=== PATIENT | male | born 1940 | race Caucasian/White ===

== ENCOUNTER 2022-10-27 07:46 | Outpatient (OUT) | payer MEDICARE, OTHER, SELFPAY ==
--- NOTE | 2022-10-27 07:52 | US_ITS ---
The [address] [address] Patient Name: JEFERSON BANGURA MRN: [id number] date: 1940 Sex: M Assigned Patient Location: US Current Patient Location: US Accession/Order Number: [id number] Exam Date: 10/27/2022 08:00 Report Date: 10/27/2022 08:33 At the request of: LISA NOVA Procedure: US renal BI EXAM: US renal BI HISTORY: Chronic Kidney Disease Stage 3 COMPARISON: None. TECHNIQUE: Real-time ultrasound imaging of the kidneys and bladder. Findings: Unremarkable bladder. Prevoid volume of 538 mL. The right and left kidneys measure 8.9 and 11.8 cm. The bilateral renal cortices are echogenic. Within the lower pole the right kidney there is a 0.5 x 0.3 x 0.5 cm nonobstructing stone. Nonobstructing 0.6 x 0.4 x 0.4 cm within the lower pole the left kidney. No renal collecting system dilatation bilaterally. Off the lower pole of the left kidney is a 1.6 x 1.4 x 1.4 cm anechoic lesion with posterior acoustic enhancement likely representing a cyst. No perinephric fluid collection. US/US renal BI IMPRESSION: 1. Echogenic bilateral renal cortices likely relating to chronic kidney disease. 2. Nonobstructing bilateral renal stones. 3. Left renal cyst. Electronically authenticated by: ALBERTO BERNABE Date: 10/27/2022 08:33
== END 2022-10-27 07:47 | disposition home or self-care (01) ==
LOC: US 07:46
PROVIDERS: PCP Family Medicine; Visit Provider Internal Medicine
DX: I12.9 Hypertensive chronic kidney disease with stage 1 through stage 4 chronic kidney disease, or unspecified chronic kidney disease (principal); N18.32 Chronic kidney disease, stage 3b; E11.22 Type 2 diabetes mellitus with diabetic chronic kidney disease; N25.81 Secondary hyperparathyroidism of renal origin; E78.5 Hyperlipidemia, unspecified; M10.9 Gout, unspecified
CPT/HCPCS: 76775

== ENCOUNTER 2022-12-08 10:54 | Outpatient (OUT) | payer MEDICARE, OTHER, SELFPAY ==
[2022-12-08 11:15] LABS: Hemoglobin 14.9 g/dL (14.0-18.0)
[2022-12-08 11:17] LABS: Bilirubin Urine NEGATIVE (NEGATIVE); Blood Urine NEGATIVE (NEGATIVE); Clarity Urine CLEAR (CLEAR); Color Urine LT. YELLOW (YELLOW); Glucose Urine UA NEGATIVE (NEGATIVE); Ketones Urine NEGATIVE (NEGATIVE); Leukocyte Esterase Urine NEGATIVE (NEGATIVE); Nitrite Urine NEGATIVE (NEGATIVE); Protein Urine NEGATIVE (NEG/TRACE); Specific Gravity Urine 1.025 (1.005-1.025); Urobilinogen Urine 0.2 EU/dL (0.2-1.0)
[2022-12-08 11:22] LABS: WBC Urine NONE SEEN #/HPF (NONE SEEN)
[2022-12-08 11:23] LABS: Bacteria Urine NONE SEEN #/HPF (NONE SEEN); Cast Seen? NONE SEEN #/LPF (NONE SEEN); Crystals Seen? None Seen #/HPF (None Seen); Mucus Urine NONE SEEN (NONE SEEN); RBC Urine NONE SEEN #/HPF (0-2); Squamous Epithelial Cell Urine RARE #/LPF (NONE/RARE)
[2022-12-08 12:07] LABS: Creatinine Urine Random 86.65 mg/dL (20.00-300.00); Protein Creatinine Ratio Urine 0.09; Total Protein Urine Random 7.4 mg/dL (<=11.9)
[2022-12-08 12:41] LABS: Albumin Level 3.7 g/dL (3.4-5.0); Anion Gap 10.4; BUN Creatinine Ratio 11.4; Calcium 10.1 mg/dL (8.5-10.1); Carbon Dioxide 29.3 mmol/L (21.0-32.0); Chloride 106 mmol/L (98-107); Estimated GFR (African America 55 (>=60); Estimated GFR (Non-African Ame 45 (>=60); Glucose 119 mg/dL (74-106); Magnesium 1.9 mg/dL (1.8-2.4); Phosphorus 2.7 mg/dL (2.6-4.7); Potassium 4.7 mmol/L (3.5-5.1); Sodium 141 mmol/L (136-145); Uric Acid 3.3 mg/dL (3.5-7.2)
[2023-01-15 12:56] LABS: PTH, Intact 57 pg/mL (15-65)
== END 2022-12-08 10:55 | disposition home or self-care (01) ==
LOC: LAB 10:54
PROVIDERS: PCP Family Medicine; Visit Provider Internal Medicine
DX: I12.9 Hypertensive chronic kidney disease with stage 1 through stage 4 chronic kidney disease, or unspecified chronic kidney disease (principal); N18.32 Chronic kidney disease, stage 3b; E11.22 Type 2 diabetes mellitus with diabetic chronic kidney disease; N25.81 Secondary hyperparathyroidism of renal origin; E78.5 Hyperlipidemia, unspecified
CPT/HCPCS: 36415; 80069; 81001; 82306; 82570; 83735; 83970; 84156; 84550; 85014; 85018

== ENCOUNTER 2023-03-12 07:48 | Outpatient (OUT) | payer OTHER, SELFPAY ==
--- NOTE | 2023-03-12 08:53 | CA_ITS ---
Patient Name: JEFERSON BANGURA MR#: [id number] : 1940 Exam Date: 03/12/2023 Ordering Doctor: CATHERINE SHEPARD ECHOCARDIOGRAM REPORT PROCEDURE: CA ECHO DOPPLER COMPLETE INDICATIONS: Heart failure with reduced ejection fraction, CABG, hypertension COMPARISON: None. DESCRIPTION: COMPLETE ECHOCARDIOGRAM Real-time transthoracic echocardiography with 2D, M-mode, spectral and color flow Doppler performed. QUALITY: Technical quality was good. 72 , 260#, BSA 2.38 m2 LEFT VENTRICLE: Normal chamber size. Normal left ventricular wall thickness. LV EF: Global left ventricular systolic function is difficult to assess but appears moderately reduced; visually estimated ejection fraction is 30-35%. The basal anterolateral, the inferolateral and basal inferior vick are akinetic. Abnormal septal motion; no apparent unusual finding in the post open palpation. DIASTOLIC: Grade II diastolic dysfunction. ATRIAL SEPTUM: Inadequately seen. LEFT ATRIUM: Moderate dilatation. RIGHT ATRIUM: Mild dilatation. RIGHT VENTRICLE:Normal chamber size. Decreased right ventricular systolic function. TRICUSPID VALVE:Normal mobility and thickness. No stenosis with trivial regurgitation. Doppler studies reveal mildly (35-45) elevated right sided pressures. RVSP 37 mmHg MITRAL VALVE: Normal mobility and thickness. No evidence of mitral valve stenosis. There is no mitral annular calcification. Mild mitral regurgitation. AORTIC VALVE: Normal trileaflet appearance. Moderately calcified aortic valve. Doppler velocity suggests moderate aortic valve stenosis. DVI 0.3, AVA1.5 cm2. Mild aortic regurgitation. AORTIC ROOT: Normal diameter and appearance. PULMONIC VALVE: Normal thickness and mobility. No stenosis. Trivial regurgitation. PERICARDIUM: No evidence of pericardial effusion. IVC: IVC is dilated (2.4 cm) and does not fully collapse. CONCLUSION: 1. Global left ventricular systolic function is difficult to assess but appears moderately reduced; estimated ejection fraction is 30 to 35% 2. Segmental wall motion abnormalities seen; consider contrast study for better delineation of endocardial borders 3. Normal right ventricular size with reduced systolic function 4. Biatrial enlargement 5. Grade 2 diastolic dysfunction 6. Mildly elevated right ventricular systolic pressure; RVSP 37 mmHg 7. Mild mitral regurgitation 8. Moderate aortic valve stenosis; mild aortic valve regurgitation Adult Echocardiography Procedure Report Left Ventricle LVEDD (3.7 - 5.6 cm): 5.53 cm LVESD (2.2 - 4.0 cm): 4.96 cm LVIVS thickness (0.6 - 1.2 cm): 0.95 cm LVPW thickness (0.5 - 1.0 cm): 0.93 cm e': 0.06 m/s E - e': 14.18 LVOT Max Gradient: 4.39 mm[Hg] LVOT Area (cm2): 1.05 m/s Peak Velocity (LVOT): 1.05 m/s Mean Velocity (LVOT): 0.67 m/s LVOT Diameter 2.25 cm Left Atrium LA Volume Index (2D A2C): 45.18 ml/m2 Left Atrium Systolic Dimension: 5.78 cm Mitral Valve MV E to A Ratio: 1.27 Mitral Valve A-Wave Peak Velocity: 0.69 m/s Mitral Valve E-Wave Peak Velocity: 0.87 m/s Right Ventricle Aorta AO Root Diam: 3.32 cm Ascending Ao Diam: 3.32 cm Aortic Valve AoV Area (Peak Ray): 1.35 cm2, 1.59 cm2 AoV Area (VTI): 1.52 cm2, 1.52 cm2 Peak Velocity(Antegrade Flow): 2.62 m/s, 3.04 m/s, 3.10 m/s Peak Gradient(Antegrade Flow): 27.48 mm[Hg], 37.02 mm[Hg], 38.43 mm[Hg] Mean Velocity(Antegrade Flow): 1.81 m/s, 2.27 m/s, 1.86 m/s Mean Gradient(Antegrade Flow): 15.04 mm[Hg], 23.97 mm[Hg], 17.24 mm[Hg] Velocity Time Integral: 63.48 cm, 58.65 cm, 61.75 cm Tricuspid Valve Peak Velocity (Regurgitant Flow): 2.36 m/s Pulmonic Valve Peak Gradient: 7.43 mm[Hg], 6.48 mm[Hg] Right Atrium Right Atrium Systolic Pressure: 43.27 ml, 43.27 ml Dictated by: Kelly Ann M.D. on 03/13/2023 at 10:31 Approved by: Kelly Ann M.D. on 03/13/2023 at 10:38
== END 2023-03-12 07:49 | disposition home or self-care (01) ==
LOC: CARD 07:48
PROVIDERS: PCP Family Medicine; Visit Provider Nurse Practitioner
DX: I50.22 Chronic systolic (congestive) heart failure (principal)
CPT/HCPCS: 93306

== ENCOUNTER 2023-09-14 06:52 | Outpatient (OUT) | payer OTHER, SELFPAY ==
--- OUTSIDE RECORDS SUMMARY | 2023-09-14 06:56 | XMS_ITS | CCD ---
Author Organization [facility] Care Team Providers Care Brood Hatchery Manager Name Role Phone Luci Farrell Unavailable Unavailab eloisa Farrell, Luci Peralta Unavailable Unavailab le Bud, Luci Fabian Unavailable Unavailab Marilou Bunch Unavailable Unavailable Bud, Luciarlen Peralta Unavailable Unavailab WING López Referring Unavailable UNKNOWN, PROVIDER Admitting Unavailable UNKNOWN, PROVIDER Attending Unavailable WING PEREZ Primary Care Unavailable WING PEREZ Primary Care Physician [phone] CHRIS, DR WING Dickinson Primary Care Unavailable CHRIS, DR WING Dickinson Admitting Unavailable CHRIS, DR WING Dickinson Attending Unavailable CHRIS, DR WING Dickinson Consulting Unavailable CHRIS, DR WING Dickinson Admitting Unavailable CHRIS, DR WING Dickinson Attending Unavailable CHRIS, DR WING Dickinson Consulting Unavailable CHRIS, DR WING Dickinson Primary Care Unavailable Pk Monge. Primary Care Physician Tita Keyes Unavailable JOSE ANGEL LONGORIA Attending Unavailable JOSE ANGEL LONGORIA Attending Unavailable TRENT FENRANDEZ Attending Unavailable ARPITA REGALADO Attending Unavailable Pk Monge Attending Unavailable Pk Monge Admitting Unavailable Danny BAEZ Attending Unavailable Pk Monge Referring Unavailable Blackman, Basem GAnnel Admitting Unavailable Blackman Basem GAnnel Attending Unavailable Pk Monge Attending Unavailable Pk Monge Attending Unavailable Pk Monge Attending Unavailable Pk Monge Attending Unavailable Pk Monge Attending Unavailable Pk Monge Attending Unavailable Pk Monge Attending Unavailable Pk Monge Attending Unavailable Pk Monge Admitting Unavailable Pk Monge Attending Unavailable Allergies Allergy Classification Reported Allergen(s) Allergy Type Date of Onset Reaction(s) Facility Acetaminophen / oxyCODONE (1 source) Acetaminophen / oxyCODONE Drug Allergy 4 [facility] Repository (7 sources) Acetaminophen / oxyCODONE; Translations: [acetaminophen-ox ycodone] Drug Allergy Mild (qualifier value) [facility] (1 source) Acetaminophen / oxyCODONE Drug Allergy 6 [facility] Repository (2 sources) gabapentin; Translations: [gabapentin] Drug Allergy 0 [facility] Repository (1 source) tamsulosin Drug Allergy 6 [facility] Repository (3 sources) gabapentin; Translations: [gabapentin] Drug Allergy Unknown (qualifier value) [facility] (1 source) Acetaminophen / oxyCODONE; Translations: [OXYCODONE-ACETAM INOPHEN] Drug Allergy 4 [facility] Repository Medications Current Medications Medication Drug Class(es) Dates Sig (Normalized) Sig (Original) allopurinol 300 mg oral tablet (3 sources) Xanthine Oxidase Inhibitor Start: 08-06-2022 take 1 tablet by mouth once daily allopurinol 300 mg Tab 300 mg, Oral, Daily, # 90 tab(s), Refills(s) 1, Pharmacy: [facility], 185, cm, 08/06/22 10:21:00 EDT, Height/Length Dosing, 119, kg, 08/06/22 10:21:00 EDT, Weight Dosing Start Date: 08/06/22 Status: Ordered Start: 08-29-2019 take 300 mg by mouth once helena y allopurinol 300 mg, Oral, Daily, Refills(s) 0 Start Date: 08/29/19 Status: Ordered ALPRAZolam 0.5 mg disintegrating oral tablet (3 sources) Benzodiazepine Start: 09-06-2021 take 1 tablet by mouth three times daily as needed for anxiety alprazolam 0.5 mg oral tablet, disintegrating 0.5 mg = 1 tab(s), Oral, TID, PRN for anxiety, Refills(s) 0 Start Date: 09/06/21 Status: Ordered take 1 tablet by garrett th once daily as needed ALPRAZolam 0.5 MG 1 tablet Orally ONCE A DAY PRN Active amitriptyline hydrochloride 10 mg oral tablet (3 sources) Tricyclic Antidepressant Start: 08-06-2022 take 1 tablet by mouth once daily at bedtime amitriptyline 10 mg Tab 10 mg, Oral, Once a day (at bedtime), Take 2 hours before bedtime, # 90 tab(s), Refills(s) 1, Pharmacy: [facility], 185, cm, 08/06/22 10:21:00 EDT, Height/Length Dosing, 119, kg, 08/06/22 10:21:00 EDT, Weight Dosing Start Date: 08/06/22 Status: Ordered Start: 08-29-2019 amitriptyline Oral, Once a day (at bedtime), Refills(s) 0 Start Date: 08/29/19 Status: Ordered Ascorbic Acid (3 sources) Vitamin C Start: 08-29-2019 Vitamin C Helena y, Refills(s) 0 Start Date: 08/29/19 Status: Ordered take 1 tablet by garrett th every twenty-four hours Vitamin C 500 MG 1 tablet Orally Once a day Active aspirin 81 mg oral tablet (5 sources) Platelet Aggregation Inhibitor, Nonsteroidal Anti-inflammatory Drug Start: 08-29-2019 take 81 mg by mouth once daily aspirin 81 mg, Oral, Daily, Refills(s) 0 Start Date: 08/29/19 Status: Ordered take 1 tablet by garrett th every twenty-four hours Aspirin 81 MG 1 tablet Orally Once a day Active atorvastatin 20 mg oral tablet (5 sources) HMG-CoA Reductase Inhibitor Start: 08-29-2019 End: 12-26-2023 take 1 tablet by mouth once daily atorvastatin 20 mg Tab 20 mg, Oral, Daily, X 90 day(s), # 90 tab(s), Refills(s) 3, [facility], 178, cm, 12/31/22 15:01:00 EDT, Height/Length Dosing, 120, kg, 12/31/22 15:01:00 EDT, Weight Dosing Start Date: 12/31/22 Stop Date: 12/26/23 Status: Ordered cholecalciferol 0.01 mg oral tablet (1 source) Vitamin D take 2 tablets by mouth once daily Vitamin D3 10 MCG (400 UNIT) 2 tablets Orally Once a day Active Chondroitin Sulfates / Glucosamine (4 sources) Start: 08-06-2022 take 1 tablet by mouth once daily Osteo Bi-Flex oral tablet 1 tablet, Daily, Refill(s) 0 Start Date: 08/06/22 Status: Ordered Osteo Bi-Flex On e Per Day - as directed Orally Active dapagliflozin 10 mg oral tablet (2 sources) Sodium-Glucose Cotransporter 2 Inhibitor Start: 09-01-2023 take 1 tablet by mouth once daily Farxiga 10 mg oral tablet 10 mg = 1 tab(s), Oral, Daily, Refills(s) 0 Start Date: 09/01/23 Status: Ordered docusate sodium 100 mg oral tablet (5 sources) Start: 08-29-2019 take 100 mg by mouth twice daily Colace 100 mg, Oral, BID, Refills(s) 0 Start Date: 08/29/19 Status: Ordered take 2 capsules by [facility] every twelve hours Colace 100 MG 2 capsule as needed Orally TWICE A DAY Active fenofibrate 200 mg oral capsule (3 sources) Peroxisome Proliferator Receptor alpha Agonist Start: 08-06-2022 take 1 capsule by mouth once daily fenofibrate 200 mg oral capsule 200 mg = 1 cap(s), Oral, Daily, # 90 cap(s), Refills(s) 1, Pharmacy: [facility], 185, cm, 08/06/22 10:21:00 EDT, Height/Length Dosing, 119, kg, 08/06/22 10:21:00 EDT, Weight Dosing Start Date: 08/06/22 Status: Ordered Start: 01-09-[address] [facility] once daily fenofibrate 200 mg oral capsule 200 mg = 1 cap(s), Oral, Daily, # 30 cap(s), Refills(s) 0 Start Date: 01/09/20 Status: Ordered finasteride 5 mg oral tablet (3 sources) 5-alpha Reductase Inhibitor Start: 09-08-2022 End: 09-03-2023 take 1 tablet by mouth once daily finasteride 5 mg Tab 5 mg = 1 tab(s), Oral, Daily, X 90 day(s), # 90 tab(s), Refills(s) 3, Pharmacy: [facility], 185, cm, 09/08/22 8:40:00 EDT, Height/Length Dosing, 116, kg, 09/08/22 8:40:00 EDT, Weight Dosing Start Date: 09/08/22 Stop Date: 09/03/23 Status: Ordered Start: 08-29-2019 take 5 mg by mouth once daily finasteride 5 mg, Oral, Daily, Refills(s) 0 Start Date: 08/29/19 Status: Ordered Fish Oils (5 sources) Start: 01-09-2020 Fish Oil Oral, Daily, Refill(s) 0 Start Date: 01/09/20 Status: Ordered take 1 capsule by mouth once verenice ly Fish Oil 1200 MG 1 capsule Orally Once a day Active furosemide 20 mg oral tablet (5 sources) Loop Diuretic Start: 12-31-2022 take 1 tablet by mouth once daily furosemide 20 mg Tab 20 mg = 1 tab(s), Oral, Daily, # 90 tab(s), Refills(s) 1, Pharmacy: [facility], 178, cm, 12/31/22 15:01:00 EDT, Height/Length Dosing, 120, kg, 12/31/22 15:01:00 EDT, Weight Dosing Start Date: 12/31/22 Status: Ordered Start: 08-29-2019 take 1 tablet by garrett th once daily furosemide 20 mg Tab 20 mg = 1 tab(s), Oral, Daily, # 90 tab(s), Refills(s) 1, Pharmacy: [facility], 185, cm, 08/06/22 10:21:00 EDT, Height/Length Dosing, 119, kg, 08/06/22 10:21:00 EDT, Weight Dosing Start Date: 08/06/22 Status: Ordered glipiZIDE 5 mg oral tablet (5 sources) Sulfonylurea Start: 03-02-2023 take 1 tablet by mouth once daily glipiZIDE 5 mg Tab 5 mg, Oral, Daily, # 90 tab(s), Refills(s) 1, Pharmacy: [facility], 178, cm, 03/02/23 10:10:00 EST, Height/Length Dosing, 118.1, kg, 03/02/23 10:10:00 EST, Weight Dosing Start Date: 03/02/23 Status: Ordered Start: 08-29-2019 take 1 tablet by garrett th once daily glipiZIDE 5 mg Tab 5 mg, Oral, Daily, # 90 tab(s), Refills(s) 1, Pharmacy: [facility], 185, cm, 08/06/22 10:21:00 EDT, Height/Length Dosing, 119, kg, 08/06/22 10:21:00 EDT, Weight Dosing Start Date: 08/06/22 Status: Ordered metFORMIN hydrochloride 500 mg oral tablet (3 sources) Biguanide Start: 03-02-2023 take 1 tablet by mouth twice daily metformin 500 mg ER Tab 500 mg = 1 tab(s), Oral, BID, # 180 tab(s), Refills(s) 0, Pharmacy: [facility], 178, cm, 03/02/23 10:10:00 EST, Height/Length Dosing, 118.1, kg, 03/02/23 10:10:00 EST, Weight Dosing Start Date: 03/02/23 Status: Ordered take 1 tablet by garrett th every twelve hours metFORMIN HCl ER 500 MG 1 TABLET Orally TWICE A DAY Active 24 hr metoprolol succinate 100 mg extended release oral tablet (5 sources) beta-Adrenergic Michael Start: 03-02-2023 take 1 tablet by mouth once daily metoprolol 100 mg ER Tab 100 mg = 1 tab(s), Oral, Daily, # 90 tab(s), Refills(s) 1, Pharmacy: [facility], 178, cm, 03/02/23 10:10:00 EST, Height/Length Dosing, 118.1, kg, 03/02/23 10:10:00 EST, Weight Dosing Start Date: 03/02/23 Status: Ordered Start: 01-09-2020 take 1 tablet by garrett th once daily metoprolol 100 mg ER Tab 100 mg = 1 tab(s), Oral, Daily, # 90 tab(s), Refills(s) 1, Pharmacy: [facility], 185, cm, 08/06/22 10:21:00 EDT, Height/Length Dosing, 119, kg, 08/06/22 10:21:00 EDT, Weight Dosing Start Date: 08/06/22 Status: Ordered 24 hr oxybutynin chloride 10 mg extended release oral tablet (5 sources) Cholinergic Muscarinic Antagonist Start: 01-01-2023 take 1 tablet by mouth twice daily oxybutynin 10 mg ER Tab 10 mg = 1 tab(s), Oral, BID, # 180 tab(s), Refills(s) 3, Pharmacy: [facility], 178, cm, 12/31/22 15:01:00 EDT, Height/Length Dosing, 120, kg, 12/31/22 15:01:00 EDT, Weight Dosing Start Date: 01/01/23 Status: Ordered Start: 09-08-2022 End: 09-03-2023 take 2 tablets by mouth once daily oxybutynin 10 mg ER Tab 20 mg = 2 tab(s), Oral, Daily, X 90 day(s), # 180 tab(s), Refills(s) 3, Pharmacy: [facility], 185, cm, 09/08/22 8:40:00 EDT, Height/Length Dosing, 116, kg, 09/08/22 8:40:00 EDT, Weight Dosing Start Date: 09/08/22 Stop Date: 09/03/23 Status: Ordered Start: 07-11-2021 take 2 tablets by [facility] once daily oxybutynin 10 mg ER Tab 20 mg = 2 tab(s), Oral, Daily, # 180 cap(s), Refills(s) 3, Pharmacy: [facility], 185, cm, 03/08/21 8:55:00 EST, Height/Length Dosing, 129, kg, 03/08/21 8:55:00 EST, Weight Dosing Start Date: 07/11/21 Status: [facility] oxyBUTYnin Chloride ER 10 MG 1 tablet Orally TWICE A DAY Active pantoprazole 40 mg delayed release oral tablet (5 sources) Proton Pump Inhibitor Start: 09-01-2023 take 1 tablet by mouth once daily Pantoprazole [address] Tab 40 mg = 1 tab(s), Oral, Daily, Refills(s) 0 Start Date: 09/01/23 Status: Ordered Start: 08-06-2022 End: 08-01-2023 take 1 tablet by mouth once daily Pantoprazole [address] Tab 40 mg, Oral, Daily, X 90 day(s), # 90 tab(s), Refills(s) 3, Pharmacy: [facility], 185, cm, 08/06/22 10:21:00 EDT, Height/Length Dosing, 119, kg, 08/06/22 10:21:00 EDT, Weight Dosing Start Date: 08/06/22 Stop Date: 08/01/23 Status: Ordered Start: 08-29-2019 take 40 mg by mouth once daily pantoprazole 40 mg, Oral, Daily, Refills(s) 0 Start Date: 08/29/19 Status: Ordered sacubitril 49 mg / valsartan 51 mg oral tablet (4 sources) Angiotensin 2 Receptor Michael Start: 07-14-2022 take 1 tablet by mouth twice daily Entresto 49 mg-51 mg oral tablet 1 tab(s), Oral, BID, Refill(s) 0 Start Date: 07/14/22 Status: Ordered spironolactone 25 mg oral tablet (2 sources) Aldosterone Antagonist Start: 09-01-2023 take 0.5 tablet by mouth once daily spironolactone 25 mg Tab See Instructions, Take 1/2 orally daily, Refills(s) 0 Start Date: 09/01/23 Status: Ordered tamsulosin hydrochloride 0.4 mg oral capsule (5 sources) alpha-Adrenergic Michael Start: 09-06-2021 End: 09-03-2023 take 1 capsule by mouth twice daily tamsulosin 0.4 mg Cap 0.4 mg = 1 cap(s), Oral, BID, X 90 day(s), # 180 cap(s), Refills(s) 3, Pharmacy: [facility], 185, cm, 09/08/22 8:40:00 EDT, Height/Length Dosing, 116, kg, 09/08/22 8:40:00 EDT, Weight Dosing Start Date: 09/08/22 Stop Date: 09/03/23 Status: Ordered traZODone hydrochloride 50 mg oral tablet (2 sources) Serotonin Reuptake Inhibitor Start: 07-21-2023 take 1 tablet by mouth once daily at bedtime traZODONE 50 mg Tab 50 mg = 1 tab(s), Oral, Once a day (at bedtime), # 90 tab(s), Refills(s) 3, Pharmacy: [facility], 178, cm, 07/21/23 14:10:00 EDT, Height/Length Dosing, 121, kg, 07/21/23 14:10:00 EDT, Weight Dosing Start Date: 07/21/23 Status: Ordered Vitamin D (4 sources) Start: 08-29-2019 Vitamin D 5000, Oral, Daily, Refills(s) 0 Start Date: 08/29/19 Status: Ordered Vitamin E (2 sources) Start: 08-29-2019 vitamin E Oral, Daily, Refills(s) 0 Start Date: 08/29/19 Status: Ordered Vitamin E 400 UNIT (1 source) take 1 capsule by mouth once daily Vitamin E 400 UNIT 1 capsule Orally Once a day Active Problems Active Problems Problem Classification Problem Date Documented Date Episodic/Chronic Anxiety disorders (3 sources) Anxiety 07-14-2022 Chronic Calculus of urinary tract (6 sources) Urinary bladder stone; Translations: [Kidney stone] 01-09-2020 Episodic Cardiac dysrhythmias (2 sources) Ventricular premature depolarization; Translations: [Ventricular premature depolarization] Onset: 4 Chronic Chronic kidney disease (6 sources) Chronic kidney disease stage 3; Translations: [Chronic kidney disease stage 3B ] Onset: 2 07-14-2022 Chronic Chronic kidney disease (3 sources) Chronic kidney disease; Translations: [Chronic kidney disease, stage 3a] Onset: 2 Congestive heart failure; nonhypertensive (2 sources) Chronic systolic (congestive) heart failure; Translations: [Chronic systolic (congestive) heart failure] Onset: 2 Chronic Coronary atherosclerosis and other heart disease (5 sources) Coronary artery stenosis; Translations: [Atherosclerotic heart disease of [place] coronary artery without angina pectoris] Onset: 4 07-14-2022 Chronic Coronary atherosclerosis and other heart disease (2 sources) Presence of aortocoronary bypass graft; Translations: [Presence of aortocoronary bypass graft] Onset: 4 Episodic Coronary atherosclerosis and other heart disease (1 source) Coronary atherosclerosis and other heart disease Onset: 7 Diabetes mellitus with complications (3 sources) Type 2 diabetes mellitus with unspecified complications; Translations: [Disorder of kidney due to diabetes mellitus] Onset: 2 Chronic Diabetes mellitus without complication (9 sources) Type 2 diabetes mellitus without complications; Translations: [Type 2 diabetes mellitus] Onset: 2 Chronic Comment on above: Linked per outpatien t CDI policy. Disorders of lipid metabolism (13 sources) Mixed hyperlipidemia; Translations: [Pure hypercholesterolemia, unspecified] Onset: 2 Chronic Esophageal disorders (1 source) Esophageal disorders Onset: 7 Essential hypertension (5 sources) Hypertensive disorder; Translations: [Benign hypertension] 07-14-2022 Chronic Comment on above: Linked per outpatien t CDI policy. Essential hypertension (1 source) Essential hypertension Onset: 7 Genitourinary symptoms and ill-defined conditions (8 sources) Urge incontinence; Translations: [Post-micturition incontinence ] Onset: 2 Chronic Genitourinary symptoms and ill-defined conditions (20 sources) Dysuria; Translations: [[place] hematuria] 02-13-2020 Episodic Gout and other crystal arthropathies (2 sources) Gout, unspecified; Translations: [Gout] Onset: 2 Chronic Heart valve disorders (2 sources) Nonrheumatic aortic (valve) stenosis; Translations: [Nonrheumatic aortic (valve) stenosis] Onset: 2 Chronic Hyperplasia of prostate (6 sources) Benign prostatic hypertrophy with outflow obstruction; Translations: [Benign prostatic hyperplasia with lower urinary tract symptoms] Onset: 2 Chronic Hypertension with complications and secondary hypertension (3 sources) 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; Translations: [Hypertensive chronic kidney disease with stage 5 chronic kidney disease or end stage renal disease] Chronic Inflammatory conditions of male genital organs (5 sources) Chronic prostatitis; Translations: [Chronic prostatitis] Onset: 2 Chronic Inflammatory conditions of male genital organs (2 sources) Prostatitis 01-09-2020 Episodic Nutritional deficiencies (1 source) Vitamin D deficiency, unspecified; Translations: [VITAMIN D DEFICIENCY UNSPECIFIED] Onset: 2 Chronic Other connective tissue disease (1 source) Polymyalgia rheumatica 07-14-2022 Chronic Other diseases of kidney and ureters (1 source) Secondary hyperparathyroidism; Translations: [Secondary hyperparathyroidism of renal origin] Chronic Other diseases of kidney and ureters (1 source) Secondary hyperparathyroidism of renal origin Chronic Other endocrine disorders (1 source) Hyperparathyroidism, unspecified; Translations: [HYPERPARATHYROIDISM UNSPECIFIED] Onset: 2 Chronic Other endocrine disorders (1 source) Hyperparathyroidism 07-14-2022 Chronic Other nutritional; endocrine; and metabolic disorders (3 sources) Body mass index 30+ - obesity 08-06-2022 Chronic Residual codes; unclassified (3 sources) Obstructive sleep apnea syndrome 07-14-2022 Chronic Residual codes; unclassified (2 sources) Insomnia 12-31-2022 Episodic Unclassified (1 source) Benign prostatic hyperplasia without lower urinry tract symp / N40.0(ICD-10) Onset: 7 Unclassified (1 source) Athscl heart disease of [place] coronary artery w/o ang pctrs / I25.10(ICD-10) Onset: 7 Unclassified (1 source) Hallucinations, unspecified / R44.3(ICD-10) Onset: 7 Unclassified (2 sources) Incisional hernia with obstruction, without gangrene / K43.0(ICD-10) Onset: 7 Unclassified (1 source) Anxiety disorder, unspecified / F41.9(ICD-10) Onset: 7 Unclassified (1 source) alf (current) use of aspirin / Z79.82(ICD-10) Onset: 7 Unclassified (1 source) Incisional hernia without obstruction or gangrene / K43.2(ICD-10) Onset: 7 Unclassified (1 source) Presence of aortocoronary bypass graft / Z95.1(ICD-10) Onset: 7 Unclassified (4 sources) Finding of sensation of bladder 08-29-2019 Viral infection (3 sources) Herpes zoster 07-14-2022 Episodic Past or Other Problems Problem Classification Problem Date Documented Da te Episodic/Chronic Abdominal hernia (1 source) Incisional hernia without obstruction or gangrene; Translations: [Incisional hernia without obstruction or gangrene] Onset: 10-14-2016 Episodic Unclassified (1 source) Incisional hernia with obstruction, without gangrene; Translations: [Incisional hernia with obstruction, without gangrene] Onset: 10-15-2016 Results Test Name Value Interpretation Reference Range Facil ity Insurance Correspondenceon 0 09-10-2023 Insurance Correspondence [id number]#[id number] Pina [facility] Coding Summary.on 09-08-2023 Coding Summary. VYWJNcwh49IAk0qQm+PG hlYW Q+WO3FKKYwS70qsNKptP4eZ7 NMTElOSywgQVBQTElOSyIgbm KiJX6noCXcQVIm IC8+KZ7nXNAxRykefEYhr1O4 wXV9K90ohd9oYOtkgPA7AMKh JjCwuytez0cceCe2UExwJyik OyBt CDMpvQ44TFK2rD41Fr32rYKf fUTrk2rskXj4BrRsIPVjUVA1 oGnbLNnqp9WzQZShI20paPHf c2U6 XBNfaLcyiTKjPpRajQB0bQ3w DXicotesy4qkrtyeZjy0rz43 nZWpr9S6gEZ3Y5LxrdR8BVKr bGQg ThpouAGGwL2ssjzyl6fqnpvy CkGiWMJaZLv6OWs0GVBskEom JvHrGH07DUI1VPHtfmMfO0Ya LWFs bZplIvY7r9T1Rv7YV7PBGajl W5CPKMTNFHpvuVU+YX16ro28 A2XmPtffXyy0FAMhIWS5qQX8 aD0n QTQkFYhny8X0kVP0K3WsezGx di0ss6xkZSNvYStbL58lhPIt j9E0MIWnsJC6VPEorPzqYwRl aG93 Oyc+QNZlaZhzz6GoKoccw5gm g5nawXb4TmahQLUrivYxlSbh NUP8m9BtLp7fEEGxfWL3eWY6 aD0i PbYrSpC2NNleV625PeKsrWYb VsitM50yK4HdvXB+PHRyPjx0 IGHxwSkyAG9rP8DjFGQlfhsg bGVm uIfiTM3wITGnncsiNVVfnZ0h GKMfD4r3MuOgUfZ1BAfsH1Zu ARGxcmwrJf18vT8qYhTuQjM8 MGlu R7LrnvU4VCPiyBHdYGciNHS5 Q41cz5Z5LMFfGOYhIFU2lYT9 xO2pvUmkxtgurPOkgDhsmnAs dGlj VXksZIzoG955GRQjxRmtVpHa ZGluZyBEYXRlOiAgMDYvMTgv MjAyNDwvdGQ+YEItDNX9uRax PSAn qOVwFZltNi7ggZsurErmYM1d LOMcjmlhFWOqmA4xDMGutTEa lEtiUJ2oCXNcyczwo440PkBr MHB0 LOBqdGSuQ4OzfU7qShSlXJZs BLOrP2TyqCUoXVyyH305XAoj MbH8SRLnpbQtV9OyBXRpjZfh OiB0 z0A9Wy1Lu8SajcpkJ8EogDCq UrUeLmkdKZj1A7BtVjnfaIZ+ GY72EIHgGL62PEx9TKB8rEcs PSdi HFJqI8DkfP2sObQbTMJcSQHc Oyc+PHRhYmxlIHdpZHRoPScx BGFsNrSyaNauNK8jYj8iPFSk LWNv mNfqrGLvDjCqb0vlSTVnKNil SY6dxWbvK6UcmGO9ZSJxw8m9 Pt80B90mY9UhwCO+PGNvbCB3 aWR0 gI9aHdCwJgU4KRkuD828OkPm oBXjBgxcd8qci2rtwVz2UyG5 DSYmsqHhmFwdGHG6z5PsSp56 Y29s IHdpZHRoPSIxNSUiIHZhbGln ga8ehZ9dDj6+HUProMQ3bUB8 iD4dGaNgTuH0XTknZ530OdOb cCIv Kmivo2kvj9wxuTc8OpTsPPNe ohXfuVdhOWH3o2KnLq68C5Ik sRczv5AbLta8qp33yYQeg4I5 bGU9 T7ItAJExdqgnlMUocLiaGR7z JCQyewvgLKJhsP5wJHSgC6g3 UoBkMkK7WZalK5WhakM3PBGh bGQg QZQabIFMoG8ylytgv7kwbtre JzEsCCUwDQl5HWu9VVVewKdf EwNwMOG0EwD9CJH2nKTbhS5l bGln atkvyB2xNpk+CIP3jXIgzFUQ GC9oDrtmrZS+CEKdKQB4jGbf CVneUWRbhK5iFOIyU0i3HsSc LjA1 KVztL9NhfzF8NTRubCOvGEYq oXBScE7cqtzcx0bwovtyEsPl MDIwVEw4IKe8HBTndJzfShLd ZWZ0 GiW7EQD8eLPyfD7boZgslrnk zL0jSal+MzzheTfpRFA2MFj0 N2TbSeh9TZJlfYxaGS9ulMXy ZGlu Zi0thDsobLucRJ0sHWVahspj k059NaMeo1twXMEulVEdCOen UNU1C58qa0V6CQJwLJKkUOA9 dGV4 lD3xqBlolldvmVCvhJumbyCy zXgmRSflHTlkY557USTviRsp PaHeXAu7O3WvVfj3OJTxzOan ZT0n qVRvZQqmCz1vqMbxeConAO0g HACcuzsnr606XsQca1jvMGVj fMMyDMrnTNT9Y54of0U4YAFk MDAw TZO3rEQ2uP3xhHslktarvUBh qKmorcMoeXlqPJxyZJroM261 APWfxRkkQhFoyAd6M9BvCzn5 ZCBz iIjlTD0ldAUxNOmgGj0jaUaf jHvzAF3wTDPdpzzkn282BcDu k7stXBUctWWtSYvhSQP3B92y b3I6 QNKgWRPkSLH8dMF6mH1cnSkh bjogbGVmdDsgdmVydGljYWwt DOvdU565NXKblHbbOgTnwBje bnQg ZMhkLLu0K4LmGfmpnIB+PC90 MLHfDT25lBOvaTKrj2zigVl3 OcYlTMTrWJJ6zPpwHCmjb4Sl ZXIt F89btPMyq7O2KJXnsXzcnAWo QiRfvHF3bT8nWUfnlufrl9pb zgpvSledo2gikz08kN16H59u IHdp IWSnNLVbJYNyKZUleZbixk2w dW4mNo8+BEDwyCR2rZY6wO4y RHSwVfR3NCrrY768UjOizPWf Pjxj o1mes9wciNc6KlW1OHKobqMm oEzeHLA3v6WdOa66V05eEIkl MZIjITDtGUDcQZUszEvmbi7u dG9w Ii8+AHYyzLS8vSC4mC9wNaHu YpN6MDkcB827KcZktLWkCcsq A57dB5XbnBU+FLZhQrk3VKXz dHls JR5zxIKeHXdaIl5qZNC1AdKz EeHaWXwiP7CtDPYuitbpyikz rVW4MHQcXLWwuJ70Hn6rcZdn MTBw yPVRbR0cbcsur8tgxwcjKbJv URJwIAo9CQz5VQMndJpfFeFr LWM5CxQ4RQV9sVHjbG8osXll bjog wQ5aT9JsDENqculmGi10vN8u BnAwImL9KCyaEqv+TUVZRVIs BQvWNg5NAJriJPjqzXP+PHRk IHN0 xJtdUUdcTEXkzC8aLJRgN8z2 JiIeRvB5IWvrN4FoQQJrnksa Uv56sF0wRySqUrZ6TBakY2Ix bnQ6 TJTtsUWmPLqxLZD9D87jf2M4 PGYzLFOzZXO4xSS9iX8epQyv bjogbGVmdDsgdmVydGljYWwt YWxp I619JEQreAcmGjLfEeAbYuY4 ZIH5P1IuEcc5IUNjzJdiTH8t bLEmSUejRt3yvMiboYjkRO1g NTBp hwmvVTGrwV3qWZDhlLRtlOtc HJ2rTYXkcvjks623FyNeJBN6 ZRQijFRdK1AqdH3mCdPhNQVm MDAw H9PwdRNaDGcfJ777UXlpZvY2 EKAtzjLrS2OwMNFmcJroTdC0 n1C7Sg61BMCBTAKbvtlleKC+ PHRk CDL8oYsmUUeaHBUkzV6sYAHy I8y9NdShNtS5RKdhX6ZqKSWo blrcVf25vB2pSpWfPuP0RWmr O2Zv hyH0PIJzqDEwUDvcRCX2G56d x2K8YGMdGCNtKHV2zUK9lV9u bGlnbjogbGVmdDsgdmVydGlj YWwt DDrcG254KWMlhZmhWy5yeMX2 G4IhAvh9TIOpgOqwII0swKNu NDarYe6fiSzfzMweMA4eECSz bjtw HJQmoQ3nXWEzdOXomJgjSC0z QJIecdnon847EyTtTAY1QBLy rCMnX9VwfV6zThKfXIXoCEBc O3Rl rDMtKAjyA529WUpgByK4FJLt ktXhX0VsQSFkrNzwYkA3s0H2 Xv4ONJGuPRFfgENcSlQ1O9Qi Pjwv dHI+TQ65DYOfQP45sWOrjYBl w1ldrXd6EoVwOMAvJAB6nOnu CLjag8EiNOLyT44kjYUnc7L1 IGNv oUpwlYBdZwHjcCH4cM8zBSyn wkynq7xpzcexHzboe5vnwn87 cJ07P97wHLjwYCYmCVGpOHSl IHZh eDwlhr7zdU8qNp9+PGNvbCB3 oBL0bH4tVfFsUoL0PMylF813 MnNjtSTnLsqcc7req1nfoUo3 IjIw YHGhqvRecHoaXMD7d8NiHj16 N12uNKpbNKPcQQTdEDPzXFKg cSmqxx3deK6zHo6+TT7wg1xv cm91 xU07xPI+AKWdUBK6vCovARkn QINczH5xNXivMrT4PHUmZeVd tT75hJYsTFnyMh7hvKpjxSfe MC4w FNOdalefm924NfVrs6nkYREe rYAmOMamKLB1J65sa4L1DGTa MNMkZDE6bPB3nS6cdWjntkyb bGVm oNispiGeiGilIDbeFHudK432 FKIecVnfIxDqyYOtU0ioqnFJ KW8eZgnhnDL+OYMsSSG8jCwb PSdw YTDjvK5lPQHiB1f6XrOoPiN7 BJejL9AfnxN4SWIlvIUoAHUo tTXHkM4dkbelc6mdofvcCjTh MDAw SCy1ZRf0OMIleJavJuTdTET7 WlN1RVF9tPCscF3tlArbhukq wF8qTxj+RklOOjwvdGQ+PHRk IHN0 fZnaNZutVZInpY5jZIApK3v2 EuFlXiX9BEixC0XqptG9OJXa aNWeLVWftZTMsJ4zbuqtg8zp cjog BgPoYBPoCOu6HRq0MXZqzOel FsOvABH4OyH7ERR4eKYatV9y vMtpxrbkfZ9hNiy+TVJOOjwv dGQ+ JBKjUQE8cFrvQUeiHTUmnS8x LVDsB1f8TbUnOlD2SBtnN2Kv miU7LDDpmTNxCDPciPGHxW5m cztj t3ivxdxvOgXhBLLdHIy7NOw0 WXUucWunKcCaMIJ6TqT1OLE0 hVPceZ1taTpviyqfmG0aUdw+ UGF5 RXC8QB88TH26I9SpLnujnMOb bGU+PHRhYmxlIHdpZHRoPScx TYRbKbVieMgnXZ7uZc0nNYKe LWNv bGxhcHNlOiBjb (more content not included)... [facility] Coding Summary. NUPKIijz76DOb2rTy+PG hlYW Q+DH2NFJKcQ28seWUndB7rU4 NMTElOSywgQVBQTElOSyIgbm CtWC9qeIEcDUVt IC8+XY0kZMJtXauimBOqf3V6 qPU9K17tlx8yBVoaaPR6HDVy YyUddvgyz2mhxMw2WPalApci OyBt SSGwuT45XVU5sJ91Ur11yDGa bCHhy7ygzOk7TeHtRYMqVTM3 gXfxDFiuc6DvUMZyN95tvLPr c2U6 YCAqbUojlZEuCaFvvSF1tP8c MCopsdpln0kjrkpnYnk1xt51 cFWdt6Y5zLI4Z2QjhbF8YQNp bGQg MhwzpGVBmF2rtbapb3eqengt DpDtJQTzKFw6RTa5XXNruInk WcQyVV71NBZ9ERZbaeEzB2Hl LWFs xMtlBaB9f4H4Eh6DR9PCPrva Z5XFCRNMNYsuvJU+LZ58ai27 Q5YaExjsYiq0IIXsCDX4lBW4 aD0n TFZdLAocm3V3lVK4E3XznhNl ic6ze9kiCQObHIlkE55jvCDt f4Y6VKGwmWO5ZJWleGvsJxBo aG93 Oyc+CNWtaRbyt5UyZwdjk6xe v2hrwBl0CrgsMCSghdLhmCou VPI3k2WpZi3yAISvlQK9qFU3 aD0i XeArKeK5STddG940NeMvfBYc NxqiI13kC8TurDF+PHRyPjx0 OKDopGhdYZ6hQ3NqJDIatgut bGVm rIsiYL0aYSIwaopsNWFwgN1c OQZkC9l9UiEnAfR4XZzeI4Jw INZcfhcbPr64fJ5nObBzHjX4 MGlu P6EaqhC9JLYncTFaWLgeOTM0 O94uz3W0JJJiQLTwJPG4cRE7 rB8ooVfhumcibWEznAidfgMn dGlj OQllTQbyP992ZCGxcMuaKcVp ZGluZyBEYXRlOiAgMDYvMTgv MjAyNDwvdGQ+GWWwQME1pJbb PSAn mFGmSCkbPs5puHkfrWezCW3a IZPbgeruNSIqgD8xETWnkDVd iNocJI7pWYRjpduyq708KpXx MHB0 REAqdQEfZ0VzhK7iCjYdGPKy GPBwK0KjoENoWWdfX986TGdz QeZ2HWIjmgJmV1RqQLUdrUmc OiB0 c1O2Zt3Kv9WubmolE3PrnDZj BdGkWltvCZi8R6ZqLpkftWL+ AV05HDLgSJ87VGw7MUS8zGxe PSdi FHHiT2ZbfO2jHqFwJXNiCNHw Oyc+PHRhYmxlIHdpZHRoPScx KKGxNuRwtNhlMO0zLw9mJVJv LWNv rSvkhJWjHkYja1nhCALeHYha MD0xuKnzV6MclLA4WHOzv5v8 Ds55W90oD7VhmEH+PGNvbCB3 aWR0 eK4fQbDcXnP3AIutB674AnFw fDRoQynah0vue4cbcTd2IrM2 QSTodgAflMmxKGU4s7FkQs60 Y29s IHdpZHRoPSIxNSUiIHZhbGln wg7dqB1aNa0+POFvcOR2fDF6 iF6rYdUaUbN7POgwD327ZgOd cCIv Nvubq9aiu2hvnHf8RtTcHLZv awJezLtwDSM1b6NtOt74V2Jn mMczb9SpNen1ft31eMZnp7S4 bGU9 U6IoYTChxmckyZWdaHwwZH2k JFTsesakVVWzuF3cWXCzF1t9 MxTaEjC7QTpzX0OmaqN0ZWIe bGQg XEMbiSYNnQ5efwybf3nbnles ZrKsZLDpRQw8RUa2YREumApv RbItGLH8PfB8GWE4pKPybB2x bGln pvmwyB8qAck+LCI9kJLaiNTD OZ4oSeelmSO+MINnPYT5yDsl GNfnQYPlbO1zWJHpL4n3LmDf LjA1 KEpwT7EkcuD7KYIgzMYiFAJu eVSGpU5vrsxsj4ptnxosJmQy MCXeJJb5NEr1MICxnAwjGwJi ZWZ0 VkA0VNF6vPZgeY3rxMyaeqml dE3nOnu+XsigdXhbCLS2MFc7 E2DwOir3UBAcpDfjQV0ciETh ZGlu Bu2xoTxuvEqnCX2cOBNhyqpu x115JeIyk1vsKZEqiWObAFmr KOY6R37hr5A5XDIvWWWaPPE4 dGV4 yL9iiZidquypqEGxvSsfxbAz sGxgJSrbTArfB449CTXaxHbb GwQzROg1V0QlDfr1WKBnsDpk ZT0n vCVuKAkuCm2ezMabkFesKK0t LVJjoalro686KhOcr5agYLQh xMRlZTdcXAL2P63dk0Y3KYYr MDAw LTC0zSZ4hF0fwQbweoozvOYj zCtcxvQogFsoOMzcPYcwC751 RDSmyLmeQkEqtFm8H9DgHhy1 ZCBz gQfsZE7ljFClHUyrVm6udHce nZiuXL6tOQFtmhmcz846IyMk s3uhGTGjwLBjLJdtBLG7Z61g b3I6 KBKrSOLqPJN2pAJ1xG6vrZgw bjogbGVmdDsgdmVydGljYWwt SQrtY583RYVoeOytVtFvfSbk bnQg GTnzZFf5O7YxFlxfxEP+PC90 UJOnXO78rCJprZRgn6kjpLh5 BkCaJWOjNWO8hVmgRMwzn6Kg ZXIt R15ggIKjz5H1DVVfmQbitJLh CnLmiTC3aR7rWCwsyknfc6ro pqzyWzqwv4rird46fW89Y18e IHdp APIxZQHpGHAzGJRlzJyhxm8i gB7uBi2+YGHciGV2tBR3lG4e QYEuXjB7HSrxA548IwKhcULh Pjxj c0qjh8cneKh8RiX7WQSmfeXn zPhnMOS3d0OfHu38J57cTEog RZUwYRUoFHQmCEBpcYoido3j dG9w Ii8+YXDngQV9sID6kE9wWsUy RyD7FTljF807OwUpfQHcLwvk I02sW4MowPV+OGDlMwf9QZYy dHls ZV4dcGRdZNsuVc3uTJO4IdBy QnJuYLbzS3NlKLNfhpaojaho pJE8XKVhPEEnuM83Un4gtVes MTBw jOASoZ2bjcvip4xeaoeiQjFs XBFkJYr4HPm0QDTkkRykMjOv VLM0SiG3HPZ0uTZgqT8ykGau bjog zB3aH9DtFYQwmaldXq00cE4n WrVbRoQ4ROuaVyp+TUVZRVIs WErOGs5GPKfaNUwgsMJ+PHRk IHN0 wKcpUZepZXJzoT0kHBPdG9l4 LxBfHbG1BYwlF2AxKGBcwvgf Xv52fW1gOvAkChF6AHxnI5Ou bnQ6 CYObtRYcHEesYNB8R55ew1E0 VWKgSGJgTIS0nUB4hJ2lxMqh bjogbGVmdDsgdmVydGljYWwt YWxp R761GWSwmWnwKqDgHhHhPeT3 IGU1G1ZtQno0NFXqeSucNT1a zOEwISeaQc5gqJoxrQxdOQ4l NTBp cyjgZJYggA2sXHNmoKDgxClb YT7eTVIgieozp033HbVmIVZ6 EDUlpTEmI4ZetT8rMqNtADVu MDAw K4VzgRNvXTiaJ171MKytVvV1 QNZvnqUmE4HqPHRygTwySaE2 m0U2Fp62QPSKKCEhlpcmuZU+ PHRk SYZ2qQovLHcoGYTfdH0rGXVo F8e5KqApGeR1YRrlD0NdZWLf cdklUv14zK9rWdAbKiY9AWfm O2Zv vdP1OXJanMAmNOpwBDW7I80r q2M2NTHuBLYwLFP9zDT5hO7w bGlnbjogbGVmdDsgdmVydGlj YWwt SAuzQ398KZYsvJpsKl2coIX9 A9RbVqg8XYXzyCbkXI4ohJSw YFqoCc3szVpkdQdtOT9sIZFu bjtw MJAkaQ0mVXBajPTkrFqtYK2r ZFSrlzkkr230YuDcCSX2QUWt xLEyY4VmeO7fUhDgLBKdIOOv O3Rl hDSnOMmkZ057OCwnLgC4UWOq xgYtF4PhXZBvhLfxEpX8y4S3 Th0KoZRbCQWpOZ61TI62MM25 L3Ry PjwvdGFibGU+PHRhYmxlIHdp SHKkIFidYHAvXmEfgBccKN4o Rc9uUCImTUTocXaxyBTxKlSh b2xs RWSrYXciKW2azJtgS1SweVY2 KFMxt3t8Gx87R85wE3OngPS+ YIEuzIZ1tZX9gF5lZlMuOeN5 YWxp Z931TgYzzWYfWpaqb9zgq7jr xHm6FoNcORXbziOtwEehXQM6 d2IlTs99E93oERsuKRSlMSUj MCUi ABIojWhujh8poJ0pTg3+PGNv bXF4iDT0jW7yRwHaBzS6RIew G326AgJrhBPyMlzsB37nB6Un dXA+ WUHxVio8DSGzfOiwDR9goRBi VWslZl5tZPS3VpVwEbGjNQqi Z9NiKCGlubufpyiygAK1DBBe MDUw cA40Km2tdLycQt3xDTOkLXT3 JHQefEVaK7WauA7dZeBpZNRt ASJtN8AvnHNiINlsL600DChh ZnQ7 FIQapiYwJ1ZnVDKmzFtlPlF8 j5C7Iz9JfKdqhRKwDP9tMlZc VYz5E7HrBhk1VXAvwDfbSU8l cGFk JRjzKe3iwEsfsHtyXB9pLKFg nzeuj679BrZgu8gsTBSnlUJk CYtfNVK7Q83ie8B0GDAsUEGl MDA7 yCO0mJ1qbAfcafmrqHZbkFli wsFrkSegKAyuMXwfA424UTIt mOzlHfBXAfe8T5MwSza9PHRt dHls LY0fhFMzVHyxMi7ybIwdhAqn OV7uVCRozuzfb728ItGux4dk ZJLovNTkKQcyAHI3U44hg0W3 ICMw EKZlMYP8bUQ2cY0cyAdhrdou bGVmdDsgdmVydGljYWwtYWxp P890BAMhiAilXx0PFic4C8Pj Pjx0 IXUpvIavIG1beLKoJGsxUw8a kBzyoDkxRH4xMQEryblnn872 RmSaq3ssOIJjcQKlYXuhEVY5 Y29s n0I0RLIqIUJnGBM4hXQ6vD7t bGlnbjogbGVmdDsgdmVydGlj HQelWFnxY607AZOsoUwiUgBb eWVy OjwvdGQ+AO55zy70M2PxCokn Jpr6JJCgVFP2rJA6iT2iZKGz UVyir4E8wJF5R0EmccXjrz7j b2xs YZIwCDzoF71cw (more content not included)... Normal [facility] Patient Eval Forms Officeon 09-02-2023 Patient Eval Forms Office [id number] IFF Normal [facility] BMPOrdered By: SYSTEM SYSTEM on 09-01-2023 Anion gap [Moles/Vol] 9 mmol/L Normal 6-16 [facility] Comment on above: Performed By: #### 2 [id number] #### [facility] [address] [place] [address] Calcium [Mass/Vol] 11.0 mg/dL Normal 8.9-11.1 Remiso l [facility] Comment on above: Performed By: #### 2 [id number] #### [facility] [address] [place] [address] Chloride [Moles/Vol] 104 mmol/L Normal 101-111 Alexis britney [facility] Comment on above: Performed By: #### 2 [id number] #### [facility] [address] [place] [address] CO2 [Moles/Vol] 28 mmol/L Normal 21-31 [facility] Comment on above: Performed By: #### 2 [id number] #### [facility] [address] [place] [address] Creatinine [Mass/Vol] 1.1 mg/dL Normal 0.5-1.3 [facility] Comment on above: Performed By: #### 2 [id number] #### [facility] [address] [place] [address] Glucose [Mass/Vol] 180 mg/dL Normal 55-199 Rem[facility] Comment on above: Performed By: #### 2 [id number] #### [facility] [address] [place] [address] Potassium [Moles/Vol] 3.9 mmol/L Normal 3.5-5.3 [facility] Comment on above: Performed By: #### 2 [id number] #### [facility] [address] [place] [address] Sodium [Moles/Vol] 137 mmol/L Normal 135-145 Remiso l Chem Comment on above: Performed By: #### 2 [id number] #### [facility] [address] [place] [address] Urea nitrogen [Mass/Vol] 16 mg/dL Normal 5-21 [facility] Comment on above: Performed By: #### 2 [id number] #### [facility] [address] [place] [address] BMPon 09-01-2023 Urea nitrogen/Creatinine [Mass ratio] 14 No Units Normal 10-20 [facility] Comment on above: Performed By: #### 2 [id number] #### [facility] [address] [place] [address] CHEMISTRYOrdered By: SYSTEM SYSTEM on 09-01-2023 Urea nitrogen/Creatinine [Mass ratio] 14 mg/mg Normal 10 - 20 [facility] Consenton 09-01-2023 Consent [id number]#[id number] F Normal [facility] Consent for Treatmenton 08-21 Consent for Treatment [id number] F Normal [facility] Medicine Office/Clini c Noteon 09-01-2023 Family Medicine Office/Clinic Note HPI Staff Luis Alfredo is an 82 year old male presenting for 6 month follow up DM, HTN Do you have any of the following symptoms? Foot Exam: sees foot Eye Exam: due Last A1C: Hgb A1C %: 6.2 % High (08/11/22 08:52:00) Hgb A1c POC: 5.6 % (03/02/23 11:04:00) Statin: atorvastatin 20mg Patient is here for follow up on hypertension. How often are you checking your blood pressure? Doesnt check BP at home What are your average readings? N/A, Not checking at home Yearly BMP: 08/11/22_ questions/concerns: dr Fernandez office was to fax us lab orders yesterday to draw today. I do not see the orders He has a sleep study tonight and echo on thursday History of Present Illness - See staff HPI - Called Cardio for lab orders. - No issues at this time. Review of Systems PHQ Score Initial Depression Screen Score: 0 SCORE Physical Exam Vitals & Measurements T: 36.5 ?C(Temporal Artery) HR: 64(Peripheral) RR: 16 BP: 120/68 SpO2: 97% HT: 70 in HT: 178 cm WT: 115.3 kg WT: 253.66 lb BMI: 36.39 General: alert, no acute distress ENMT: oral mucosa moist, Cardiovascular: regular rate and rhythm, normal peripheral perfusion Respiratory: Lungs CTA, respirations non labored Extremities: no deformity, no trauma Neurological: oriented x 4, LOC appropriate for age, CN II-XII intact, motor strength equal & normal bilaterally, speech normal Abdomen: Soft, Nontender, Non-distended, + BS Assessment/Plan 1. Hypertension (I10: Essential (primary) hypertension) - At goal. - Seeing Cardio. 2. 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 - Last time at goal. - No issues with meds 3. Type 2 diabetes mellitus with hypercholesterolemia (E11.69: Type 2 diabetes mellitus with other specified complication) - As above 4. BMI 36.0-36.9,adult (Z68.36: Body mass index [BMI] 36.0-36.9, adult) - BMI education given 5. Class 1 obesity due to excess calories in adult (E66.09: Other obesity due to excess calories) - Diet and exercise advised 6. Nonsmoker (Z78.9: Other specified health status) - Please continue to not smoke. Pure hypercholesterolemia, unspecified (E78.00: Pure hypercholesterolemia, unspecified) - Continue on meds as before. 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 Medications aspirin, 81 mg, Oral, Daily atorvastatin 20 mg Tab, 20 mg, Oral, Daily, 3 refills Colace, 100 mg, Oral, BID Entresto 49 mg-51 mg oral tablet, 1 tab(s), Oral, BID Farxiga 10 mg oral tablet, 10 mg= 1 tab(s), Oral, Daily Fish Oil, Oral, Daily furosemide 20 mg Tab, 20 mg= 1 tab(s), Oral, Daily, 1 refills glipiZIDE 5 mg Tab, 5 mg, Oral, Daily, 1 refills metformin 500 mg ER Tab, 500 mg= 1 tab(s), Oral, BID metoprolol 100 mg ER Tab, 100 mg= 1 tab(s), Oral, Daily, 1 refills Osteo Bi-Flex oral tablet, 1 tablet, Daily oxybutynin 10 mg ER Tab, 10 mg= 1 tab(s), Oral, BID, 3 refills Pantoprazole [address] Tab, 40 mg= 1 tab(s), Oral, Daily spironolactone 25 mg Tab, See Instructions tamsulosin 0.4 mg Cap, 0.4 mg= 1 cap(s), Oral, BID, 3 refills traZODONE 50 mg Tab, 50 mg= 1 tab(s), Oral, Once a day (at bedtime), 3 refills Vitamin D, 5000, Oral, Daily Allergies Percocet (Mild) gabapentin (Unknown) Social History Alcohol Wine, 1-2 times per year, Household alcohol concerns: No., 12/31/2022 Substance Abuse - Denies Substance Abuse, 01/09/2020 Household substance abuse concerns: No., 08/06/2022 Tobacco - Denies Tobacco Use, 01/09/2020 Never (less than 100 in lifetime) Tobacco Use:. Never Smokeless Tobacco Use:. Household tobacco concerns: No., 09/01/2023 Family History Hyperlipidemia: Mother. Hypertension: Father. Leukemia: Sister. Immunizations Vaccine Date Status Comments SARS-CoV-2 mRNA (tozinameran 5y-11y) vac 01/02/2023 Recorded comirnaty Pfizer zoster vaccine, inactivated 01/02/2023 Recorded influenza virus vaccine, inactivated 12/31/2022 Given SARS-CoV-2 (COVID-19) mRNAMUL.ORD![id number] 01/04/2022 Recorded (more content not included)... Normal [facility] Comment on above: Result Comment: Elec tronically Signed By: Saleem GUEVARA, Pk Cesar\.br\Date and Time Signed: 09/01/23 10:46 EDT [id number] By: Robert nguyen on 09-01-2023 HbA1c (Bld) [Mass fraction] 6.4 % High <=5.9 [facility] ChemAutoSS Comment on above: Performed By: #### 7 [id number] #### [facility] [address] [place] [address] Patient Educationon 09-01-19 Patient Education Nutrition BMI for Adults What is BMI? Body mass index (BMI) is a number that is calculated from a person's weight and height. BMI can help estimate how much of a person's weight is composed of fat. BMI does not measure body fat directly. Rather, it is an alternative to procedures that directly measure body fat, which can be difficult and expensive. BMI can help identify people who may be at higher risk for certain medical problems. What are BMI measurements used for? BMI is used as a screening tool to identify possible weight problems. It helps determine whether a person is obese, overweight, a healthy weight, or underweight. BMI is useful for: ? Identifying a weight problem that may be related to a medical condition or may increase the risk for medical problems. ? Promoting changes, such as changes in diet and exercise, to help reach a healthy weight. BMI screening can be repeated to see if these changes are working. How is BMI calculated? BMI involves measuring your weight in relation to your height. Both height and weight are measured, and the BMI is calculated from those numbers. This can be done either in [place] ([place] or metric measurements. Note that charts and online BMI calculators are available to help you find your BMI quickly and easily without having to do these calculations yourself. To calculate your BMI in [place] measurements: 1. Measure your weight in pounds (lb). 2. Multiply the number of pounds by 703. ? For example, for a person who weighs 180 lb, multiply that number by 703, which equals 126,540. 3. Measure your height in inches. Then multiply that number by itself to get a measurement called inches squared. ? For example, for a person who is 70 inches tall, the inches squared measurement is 70 inches x 70 inches, which equals 4,900 inches squared. 4. Divide the total from step 2 (number of lb x 703) by the total from step 3 (inches squared): 126,540 ? 4,900 = 25.8. This is your BMI. To calculate your BMI in metric measurements: 1. Measure your weight in kilograms (kg). 2. Measure your height in meters (m). Then multiply that number by itself to get a measurement called meters squared. ? For example, for a person who is 1.75 m tall, the meters squared measurement is 1.75 m x 1.75 m, which is equal to 3.1 meters squared. 3. Divide the number of kilograms (your weight) by the meters squared number. In this example: 70 ? 3.1 = 22.6. This is your BMI. What do the results mean? BMI charts are used to identify whether you are underweight, normal weight, overweight, or obese. The following guidelines will be used: ? Underweight: BMI less than 18.5. ? Normal weight: BMI between 18.5 and 24.9. ? Overweight: BMI between 25 and 29.9. ? Obese: BMI of 30 or above. Keep these notes in mind: ? Weight includes both fat and muscle, so someone with a muscular build, such as an athlete, may have a BMI that is higher than 24.9. In cases like these, BMI is not an accurate measure of body fat. ? To determine if excess body fat is the cause of a BMI of 25 or higher, further assessments may need to be done by a health care provider. ? BMI is usually interpreted in the same way for men and women. Where to find more information For more information about BMI, including tools to quickly calculate your BMI, go to these websites: ? Centers for Disease Control and Prevention: www.cdc.gov ? [place] [employer]: www.heart.org ? National Heart, Lung, and Blood [place]: www.nhlbi.nih.gov Summary ? Body mass index (BMI) is a number that is calculated from a person's weight and height. ? BMI may help estimate how much of a person's weight is composed of fat. BMI can help identify those who may be at higher risk for certain medical problems. ? BMI can be measured using Beninese measurements or metric measurements. ? BMI charts are used to identify whether you are underweight, normal weight, overweight, or obese. This information is not intended to replace advice given to you by your health care provider. Make sure you discuss any questions you have with your health care provider. Document Revised: 11/30/2019 Document Reviewed: 10/07/2019 [employer] Patient Education ? 2022 [employer]. [facility] Patient Eval Forms Officeon 09-01-2023 Patient Eval Forms Office [id number]#[id number] F [facility] eGFROrdered By: SYSTEM SYSTE M on 09-01-2023 eGFR 67 mL/min/1.73 m2 Normal >=59 [facility] Comment on above: Order Comment: Order added by Discern Expert. Performed By: #### 1 [id number] #### [facility] [address] [place] [address] Physician Orderon 08-20-2023 Physician Order [id number]#[id number] FF [facility] Insurance Correspondenceon 0 08-19-2023 Insurance Correspondence [id number]#[id number] FF [facility] Consultation Noteon 08-06-19 Consultation Note [id number]#[id number] F [facility] Office Visiton 07-29-2023 Follow-up visit [id number] Renate Almanza 1940 M Date Provider Department Center 07/29/2023 TRENT PATEL [facility] No family history on file Level of Service:76352 LA OFFICE/OUTPATIENT ESTABLISHED MOD MDM 30 MIN [facility] Ambulatory Visit Summaryon 0 07-21-2023 Ambulatory Visit Summary SVETA LUIS ALFREDO M :1940 Visit Date:07/21/2023 Ambulatory Visit Instructions Your Diagnosis Obstructive sleep apnea Type 2 diabetes mellitus with chronic kidney disease Polymyalgia rheumatica Hyperparathyroidism Chronic kidney disease (CKD), stage III (moderate) Your Care Team Attending Physician - Pk Monge MD Primary Care Physician - Pk Monge MD This Is Your Medications List aspirin atorvastatin (atorvastatin 20 mg Tab) chondroitin-glucosamine (Osteo Bi-Flex oral tablet) docusate (Colace) ergocalciferol (Vitamin D) finasteride (finasteride 5 mg Tab) furosemide (furosemide 20 mg Tab) glipiZIDE (glipiZIDE 5 mg Tab) metformin (metformin 500 mg ER Tab) metoprolol (metoprolol 100 mg ER Tab) omega-3 polyunsaturated fatty acids (Fish Oil) oxybutynin (oxybutynin 10 mg ER Tab) sacubitril-valsartan (Entresto 49 mg-51 mg oral tablet) tamsulosin (tamsulosin 0.4 mg Cap) trazodone (traZODONE 50 mg Tab) Procedures Performed Transurethral water vapor ablation of prostate (01/17/2020), Cystoscopy (10/27/2019), Cystoscope (09/06/2019), CABG x 4 - Coronary artery bypass grafts x 4, Cardiac catheter, History of hernia repair, Insertion of catheter into heart chamber, Trigger finger. Discharge Vitals Heart Rate (Peripheral) 52 Blood Pressure 138/66 Height 178.0 cm Height 70 in Weight 121.0 kg Weight 266.2 lb BMI 38.19 What to do next Scheduled Follow-Up Appointments Thursday 10:15 AM EDT With: Saleem GUEVARA, Pk Cesar Where: [facility] Invalid Interpretation Code [address] [place] [address] [place] [address]- \.br\ Thursday 2:00 PM EDT \.br\ With:\.br\ Where: [facility] Medicine Office/Clini c Noteon 07-21-2023 Family Medicine Office/Clinic Note Chief Complaint sleep study HPI Staff Luis Alfredo is an 82 year old male presenting for face to face for a sleep study Needs documentation for precert and the order History of Present Illness - Pt states since he has used his CPAP he has no day time sleepiness - Has good energy. - States he does not wake up in the middle of the night anymore. Review of Systems PHQ Score Initial Depression Screen Score: 0 SCORE Physical Exam Vitals & Measurements HR: 52(Peripheral) BP: 138/66 SpO2: 97% HT: 70 in HT: 178.0 cm WT: 121.0 kg WT: 266.2 lb BMI: 38.19 General: alert, no acute distress ENMT: oral mucosa moist, Cardiovascular: regular rate and rhythm, normal peripheral perfusion Respiratory: Lungs CTA, respirations non labored Extremities: no deformity, no trauma Neurological: oriented x 4, LOC appropriate for age, CN II-XII intact, motor strength equal & normal bilaterally, speech normal Abdomen: Soft, Nontender, Non-distended, + BS Assessment/Plan 1. Obstructive sleep apnea (G47.33: Obstructive sleep apnea (adult) (pediatric)) - Long hx of CAROLYN - Been using a CPAP for years - Needs a titration study. - Face to face complete today 2. 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 - Continue as before 3. Polymyalgia rheumatica (M35.3: Polymyalgia rheumatica) - Resolved 4. Hyperparathyroidism (E21.3: Hyperparathyroidism, unspecified) - Pt does not know anything about this and says she 5. Chronic kidney disease (CKD), stage III (moderate) (N18.30: Chronic kidney disease, stage 3 unspecified) - Will recheck at his next visit. - NO issues or changes. Orders: pantoprazole, 40 mg, Oral, Daily, X 90 day(s), # 90 tab(s), Refills(s) 3, Pharmacy: [facility], 178, cm, 12/31/22 15:01:00 EDT, Height/Length Dosing, 120, kg, 12/31/22 15:01:00 EDT, Weight Dosing Follow-up No qualifying data available Patient Education Chronic Kidney Disease, Adult Problem List/Past Medical History Ongoing Anxiety Benign hypertension with chronic kidney disease Bladder calculi BMI 34.0-34.9,adult BPH with urinary obstruction Chronic kidney disease (CKD), stage III (moderate) Chronic prostatitis Coronary artery stenosis Feeling of incomplete bladder emptying Herpes zoster Hypercholesterolemia Hypertension Insomnia Microhematuria Nocturia Obstructive sleep apnea Post-void dribbling 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 Medications aspirin, 81 mg, Oral, Daily atorvastatin 20 mg Tab, 20 mg, Oral, Daily, 3 refills Colace, 100 mg, Oral, BID Entresto 49 mg-51 mg oral tablet, 1 tab(s), Oral, BID finasteride 5 mg Tab, 5 mg= 1 tab(s), Oral, Daily, 3 refills Fish Oil, Oral, Daily furosemide 20 mg Tab, 20 mg= 1 tab(s), Oral, Daily, 1 refills glipiZIDE 5 mg Tab, 5 mg, Oral, Daily, 1 refills metformin 500 mg ER Tab, 500 mg= 1 tab(s), Oral, BID metoprolol 100 mg ER Tab, 100 mg= 1 tab(s), Oral, Daily, 1 refills Osteo Bi-Flex oral tablet, 1 tablet, Daily oxybutynin 10 mg ER Tab, 10 mg= 1 tab(s), Oral, BID, 3 refills tamsulosin 0.4 mg Cap, 0.4 mg= 1 cap(s), Oral, BID, 3 refills traZODONE 50 mg Tab, 50 mg= 1 tab(s), Oral, Once a day (at bedtime) Vitamin D, 5000, Oral, Daily Allergies Percocet (Mild) gabapentin (Unknown) Social History Alcohol Wine, 1-2 times per year, Household alcohol concerns: No., 12/31/2022 Substance Abuse - Denies Substance Abuse, 01/09/2020 Household substance abuse concerns: No., 08/06/2022 Tobacco - Denies Tobacco Use, 01/09/2020 Never (less than 100 in lifetime) Tobacco Use:. Never Smokeless Tobacco Use:. Household tobacco concerns: No., 07/21/2023 Family History Hyperlipidemia: Mother. Hypertension: Father. Leukemia: Sister. Immunizations Vaccine Date Status Comments SARS-CoV-2 mRNA (paige 5y-11y) vac 01/02/2023 Recorded comirnaty Pfizer zoster vaccine, inactivated 01/02/2023 Recorded influenza virus vaccine, inactivated 12/31/2022 Given SARS-CoV-2 (COVID-19) [id number] 01/04/2022 Recorded influenza virus vaccine, inactivated 12/23/2021 Recorded influenza virus vaccine, inactivated 01/05/2021 Recorded SARS-CoV-2 (COVID-19) mRNA BNT-162b2 vax 01/05/2021 Recorded influenza virus vaccine, inactivated 05/19/2020 Recorded SARS-CoV-2 (COVID-19) mRNA BNT-162b2 vax 05/19/2020 Recorded 2022-08-06: [id number] SARS-CoV-2 (COVID-19) mRNA-[id number] vaccine 04/28/2020 Recorded influenza virus vaccine, inactivated 12/2019 Recorded (more content not included)... Normal [facility] Comment on above: Result Comment: Elec troaliciaally Signed By: Saleem GUEVARA, Pk Whitley.samson\Date and Time Signed: 07/21/23 14:48 EDT Patient Educationon 07-21-19 Patient Education Nephrology Chronic Kidney Disease, Adult Chronic kidney disease (CKD) occurs when the kidneys are slowly and permanently damaged over a long period of time. The kidneys are a pair of organs that do many important jobs in the body, including: ? Removing waste and extra fluid from the blood to make urine. ? Making hormones that maintain the amount of fluid in tissues and blood vessels. ? Maintaining the right amount of fluids and chemicals in the body. A small amount of kidney damage may not cause problems, but a large amount of damage may make it hard or impossible for the kidneys to work right. Steps must be taken to slow kidney damage or to stop it from getting worse. If steps are not taken, the kidneys may stop working permanently (end-stage renal disease, or ESRD). Most of the time, CKD does not go away, but it can often be controlled. People who have CKD are usually able to live full lives. What are the causes? The most common causes of this condition are diabetes and high blood pressure (hypertension). Other causes include: ? Cardiovascular diseases. These affect the heart and blood vessels. ? Kidney diseases. These include: ? Glomerulonephritis, or inflammation of the tiny filters in the kidneys. ? Interstitial nephritis. This is swelling of the small tubes of the kidneys and of the surrounding structures. ? Polycystic kidney disease, in which clusters of fluid-filled sacs form within the kidneys. ? Renal vascular disease. This includes disorders that affect the arteries and veins of the kidneys. ? Diseases that affect the body's defense system (immune system). ? A problem with urine flow. This may be caused by: ? Kidney stones. ? Cancer. ? An enlarged prostate, in males. ? A kidney infection or urinary tract infection (UTI) that keeps coming back. ? Vasculitis. This is swelling or inflammation of the blood vessels. What increases the risk? Your chances of having kidney disease increase with age. The following factors may make you more likely to develop this condition: ? A family history of kidney disease or kidney failure. Kidney failure means the kidneys can no longer work right. ? Certain genetic diseases. ? Taking medicines often that are damaging to the kidneys. ? Being around or being in contact with toxic substances. ? Obesity. ? A history of tobacco use. What are the signs or symptoms? Symptoms of this condition include: ? Feeling very tired (lethargic) and having less energy. ? Swelling, or edema, of the face, legs, ankles, or feet. ? Nausea or vomiting, or loss of appetite. ? Confusion or trouble concentrating. ? Muscle twitches and cramps, especially in the legs. ? Dry, itchy skin. ? A metallic taste in the mouth. ? Producing less urine, or producing more urine (especially at night). ? Shortness of breath. ? Trouble sleeping. CKD may also result in not having enough red blood cells or hemoglobin in the blood (anemia) or having weak bones (bone disease). Symptoms develop slowly and may not be obvious until the kidney damage becomes severe. It is possible to have kidney disease for years without having symptoms. How is this diagnosed? This condition may be diagnosed based on: ? Blood tests. ? Urine tests. ? Imaging tests, such as an ultrasound or a CT scan. ? A kidney biopsy. This involves removing a sample of kidney tissue to be looked at under a microscope. Results from these tests will help to determine how serious the CKD is. How is this treated? There is no cure for most cases of this condition, but treatment usually relieves symptoms and prevents or slows the worsening of the disease. Treatment may include: ? Diet changes, which may require you to avoid alcohol and foods that are high in salt, potassium, phosphorous, and protein. ? Medicines. These may: ? Lower blood pressure. ? Control blood sugar (glucose). ? Relieve anemia. ? Relieve swelling. ? Protect your bones. ? Improve the balance of salts and minerals in your blood (electrolytes). ? Dialysis, which is a type of treatment that removes toxic waste from the body. It may be needed if you have kidney failure. ? Managing any other conditions that are causing your CKD or making it worse. Follow these instructions at home: Medicines ? Take amou-ota-tyafdfc and prescription medicines only as told by your health care provider. The amount of some medicines that you take may need to be changed. ? Do not take any new medicines unless approved by your health care provider. Many medicines can make kidney damage worse. ? Do not take any vitamin and mineral supplements unless approved by your health care provider. Many nutritional supplements can make kidney damage worse. Lifestyle ? Do not use any products that contain nicotine or tobacco, such as cigarettes, e-cigarettes, and chewing tobacco. If you need help quitting, ask your (more content not included)... [facility] Orders Onlyon 03-25-2023 Orders Only [id number] AlmanzaJonaschip Lyly 1940 [facility] Provider Department Center 03/25/2023 Litzy-MARY RUIZ [facility] No family history on file [facility] Documentationon 03-24-2023 Documentation [id number] AlmanzaJonaschip Lyly 1940 Date Provider Department Center 03/24/2023 Krissy-DEA SHEPARD [facility] 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 BMI 37.0-37.9, adult Class 1 obesity due to excess calories in adult Nonsmoker Obstructive sleep apnea Polymyalgia rheumatica Pure hypercholesterolemia, unspecified Your Care Team Attending Physician - Pk Monge MD Primary Care Physician - Pk Monge MD This Is Your Medications List glipiZIDE (glipiZIDE 5 mg Tab) metformin (metformin 500 mg ER Tab) metoprolol (metoprolol 100 mg ER Tab) trazodone (traZODONE 50 mg Tab) Contact prescribing physician if questions or concerns aspirin atorvastatin (atorvastatin 20 mg Tab) chondroitin-glucosamine (Osteo Bi-Flex oral tablet) docusate (Colace) ergocalciferol (Vitamin D) finasteride (finasteride 5 mg Tab) furosemide (furosemide 20 mg Tab) omega-3 polyunsaturated fatty acids (Fish Oil) oxybutynin (oxybutynin 10 mg ER Tab) oxybutynin (oxybutynin 10 mg ER Tab) pantoprazole (Pantoprazole [address] Tab) sacubitril-valsartan (Entresto 49 mg-51 mg oral tablet) tamsulosin (tamsulosin 0.4 mg Cap) Procedures Performed Transurethral water vapor ablation of prostate (01/17/2020), Cystoscopy (10/27/2019), Cystoscope (09/06/2019), CABG x 4 - Coronary artery bypass grafts x 4, Cardiac catheter, History of hernia repair, Insertion of catheter into heart chamber, Trigger finger. Discharge Vitals Temperature (Oral) 36.6 ?C Heart Rate (Peripheral) 66 Respiratory Rate 16 Blood Pressure 116/64 Height 178 cm Height 70 in Weight 118.1 kg Weight 259.82 lb BMI 37.27 What to do next Scheduled Follow-Up Appointments Thursday 10:15 AM EDT With: Saleem GUEVARA, Pk Cesar Where: [facility] Invalid Interpretation Code [address] [place] [address] [place] [address]- \.br\ Thursday 2:00 PM EDT \.br\ With:\.br\ Where: [facility] Medicine Office/Clini c Noteon 03-02-2023 Family Medicine Office/Clinic Note HPI Staff Luis Alfredo is an 82 year old male presenting for 2 month follow up Do you have any of the following symptoms? Foot Exam: none sees foot dr today Eye Exam: UTD Last A1C: Hgb A1C %: 6.2 % High (08/11/22 08:52:00) Statin: atorvastatin 20mg qd Patient is here for follow up on hypertension. How often are you checking your blood pressure? Doesnt check BP at home What are your average readings? N/A, Not checking at home Yearly BMP: 08/11/22 flu: UTD questions/concerns: his cpap told him he needs serviced. [employer] was his supply co and he cancelled them as it was through [employer]. He needs supplies but not getting any calls History of Present Illness Luis Alfredo Almnaza is an 82-year-old male who presents today for a follow-up evaluation of diabetes. The patient reports a positive state of health. He denies the need for medication refills. He mentions a change in companies and a recommendation to have his CPAP machine inspected. He has been using his CPAP machine for 15 to 20 years and feels great. He is very active, walks frequently, and had a fall at the pool due to slipping on the steps. He has since ceased using the pool, but his continues to do so, which he is content with. The patient clarifies that he did not request naproxen. He was advised to use something for his aches and pains. He also mentions having a history of polymyalgia rheumatica. Review of Systems PHQ Score Initial Depression Screen Score: 0 SCORE Physical Exam Vitals & Measurements T: 36.6 ?C(Oral) HR: 66(Peripheral) RR: 16 BP: 116/64 SpO2: 96% HT: 70 in HT: 178 cm WT: 118.1 kg WT: 259.82 lb BMI: 37.27 General: alert, no acute distress Cardiovascular: regular rate and rhythm, normal peripheral perfusion Respiratory: Lungs CTA, respirations non labored Extremities: no deformity, no trauma Neurological: oriented x 4, LOC appropriate for age, CN II-XII intact, motor strength equal & normal bilaterally, speech normal Assessment/Plan 1. Chronic kidney disease (CKD), stage III (moderate) (N18.30: Chronic kidney disease, stage 3 unspecified) We will continue to monitor this. We will do full blood work in 07/2023 at his 1-year check on his laboratory tests. 2. Hypertension (I10: Essential (primary) hypertension) The patient's blood pressure is at goal today. No concerns. 3. 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 We will check a point of care A1c today to make sure he is controlled. If that is the case, we will see him back in 6 months. 4. Type 2 diabetes mellitus with hypercholesterolemia (E11.69: Type 2 diabetes mellitus with other specified complication) Continue on a statin as before. Reviewed cholesterol from 07/2022. The patient's cholesterol was really good. 5. BMI 37.0-37.9, adult (Z68.37: Body mass index [BMI] 37.0-37.9, adult) BMI education uploaded to the portal. 6. Class 1 obesity due to excess calories in adult (E66.09: Other obesity due to excess calories) Discussed diet and exercise with the patient in detail. Patient has lost 5 pounds since 12/2022. 7. Nonsmoker (Z78.9: Other specified health status) Encouraged the patient to continue not to smoke. 8. Obstructive sleep apnea (G47.33: Obstructive sleep apnea (adult) (pediatric)) We will refer back to sleep as the patient may need a sleep study since this has been possibly over 10 years since he has had a sleep study. 9. Polymyalgia rheumatica (M35.3: Polymyalgia rheumatica) This is resolved. Pure hypercholesterolemia, unspecified (E78.00: Pure hypercholesterolemia, unspecified) ATTESTATION: Portions of this record may have been created with voice recognition artificial intelligence software, specifically [employer] and or [employer]. Substitutions may have occurred due to the inherent limitations of voice recognition and artificial intelligence software. Documentation services were performed after patient or guardian consented to allow [employer] to record this visit. ROSIBEL medicaid specialist and provider reviewed before signing. ROSIBEL: Constanza Hi. 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 Normal [facility] Comment on above: Result Comment: Elec tronically Signed By: Pk Monge MD\.br\Date and Time Signed: 03/02/23 14:54 EST\.br\Electronically Co-Signed By: Constanza Hi\.br\Date and Time Co-Signed: 03/02/23 13:16 EST Family Medicine Office/Clini c Noteon 01-06-2023 Family Medicine Office/Clinic Note HPI Staff Luis Alfredo is an 81 year old male presenting to discuss a lot of medical issues and medication review Saw Uriah for medicare wellness and he is due for urine microalbumin and diabetic foot exam. labs are up to date done at [facility] about 6 weeks ago ( we do not have to have results) Sees Heart dr and urologist and they fill those meds Needs all his medications refilled to [facility] and they are all updated in his chart per Uriah flu: given today per Uriah History of Present Illness Luis Alfredo Almanza is an 82-year-old male who presents today for a follow-up evaluation of chronic medical conditions. The patient would like to discontinue all of his medications. He denies a history of gout. He has a history of kidney stones. He has one in each kidney currently. He was unaware that he had kidney stones until he had an ultrasound of his kidneys. He is currently taking Xanax as needed for sleep. He is also taking amitriptyline for sleep, but he does not believe it is working. He is currently taking glucosamine, aspirin, statin, glucosamine, Osteo Bi-Flex, Colace 2 tablets every morning and every night, Metamucil, vitamin D 2 tablets daily, fenofibrate, furosemide, glipizide, metformin, metoprolol, naproxen 2 times a month, fish oil 1 tablet daily, oxybutynin 10 mg, pantoprazole for acid reflux, valsartan, Entresto, tamsulosin, and vitamin E. He has a history of heart attacks. He has a history of heart surgery. 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 Miguelangel Rosado. The patient's last blood sugar this morning was 127 mg/dL. The patient is going to [place] next week. Review of Systems PHQ Score Initial Depression Screen Score: 0 Physical Exam Vitals & Measurements T: 36.7 ?C(Oral) HR: 57(Peripheral) BP: 110/64 SpO2: 97% HT: 70 in HT: 178 cm WT: 120 kg WT: 264 lb BMI: 37.87 General: alert, no acute distress ENMT: oral mucosa moist, no pharyngeal erythema or exudate Cardiovascular: regular rate and rhythm, normal peripheral perfusion Respiratory: Lungs CTA, respirations non labored Extremities: no deformity, no trauma Neurological: oriented x 4, LOC appropriate for age, CN II-XII intact, motor strength equal & normal bilaterally, speech normal Assessment/Plan 1. Chronic kidney disease (CKD), stage III (moderate) (N18.30: Chronic kidney disease, stage 3 unspecified) We are waiting on labs from the [facility]. Labs as of 08/12/2023 showed a creatinine of 1.7 and EGFR of 40. We will continue to monitor. 2. Type 2 diabetes mellitus with chronic kidney disease (E11.22: Type 2 diabetes mellitus with diabetic chronic kidney disease) Last A1c that we have on record was 6.2. We do need to monitor his renal function with the metformin. 3. Obstructive sleep apnea (G47.33: Obstructive sleep apnea (adult) (pediatric)) Continue using CPAP. 4. Hypercholesterolemia (E78.00: Pure hypercholesterolemia, unspecified) His cholesterol was very low at 118. We will stop the fenofibrate at this time. 5. Type 2 diabetes mellitus with hypercholesterolemia (E11.69: Type 2 diabetes mellitus with other specified complication) Well controlled. No concerns at this time. 6. Benign hypertension with chronic kidney disease (I12.9: Hypertensive chronic kidney disease with stage 1 through stage 4 chronic kidney disease, or unspecified chronic kidney disease) Blood pressure is at goal. We will continue to monitor. 7. BMI 37.0-37.9, adult (Z68.37: Body mass index [BMI] 37.0-37.9, adult) BMI education given. 8. Class 1 obesity due to excess calories in adult (E66.09: Other obesity due to excess calories) Diet and exercise advised. 9. Insomnia (G47.00: Insomnia, unspecified) We will do trazodone and see the patient back in 2 months. ATTESTATION: Portions of this record may have been created with voice recognition artificial intelligence software, specifically [employer], [employer] and or [employer]. Substitutions may have occurred due to the inherent limitations of voice recognition and artificial intelligence software. Documentation services were performed after patient or guardian consented to allow [employer] to record this visit. ROSIBEL medicaid specialist and provider reviewed before signing. ROSIBEL: Constanza Hi. 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 Normal [facility] Comment on above: Result Comment: Elec tronically Signed By: Pk Monge MD\.br\Date and Time Signed: 01/06/23 11:10 EDT\.br\Electronically Co-Signed By: Constanza Hi\.br\Date and Time Co-Signed: 12/31/22 16:41 EDT Family Medicine Office/Clinic Note Chief Complaint Subsequent Medicare Wellness Visit History of Present Illness I was in the office and available for consultation and to provide direct supervision at the time of this visit. I have provided supervision of the care team and have reviewed this chart and office note and agree with the plan of care. Covid-19, MERS, Ebola Screen *Contact With Person With Highly Contagious Disease Like Ebola/MERS/COVID-19 AND Have One or More of the Symptoms Below : No *Travel to a Country With Wide-Spread Ebola/MERS/COVID-19 in the Past 21 Days AND Have One or More of the Symptoms Below : No COVID-19 Vaccine : Yes Covid-19 External Testing : No *Verify Airborne, Droplet Precautions for MERS/COVID-19 : N/A *Verify Droplet, Contact Precautions for Ebola (Reference for CDC) : N/A Roopa Abebe LPN - 12/31/2022 14:51 EDT Summary Temperature Oral : 36.7 DegC(Converted to: 98.1 DegF) Roopa Abebe LPN - 12/31/2022 15:00 EDT Preferred Lab : [facility] Preferred Rad : [facility] Patient Counseled : Nutrition, Physical activity Height in Inches : 70 in Height/Length Measured : 178 cm(Converted to: 5 ft 10 in, 70.08 in) Weight Measured : 120 kg(Converted to: 264 lb 9 Ounces, 264.555 lb) Body Mass Index Measured : 37.87 kg/m2 Weight in Pounds : 264 lb Systolic Blood Pressure : 110 mmHg Diastolic Blood Pressure : 64 mmHg Blood Pressure Location : Left arm Blood Pressure Position : Sitting O2 Sat Resting/Exertion Alpha : Resting Peripheral Pulse Rate : 57 bpm (LOW) SpO2 : 97 % Pain Present : No actual or suspected pain Andrae DATA ABSTRACTORRoopa Castellano Jamil - 12/31/2022 14:51 EDT Depression Screening Little Interest, Pleasure in Activities (ref) : Not at all Feeling Down, Depressed, Hopeless : Not at all Initial Depression Screening Score : 0 Depression Screening Result : Negative Andrae LPNDeniceRoopa L - 12/31/2022 14:51 EDT Procedures / Surgeries - Procedure History (As Of: 12/31/2022 14:52:55 EDT) Anesthesia Minutes: 0 ; Procedure Name: History of hernia repair ; Procedure Minutes: 0 ; Last Reviewed Dt/Tm: 12/31/2022 14:52:28 EDT Procedure Dt/Tm: 09/06/2019 ; Anesthesia Minutes: 0 ; Procedure Name: Cystoscope ; Procedure Minutes: 0 ; Last Reviewed Dt/Tm: 12/31/2022 14:52:28 EDT Procedure Dt/Tm: 10/27/2019 ; Anesthesia Minutes: 0 ; Procedure Name: Cystoscopy Stone Removal ; Procedure Minutes: 0 ; Comments: 01/09/2020 11:33 EDT - Akila Vergara cysto, shock lithopaxy of bladder stone ; Last Reviewed Dt/Tm: 12/31/2022 14:52:28 EDT Procedure Dt/Tm: 01/17/2020 ; Anesthesia Minutes: 0 ; Procedure Name: Transurethral water vapor ablation of prostate ; Procedure Minutes: 0 ; Last Reviewed Dt/Tm: 12/31/2022 14:52:28 EDT Anesthesia Minutes: 0 ; Procedure Name: Insertion of catheter into heart chamber ; Procedure Minutes: 0 ; Last Reviewed Dt/Tm: 12/31/2022 14:52:28 EDT Anesthesia Minutes: 0 ; Procedure Name: Trigger finger ; Procedure Minutes: 0 ; Last Reviewed Dt/Tm: 12/31/2022 14:52:28 EDT Anesthesia Minutes: 0 ; Procedure Name: CABG x 4 - Coronary artery bypass grafts x 4 ; Procedure Minutes: 0 ; Comments: 07/14/2022 17:36 EDT - Roopa Abebe LPN w/ GRACIELA ; Last Reviewed Dt/Tm: 12/31/2022 14:52:28 EDT Anesthesia Minutes: 0 ; Procedure Name: Cardiac catheter ; Procedure Minutes: 0 ; Comments: 07/14/2022 17:37 EDT - Roopa Abebe LPN stent 11/01/04 ; Last Reviewed Dt/Tm: 12/31/2022 14:52:28 EDT Social History FT Social History (As Of: 12/31/2022 14:52:55 EDT) Alcohol: Wine, 1-2 times per year, Household alcohol concerns: No. (Last Updated: 12/31/2022 14:15:00 EDT by Uriah Golden) Tobacco: Denies Tobacco Use Never (less than 100 in lifetime) Tobacco Use:. Never Smokeless Tobacco Use:. Household tobacco concerns: No. Comments: 12/31/2022 14:15 - Uriah Golden: denies (Last Updated: 12/31/2022 14:52:36 EDT by Roopa Abebe LPN) Substance Abuse: Denies Substance Abuse Household substance abuse concerns: No. (Last Updated: 08/06/2022 10:17:32 EDT by Dara Vallecillo) Family History Family History (As Of: 12/31/2022 14:52:55 EDT) Father: Relation: Father ; Gender: Male ; Nomenclature: Hypertension ; Value: Positive Mother: Relation: Mother ; Gender: Female ; Nomenclature: Hyperlipidemia ; Value: Positive Sister: Relation: Sister ; Gender: Female ; Nomenclature: Leukemia ; Value: Positive Roque Fall Risk History of Fall in Last 3 Months Roque : No Presence of Secondary Diagnosis Roque : No Use of Ambulatory Aid Roque : None, bedrest, wheelchair, nurse IV/Heparin Lock Fall Risk Roque : No Gait Weak or Impaired Fall Risk Roque : Normal, bedrest, immobile Mental Status Fall Risk Roque : Oriented to own ability Roque Fall Risk Score : 0 Roopa Abebe LPN - 12/31/2022 14:51 EDT Social Determinants (PRAPARE) What is your housing situation today? : I have housing Y (more content not included)... Normal [facility] Comment on above: Result Comment: Elec tronically Signed By: Pk Monge MD\.br\Date and Time Signed: 01/06/23 11:10 EDT\.br\Electronically Co-Signed By: Uriah Golden\.br\Date and Time Co-Signed: 12/31/22 15:24 EDT Immunization Recordson 01-06 Immunization Records [id number] F [facility] Lab Reportson 01-06-2023 Lab Reports [id number] F [facility] Consent for Flu Vaccineon Consent for Flu Vaccine [id number] IFF [facility] Screenson 01-01-2023 Screens [id number] F [facility] Ambulatory Visit Summaryon 1 Ambulatory Visit Summary LUIS ALFREDO ALMANZA :1940 Visit Date:12/31/2022 Ambulatory Visit Instructions Your Diagnosis Chronic kidney disease (CKD), stage III (moderate) Type 2 diabetes mellitus with chronic kidney disease Obstructive sleep apnea Hypercholesterolemia Type 2 diabetes mellitus with hypercholesterolemia Benign hypertension with chronic kidney disease BMI 37.0-37.9, adult Class 1 obesity due to excess calories in adult Your Care Team Attending Physician - Pk Monge MD Primary Care Physician - Pk Monge MD This Is Your Medications List atorvastatin (atorvastatin 20 mg Tab) furosemide (furosemide 20 mg Tab) glipiZIDE (glipiZIDE 5 mg Tab) metformin (metformin 500 mg ER Tab) metoprolol (metoprolol 100 mg ER Tab) pantoprazole (Pantoprazole [address] Tab) trazodone (traZODONE 50 mg Tab) Contact prescribing physician if questions or concerns aspirin chondroitin-glucosamine (Osteo Bi-Flex oral tablet) docusate (Colace) ergocalciferol (Vitamin D) finasteride (finasteride 5 mg Tab) omega-3 polyunsaturated fatty acids (Fish Oil) oxybutynin (oxybutynin 10 mg ER Tab) sacubitril-valsartan (Entresto 49 mg-51 mg oral tablet) tamsulosin (tamsulosin 0.4 mg Cap) [Image Removed: STOP]Stop taking these medications Misc Prescription (TRUE METRIX GLUCOSE TEST STRIP) allopurinol (allopurinol 300 mg Tab) alprazolam (alprazolam 0.5 mg oral tablet, disintegrating) amitriptyline (amitriptyline 10 mg Tab) ascorbic acid (Vitamin C) fenofibrate (fenofibrate 200 mg oral capsule) naproxen vitamin E Procedures Performed Transurethral water vapor ablation of prostate (01/17/2020), Cystoscopy (10/27/2019), Cystoscope (09/06/2019), CABG x 4 - Coronary artery bypass grafts x 4, Cardiac catheter, History of hernia repair, Insertion of catheter into heart chamber, Trigger finger. Discharge Vitals Temperature (Oral) 36.7 ?C Heart Rate (Peripheral) 57 Blood Pressure 110/64 Height 178 cm Height 70 in Weight 120 kg Weight 264 lb BMI 37.87 What to do next Scheduled Follow-Up Appointments Thursday 10:00 AM EST With: Pk Monge MD Where: [facility] Invalid Interpretation Code [address] [place] [address]- \.br\ Thursday 2:00 PM EDT \.br\ With:\.br\ Where: [facility] Ambulatory Visit Summary LUIS ALFREDO ALMANZA Lyly :1940 Visit Date:12/31/2022 Ambulatory Visit Instructions Your Diagnosis Annual visit for general adult medical examination without abnormal findings Need for influenza vaccination Anxiety 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 Morbid obesity due to excess calories Adult BMI 37.0-37.9 kg/sq m Your Care Team Attending Physician - Pk Monge MD Primary Care Physician - Pk Monge MD This Is Your Medications List Misc Prescription (TRUE METRIX GLUCOSE TEST STRIP) allopurinol (allopurinol 300 mg Tab) alprazolam (alprazolam 0.5 mg oral tablet, disintegrating) amitriptyline (amitriptyline 10 mg Tab) ascorbic acid (Vitamin C) aspirin atorvastatin (atorvastatin 20 mg Tab) chondroitin-glucosamine (Osteo Bi-Flex oral tablet) docusate (Colace) ergocalciferol (Vitamin D) fenofibrate (fenofibrate 200 mg oral capsule) finasteride (finasteride 5 mg Tab) furosemide (furosemide 20 mg Tab) glipiZIDE (glipiZIDE 5 mg Tab) metformin (metformin 500 mg ER Tab) metoprolol (metoprolol 100 mg ER Tab) naproxen omega-3 polyunsaturated fatty acids (Fish Oil) oxybutynin (oxybutynin 10 mg ER Tab) pantoprazole (Pantoprazole [address] Tab) sacubitril-valsartan (Entresto 49 mg-51 mg oral tablet) tamsulosin (tamsulosin 0.4 mg Cap) vitamin E Procedures Performed Transurethral water vapor ablation of prostate (01/17/2020), Cystoscopy (10/27/2019), Cystoscope (09/06/2019), CABG x 4 - Coronary artery bypass grafts x 4, Cardiac catheter, History of hernia repair, Insertion of catheter into heart chamber, Trigger finger. Discharge Vitals Heart Rate (Peripheral) 57 Blood Pressure 110/64 Height 178 cm Height 70 in Weight 120 kg Weight 264 lb BMI 37.87 What to do next Scheduled Follow-Up Appointments Thursday 8:45 AM EDT With: MILDRED GUEVARA, Danny Keen Where: [facility] [address] [address]- \.br\ Medications\.br \ What How Much When Instructions\.b r\ Unchanged allopurinol (allopurinol 300 mg Tab) 300 Milligram By Mouth Every day\.br\ Unchanged alprazolam (alprazolam 0.5 mg oral tablet, disintegrating) 1 Tablets By Mouth 3 times a day as needed for for anxiety\.br\ Unchanged amitriptyline (amitriptyline 10 mg Tab) 10 Milligram By Mouth Once a day (at bedtime) Take 2 hours before bedtime \.br\ Unchanged ascorbic acid (Vitamin C) Every day\.br\ Unchanged aspirin 81 Milligram By Mouth Every day\.br\ Unchanged atorvastatin (atorvastatin 20 mg Tab) 20 Milligram By Mouth Every day Duration: 90 Days\.br\ Unchanged chondroitin-glu cosamine (Osteo Bi-Flex oral tablet) 1 tablet Every day\.br\ Unchanged docusate (Colace) 100 Milligram By Mouth 2 times a day\.br\ Unchanged ergocalciferol (Vitamin D) 5000 By Mouth Every day\.br\ Unchanged fenofibrate (fenofibrate 200 mg oral capsule) 1 Capsules By Mouth Every day\.br\ Unchanged finasteride (finasteride 5 mg Tab) 1 Tablets By Mouth Every day Duration: 90 Days\.br\ Unchanged furosemide (furosemide 20 mg Tab) 1 Tablets By Mouth Every day\.br\ Unchanged glipiZIDE (glipiZIDE 5 mg Tab) 5 Milligram By Mouth Every day\.br\ Unchanged metformin (metformin 500 mg ER Tab) 1 Tablets By Mouth 2 times a day\.br\ Unchanged metoprolol (metoprolol 100 mg ER Tab) 1 Tablets By Mouth Every day\.br\ Unchanged Misc Prescription (TRUE METRIX GLUCOSE TEST STRIP) TEST BLOOD SUGAR ONCE DAILY \.br\ Unchanged naproxen 500 Milligram By Mouth As needed for as needed for pain\.br\ Unchanged omega-3 polyunsaturated fatty acids (Fish Oil) By Mouth Every day\.br\ Unchanged oxybutynin (oxybutynin 10 mg ER Tab) 2 Tablets By Mouth Every day Duration: 90 Days\.br\ Unchanged pantoprazole (Pantoprazole [address] Tab) 40 Milligram By Mouth Every day Duration: 90 Days\.br\ Unchanged sacubitril-vals geraldine (Entresto 49 mg-51 mg oral tablet) 1 Tablets By Mouth 2 times a day\.br\ Unchanged tamsulosin (tamsulosin 0.4 mg Cap) 1 Capsules By Mouth 2 times a day Duration: 90 Days\.br\ Unchanged vitamin E By Mouth Every day\.br\ Medications and Immunizations Administered\.b r\ Given\.br\ influenza virus vaccine, inactivated HIGH DOSE preservative-fr ee quadrivalent intramuscular susp, 0.7 mL, IntraMuscular. For: Annual visit for general adult medical examination without abnormal findings\.br\ influenza virus vaccine, inactivated, IntraMuscular\. br\ Allergies\.br\ Percocet (Mild)\.br\ gabapentin (Unknown)\.br\ Problems\.br\ Ongoing - Any problem that you are currently receiving treatment for.\.br\ Anxiety\.br\ Benign hypertension with chronic kidney disease\.br\ Bladder calculi\.br\ BMI 34.0-34.9,adult \.br\ BPH with urinary obstruction\.br \ Chronic kidney disease (CKD), stage III (moderate)\.br\ Chronic prostatitis\.br \ Coronary artery stenosis\.br\ Feeling of incomplete bladder emptying\.br\ Gross hematuria\.br\ Herpes zoster\.br\ Hypercholestero lemia\.br\ Hyperparathyroi dism\.br\ Hypertension\.b r\ Microhematuria\ .br\ Nocturia\.br\ Obstructive sleep apnea\.br\ Polymyalgia rheumatica\.br\ Post-void dribbling\.br\ Type 2 diabetes mellitus with chronic kidney disease\.br\ Type 2 diabetes mellitus with hypercholestero lemia\.br\ Education Materials\.br\ Fall Prevention in the Home, Adult\.br\ Falls can cause injuries and affect people of all ages. There are many simple things that you can do to make your home safe and to help prevent falls. Ask for help when making these changes, if needed.\.br\ What actions can I take to prevent falls?\.br\ General instructions\.b r\ ? \.br\ Use good lighting in all rooms. Replace any light bulbs that burn out, turn on lights if it is dark, and use night-lights.\. br\ ? \.br\ Place frequently used items in dwce-od-eacvs places. Lower the shelves around your home if necessary.\.br\ ? \.br\ Set up furniture so that there are clear paths around it. Avoid moving your furniture around.\.br\ ? \.br\ Remove throw rugs and other tripping hazards from the floor.\.br\ ? \.br\ Avoid walking on wet floors.\.br\ ? \.br\ Fix any uneven floor surfaces.\.br\ ? \.br\ Add color or contrast paint or tape to grab bars and handrails in your home. Place contrasting color strips on the first and last steps of staircases.\.br \ ? \.br\ When you use a stepladder, make sure that it is completely opened and that the sides and supports are firmly locked. Have someone hold the ladder while you are using it. Do not climb a closed stepladder.\.br \ ? \.br\ Know where your pets are when moving through your home.\.br\ What can I do in the bathroom?\.br\ \.br\ \.br\ ? \.br\ Keep the floor dry. Immediately clean up any water that is on the floor.\.br\ ? \.br\ Remove soap buildup in the tub or shower regularly.\.br\ ? \.br\ Use nonskid mats or decals on the floor of the tub or shower.\.br\ ? \.br\ Attach bath mats securely with double-sided, nonslip rug tape.\.br\ ? \.br\ If you need to sit down while you are in the shower, use a plastic, nonslip stool.\.br\ ? \.br\ Install grab bars by the toilet and in the tub and shower. Do not use towel bars as grab bars.\.br\ What can I do in the bedroom?\.br\ ? \.br\ Make sure that a bedside light is easy to reach.\.br\ ? \.br\ Do not use oversized bedding that reaches the floor.\.br\ ? \.br\ Have a firm chair that has side arms to use for getting dressed.\.br\ What can I do in the kitchen?\.br\ ? \.br\ Clean up any spills right away.\.br\ ? \.br\ If you need to reach for something above you, use a sturdy step stool that has a grab bar.\.br\ ? \.br\ Keep electrical cables out of the way.\.br\ ? \.br\ Do not use floor jordanian or wax that makes floors slippery. If you must use wax, make sure that it is non-skid floor wax.\.br\ What can I do with my stairs?\.br\ ? \.br\ Do not leave any items on the stairs.\.br\ ? \.br\ Make sure that you have a light switch at the top and the bottom of the stairs. Have them installed if you do not have them.\.br\ ? \.br\ Make sure that there are handrails on both sides of the stairs. Fix handrails that are broken or loose. Make sure that handrails are as long as the staircases.\.br \ ? \.br\ Install non-slip stair treads on all stairs in your home.\.br\ ? \.br\ Avoid having throw rugs at the top or bottom of stairs, or secure the rugs with carpet tape to prevent them from moving.\.br\ ? \.br\ Choose a carpet design that does not hide the edge of steps on the stairs.\.br\ ? \.br\ Check any carpeting to make sure that it is firmly attached to the stairs. Fix any carpet that is loose or worn.\.br\ What can I do on the outside of my home?\.br\ ? \.br\ Use bright outdoor lighting.\.br\ ? \.br\ Regularly repair the edges of walkways and driveways and fix any cracks.\.br\ ? \.br\ Remove high doorway thresholds.\.br \ ? \.br\ Trim any shrubbery on the main path into your home.\.br\ ? \.br\ Regularly check that handrails are securely fastened and in good repair. Both sides of all steps should have handrails.\.br\ ? \.br\ Install guardrails along the edges of any raised decks or porches.\.br\ ? \.br\ Clear walkways of debris and clutter, including tools and rocks.\.br\ ? \.br\ Have leaves, snow, and ice cleared regularly.\.br\ ? \.br\ Use sand or salt on walkways during winter months.\.br\ [facility] Patient Educationon 01-01-20 23 Patient Education Caregiving Fall Prevention in the Home, Adult Falls can cause injuries and affect people of all ages. There are many simple things that you can do to make your home safe and to help prevent falls. Ask for help when making these changes, if needed. What actions can I take to prevent falls? General instructions ? Use good lighting in all rooms. Replace any light bulbs that burn out, turn on lights if it is dark, and use night-lights. ? Place frequently used items in coev-aq-dwhiy places. Lower the shelves around your home if necessary. ? Set up furniture so that there are clear paths around it. Avoid moving your furniture around. ? Remove throw rugs and other tripping hazards from the floor. ? Avoid walking on wet floors. ? Fix any uneven floor surfaces. ? Add color or contrast paint or tape to grab bars and handrails in your home. Place contrasting color strips on the first and last steps of staircases. ? When you use a stepladder, make sure that it is completely opened and that the sides and supports are firmly locked. Have someone hold the ladder while you are using it. Do not climb a closed stepladder. ? Know where your pets are when moving through your home. What can I do in the bathroom? ? Keep the floor dry. Immediately clean up any water that is on the floor. ? Remove soap buildup in the tub or shower regularly. ? Use nonskid mats or decals on the floor of the tub or shower. ? Attach bath mats securely with double-sided, nonslip rug tape. ? If you need to sit down while you are in the shower, use a plastic, nonslip stool. ? Install grab bars by the toilet and in the tub and shower. Do not use towel bars as grab bars. What can I do in the bedroom? ? Make sure that a bedside light is easy to reach. ? Do not use oversized bedding that reaches the floor. ? Have a firm chair that has side arms to use for getting dressed. What can I do in the kitchen? ? Clean up any spills right away. ? If you need to reach for something above you, use a sturdy step stool that has a grab bar. ? Keep electrical cables out of the way. ? Do not use floor jordanian or wax that makes floors slippery. If you must use wax, make sure that it is non-skid floor wax. What can I do with my stairs? ? Do not leave any items on the stairs. ? Make sure that you have a light switch at the top and the bottom of the stairs. Have them installed if you do not have them. ? Make sure that there are handrails on both sides of the stairs. Fix handrails that are broken or loose. Make sure that handrails are as long as the staircases. ? Install non-slip stair treads on all stairs in your home. ? Avoid having throw rugs at the top or bottom of stairs, or secure the rugs with carpet tape to prevent them from moving. ? Choose a carpet design that does not hide the edge of steps on the stairs. ? Check any carpeting to make sure that it is firmly attached to the stairs. Fix any carpet that is loose or worn. What can I do on the outside of my home? ? Use bright outdoor lighting. ? Regularly repair the edges of walkways and driveways and fix any cracks. ? Remove high doorway thresholds. ? Trim any shrubbery on the main path into your home. ? Regularly check that handrails are securely fastened and in good repair. Both sides of all steps should have handrails. ? Install guardrails along the edges of any raised decks or porches. ? Clear walkways of debris and clutter, including tools and rocks. ? Have leaves, snow, and ice cleared regularly. ? Use sand or salt on walkways during winter months. ? In the garage, clean up any spills right away, including grease or oil spills. What other actions can I take? ? Wear closed-toe shoes that fit well and support your feet. Wear shoes that have rubber soles or low heels. ? Use mobility aids as needed, such as canes, walkers, scooters, and crutches. ? Review your medicines with your health care provider. Some medicines can cause dizziness or changes in blood pressure, which increase your risk of falling. Talk with your health care provider about other ways that you can decrease your risk of falls. This may include working with a physical therapist or principal trainer to improve your strength, balance, and endurance. Where to find more information ? Centers for Disease Control and Prevention, STEAD[place]: www.cdc.gov ? National [place] [employer]: www.giovanni.nih.gov Contact a health care provider if: ? You are afraid of falling at home. ? You feel weak, drowsy, or dizzy at home. ? You fall at home. Summary ? There are many simple things that you can do to make your home safe and to help prevent falls. ? Ways to make your home safe include removing tripping hazards and installing grab bars in the bathroom. ? Ask for help when making these changes in your home. This information is not intended to replace advice given to you by your health ca (more content not included)... 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 - NO issues today - Feels good - Needs labs for his Renal Doc - Referred to Nephrology 2/2 Cardiology concern Review of Systems PHQ Score Initial Depression Screen Score: 0 Physical Exam Vitals & Measurements T: 36.5 ?C(Oral) HR: 66(Peripheral) RR: 14 BP: 124/80 SpO2: 98% HT: 73 in HT: 185 cm WT: 118.8 kg WT: 261.36 lb BMI: 34.71 General: alert, no acute distress ENMT: oral mucosa moist, Cardiovascular: Irregularly Irregular, normal peripheral perfusion Respiratory: Lungs CTA, respirations non labored Extremities: no deformity, no trauma Neurological: oriented x 4, LOC appropriate for age, CN II-XII intact, motor strength equal & normal bilaterally, speech normal Abdomen: Soft, Nontender, Non-distended, + BS Assessment/Plan 1. Diabetes mellitus type II, controlled (E11.9: Type 2 diabetes mellitus without complications) - Well controlled. - NO issues with meds - Continue as before 2. Hyperparathyroidism (E21.3: Hyperparathyroidism, unspecified) - Will have the Home Supervisor address 3. Hypertension (I10: Essential (primary) hypertension) - At goal 4. Polymyalgia rheumatica (M35.3: Polymyalgia rheumatica) - NO issues today 5. BMI 34.0-34.9,adult (Z68.34: Body mass index [BMI] 34.0-34.9, adult) - BMI education given Ordered: Body Mass Index (BMI) documented 3008F Current tobacco non-user 1036F Depression Screening Negative 3352F Influenza immunization administered or previously received 4274F Most recent diastolic blood pressure 80-89 mm Hg 3079F Patient screen for fall risk: no falls in last year or 1 fall with no injury in last year 1101F Systolic BP <130 mm Hg (Most Recent) 3074F 6. Chronic kidney disease (CKD), stage III (moderate) (N18.30: Chronic kidney disease, stage 3 unspecified) - Stable - Follows with nephrology 7. Class 1 obesity due to excess calories in adult (E66.09: Other obesity due to excess calories) - As above. Ordered: Body Mass Index (BMI) documented 3008F Current tobacco non-user 1036F Depression Screening Negative 3352F Influenza immunization administered or previously received 4274F Most recent diastolic blood pressure 80-89 mm Hg 3079F Patient screen for fall risk: no falls in last year or 1 fall with no injury in last year 1101F Systolic BP <130 mm Hg (Most Recent) 3074F Follow-up No qualifying data available Problem List/Past Medical History Ongoing Anxiety Bladder calculi BMI 34.0-34.9,adult BPH with urinary obstruction Chronic kidney disease (CKD), stage III (moderate) Chronic prostatitis Coronary artery stenosis Diabetes mellitus type II, controlled Feeling of incomplete bladder emptying Gross hematuria Herpes zoster Hypercholesterolemia Hyperparathyroidism Hypertension Microhematuria Nocturia Obstructive sleep apnea Polymyalgia rheumatica Post-void dribbling Prostatitis Historical No qualifying data Procedure/Surgical History Transurethral water vapor ablation of prostate (01/17/2020), Cystoscopy (10/27/2019), Cystoscope (09/06/2019), CABG x 4 - Coronary artery bypass grafts x 4, Cardiac catheter, History of hernia repair, Insertion of catheter into heart chamber, Trigger finger. Medications allopurinol 300 mg Tab, 300 mg, Oral, Daily, 1 refills alprazolam 0.5 mg oral tablet, disintegrating, 0.5 mg= 1 tab(s), Oral, TID, PRN amitriptyline 10 mg Tab, 10 mg, Oral, Once a day (at bedtime), 1 refills aspirin, 81 mg, Oral, Daily atorvastatin 20 mg Tab, 20 mg, Oral, Daily, 3 refills Colace, 100 mg, Oral, BID Entresto 49 mg-51 mg oral tablet, 1 tab(s), Oral, BID fenofibrate 200 mg oral capsule, 200 mg= 1 cap(s), Oral, Daily, 1 refills finasteride 5 mg Tab, 5 mg= 1 tab(s), Oral, Daily, 3 refills Fish Oil, Oral, Daily furosemide 20 mg Tab, 20 mg= 1 tab(s), Oral, Daily, 1 refills glipiZIDE 5 mg Tab, 5 mg, Oral, Daily, 1 refills metformin 500 mg ER Tab, 500 mg= 1 tab(s), Oral, BID metoprolol 100 mg ER Tab, 100 mg= 1 tab(s), Oral, Daily, 1 refills Osteo Bi-Flex oral tablet, 1 tablet, Daily oxybutynin 10 mg ER Tab, 20 mg= 2 tab(s), Oral, Daily, 3 refills Pantoprazole [address] Tab, 40 mg, Oral, Daily, 3 refills tamsulosin 0.4 mg Cap, 0.4 mg= 1 cap(s), Oral, BID, 3 refills TRUE METRIX GLUCOSE TEST STRIP Vitamin C, Daily Vitamin D, 5000, Oral, Daily vitamin E, Oral, Daily Allergies Percocet (Mild) gabapentin (Unknown) Social History Alcohol - Enoch (more content not included)... Normal [facility] Comment on above: Result Comment: Elec tronically Signed By: Saleem GUEVARA, Pk Whitley.samson\Date and Time Signed: 11/04/22 17:27 EDT RAD - Ultrasound Reporton RAD - Ultrasound Report [id number]: 127 Normal [facility] Office Visiton 08-29-2022 Follow-up visit [id number] Renate Amlanza [facility] 1940 M Date Provider Department Center 08/29/2022 [id number] JUNIOR [facility] No family history on file Level of Service:71242 LA OFFICE/OUTPATIENT ESTABLISHED MOD MDM 30-39 MIN Normal [facility] CBC AUTO DIFFon 12-24-2021 BASO # 0.1 103/ul Normal 0.0-0.1 [facility] Comment on above: Performed By: #### C BC #### [facility] [address] [address] [address] Penny Allen Basophils/100 WBC (Bld) 1.1 % Normal 0.2-2.0 [facility] Comment on above: Performed By: #### C BC #### [facility] [address] [place] [address] Dr. Penny Allen EO # 0.1 103/ul Normal 0.0-0.7 [facility] Comment on above: Performed By: #### C BC #### [facility] [address] [place] [address] Dr. Penny Allen Eosinophils/100 WBC (Bld) 2.1 % Normal 0.9-7.0 [facility] Comment on above: Performed By: #### C BC #### [facility] [address] [place] [address] Dr. Penny Allen Erythrocyte distribution width (RBC) [Ratio] 13.9 % Normal 11.0-15.0 [facility] Comment on above: Performed By: #### C BC #### [facility] [address] [place] [address] Dr. Penny Allen Hematocrit (Bld) [Volume fraction] 44.5 % Normal 42.0-54.0 [facility] Comment on above: Performed By: #### C BC #### [facility] [address] [place] [address] Dr. Penny Allen Hemoglobin (Bld) [Mass/Vol] 14.2 g/dL Normal 14.0-18.0 [facility] Comment on above: Performed By: #### C BC #### [facility] [address] [place] [address] Dr. Penny Allen IG # 0.04 10e3/ul Critically high 0.00-0.03 [facility] Comment on above: Performed By: #### C BC #### [facility] [address] [place] [address] Dr. Penny Allen IG % 0.6 % Critically high 0.0-0.5 [facility] Comment on above: Performed By: #### C BC #### [facility] [address] [place] [address] Dr. Penny Allen LYMPH # 1.4 103/ul Normal 1.2-3.8 [facility] Comment on above: Performed By: #### C BC #### [facility] [address] [place] [address] Dr. Penny Allen Lymphocytes/100 WBC (Bld) 20.8 % Normal 20.5-60.0 [facility] Comment on above: Performed By: #### C BC #### [facility] [address] [place] [address] Dr. Penny Allen MANUAL DIFF REQ NO Normal [facility] Comment on above: Performed By: #### C BC #### [facility] [address] [place] [address] Dr. Penny Allen MCH (RBC) [Entitic mass] 28.4 pg Normal 25.9-34.0 [facility] Comment on above: Performed By: #### C BC #### [facility] [address] [place] [address] Dr. Penny Allen MCHC (RBC) [Mass/Vol] 31.9 g/dL Normal 29.9-35.2 [facility] Comment on above: Performed By: #### C BC #### [facility] [address] [place] [address] Dr. Penny Allen MCV (RBC) [Entitic vol] 89.0 fL Normal 80.0-94.0 [facility] Comment on above: Performed By: #### C BC #### [facility] [address] [place] [address] Dr. Penny Allen MONO # 0.8 103/ul Normal 0.3-0.8 [facility] Comment on above: Performed By: #### C BC #### [facility] [address] [address] [address] Penny Allen Monocytes/100 WBC (Bld) 12.2 % Critically high 1.7-12.0 [facility] Comment on above: Performed By: #### C BC #### [facility] [address] [place] [address] Dr. Penny Allen NEUT # 4.1 103/ul Normal 1.4-6.5 [facility] Comment on above: Performed By: #### C BC #### [facility] [address] [place] [address] Dr. Penny Aleln Neutrophils/100 WBC (Bld) 63.2 % Normal 43.0-75.0 [facility] Comment on above: Performed By: #### C BC #### [facility] [address] [place] [address] Dr. Penny Allen Platelet mean volume (Bld) [Entitic vol] 11.4 fL Normal 9.5-13.5 [facility] Comment on above: Performed By: #### C BC #### [facility] [address] [place] [address] Dr. Penny Allen PLT 193 103/ul Normal 150-450 [facility] Comment on above: Performed By: #### C BC #### [facility] [address] [place] [address] Dr. Penny Allen RBC 5.00 106/ul Normal 4.70-6.10 [facility] Comment on above: Performed By: #### C BC #### [facility] [address] [place] [address] Dr. Penny Allen WBC 6.6 103/ul Normal 4.0-11.0 [facility] Comment on above: Performed By: #### C BC #### [facility] [address] [place] [address] Dr. Penny Allen GLYCOHEMOGLOBIN A1Con 2021 ADA RECOMMENDATION SEE BELOW Normal [facility] Comment on above: Result Comment: ADA RECOMMENDED LIMIT 4.0 - 6.0 ADA THERAPEUTIC TARGET < 7.0 ACTION SUGGESTED > 7.0 Performed By: #### A 1C #### [facility] [address] [address] [address] Penny Allen HbA1c (Bld) [Mass fraction] 6.1 % Normal 4.5-6.2 [facility] Comment on above: Performed By: #### A 1C #### [facility] [address] [address] [address] Penny Allen LIPID PROFILEon 12-24-2021 CHOL-HDL RATIO NORM SEE BELOW Normal [facility] Comment on above: Result Comment: 3.3 - 4.4 LOW RISK 4.4 - 7.1 AVERAGE RISK 7.1 - 11.0 MODERATE RISK >11.0 HIGH RISK Performed By: #### C MP, URIC, LIPID #### [facility] [address] [address] [address] Penny Allen Cholesterol [Mass/Vol] 104 mg/dL Normal <=200 [facility] Comment on above: Performed By: #### C MP, URIC, LIPID #### [facility] [address] [address] [address] Penny Allen Cholesterol in HDL [Mass/Vol] 38 mg/dL Critically low 40-60 [facility] Comment on above: Performed By: #### C MP, URIC, LIPID #### [facility] [address] [address] [address] Penny Allen Cholesterol in LDL [Mass/Vol] 34.8 mg/dL Normal [facility] Comment on above: Performed By: #### C MP, URIC, LIPID #### [facility] [address] [address] [address] Penny Allen Cholesterol.total/Ch olesterol in HDL [Mass ratio] 2.7 {ratio} Normal [facility] Comment on above: Performed By: #### C MP, URIC, LIPID #### [facility] [address] [address] [address] Penny Allen HDL NORMAL > or = 60 mg/dl - LO W CARDIOVASCULAR RISK <40 mg/dl - HIGH CARDIOVASCULAR RISK Normal [facility] Comment on above: Performed By: #### C MP, URIC, LIPID #### [facility] [address] [address] [address] Penny Allen LDL CALC NORMAL SEE BELOW Normal [facility] Comment on above: Result Comment: <100 mg/dl OPTIMAL 100 - 129 mg/dl NEAR OR ABOVE OPTIMAL 130 - 159 mg/dl BORDERLINE HIGH 160 - 189 mg/dl HIGH >190 mg/dl VERY HIGH Performed By: #### C MP, URIC, LIPID #### [facility] [address] [address] [address] Penny Allen Triglyceride [Mass/Vol] 156 mg/dL Critically high <=150 [facility] Comment on above: Performed By: #### C MP, URIC, LIPID #### [facility] [address] [place] [address] Dr. Penny Allen VLDL CALC 31.2 mg/dL Normal [facility] Comment on above: Performed By: #### C MP, URIC, LIPID #### [facility] [address] [place] [address] Dr. Penny Allen PROF 14(COMP METB)on 022 Albumin [Mass/Vol] 3.6 g/dL Normal 3.4-5.0 [facility] Comment on above: Performed By: #### C MP, URIC, LIPID #### [facility] [address] [address] [address] Penny Allen Albumin/Globulin [Mass ratio] 1.0 {ratio} Normal [facility] Comment on above: Performed By: #### C MP, URIC, LIPID #### [facility] [address] [address] [address] Penny Allen ALP [Catalytic activity/Vol] 43 U/L Critically low 46-116 [facility] Comment on above: Performed By: #### C MP, URIC, LIPID #### [facility] [address] [address] [address] Penny Allen ALT [Catalytic activity/Vol] 18 U/L Normal 16-63 [facility] Comment on above: Performed By: #### C MP, URIC, LIPID #### [facility] [address] [address] [address] Penny Allen Anion gap [Moles/Vol] 10.0 mmol/L Normal [facility] Comment on above: Performed By: #### C MP, URIC, LIPID #### [facility] [address] [place] [address] Dr. Penny Allen AST [Catalytic activity/Vol] 16 U/L Normal 15-37 [facility] Comment on above: Performed By: #### C MP, URIC, LIPID #### [facility] [address] [place] [address] Dr. Penny Allen Bilirubin [Mass/Vol] 0.5 mg/dL Normal 0.2-1.0 [facility] Comment on above: Performed By: #### C MP, URIC, LIPID #### [facility] [address] [place] [address] Dr. Penny Allen Calcium [Mass/Vol] 9.9 mg/dL Normal 8.5-10.1 [facility] Comment on above: Performed By: #### C MP, URIC, LIPID #### [facility] [address] [place] [address] Dr. Penny Allen Chloride [Moles/Vol] 104 mmol/L Normal 98-107 [facility] Comment on above: Performed By: #### C MP, URIC, LIPID #### [facility] [address] [place] [address] Dr. Penny Allen CO2 [Moles/Vol] 30.7 mmol/L Normal 21.0-32.0 [facility] Comment on above: Performed By: #### C MP, URIC, LIPID #### [facility] [address] [place] [address] Dr. Penny Allen Creatinine [Mass/Vol] 1.66 mg/dL Critically high 0.70-1.30 [facility] Comment on above: Performed By: #### C MP, URIC, LIPID #### [facility] [address] [place] [address] Dr. Penny Allen EGFR-AF [place] 49 mL/min/1.73m2 Critically low >=60 [facility] Comment on above: Performed By: #### C MP, URIC, LIPID #### [facility] [address] [address] [address] Penny Allen EGFR-NON AF [place] 40 mL/min/1.73m2 Critically low >=60 [facility] Comment on above: Performed By: #### C MP, URIC, LIPID #### [facility] [address] [address] [address] Penny Allen Globulin (S) [Mass/Vol] 3.5 g/dL Normal [facility] Comment on above: Performed By: #### C MP, URIC, LIPID #### [facility] [address] [address] [address] Penny Allen Glucose [Mass/Vol] 128 mg/dL Normal [facility] Comment on above: Performed By: #### C MP, URIC, LIPID #### [facility] [address] [address] [address] Penny Allen Performed By: #### A 1C #### [facility] [address] [address] [address] Penny Allen Potassium [Moles/Vol] 4.7 mmol/L Normal 3.5-5.1 [facility] Comment on above: Performed By: #### C MP, URIC, LIPID #### [facility] [address] [address] [address] Penny Allen Protein [Mass/Vol] 7.1 g/dL Normal 6.4-8.2 [facility] Comment on above: Performed By: #### C MP, URIC, LIPID #### [facility] [address] [address] [address] Penny Allen Sodium [Moles/Vol] 140 mmol/L Normal 136-145 [facility] Comment on above: Performed By: #### C MP, URIC, LIPID #### [facility] [address] [address] [address] Penny Allen Urea nitrogen [Mass/Vol] 22.0 mg/dL Critically high 7.0-18.0 [facility] Comment on above: Performed By: #### C MP, URIC, LIPID #### [facility] [address] [place] [address] Dr. Penny Allen Urea nitrogen/Creatinine [Mass ratio] 13.3 mg/mg Normal [facility] Comment on above: Performed By: #### C MP, URIC, LIPID #### [facility] [address] [place] [address] Dr. Penny Allen URIC ACID SERUMon 12-24-2021 Urate [Mass/Vol] 3.8 mg/dL Normal 3.5-7.2 [facility] Comment on above: Performed By: #### C MP, URIC, LIPID #### [facility] [address] [place] [address] Dr. Penny Allen VITAMIN D 25 OHon 12-24-2021 VIT D 25-OH 46.8 ng/mL Normal [facility] Comment on above: Performed By: #### V ITAD #### [facility] [address] [place] [address] Dr. Penny Allen VIT D RANGES SEE BELOW Normal [facility] Comment on above: Result Comment: <20 ng/mL Vit D deficient 20 - <30 ng/mL Vit D insufficient 30 - 100 ng/mL Vit D sufficient >100 ng/mL Potential Toxicity Performed By: #### V ITAD #### [facility] [address] [place] [address] Dr. Penny Allen CBC AUTO DIFFon 08-02-2021 BASO # 0.1 103/ul Normal 0.0-0.1 [facility] Comment on above: Performed By: #### C BC #### [facility] [address] [place] [address] Dr. Penny Allen Basophils/100 WBC (Bld) 1.3 % Normal 0.2-2.0 [facility] Comment on above: Performed By: #### C BC #### [facility] [address] [place] [address] Dr. Penny Allen EO # 0.2 103/ul Normal 0.0-0.7 [facility] Comment on above: Performed By: #### C BC #### [facility] [address] [address] [address] Penny Allen Eosinophils/100 WBC (Bld) 2.4 % Normal 0.9-7.0 [facility] Comment on above: Performed By: #### C BC #### [facility] [address] [place] [address] Dr. Penny Allen Erythrocyte distribution width (RBC) [Ratio] 14.0 % Normal 11.0-15.0 [facility] Comment on above: Performed By: #### C BC #### [facility] [address] [place] [address] Dr. Penny Allen Hematocrit (Bld) [Volume fraction] 45.2 % Normal 42.0-54.0 [facility] Comment on above: Performed By: #### C BC #### [facility] [address] [place] [address] Dr. Penny Allen Hemoglobin (Bld) [Mass/Vol] 14.7 g/dL Normal 14.0-18.0 [facility] Comment on above: Performed By: #### C BC #### [facility] [address] [place] [address] Dr. Penny Allen IG # 0.08 10e3/ul Critically high 0.00-0.03 [facility] Comment on above: Performed By: #### C BC #### [facility] [address] [place] [address] Dr. Penny Allen IG % 1.1 % Critically high 0.0-0.5 [facility] Comment on above: Performed By: #### C BC #### [facility] [address] [place] [address] Dr. Penny Allen LYMPH # 2.0 103/ul Normal 1.2-3.8 [facility] Comment on above: Performed By: #### C BC #### [facility] [address] [place] [address] Dr. Penny Allen Lymphocytes/100 WBC (Bld) 28.7 % Normal 20.5-60.0 [facility] Comment on above: Performed By: #### C BC #### [facility] [address] [place] [address] Dr. Penny Allen MANUAL DIFF REQ NO Normal [facility] Comment on above: Performed By: #### C BC #### [facility] [address] [place] [address] Dr. Penny Allen MCH (RBC) [Entitic mass] 28.9 pg Normal 25.9-34.0 [facility] Comment on above: Performed By: #### C BC #### [facility] [address] [place] [address] Dr. Penny Allen MCHC (RBC) [Mass/Vol] 32.5 g/dL Normal 29.9-35.2 [facility] Comment on above: Performed By: #### C BC #### [facility] [address] [place] [address] Dr. Penny Allen MCV (RBC) [Entitic vol] 88.8 fL Normal 80.0-94.0 [facility] Comment on above: Performed By: #### C BC #### [facility] [address] [place] [address] Dr. Penny Allen MONO # 0.7 103/ul Normal 0.3-0.8 [facility] Comment on above: Performed By: #### C BC #### [facility] [address] [place] [address] Dr. Penny Allen Monocytes/100 WBC (Bld) 10.0 % Normal 1.7-12.0 [facility] Comment on above: Performed By: #### C BC #### [facility] [address] [place] [address] Dr. Penny Allen NEUT # 4.0 103/ul Normal 1.4-6.5 [facility] Comment on above: Performed By: #### C BC #### [facility] [address] [place] [address] Dr. Penny Allen Neutrophils/100 WBC (Bld) 56.5 % Normal 43.0-75.0 [facility] Comment on above: Performed By: #### C BC #### [facility] [address] [address] [address] Penny Allen Platelet mean volume (Bld) [Entitic vol] 10.9 fL Normal 9.5-13.5 [facility] Comment on above: Performed By: #### C BC #### [facility] [address] [address] [address] Penny Allen PLT 204 103/ul Normal 150-450 [facility] Comment on above: Performed By: #### C BC #### [facility] [address] [address] [address] Penny Allen RBC 5.09 106/ul Normal 4.70-6.10 [facility] Comment on above: Performed By: #### C BC #### [facility] [address] [place] [address] Dr. Penny Allen WBC 7.1 103/ul Normal 4.0-11.0 [facility] Comment on above: Performed By: #### C BC #### [facility] [address] [place] [address] Dr. Penny Allen GLYCOHEMOGLOBIN A1Con 2021 ADA RECOMMENDATION SEE BELOW Normal [facility] Comment on above: Result Comment: ADA RECOMMENDED LIMIT 4.0 - 6.0 ADA THERAPEUTIC TARGET < 7.0 ACTION SUGGESTED > 7.0 Performed By: #### A 1C #### [facility] [address] [place] [address] Dr. Penny Allen Glucose [Mass/Vol] 143 mg/dL Normal [facility] Comment on above: Performed By: #### A 1C #### [facility] [address] [place] [address] Dr. Penny Allen HbA1c (Bld) [Mass fraction] 6.6 % Critically high 4.5-6.2 [facility] Comment on above: Performed By: #### A 1C #### [facility] [address] [place] [address] Dr. Penny Allen LIPID PROFILEon 08-02-2021 CHOL-HDL RATIO NORM SEE BELOW Normal [facility] Comment on above: Result Comment: 3.3 - 4.4 LOW RISK 4.4 - 7.1 AVERAGE RISK 7.1 - 11.0 MODERATE RISK >11.0 HIGH RISK Performed By: #### C MP, LIPID #### [facility] [address] [place] [address] Dr. Penny Allen Cholesterol [Mass/Vol] 115 mg/dL Normal <=200 [facility] Comment on above: Performed By: #### C MP, LIPID #### [facility] [address] [place] [address] Dr. Penny Allen Cholesterol in HDL [Mass/Vol] 34 mg/dL Critically low 40-60 [facility] Comment on above: Performed By: #### C MP, LIPID #### [facility] [address] [place] [address] Dr. Penny Allen Cholesterol in LDL [Mass/Vol] 36.0 mg/dL Normal [facility] Comment on above: Performed By: #### C MP, LIPID #### [facility] [address] [place] [address] Dr. Penny Allen Cholesterol.total/Ch olesterol in HDL [Mass ratio] 3.4 {ratio} Normal [facility] Comment on above: Performed By: #### C MP, LIPID #### [facility] [address] [place] [address] Dr. Penny Allen HDL NORMAL > or = 60 mg/dl - LO W CARDIOVASCULAR RISK <40 mg/dl - HIGH CARDIOVASCULAR RISK Normal [facility] Comment on above: Performed By: #### C MP, LIPID #### [facility] [address] [place] [address] Dr. Penny Allen LDL CALC NORMAL SEE BELOW Normal [facility] Comment on above: Result Comment: <100 mg/dl OPTIMAL 100 - 129 mg/dl NEAR OR ABOVE OPTIMAL 130 - 159 mg/dl BORDERLINE HIGH 160 - 189 mg/dl HIGH >190 mg/dl VERY HIGH Performed By: #### C MP, LIPID #### [facility] [address] [place] [address] Dr. Penny Allen Triglyceride [Mass/Vol] 225 mg/dL Critically high <=150 [facility] Comment on above: Performed By: #### C MP, LIPID #### [facility] [address] [place] [address] Dr. Penny Allen VLDL CALC 45.0 mg/dL Normal [facility] Comment on above: Performed By: #### C MP, LIPID #### [facility] [address] [place] [address] Dr. Penny Allen PROF 14(COMP METB)on 022 Albumin [Mass/Vol] 3.4 g/dL Normal 3.4-5.0 [facility] Comment on above: Performed By: #### C MP, LIPID #### [facility] [address] [place] [address] Dr. Penny Allen Albumin/Globulin [Mass ratio] 1.0 {ratio} Normal [facility] Comment on above: Performed By: #### C MP, LIPID #### [facility] [address] [place] [address] Dr. Penny Allen ALP [Catalytic activity/Vol] 45 U/L Critically low 46-116 [facility] Comment on above: Performed By: #### C MP, LIPID #### [facility] [address] [place] [address] Dr. Penny Allen ALT [Catalytic activity/Vol] 27 U/L Normal 16-63 [facility] Comment on above: Performed By: #### C MP, LIPID #### [facility] [address] [place] [address] Dr. Penny Allen Anion gap [Moles/Vol] 10.2 mmol/L Normal [facility] Comment on above: Performed By: #### C MP, LIPID #### [facility] [address] [place] [address] Dr. Penny Allen AST [Catalytic activity/Vol] 17 U/L Normal 15-37 [facility] Comment on above: Performed By: #### C MP, LIPID #### [facility] [address] [place] [address] Dr. Penny Allen Bilirubin [Mass/Vol] 0.3 mg/dL Normal 0.2-1.0 [facility] Comment on above: Performed By: #### C MP, LIPID #### [facility] [address] [address] [address] Penny Allen Calcium [Mass/Vol] 9.8 mg/dL Normal 8.5-10.1 [facility] Comment on above: Performed By: #### C MP, LIPID #### [facility] [address] [address] [address] Penny Allen Chloride [Moles/Vol] 104 mmol/L Normal 98-107 [facility] Comment on above: Performed By: #### C MP, LIPID #### [facility] [address] [address] [address] Penny Allen CO2 [Moles/Vol] 28.2 mmol/L Normal 21.0-32.0 [facility] Comment on above: Performed By: #### C MP, LIPID #### [facility] [address] [place] [address] Dr. Penny Allen Creatinine [Mass/Vol] 1.51 mg/dL Critically high 0.70-1.30 [facility] Comment on above: Performed By: #### C MP, LIPID #### [facility] [address] [place] [address] Dr. Penny Allen EGFR-AF [place] 54 mL/min/1.73m2 Critically low >=60 [facility] Comment on above: Performed By: #### C MP, LIPID #### [facility] [address] [place] [address] Dr. Penny Allen EGFR-NON AF [place] 45 mL/min/1.73m2 Critically low >=60 [facility] Comment on above: Performed By: #### C MP, LIPID #### [facility] [address] [place] [address] Dr. Penny Allen Globulin (S) [Mass/Vol] 3.5 g/dL Normal [facility] Comment on above: Performed By: #### C MP, LIPID #### [facility] [address] [address] [address] Penny Allen Glucose [Mass/Vol] 132 mg/dL Critically high 74-106 [facility] Comment on above: Performed By: #### C MP, LIPID #### [facility] [address] [address] [address] Penny Allen Potassium [Moles/Vol] 4.4 mmol/L Normal 3.5-5.1 [facility] Comment on above: Performed By: #### C MP, LIPID #### [facility] [address] [address] [address] Penny Allen Protein [Mass/Vol] 6.9 g/dL Normal 6.4-8.2 [facility] Comment on above: Performed By: #### C MP, LIPID #### [facility] [address], [place] [address] Dr. Penny Allen Sodium [Moles/Vol] 138 mmol/L Normal 136-145 [facility] Comment on above: Performed By: #### C MP, LIPID #### [facility] [address] [place] [address] [address] Penny Allen Urea nitrogen [Mass/Vol] 24.0 mg/dL Critically high 7.0-18.0 [facility] Comment on above: Performed By: #### C MP, LIPID #### [facility] [address] [address] [address] Penny Allen Urea nitrogen/Creatinine [Mass ratio] 15.9 mg/mg Normal [facility] Comment on above: Performed By: #### C MP, LIPID #### [facility] [address] [address] [address] Penny Allen Cardiovascular Lab Reporton 03-30-2020 Cardiovascular Lab Report [facility] Patient Name: Luis Alfredo Almanza [facility] MR #: [id number] Physician: Trent Lakhani M.D. Medicine Service Date: 03/30/2020 Division of Birthdate: 1940 Cardiology Room #: Adult Cardiovascular Services [place] [address] Cardiovascular Laboratory Report INDICATION: The patient is a 79-year-old man with a prior history of coronary artery disease status post bypass surgery in the past, chronic left ventricular systolic dysfunction. He was evaluated recently in Cardiology Clinic because of worsening class 3 heart failure symptoms. In addition, his echocardiogram showed a new reduction in left ventricular systolic function with an ejection fraction of 30% to 35%. Because of that he was referred for cardiac catheterization. PROCEDURE: 1. Right heart catheterization. 2. Bilateral selective coronary angiography. 3. Graft angiography. 4. Limited right common femoral angiography. 5. Access into the right common femoral artery and vein under ultrasound guidance. METHODS: Procedure was explained to the patient with risks and benefits. He was signed informed consent. He was brought to label operator in a fasting state. The right groin area was prepped and draped in usual fashion. Using micropuncture technique and ultrasound guidance, the right common femoral artery was accessed. The inner cannula was advanced. Limited right common femoral angiography was performed followed by upsizing to a 6-Qatari x 11 cm sheath. Access was obtained using same technique in the right common femoral vein and a 6-Qatari x 11 cm sheath was placed. A 6-Qatari Angulo catheter was used for right heart catheterization with measurement of pressures and calculation of cardiac output using the estimated Ronen method. Angulo catheter was removed. Bilateral selective coronary angiography was then performed using 6-Qatari JL4 and JR4 diagnostic catheters. The 6-Qatari JR4 diagnostic catheter was used to selectively engage the radial graft to the OM. Angiography was performed. Catheters were removed. A 6-Qatari CHANDAN catheter was used to selectively engage the left subclavian artery and then selectively engage the left internal mammary artery. Angiography was performed. Catheter was removed. Procedure was concluded. The patient tolerated the procedure well. He was transferred to the cardiovascular recovery area. The access sheath were removed and manual compression applied for hemostasis. He will be observed for 6 hours and then discharged to home. TOTAL FLUORO TIME: 8.31 minutes. TOTAL AIR KERMA: 674 mGy. TOTAL CONTRAST VOLUME: 25 mL. HEMODYNAMICS: RA 11, RV 43/6, 16 PA 47/16, mean 29. Pulmonary capillary wedge pressure 21, AO 139/62, mean 87. Cardiac output 6.51. Cardiac index 2.64. PA sat 67%, AO sat 92%. CORONARY ANGIOGRAPHY: This is a right dominant circulation. 1. Left main: This arises from left coronary cusp. It bifurcates into left anterior descending and circumflex vessels. Left main is free of disease. 2. Left anterior descending: This has a 90% stenosis at the takeoff of large septal branch. The LAD distally is seen filling via a patent OWENS graft as well as antegrade through injections of the left main. The diagonal branch is large and is free of disease. 3. Circumflex vessel: This is nondominant. It gives rise to a large first obtuse marginal branch, which is completely occluded in its proximal segment. The distal obtuse marginal branch is seen filling via a patent radial graft. 4. Right coronary artery: This is a large vessel. It arises from the right coronary cusp. It has a 40% proximal stenosis and mild disease elsewhere. 5. Graft angiography. 6. OWENS to LAD: This graft is widely patent. 7. Radial graft to the OM: This graft is widely patent. 8. Limited right common femoral angiography: This showed access to be in the right common femoral artery with no obstructive lesions noted in the femoral artery or its proximal branches. SUMMARY OF THE FINDINGS: 1. Severe 2-vessel coronary artery disease. 2. Patent OWENS to LAD and patent radial graft to OM. 3. A 40% stenosis in the proximal RCA. 4. Qwtz-cm-gladorzg elevation of filling pressures. 5. Govl-oi-cpxloqpw pulmonary hypertension. 6. Preserved cardiac output and cardiac index. 7. Note that the patient was having a lot of premature ventricular contractions during the procedure. RECOMMENDATIONS: 1. Medical therapy for coronary artery disease. 2. Medical therapy for systolic heart failure. 3. The patient will be given a 48-hour Holter monitor to quantify his PVC burden as it could be contributing to his left ventricular systolic dysfunction. 4. Follow up in Cardiology Clinic. Electronically Signed by: Trent Fernandez M.D. 04/01/2020 09:44 A (more content not included)... Normal [facility] BASIC METABOLIC PANELon 07-3 Anion gap 12 mmol/L Normal 10 - 20 [facility] Comment on above: Performed By: #### A MY ####[facility], [place] [phone] Bicarbonate (HCO3) 27 mmol/L Normal 21 - 32 [facility] Comment on above: Performed By: #### A MY ####[facility], [place] [phone] Calcium 9.9 mg/dL Normal 8.6 - 10.6 [facility] Comment on above: Performed By: #### A MY ####[facility], [place] [phone] Chloride 104 mmol/L Normal 98 - 107 [facility] Comment on above: Performed By: #### A MY ####[facility], [place] [phone] Creatinine 1.21 mg/dL Normal 0.50 - 1.30 [facility] Comment on above: Performed By: #### A MY ####[facility], [place] [phone] eGFR (non-black) 70 mL/min/{1.73_m2} Normal >60 [facility] Comment on above: Result Comment: CALC ULATIONS OF ESTIMATED GFR ARE PERFORMED USING THE MDRD STUDY EQUATION FOR THE IDMS-TRACEABLE CREATININE METHODS. CLIN CHEM 2007;53:766-72 Performed By: #### A MY ####[facility], [place] [phone] eGFR (non-black) 58 mL/min/{1.73_m2} Abnormal >60 [facility] Comment on above: Performed By: #### A MY ####[facility], [place] [phone] Glucose mass conc 133 mg/dL High 74 - 99 [facility] Comment on above: Performed By: #### A MY ####[facility], [place] [phone] Potassium molar conc 3.8 mmol/L Normal 3.5 - 5.3 [facility] Comment on above: Performed By: #### A MY ####[facility], [place] [phone] Sodium 139 mmol/L Normal 136 - 145 [facility] Comment on above: Performed By: #### A MY ####[facility], [place] [phone] Urea nitrogen 18 mg/dL Normal 6 - 23 [facility] Comment on above: Performed By: #### A MY ####[facility], [place] [phone] CBCon 10-20-2016 Erythrocyte distribution width Auto Ratio (RBC) 15.9 % High 11.5 - 14.5 [facility] Comment on above: Performed By: #### A MY ####[facility], [place] [phone] Erythrocytes (RBC) 4.08 x10E12/L Low 4.50 - 5.90 [facility] Comment on above: Performed By: #### A MY ####[facility], [place] [phone] Hematocrit (HCT) 35.4 % Low 41.0 - 52.0 [facility] Comment on above: Performed By: #### A MY ####[facility], [place] [phone] Hemoglobin mass conc (Bld) 11.1 g/dL Low 13.5 - 17.5 [facility] Comment on above: Performed By: #### A MY ####[facility], [place] [phone] MCHC mass conc (RBC) 31.4 g/dL Low 32.0 - 36.0 [facility] Comment on above: Performed By: #### A MY ####[facility], [place] [phone] MCV 87 fL Normal 80 - 100 [facility] Comment on above: Performed By: #### A MY ####[facility], [place] [phone] Nucleated erythrocytes 0.0 /100 WBC Normal 0.0-0.0 [facility] Comment on above: Performed By: #### A MY ####[facility], [place] [phone] Platelets 184 10*3/uL Normal 150 - 450 [facility] Comment on above: Performed By: #### A MY ####[facility], [place] [phone] WBC (Leukocytes) 8.7 10*3/uL Normal 4.4 - 11.3 [facility] Comment on above: Performed By: #### A MY ####[facility], [place] [phone] Discharge Summaryon 10-21-19 17 Discharge Summary Send Summary:Dischar ge Summary Providers:Provider Role Provider Name? Referring Marilou Bautista? Referring Luci Farrell? Primary Marilou Bautista? Primary Wing Perez ENpily Recipients: Marilou Bautista CNP (CERTIFIED) - [phone] [] Wing Perez MD - [id number] []Luci Farrell MD - [id number] [Preferred]Discharge:Vincent hines:Admission Date: .15-Oct-2016 05:50:00Discharge Date: [id number] Physician at Discharge: Luci FarrellAdmission Reason: Ventral hernia repairFinal Discharge Diagnoses: Ventral hernia repairProcedures: Date: 15-Oct-2016 16:19:00Procedure Name: Abdominal wall reconstruction with bilateral rectus sheath andtransversus abdominis release, VHRCondition at Discharge: SatisfactoryDisposition at Discharge: Home Health Care - NewVital Signs: T P R BP [id number] 36.8 78 18 145/80 94%Date/Time 10/20 8:02 10/20 8:02 10/20 8:02 10/20 8:02 10/20 8:02Range (35.6C - 36.8C ) (65 - 80 ) (18 - 20 ) (133 - 163 )/(72 - 94 ) (94%- 100% ) As of 20-Oct-2016 03:46:00, patient is on 2 L/min of oxygen via room air.Hospital Course:75 yo male with multiple medical co-morbidities admitted for VHR 5 days ago.He had return of bowel function over the weekend, and is having BM's, and istolerating regular diet. Pain has been well controlled since surgery. PT hasrecommended home going PT for ongoing reconditioning. All KWASI's were pulledprior to discharge. He will F/U in [address] Farrell for wound check.Discharge Information:and Continuing Care:Discharge Instructions:Activity: activity as tolerated. May shower.. May not return to school/work. May not drive until follow-up visit. No pushing, pulling, or lifting objects greater than 10 pounds. Weight-bearing Instructions: weight-bearing as tolerated.Nutrition/Diet : regularWound Care: Wound Site: Abdomen Wound Type: surgical incision Instructions: no lotions, creams, or tub soaksHome Care Certification: Home Care Agency: Other (with phone number) Skilled Disciplines [facility] Skilled Service: Rehab (PT/OT/SP eval and treat)Discharge Medications: Home Medication losartan 100 mg oral tablet - 1 tab(s) orally once a day pantoprazole 40 mg oral delayed release tablet - 1 tab(s) orally once a day Metoprolol Tartrate 50 mg oral tablet - 1 tab(s) orally 2 times a day atorvastatin 20 mg oral tablet - 1 tab(s) orally once a day aspirin 81 mg oral tablet - 1 tab(s) orally once a day allopurinol 300 mg oral tablet - 1 tab(s) orally once a day (at bedtime) vitamin E 400 intl units oral capsule - 1 cap(s) orally once a day Vitamin C 1000 mg oral tablet - 1 tab(s) orally once a day Colace 100 mg oral capsule - 1 cap(s) orally 2 times a day Fish Oil 1000 mg oral capsule - 1 cap(s) orally once a day predniSONE 10 mg oral tablet - 1 tab(s) orally once a day finasteride - 0.5 mg oral once a day 0.5 milligram(s) orally once a day PRN Medication HYDROmorphone 2 mg oral tablet - 1 tab(s) orally every 4 hours, As needed,Pain - Mod (4-6) Metamucil - null sertraline 25 mg oral tablet - 1 tab(s) orally once a day, As Needed ALPRAZolam 0.5 mg oral tablet - 1 tab(s) orally , As Neededamitriptyline 10 mg oral tablet - 1 tab(s) orally once a day (at bedtime), AsNeededLab Results - Pending: Surgical Pathology Drawn at 15-Oct-2016 00:00:00Radiology Results - Pending: NoneAttestation:Provider / Team Contact Info:Provider/Team Contact Info-Pager Number: [place]/[phone]/Chris tation:.: .: Electronic Signatures:Tisha Vega (TALENT SOURCING SPECIALIST (CERTIFIED)) (Signed 20-Oct-2016 11:14) Authored: Send Summary, Summary Content, Ongoing Care, AttestationLast Updated: 20-Oct-2016 11:14 by Tisha Vega (TALENT SOURCING SPECIALIST (CERTIFIED)) Normal [facility] GLUCOSE-POCTon 10-20-2016 Glucose mass conc 147 mg/dL High 74 - 99 [facility] Comment on above: Performed By: #### L IPAS ####[facility], [place] [phone] MAGNESIUMon 10-20-2016 Magnesium 1.76 mg/dL Normal 1.60 - 2.40 [facility] Comment on above: Performed By: #### A MY ####[facility], [place] [phone] BASIC METABOLIC PANELon 09-22 Anion gap 11 mmol/L Normal 10 - 20 [facility] Comment on above: Performed By: #### A MY ####[facility], [place] [phone] Bicarbonate (HCO3) 29 mmol/L Normal 21 - 32 [facility] Comment on above: Performed By: #### A MY ####[facility], [place] [phone] Calcium 10.4 mg/dL Normal 8.6 - 10.6 [facility] Comment on above: Performed By: #### A MY ####[facility], [place] [phone] Chloride 101 mmol/L Normal 98 - 107 [facility] Comment on above: Performed By: #### A MY ####[facility], [place] [phone] Creatinine 1.25 mg/dL Normal 0.50 - 1.30 [facility] Comment on above: Performed By: #### A MY ####[facility], [place] [phone] eGFR (non-black) 68 mL/min/{1.73_m2} Normal >60 [facility] Comment on above: Result Comment: CALC ULATIONS OF ESTIMATED GFR ARE PERFORMED USING THE MDRD STUDY EQUATION FOR THE IDMS-TRACEABLE CREATININE METHODS. CLIN CHEM 2007;53:766-72 Performed By: #### A MY ####[facility], [place] [phone] eGFR (non-black) 56 mL/min/{1.73_m2} Abnormal >60 [facility] Comment on above: Performed By: #### A MY ####[facility], [place] [phone] Glucose mass conc 142 mg/dL High 74 - 99 [facility] Comment on above: Performed By: #### A MY ####[facility], [place] [phone] Potassium molar conc 4.2 mmol/L Normal 3.5 - 5.3 [facility] Comment on above: Performed By: #### A MY ####[facility], [place] [phone] Sodium 137 mmol/L Normal 136 - 145 [facility] Comment on above: Performed By: #### A MY ####[facility], [place] [phone] Urea nitrogen 21 mg/dL Normal 6 - 23 [facility] Comment on above: Performed By: #### A MY ####[facility], [place] [phone] CBCon 10-19-2016 Erythrocyte distribution width Auto Ratio (RBC) 15.9 % High 11.5 - 14.5 [facility] Comment on above: Performed By: #### A MY ####[facility], [place] [phone] Erythrocytes (RBC) 4.34 x10E12/L Low 4.50 - 5.90 [facility] Comment on above: Performed By: #### A MY ####[facility], [place] [phone] Hematocrit (HCT) 37.8 % Low 41.0 - 52.0 [facility] Comment on above: Performed By: #### A MY ####[facility], [place] [phone] Hemoglobin mass conc (Bld) 12.0 g/dL Low 13.5 - 17.5 [facility] Comment on above: Performed By: #### A MY ####[facility], [place] [phone] MCHC mass conc (RBC) 31.7 g/dL Low 32.0 - 36.0 [facility] Comment on above: Performed By: #### A MY ####[facility], [place] [phone] MCV 87 fL Normal 80 - 100 [facility] Comment on above: Performed By: #### A MY ####[facility], [place] [phone] Nucleated erythrocytes 0.0 /100 WBC Normal 0.0-0.0 [facility] Comment on above: Performed By: #### A MY ####[facility], [place] [phone] Platelets 181 10*3/uL Normal 150 - 450 [facility] Comment on above: Performed By: #### A MY ####[facility], [place] [phone] WBC (Leukocytes) 11.6 10*3/uL High 4.4 - 11.3 [facility] Comment on above: Performed By: #### A MY ####[facility], [place] [phone] GLUCOSE-POCTon 10-19-2016 Glucose mass conc 121 mg/dL High 74 - 99 [facility] Comment on above: Performed By: #### A MY ####[facility], [place] [phone] Glucose mass conc 151 mg/dL High 74 - 99 [facility] Comment on above: Performed By: #### A MY ####[facility], [place] [phone] Glucose mass conc 159 mg/dL High 74 - 99 [facility] Comment on above: Performed By: #### A MY ####[facility], [place] [phone] Glucose mass conc 160 mg/dL High 74 - 99 [facility] Comment on above: Performed By: #### U AMIC ####[facility], [place] [phone] Glucose mass conc 138 mg/dL High 74 - 99 [facility] Comment on above: Performed By: #### U AMIC ####[facility], [place] [phone] HEMOGLOBIN A1Con 10-19-2016 Glucose mass conc 148 mg/dL Normal [facility] Comment on above: Performed By: #### A MY ####[facility], [place] [phone] Hemoglobin A1c/Hemoglobin.total mass fraction (Bld) 6.8 % Normal [facility] Comment on above: Result Comment: Diag nosis of Diabetes-Adults Non-Diabetic: < or = 5.6% Increased risk for developing diabetes: 5.7-6.4% Diagnostic of diabetes: > or = 6.5%. Monitoring of Diabetes Age (y) Therapeutic Goal (%) Adults: >18 <7.0 Pediatrics: 13-18 <7.5 7-12 <8.0 0- 6 7.5-8.5 [employer]. Diabetes Care 33(S1), Mar 2009. Performed By: #### A MY ####[facility], [place] [phone] MAGNESIUMon 10-19-2016 Magnesium 1.85 mg/dL Normal 1.60 - 2.40 [facility] Comment on above: Performed By: #### A MY ####[facility], [place] [phone] BASIC METABOLIC PANELon 07- Anion gap 13 mmol/L Normal 10 - 20 [facility] Comment on above: Performed By: #### U AMIC ####[facility], [place] [phone] Bicarbonate (HCO3) 30 mmol/L Normal 21 - 32 [facility] Comment on above: Performed By: #### U AMIC ####[facility], [place] [phone] Calcium 10.8 mg/dL High 8.6 - 10.6 [facility] Comment on above: Performed By: #### U AMIC ####[facility], [place] [phone] Chloride 99 mmol/L Normal 98 - 107 [facility] Comment on above: Performed By: #### U AMIC ####[facility], [place] [phone] Creatinine 1.38 mg/dL High 0.50 - 1.30 [facility] Comment on above: Performed By: #### U AMIC ####[facility], [place] [phone] eGFR (non-black) 61 mL/min/{1.73_m2} Normal >60 [facility] Comment on above: Result Comment: CALC ULATIONS OF ESTIMATED GFR ARE PERFORMED USING THE MDRD STUDY EQUATION FOR THE IDMS-TRACEABLE CREATININE METHODS. CLIN CHEM 2007;53:766-72 Performed By: #### U AMIC ####[facility], [place] [phone] eGFR (non-black) 50 mL/min/{1.73_m2} Abnormal >60 [facility] Comment on above: Performed By: #### U AMIC ####[facility], [place] [phone] Glucose mass conc 144 mg/dL High 74 - 99 [facility] Comment on above: Performed By: #### U AMIC ####[facility], [place] [phone] Potassium molar conc 4.8 mmol/L Normal 3.5 - 5.3 [facility] Comment on above: Performed By: #### U AMIC ####[facility], [place] [phone] Sodium 137 mmol/L Normal 136 - 145 [facility] Comment on above: Performed By: #### U AMIC ####[facility], [place] [phone] Urea nitrogen 26 mg/dL High 6 - 23 [facility] Comment on above: Performed By: #### U AMIC ####[facility], [place] [phone] CBC AND DIFFERENTIALon 10-18 % AUTOMATED IMMATURE GRAN 1.1 % High 0.0 - 0.9 [facility] Comment on above: Result Comment: Perc ent differential counts (%) should be interpreted in the context of the absolute cell counts (cells/L). Performed By: #### U AMIC ####[facility], [place] [phone] % NEUTROPHIL 72.2 % Normal 40.0 - 80.0 [facility] Comment on above: Performed By: #### U AMIC ####[facility], [place] [phone] Basophils/100 WBC Auto (Bld) 0.08 x10E9/L Normal 0.00 - 0.10 [facility] Comment on above: Performed By: #### U AMIC ####[facility], [place] [phone] Basophils/100 WBC Auto (Bld) 0.4 % Normal 0.0 - 2.0 [facility] Comment on above: Performed By: #### U AMIC ####[facility], [place] [phone] Eosinophils 0.11 10*3/uL Normal 0.00 - 0.40 [facility] Comment on above: Performed By: #### U AMIC ####[facility], [place] [phone] Eosinophils/100 leukocytes 0.6 % Normal 0.0 - 6.0 [facility] Comment on above: Performed By: #### U AMIC ####[facility], [place] [phone] Erythrocyte distribution width Auto Ratio (RBC) 15.7 % High 11.5 - 14.5 [facility] Comment on above: Performed By: #### U AMIC ####[facility], [place] [phone] Erythrocytes (RBC) 4.83 x10E12/L Normal 4.50 - 5.90 [facility] Comment on above: Performed By: #### U AMIC ####[facility], [place] [phone] Hematocrit (HCT) 43.2 % Normal 41.0 - 52.0 [facility] Comment on above: Performed By: #### U AMIC ####[facility], [place] [phone] Hemoglobin mass conc (Bld) 12.9 g/dL Low 13.5 - 17.5 [facility] Comment on above: Performed By: #### U AMIC ####[facility], [place] [phone] Lymphocytes 2.36 10*3/uL Normal 0.80 - 3.00 [facility] Comment on above: Performed By: #### U AMIC ####[facility], [place] [phone] Lymphocytes/100 leukocytes 13.3 % Normal 13.0 - 44.0 [facility] Comment on above: Performed By: #### U AMIC ####[facility], [place] [phone] MCHC mass conc (RBC) 29.9 g/dL Low 32.0 - 36.0 [facility] Comment on above: Performed By: #### U AMIC ####[facility], [place] [phone] MCV 89 fL Normal 80 - 100 [facility] Comment on above: Performed By: #### U AMIC ####[facility], [place] [phone] Monocytes 2.21 10*3/uL High 0.05 - 0.80 [facility] Comment on above: Performed By: #### U AMIC ####[facility], [place] [phone] Monocytes/100 leukocytes 12.4 % High 2.0 - 10.0 [facility] Comment on above: Performed By: #### U AMIC ####[facility], [place] [phone] Neutrophils 12.85 10*3/uL High 1.60 - 5.50 [facility] Comment on above: Performed By: #### U AMIC ####[facility], [place] [phone] Nucleated erythrocytes 0.0 /100 WBC Normal 0.0-0.0 [facility] Comment on above: Performed By: #### U AMIC ####[facility], [place] [phone] Platelets 192 10*3/uL Normal 150 - 450 [facility] Comment on above: Performed By: #### U AMIC ####[facility], [place] [phone] WBC (Leukocytes) 17.8 10*3/uL High 4.4 - 11.3 [facility] Comment on above: Performed By: #### U AMIC ####[facility], [place] [phone] GLUCOSE-POCTon 10-18-2016 Glucose mass conc 131 mg/dL High 74 - 99 [facility] Comment on above: Performed By: #### U AMIC ####[facility], [place] [phone] Glucose mass conc 184 mg/dL High 74 - 99 [facility] Comment on above: Performed By: #### U AMIC ####[facility], [place] [phone] Glucose mass conc 144 mg/dL High 74 - 99 [facility] Comment on above: Performed By: #### U AMIC ####[facility], [place] [phone] MAGNESIUMon 10-18-2016 Magnesium 2.02 mg/dL Normal 1.60 - 2.40 [facility] Comment on above: Performed By: #### U AMIC ####[facility], [place] [phone] BASIC METABOLIC PANELon 09-21 Anion gap 13 mmol/L Normal 10 - 20 [facility] Comment on above: Performed By: #### U A ####[facility], [place] [phone] Bicarbonate (HCO3) 30 mmol/L Normal 21 - 32 [facility] Comment on above: Performed By: #### U A ####[facility], [place] [phone] Calcium 10.8 mg/dL High 8.6 - 10.6 [facility] Comment on above: Performed By: #### U A ####[facility], [place] [phone] Chloride 99 mmol/L Normal 98 - 107 [facility] Comment on above: Performed By: #### U A ####[facility], [place] [phone] Creatinine 1.54 mg/dL High 0.50 - 1.30 [facility] Comment on above: Performed By: #### U A ####[facility], [place] [phone] eGFR (non-black) 53 mL/min/{1.73_m2} Abnormal >60 [facility] Comment on above: Result Comment: CALC ULATIONS OF ESTIMATED GFR ARE PERFORMED USING THE MDRD STUDY EQUATION FOR THE IDMS-TRACEABLE CREATININE METHODS. CLIN CHEM 2007;53:766-72 Performed By: #### U A ####[facility], [place] [phone] eGFR (non-black) 44 mL/min/{1.73_m2} Abnormal >60 [facility] Comment on above: Performed By: #### U A ####[facility], [place] [phone] Glucose mass conc 154 mg/dL High 74 - 99 [facility] Comment on above: Performed By: #### U A ####[facility], [place] [phone] Potassium molar conc 5.4 mmol/L High 3.5 - 5.3 [facility] Comment on above: Performed By: #### U A ####[facility], [place] [phone] Sodium 137 mmol/L Normal 136 - 145 [facility] Comment on above: Performed By: #### U A ####[facility], [place] [phone] Urea nitrogen 28 mg/dL High 6 - 23 [facility] Comment on above: Performed By: #### U A ####[facility], [place] [phone] CBCon 10-17-2016 Erythrocyte distribution width Auto Ratio (RBC) 15.9 % High 11.5 - 14.5 [facility] Comment on above: Performed By: #### U A ####[facility], [place] [phone] Erythrocytes (RBC) 5.10 x10E12/L Normal 4.50 - 5.90 [facility] Comment on above: Performed By: #### U A ####[facility], [place] [phone] Hematocrit (HCT) 45.0 % Normal 41.0 - 52.0 [facility] Comment on above: Performed By: #### U A ####[facility], [place] [phone] Hemoglobin mass conc (Bld) 14.3 g/dL Normal 13.5 - 17.5 [facility] Comment on above: Performed By: #### U A ####[facility], [place] [phone] MCHC mass conc (RBC) 31.8 g/dL Low 32.0 - 36.0 [facility] Comment on above: Performed By: #### U A ####[facility], [place] [phone] MCV 88 fL Normal 80 - 100 [facility] Comment on above: Performed By: #### U A ####[facility], [place] [phone] Nucleated erythrocytes 0.0 /100 WBC Normal 0.0-0.0 [facility] Comment on above: Performed By: #### U A ####[facility], [place] [phone] Platelets 189 10*3/uL Normal 150 - 450 [facility] Comment on above: Performed By: #### U A ####[facility], [place] [phone] WBC (Leukocytes) 18.4 10*3/uL High 4.4 - 11.3 [facility] Comment on above: Performed By: #### U A ####[facility], [place] [phone] GLUCOSE-POCTon 10-17-2016 Glucose mass conc 137 mg/dL High 74 - 99 [facility] Comment on above: Performed By: #### U AMIC ####[facility], [place] [phone] Glucose mass conc 201 mg/dL High 74 - 99 [facility] Comment on above: Performed By: #### U A ####[facility], [place] [phone] Glucose mass conc 142 mg/dL High 74 - 99 [facility] Comment on above: Performed By: #### U A ####[facility], [place] [phone] Glucose mass conc 151 mg/dL High 74 - 99 [facility] Comment on above: Performed By: #### U A ####[facility], [place] [phone] Glucose mass conc 155 mg/dL High 74 - 99 [facility] Comment on above: Performed By: #### U A ####[facility], [place] [phone] MAGNESIUMon 10-17-2016 Magnesium 2.17 mg/dL Normal 1.60 - 2.40 [facility] Comment on above: Performed By: #### U A ####[facility], [place] [phone] POTASSIUMon 10-17-2016 Potassium molar conc 5.3 mmol/L Normal 3.5 - 5.3 [facility] Comment on above: Performed By: #### U AMIC ####[facility], [place] [phone] BASIC METABOLIC PANELon 07- Anion gap 15 mmol/L Normal 10 - 20 [facility] Comment on above: Performed By: #### C BC ####[facility], [place] [phone] Bicarbonate (HCO3) 27 mmol/L Normal 21 - 32 [facility] Comment on above: Performed By: #### C BC ####[facility], [place] [phone] Calcium 10.6 mg/dL Normal 8.6 - 10.6 [facility] Comment on above: Performed By: #### C BC ####[facility], [place] [phone] Chloride 102 mmol/L Normal 98 - 107 [facility] Comment on above: Performed By: #### C BC ####[facility], [place] [phone] Creatinine 1.46 mg/dL High 0.50 - 1.30 [facility] Comment on above: Performed By: #### C BC ####[facility], [place] [phone] eGFR (non-black) 57 mL/min/{1.73_m2} Abnormal >60 [facility] Comment on above: Result Comment: CALC ULATIONS OF ESTIMATED GFR ARE PERFORMED USING THE MDRD STUDY EQUATION FOR THE IDMS-TRACEABLE CREATININE METHODS. CLIN CHEM 2007;53:766-72 Performed By: #### C BC ####[facility], [place] [phone] eGFR (non-black) 47 mL/min/{1.73_m2} Abnormal >60 [facility] Comment on above: Performed By: #### C BC ####[facility], [place] [phone] Glucose mass conc 130 mg/dL High 74 - 99 [facility] Comment on above: Performed By: #### C BC ####[facility], [place] [phone] Potassium molar conc 4.8 mmol/L Normal 3.5 - 5.3 [facility] Comment on above: Performed By: #### C BC ####[facility], [place] [phone] Sodium 139 mmol/L Normal 136 - 145 [facility] Comment on above: Performed By: #### C BC ####[facility], [place] [phone] Urea nitrogen 28 mg/dL High 6 - 23 [facility] Comment on above: Performed By: #### C BC ####[facility], [place] [phone] CBCon 10-16-2016 Erythrocyte distribution width Auto Ratio (RBC) 15.9 % High 11.5 - 14.5 [facility] Comment on above: Performed By: #### C BC ####[facility], [place] [phone] Erythrocytes (RBC) 5.21 x10E12/L Normal 4.50 - 5.90 [facility] Comment on above: Performed By: #### C BC ####[facility], [place] [phone] Hematocrit (HCT) 45.3 % Normal 41.0 - 52.0 [facility] Comment on above: Performed By: #### C BC ####[facility], [place] [phone] Hemoglobin mass conc (Bld) 14.6 g/dL Normal 13.5 - 17.5 [facility] Comment on above: Performed By: #### C BC ####[facility], [place] [phone] MCHC mass conc (RBC) 32.2 g/dL Normal 32.0 - 36.0 [facility] Comment on above: Performed By: #### C BC ####[facility], [place] [phone] MCV 87 fL Normal 80 - 100 [facility] Comment on above: Performed By: #### C BC ####[facility], [place] [phone] Nucleated erythrocytes 0.0 /100 WBC Normal 0.0-0.0 [facility] Comment on above: Performed By: #### C BC ####[facility], [place] [phone] Platelets 175 10*3/uL Normal 150 - 450 [facility] Comment on above: Performed By: #### C BC ####[facility], [place] [phone] WBC (Leukocytes) 15.2 10*3/uL High 4.4 - 11.3 [facility] Comment on above: Performed By: #### C BC ####[facility], [place] [phone] GLUCOSE-POCTon 10-16-2016 Glucose mass conc 166 mg/dL High 74 - 99 [facility] Comment on above: Performed By: #### U A ####[facility], [place] [phone] Glucose mass conc 135 mg/dL High 74 - 99 [facility] Comment on above: Performed By: #### U A ####[facility], [place] [phone] Glucose mass conc 131 mg/dL High 74 - 99 [facility] Comment on above: Performed By: #### C BC ####[facility], [place] [phone] Glucose mass conc 171 mg/dL High 74 - 99 [facility] Comment on above: Performed By: #### C BC ####[facility], [place] [phone] MAGNESIUMon 10-16-2016 Magnesium 1.92 mg/dL Normal 1.60 - 2.40 [facility] Comment on above: Performed By: #### C BC ####[facility], [place] [phone] ABO/RH GROUP TESTon 10-16-19 17 ABO TYPE O Normal [facility] Comment on above: Performed By: #### C BC ####[facility], [place] [phone] RH TYPE Positive Normal [facility] Comment on above: Performed By: #### C BC ####[facility], [place] [phone] GLUCOSE-POCTon 10-15-2016 Glucose mass conc 170 mg/dL High 74 - 99 [facility] Comment on above: Performed By: #### C BC ####[facility], [place] [phone] [facility] Surgical Pathology Depar tmenton 10-15-2016 [facility] Surgical Pathology Department Name LUIS ALFRDEO ALMANZA Pathologist: URIAH WHITE, MDDate of Procedure: 10/15/2016Date Received: 10/15/2016Date Reported 10/20/2016Submitting Physician: LUCI FARRELL MDLocation: TOWER [phone] Other External # FINAL DIAGNOSISSKIN, SOFT TISSUE, AND MESH, EXCISION: --SKIN AND SUBCUTIS WITH ATTACHED SYNTHETIC MESHThe gross and/or microscopic findings were reviewed in conjunction withpathology resident, Zena Paez M.D. Electronically Signed Out By URIAH WHITE MD/Velma the signature on this report, the individual or group listed as making theFinal Interpretation/Diagnosis certifies that they have reviewed this case. Clinical History:Ventral herniaSpecimens Submitted As:A: SKIN, SOFT TISSUE, AND MESH Gross Description:A. Received in formalin, labeled with the patient's name and hospital numberand A. skin soft tissue and mesh , are two segments of skin with underlyingfibroadipose soft tissue aggregating to 22 x 16 x 4.5 cm. The specimen [id number] grams. Serial cross sections reveal a homogeneous fibrofatty cut surfacewith mesh, suture material, and possible purulent debris. Representativesections are submitted in one cassette.HNG/AKNakn/10/16 Normal [facility] Comment on above: Performed By: #### L IPAS ####[facility], [place] [phone] AMYLASEon 10-14-2016 Amylase 26 U/L Low 29 - 103 [facility] Comment on above: Performed By: #### A MY ####[facility], [place] [phone] CBCon 10-14-2016 Erythrocyte distribution width Auto Ratio (RBC) 15.8 % High 11.5 - 14.5 [facility] Comment on above: Performed By: #### C BC ####[facility], [place] [phone] Erythrocytes (RBC) 5.88 x10E12/L Normal 4.50 - 5.90 [facility] Comment on above: Performed By: #### C BC ####[facility], [place] [phone] Hematocrit (HCT) 51.1 % Normal 41.0 - 52.0 [facility] Comment on above: Performed By: #### C BC ####[facility], [place] [phone] Hemoglobin mass conc (Bld) 15.8 g/dL Normal 13.5 - 17.5 [facility] Comment on above: Performed By: #### C BC ####[facility], [place] [phone] MCHC mass conc (RBC) 30.9 g/dL Low 32.0 - 36.0 [facility] Comment on above: Performed By: #### C BC ####[facility], [place] [phone] MCV 87 fL Normal 80 - 100 [facility] Comment on above: Performed By: #### C BC ####[facility], [place] [phone] Nucleated erythrocytes 0.0 /100 WBC Normal 0.0-0.0 [facility] Comment on above: Performed By: #### C BC ####[facility], [place] [phone] Platelets 176 10*3/uL Normal 150 - 450 [facility] Comment on above: Performed By: #### C BC ####[facility], [place] [phone] WBC (Leukocytes) 9.2 10*3/uL Normal 4.4 - 11.3 [facility] Comment on above: Performed By: #### C BC ####[facility], [place] [phone] CHEST; 2 VIEW APon 7 CHEST; 2 VIEW AP Name: LUIS ALFREDO ALMANZA STUDY:CHEST; 2 VIEW AP; 10/14/2016 8:40 am INDICATION:Signs/Symptom s: K43.2. COMPARISON:Outside CT scan abdomen and pelvis from 06/25/2016 ORDERING CLINICIAN:LUCI FARRELL FINDINGS:Median sternotomy wires are noted. The cardiomediastinal silhouette is mildly enlarged. There is minimal left basilar atelectasis. Otherwise, no definitefocal consolidation, pleural effusion or pneumothorax. No acute osseous abnormality. IMPRESSION:1. Mild enlargement of cardiomediastinal silhouette.2. No definite focal consolidation, pleural effusion or pneumothorax. Electronically signed by: LISANDRO ROLON MD Normal [facility] COAGULATION SCREENon 017 aPTT 24 s Low 25 - 36 [facility] Comment on above: Result Comment: NOTE NEW REFERENCE RANGE. THE APTT IS NO LONGER USED FOR MONITORING UNFRACTIONATED HEPARIN THERAPY. FOR MONITORING HEPARIN THERAPY, USE THE HEPARIN ASSAY. Performed By: #### C OAGS ####[facility], [place] [phone] INR Coag RelTime (PPP) 1.1 {INR} Normal 0.9 - 1.1 [facility] Comment on above: Performed By: #### C OAGS ####[facility], [place] [phone] Prothrombin time (PT) Coag time (PPP) 12.1 s Normal 9.8 - 12.7 [facility] Comment on above: Result Comment: NOTE NEW REFERENCE RANGE. Performed By: #### C OAGS ####[facility], [place] [phone] COMPREHENSIVE PANELon 2016 Alanine aminotransferase (ALT) 22 U/L Normal 10 - 52 [facility] Comment on above: Result Comment: Daniela ents treated with Sulfasalazine may generate falsely decreased results for ALT. Performed By: #### C MP ####[facility], [place] [phone] Albumin 4.3 g/dL Normal 3.4 - 5.0 [facility] Comment on above: Performed By: #### C MP ####[facility], [place] [phone] Alkaline phosphatase (ALP) 50 U/L Normal 33 - 136 [facility] Comment on above: Performed By: #### C MP ####[facility], [place] [phone] Anion gap 12 mmol/L Normal 10 - 20 [facility] Comment on above: Performed By: #### C MP ####[facility], [place] [phone] Aspartate aminotransferase (AST) 22 U/L Normal 9 - 39 [facility] Comment on above: Performed By: #### C MP ####[facility], [place] [phone] Bicarbonate (HCO3) 29 mmol/L Normal 21 - 32 [facility] [facility] Comment on above: Performed By: #### C MP ####[facility], [place] [phone] Bilirubin (total) 0.6 mg/dL Normal 0.0 - 1.2 [facility] Comment on above: Performed By: #### C MP ####[facility], [place] [phone] Calcium 11.0 mg/dL High 8.6 - 10.6 [facility] Comment on above: Performed By: #### C MP ####[facility], [place] [phone] Chloride 101 mmol/L Normal 98 - 107 [facility] Comment on above: Performed By: #### C MP ####[facility], [place] [phone] Creatinine 1.46 mg/dL High 0.50 - 1.30 [facility] Comment on above: Performed By: #### C MP ####[facility], [place] [phone] eGFR (non-black) 47 mL/min/{1.73_m2} Abnormal >60 [facility] Comment on above: Performed By: #### C MP ####[facility], [place] [phone] eGFR (non-black) 57 mL/min/{1.73_m2} Abnormal >60 [facility] Comment on above: Result Comment: CALC ULATIONS OF ESTIMATED GFR ARE PERFORMED USING THE MDRD STUDY EQUATION FOR THE IDMS-TRACEABLE CREATININE METHODS. CLIN CHEM 2007;53:766-72 Performed By: #### C MP ####[facility], [place] [phone] Glucose mass conc 146 mg/dL High 74 - 99 [facility] Comment on above: Performed By: #### C MP ####[facility], [place] [phone] Potassium molar conc 4.7 mmol/L Normal 3.5 - 5.3 [facility] Comment on above: Performed By: #### C MP ####[facility], [place] [phone] Protein 7.2 g/dL Normal 6.4 - 8.2 [facility] Comment on above: Performed By: #### C MP ####[facility], [place] [phone] Sodium 137 mmol/L Normal 136 - 145 [facility] Comment on above: Performed By: #### C MP ####[facility], [place] [phone] Urea nitrogen 23 mg/dL Normal 6 - 23 [facility] Comment on above: Performed By: #### C MP ####[facility], [place] [phone] HEMOGLOBIN A1Con 10-14-2016 Glucose mass conc 148 mg/dL Normal [facility] Comment on above: Performed By: #### C BC ####[facility], [place] [phone] Hemoglobin A1c/Hemoglobin.total mass fraction (Bld) 6.8 % Normal [facility] Comment on above: Result Comment: Diag nosis of Diabetes-Adults Non-Diabetic: < or = 5.6% Increased risk for developing diabetes: 5.7-6.4% Diagnostic of diabetes: > or = 6.5%. Monitoring of Diabetes Age (y) Therapeutic Goal (%) Adults: >18 <7.0 Pediatrics: 13-18 <7.5 7-12 <8.0 0- 6 7.5-8.5 [employer]. Diabetes Care 33(S1), Mar 2009. Performed By: #### C BC ####[facility], [place] [phone] LIPASEon 10-14-2016 Lipase 36 U/L Normal 9 - 82 [facility] Comment on above: Result Comment: Danuta puncture immediately after or during the administration of Metamizole may lead to falsely low results. Testing should be performed immediately prior to Metamizole dosing. Performed By: #### L IPAS ####[facility], [place] [phone] PREALBUMINon 10-14-2016 Prealbumin 29.2 mg/dL Normal 18.0 - 40.0 [facility] Comment on above: Performed By: #### P REAL ####[facility], [place] [phone] STAPH/MRSA SCREENon 10-15-19 STAPH/MRSA SCREEN PATIENT: EULALIA ALMANZA LOCATION: [facility]#: [id number] : 42 AGE: SEX: M ORDERED BY: SHELBY FARRELL: ANTERIOR NARES COLLECTED: 10/14/16 08:08ANTIBIOTICS AT FILIPPO.: RECEIVED : 10/14/16 09:37SITE: Nasal R E S U L T S STAPH/MRSA SCREEN FINAL 10/16/16 08:36 NO Staphylococcus aureus ISOLATED. Normal [facility] TYPE + SCREENon 10-14-2016 ABO TYPE O Normal [facility] Comment on above: Performed By: #### C BC ####[facility], [place] [phone] RH TYPE Positive Normal [facility] Comment on above: Performed By: #### C BC ####[facility], [place] [phone] ANTIBODY SCREEN Negative Normal [facility] Comment on above: Performed By: #### C BC ####[facility], [place] [phone] UA MICROSCOPICon 10-14-2016 Erythrocytes (RBC) 5 /HPF Normal 0-5 [facility] Comment on above: Performed By: #### U AMIC ####[facility], [place] [phone] SQUAMOUS EPITH. CELLS 1 /HPF Normal [facility] Comment on above: Performed By: #### U AMIC ####[facility], [place] [phone] Urine, mucus presence in sediment 1+ /LPF Normal [facility] Comment on above: Performed By: #### U AMIC ####[facility], [place] [phone] WBC (Leukocytes) 2 /HPF Normal 0-5 [facility] Comment on above: Performed By: #### U AMIC ####[facility], [place] [phone] URINALYSISon 10-14-2016 Bilirubin (total) Negative Normal NEGATIVE [facility] Comment on above: Performed By: #### U A ####[facility], [place] [phone] BLOOD Negative Normal NEGATIVE [facility] Comment on above: Performed By: #### U A ####[facility], [place] [phone] Glucose mass conc Negative Normal NEGATIVE [facility] Comment on above: Performed By: #### U A ####[facility], [place] [phone] pH of blood 6.0 [pH] Normal 5.0 - 8.0 [facility] Comment on above: Performed By: #### U A ####[facility], [place] [phone] Protein 30 (1+) Abnormal NEGATIVE [facility] Comment on above: Performed By: #### U A ####[facility], [place] [phone] Urine, appearance CLEAR Normal CLEAR [facility] Comment on above: Performed By: #### U A ####[facility], [place] [phone] Urine, color YELLOW Normal STRAW,YELLOW [facility] Comment on above: Performed By: #### U A ####[facility], [place] [phone] Urine, ketones presence Negative Normal NEGATIVE [facility] Comment on above: Performed By: #### U A ####[facility], [place] [phone] Urine, leukocyte esterase presence Negative Normal NEGATIVE [facility] Comment on above: Performed By: #### U A ####[facility], [place] [phone] Urine, nitrite presence Negative Normal NEGATIVE [facility] Comment on above: Performed By: #### U A ####[facility], [place] [phone] Urine, specific gravity 1.014 Normal 1.005 - 1.035 [facility] Comment on above: Performed By: #### U A ####[facility], [place] [phone] Urine, urobilinogen <2.0 Normal 0.0 - 1.9 [facility] Comment on above: Performed By: #### U A ####[facility], [place] [phone] ASCORBIC ACID Canceled Normal [facility] Comment on above: Order Comment: TEST URINALYSIS WAS CANCELLED, 10/14/2016 09:03 NO SPECIMEN RECEIVED IN LAB. Result Comment: Conc entrations > = 20 mg/dL of ascorbic acid can be expected to cause stronginterference in the reactions testing for glucose, nitrite and blood. It isrecommended to discontinue Vitamin C administration and retest in 10 hours. Performed By: #### U A ####[facility], [place] [phone] Bilirubin (total) Canceled Normal [facility] Comment on above: Order Comment: TEST URINALYSIS WAS CANCELLED, 10/14/2016 09:03 NO SPECIMEN RECEIVED IN LAB. Performed By: #### U A ####[facility], [place] [phone] BLOOD Canceled Normal [facility] Comment on above: Order Comment: TEST URINALYSIS WAS CANCELLED, 10/14/2016 09:03 NO SPECIMEN RECEIVED IN LAB. Performed By: #### U A ####[facility], [place] [phone] Glucose mass conc Canceled Normal [facility] Comment on above: Order Comment: TEST URINALYSIS WAS CANCELLED, 10/14/2016 09:03 NO SPECIMEN RECEIVED IN LAB. Performed By: #### U A ####[facility], [place] [phone] pH of blood Canceled Normal [facility] Comment on above: Order Comment: TEST URINALYSIS WAS CANCELLED, 10/14/2016 09:03 NO SPECIMEN RECEIVED IN LAB. Performed By: #### U A ####[facility], [place] [phone] Protein Canceled Normal [facility] Comment on above: Order Comment: TEST URINALYSIS WAS CANCELLED, 10/14/2016 09:03 NO SPECIMEN RECEIVED IN LAB. Performed By: #### U A ####[facility], [place] [phone] Urine, appearance Canceled Normal [facility] Comment on above: Order Comment: TEST URINALYSIS WAS CANCELLED, 10/14/2016 09:03 NO SPECIMEN RECEIVED IN LAB. Performed By: #### U A ####[facility], [place] [phone] Urine, color Canceled Normal [facility] Comment on above: Order Comment: TEST URINALYSIS WAS CANCELLED, 10/14/2016 09:03 NO SPECIMEN RECEIVED IN LAB. Performed By: #### U A ####[facility], [place] [phone] Urine, ketones presence Canceled Normal [facility] Comment on above: Order Comment: TEST URINALYSIS WAS CANCELLED, 10/14/2016 09:03 NO SPECIMEN RECEIVED IN LAB. Performed By: #### U A ####[facility], [place] [phone] Urine, leukocyte esterase presence Canceled Normal [facility] Comment on above: Order Comment: TEST URINALYSIS WAS CANCELLED, 10/14/2016 09:03 NO SPECIMEN RECEIVED IN LAB. Performed By: #### U A ####[facility], [place] [phone] Urine, nitrite presence Canceled Normal [facility] Comment on above: Order Comment: TEST URINALYSIS WAS CANCELLED, 10/14/2016 09:03 NO SPECIMEN RECEIVED IN LAB. Performed By: #### U A ####[facility], [place] [phone] Urine, specific gravity Canceled Normal [facility] Comment on above: Order Comment: TEST URINALYSIS WAS CANCELLED, 10/14/2016 09:03 NO SPECIMEN RECEIVED IN LAB. Performed By: #### U A ####[facility], [place] [phone] Urine, urobilinogen Canceled Normal [facility] Comment on above: Order Comment: TEST URINALYSIS WAS CANCELLED, 10/14/2016 09:03 NO SPECIMEN RECEIVED IN LAB. Performed By: #### U A ####[facility], [place] [phone] URINE CULTURE,BACTERIALon URINE CULTURE,BACTERIAL PATIENT: LUIS ALFREDO ALMANZA LOCATION: [facility]#: [id number] : 42 AGE: SEX: M ORDERED BY: SHELBY FARRELL: URINE COLLECTED: 10/14/16 08:08ANTIBIOTICS AT FILIPPO.: RECEIVED : 10/14/16 10:23SITE: Clean Catch/Voided R E S U L T S URINE CULTURE,BACTERIAL FINAL 10/15/16 07:30 NO SIGNIFICANT GROWTH. Normal [facility] Vital Signs Date Time Vital Sign Value Performing Clinician Facility 12-16-2022 11:00-0400 Body height 182.88 cm Tita Wali Other [facility] Other 12-16-2022 11:00-0400 Body mass index (BMI) [Ratio] 34.85 kg/m2 Tita Wali Other [facility] Other 12-16-2022 11:00-0400 Body temperature 96.6 [degF] Tita Wali Other [facility] Other 12-16-2022 11:00-0400 Body weight 116.58 kg Tita Wali Other [facility] Other 12-16-2022 11:00-0400 Diastolic blood pressure 64 mm[Hg] Tita Wali Other [facility] Other 12-16-2022 11:00-0400 Respiratory rate 18 /min Tita Wali Other [facility] Other 12-16-2022 11:00-0400 SaO2% (BldA) [Mass fraction] 97 % Tita Wali Other [facility] Other 12-16-2022 11:00-0400 Systolic blood pressure 135 mm[Hg] Tita Wail Other [facility] Other 09-08-2022 08:38-0400 Blood Pressure Location Danny BAEZ [facility] 09-08-2022 08:38-0400 Diastolic blood pressure 74 mm[Hg] Danny BAEZ [facility] 09-08-2022 08:38-0400 Heart rate 68 /min Danny BAEZ [facility] 09-08-2022 08:38-0400 Systolic blood pressure 129 mm[Hg] Danny BAEZ [facility] 09-06-2021 09:34-0400 Blood Pressure Location Danny BAEZ [facility] 09-06-2021 09:34-0400 Diastolic blood pressure 87 mm[Hg] Danny BAEZ [facility] 09-06-2021 09:34-0400 Heart rate 78 /min [facility] 09-06-2021 09:34-0400 Respiratory rate 16 /min Danny MILDRED [facility] 09-06-2021 09:34-0400 Systolic blood pressure 131 mm[Hg] Danny MILDRED [facility] Encounters Encounter Date Encounter Type Care Provider Facility Start: 03-01-2024 ambulatory Pk Monge Facility :[facility] Start: 01-07-2024 ambulatory Pk Monge Facility :[facility] Start: 09-14-2023 ambulatory Danny Briceñoi ty:[facility] Start: 09-01-2023 End: 09-01-2023 ambulatory Pk Monge Facility:[facility] Start: 09-01-2023 End: 09-01-2023 Patient encounter procedure [facility] Start: 09-01-2023 End: 09-01-2023 Lab Drop off Pk Monge [facility] Start: 09-01-2023 End: 09-01-2023 ambulatory Pk Monge Facility:[facility] Start: 07-29-2023 ambulatory [facility] Start: 07-21-2023 End: 07-21-2023 ambulatory Pk Monge Facility:[facility] Crystal nguyen Start: 07-21-2023 End: 07-21-2023 ambulatory JOSE ANGEL LONGORIA Not Available Start: 03-03-2023 End: 03-03-2023 ambulatory JOSE ANGEL LONGORIA Not Available Start: 03-02-2023 End: 03-02-2023 ambulatory Pk Monge Facility:[facility] Start: 12-31-2022 End: 12-31-2022 ambulatory Pk Monge Facility:[facility] Start: 12-31-2022 End: 12-31-2022 ambulatory Pk Monge Facility:[facility] Start: 12-16-2022 End: 12-16-2022 ambulatory Tita Wali Other [facility] Other Start: 12-16-2022 Office outpatient visit 25 minutes Tita Wali [facility] Start: 11-04-2022 End: 11-04-2022 ambulatory Pk Monge Facility: [facility] Start: 09-08-2022 End: 09-08-2022 Patient encounter procedure Danny BAEZ [facility] Start: 08-29-2022 End: 08-29-2022 ambulatory [facility] Start: 12-24-2021 End: 12-25-[address] WING PEREZ Facility:[facility] Start: 09-06-2021 End: 09-06-2021 Patient encounter procedure Danny BAEZ [facility] Start: 08-02-2021 End: 08-03-[address] WING PEREZ Facility:[facility] Start: 03-30-2020 End: 03-31-2020 ambulatory WING PEREZ Facility:[facility] Start: 10-15-2016 End: 10-20-2016 Evaluation and management of inpatient Luci Farrell Facility:[facility] Start: 10-14-2016 Ambulatory Luci Heller acility:[facility] Start: 10-14-2016 Ambulatory Luci Heller acility:[facility] Procedures Date Procedure Procedure Detail Performing Clinician Start: 01-17-2020 Transurethral water vapor ablation of prostate Danny BAEZ Start: 10-27-2019 Cystoscopy Danny Levine Comment on above: cysto, shock lithopa xy of bladder stone Start: 09-06-2019 Cystoscope, device ( physical object) Danny BAEZ Start: 10-15-2016 Supplement Abdominal Wall with Synthetic Substitute, Open Approach Luci Farrell Start: 10-15-2016 Transfer Left Abdome n Muscle, Transverse Rectus Abdominis Myocutaneous Flap, Open Approach Luci Farrell Acquired trigger fin ranjith (disorder) Danny BAEZ Cardiac catheter (ph ysical object) Danny BAEZ Comment on above: stent 11/01/04 Cardiac catheterization Patr rowdy BAEZ Coronary artery bypa ss grafts x 4 Danny BAEZ Comment on above: w/ OWENS History of hernia repair Cherry BAEZ Immunizations Immunization Date Immunization Notes Care Provider [facility] 01-02-2023 SARS-CoV-2 mRNA (tozinameran 5y-11y) vaccine [facility] Comment on above: Result Comment: comi rnaty Pfizer 01-02-2023 zoster vaccine recombinant [facility] 12-31-2022 influenza, high dose seasonal, preservative-free [facility] 01-04-2022 SARS-CoV-2 (COVID-19 ) mRNAMUL.[id number] Danny BAEZ [facility] 12-23-2021 influenza virus vaccine, unspecified formulation Dannylinda BAEZ [facility] 01-05-2021 influenza virus vaccine, unspecified formulation Danny BAEZ [facility] 01-05-2021 SARS-CoV-2 (COVID-19 ) mRNA BNT-162b2 vax Danny BAEZ [facility] 05-19-2020 influenza virus vaccine, unspecified formulation Danny BAEZ [facility] 05-19-2020 SARS-CoV-2 (COVID-19 ) mRNA BNT-162b2 vax Danny BAEZ [facility] Comment on above: Result Comment: 2022: [id number] 04-28-2020 SARS-CoV-2 (COVID-19 ) mRNA-1273 vaccine Danny BAEZ [facility] 12-22-2019 influenza virus vaccine, unspecified formulation [employer] [facility] 11-29-2019 influenza virus vaccine, unspecified formulation Danny BAEZ [facility] 01-06-2019 influenza virus vaccine, unspecified formulation Danny BAEZ [facility] 01-06-2019 pneumococcal conjuga te vaccine, 13 valent Danny BAEZ [facility] 01-14-2017 influenza virus vaccine, unspecified formulation [employer] [facility] 01-01-2017 influenza virus vaccine, unspecified formulation [employer] [facility] Payers Date Payer Category Payer Medicare dgyg 2022 Unknown [facility] 1959 Medicare [id number] 1959 Unknown [id number] 1941 Unknown [id number] 2.16.8 40.1.936585.3.579.2.647 1941 Unknown [id number] 2.16.84 0.1.456572.3.579.2.593 1941 Unknown [id number] 2.16.84 0.1.957757.3.579.2.593 1941 Unknown [id number] 2.16.84 0.1.281271.3.579.2.1259 1941 Unknown [id number] 2.16.840 .1.983702.3.579.2.1259 1941 Unknown [id number] 2.16.8 40.1.081160.3.579.2.727 1941 Unknown [id number] 2.16.8 40.1.019641.3.579.2.727 1941 Unknown [id number] 2.16.8 40.1.640357.3.579.2.727 1941 Unknown [id number] 2.16.8 40.1.216555.3.579.2.727 1941 Unknown [id number] 2.16.8 40.1.199219.3.579.2.727 1941 Unknown [id number] 2.16.8 40.1.414553.3.579.2.727 1941 Unknown [id number] 2.16.8 40.1.097990.3.579.2.727 1941 Unknown [id number] 2.16.8 40.1.908245.3.579.2.727 1941 Unknown [id number] 2.16.8 40.1.126969.3.579.2.727 1941 Unknown [id number] 2.16.8 40.1.615053.3.579.2.727 1941 Unknown [id number] 2.16.8 40.1.679652.3.579.2.727 Medicare [id number] Social History Date Type Detail Facility Start: 03-08-2021 End: 09-01-2023 Tobacco smoking status Never smoked tobacco (finding) [facility] Comment on above: denies Sex Assigned At Male [facility] Tobacco smoking status Never [facility] Comment on above: denies Medical Equipment Procedure Code Equipment Code Equipment Origin al Text Equipment Identifier Dates TEST BLOOD SUGAR ONCE DAILY Start: 08-06-2022 Functional Status Date Assessment Result Facility 09-08-2022 Functional Status N/A [facility] 09-06-2021 Functional Status N/A [facility] Clinical Notes 09-06-2021 to 07-29-2023 Note Date & Type Note Facility 07-29-2023 Note [facility] Subjective Luis Alfredo Almanza is a 82 y.o. year old male patient being seen for 1 year follow up CAD, chronic systolic heart failure, and aortic valve stenosis. Had echo in Feb 2023. He has an upcoming cpap titration study. Denies chest pain, SOB, palpitations, and lightheadedness/syncope. Patient Active Problem List Diagnosis Abnormal results of cardiovascular function studies Benign hypertensive cardiomyopathy with heart failure (CMS/HCC) Chest pain Chronic kidney disease Chronic systolic heart failure (CMS/HCC) Coronary arteriosclerosis Diabetes mellitus (CMS/HCC) Disorder of lipid metabolism Dyspnea Hypertensive disorder Sleep apnea Other abnormal findings on microbiological examination of urine Nonrheumatic aortic valve stenosis Anxiety Bladder calculi BMI 34.0-34.9,adult BPH with urinary obstruction Feeling of incomplete bladder emptying Herpes zoster Hypercholesterolemia Insomnia Microhematuria Nocturia Post-void dribbling No family history on file. Social History Tobacco Use Smoking status: Never Smokeless tobacco: Never Substance Use Topics Alcohol use: Yes Comment: occasional HPI Luis Alfredo Almanza is seen in follow up on CAD s/p bypass surgery, chronic systolic heart failure, and hypertension. Prior history: 1. CAD s/p prior stenting of the OM branch in the past, with cath 10/26/2013 showing high grade LAD stenosis and [employer] of the OM branch. He underwent CABG 11/10/2013, with OWENS to LAD and left radial artery to the OM. 2. Ischemic cardiomyopathy with mildly to moderately reduced left ventricular systolic (EF 41%) by echo 02/2014. 3. Mild mitral and moderate tricuspid regurgitation by echo 02/2014. 4. Hypertension. 5. Dyslipidemia. 6. CKD cr ~ 1.4 for several years He was evaluated in clinic on 02/28/2020 because of worsening shortness of breath. He underwent a echocardiogram that showed new reduction in left ventricular systolic function with an ejection fraction of 30-35%. I proceeded with cardiac catheterization on 03/30/2020 and this showed mild to moderate elevation of filling pressures, patent bypasses to the LAD and OM and moderate stenosis in the RCA. Due to frequent PVCs during the cardiac catheterization procedure I checked a Holter monitor and this showed a PVC burden of 6.72%. Today he is seen in follow-up. He reports that he has been doing relatively well. He is not very physically active. He has some lower extremity edema. No shortness of breath to his current level of activity. No chest pain. No palpitations. No dizziness or lightheadedness. Review of Systems HENT: Positive for hearing loss. Cardiovascular: Positive for leg swelling. Musculoskeletal: Positive for arthritis, back pain and joint pain. All other systems reviewed and are negative. Objective Visit Vitals BP 122/80 (BP Location: Left arm, Patient Position: Sitting) Pulse 62 Ht 1.829 m (6') Wt 118 kg (261 lb) SpO2 95% BMI 35.40 kg/m??? Smoking Status Never BSA 2.45 m??? Physical Exam Constitutional: Appearance: He is well-developed. He is not ill-appearing. HENT: Head: Normocephalic and atraumatic. Nose: Nose normal. Eyes: General: No scleral icterus. Pupils: Pupils are equal, round, and reactive to light. Neck: Thyroid: No thyromegaly. Vascular: No JVD. Cardiovascular: Rate and Rhythm: Normal rate and regular rhythm. Pulses: Radial pulses are 2+ on the right side and 2+ on the left side. Heart sounds: Murmur heard. Systolic (RUSB) murmur is present with a grade of 3/6. No friction rub. No gallop. Pulmonary: Effort: Pulmonary effort is normal. No respiratory distress. Breath sounds: Normal breath sounds. No wheezing or rales. Chest: Chest wall: No tenderness. Abdominal: General: Bowel sounds are normal. There is no distension. Palpations: Abdomen is soft. Tenderness: There is no abdominal tenderness. Musculoskeletal: General: No swelling. Cervical back: Neck supple. Right lower le+ Pitting Edema present. Left lower le+ Pitting Edema present. Skin: General: Skin is warm and dry. Neurological: General: No focal deficit present. Mental Status: He is alert and oriented to person, place, and time. Psychiatric: Mood and Affect: Mood normal. Behavior: Behavior is cooperative. Judgment: Judgment normal. Allergies Allergies Allergen Reactions Oxycodone-Acetaminophen Other Hallucinations Medications Current Outpatient Medications: allopurinol (Zyloprim) 300 mg tablet, Take 300 mg by mouth in the morning., Disp: , Rfl: aspirin 81 mg chewable tablet, in the morning., Disp: , Rfl: atorvastatin (Lipitor) 20 mg tablet, Take 20 mg by mouth at bedtime., Disp: , Rfl: cholecalciferol (Vitamin D-3) 25 MCG (1000 UT) capsule, Take 1,000 Units by mouth in the morning., Disp: , Rfl: glipiZIDE (Glucotrol) 5 mg tablet, Take 5 mg by mouth in the m (more content not included)... [facility] 03-24-2023 Note Provider called pt t o review recent echocardiogram with noted LSVF reduced 30-35% from 40-45% with Gr 2 DD and moderate AO stenosis- but noted images were difficult to assess EF and recommended next echo with contrast. Pt states that he feels well, and denied chest pain, SOB, Orthopnea, leg swelling, palpitations, syncope. D/W pt that red flag symptoms of CHF and AO stenosis- and to call office or be evaluated are chest pain, SOB, Orthopnea, leg swelling, palpitations, syncope- and he voiced understanding. Will repeat echo with contrast in 6 months and pt to F/U with Dr Fernandez to evaluate AO stenosis with reduced EF. Dea Shepard DIE CLE[employer]ER Division of Cardiology, [facility]- [phone] Pager- [phone] Email- [email or web address] 03-17-2023 Note This report has been cancelled. [facility] 03-17-2023 Note This report has been cancelled. [facility] 03-17-2023 Note This report has been cancelled. [facility] 03-17-2023 Note This report has been cancelled. [facility] 12-16-2022 Evaluation note Encounter Date Diagnosis Assessment Notes Nov, Chronic kidney disease, stage 3b (ICD-10 - N18.32) He has a longstanding CKD likely due to DM and HTN with baseline serum creatinine around 1.5 to 1.7 mg/dL. His renal ultrasound showed finding consistent with medical renal disease, bilateral nephrolithiasi s and left renal cyst. He has no evidence of hematuria and proteinuria. I discussed with the importance of good DM HTN control to slow down the progression of CKD. 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 He appears to be euvolemic. Continue current medications including Entresto. 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 I would recommend to stop the metformin if EGFR drops below 30 mm/min. Continue Entresto for renal protection. I discussed with him the options of SGLT2 inhibitors including Jardiance, Farxiga and Invokana to slow down the progression of CKD. I advised him to discuss with PCP about it. Nov, Secondary hyperparathyroidism (ICD-10 - N25.81) Calcium, phosphorus and vitamin D are within normal limit. Continue oral vitamin D. Nov, Dyslipidemia (ICD-10 - E78.5) Continue atorvastatin for dyslipidemia. Monitor LFTs and lipid profile periodically. Nov, Nephrolithiasis (ICD-10 - N20.0) He denies any recent passage of kidney stones. Continue follow-up with the urology. [facility] Other 06-19-2023 Hospital Discharge instructions Patient Education 09/08/2022 08:02:40 Benign Prostatic Hyperplasia Benign Prostatic Hyperplasia Benign prostatic hyperplasia (BPH) is an enlarged prostate gland that is caused by the normal agingprocess. The prostate may get bigger as a man gets older. The condition is not caused by cancer. The prostate is a walnut-sized gland that is involved in the production of semen. It is located in front of the rectum and below the bladder. The bladder stores urine. The urethra carries stored urine ou t of the body. An enlarged prostate can press on the urethra. This can make it harder to pass urine. The buildup of urine in the bladder can cause infection. Back pressure and infection may progress to bladder damage and kidney (renal) failure. What are the causes? This condition is part of the normal aging process. However, not all men develop problems from thiscondition. If the prostate enlarges away from the urethra, urine flow will not be blocked. If it enlarges toward the urethra and compresses it, there will be problems passing urine. What increases the risk? This condition is more likely to develop in men older than 50 years. What are the signs or symptoms? Symptoms of this condition include: Getting up often during the night to urinate. Needing to urinate frequently during the day. Difficulty starting urine flow. Decrease in size and strength of your urine stream. Leaking (dribbling) after urinating. Inability to pass urine. This needs immediate treatment. Inability to completely empty your bladder. Pain when you pass urine. This is more common if there is also an infection. Urinary tract infection (UTI). How is this diagnosed? This condition is diagnosed based on your medical history, a physical exam, and your symptoms. Tests will also be done, such as: A post-void bladder scan. This measures any amount of urine that may remain in your bladder after you finish urinating. A digital rectal exam. In a rectal exam, your health care provider checks your prostate by putting a lubricated, gloved finger into your rectum to feel the back of your prostate gland. This exam detects the size of your gland and any abnormal lumps or growths. An exam of your urine (urinalysis). A prostate specific antigen (PSA) screening. This is a blood test used to screen for prostate cancer. An ultrasound. This test uses sound waves to electronically produce a picture of your prostate gland. Your health care provider may refer you to a specialist in kidney and prostate diseases (urologist). How is this treated? Once symptoms begin, your health care provider will monitor your condition (active surveillance or watchful waiting). Treatment for this condition will depend on the severity of your condition. Treatment may include: Observation and yearly exams. This may be the only treatment needed if your condition and symptoms are mild. Medicines to relieve your symptoms, including: ?Medicines to shrink the prostate. ?Medicines to relax the muscle of the prostate. Surgery in severe cases. Surgery may include: ?Prostatectomy. In this procedure, the prostate tissue is removed completely through an open incision or with a laparoscope or robotics. ?Transurethral resection of the prostate (TURP). In this procedure, a tool is inserted through the opening at the tip of the penis (urethra). It is used to cut away tissue of the inner core of the prostate. The pieces are removed through the same opening of the penis. This removes the blockage. ?Transurethral incision (TUIP). In this procedure, small cuts are made in the prostate. This lessens the prostate's pressure on the urethra. ?Transurethral microwave thermotherapy (TUMT). This procedure uses microwaves to create heat. The heat destroys and removes a small amount of prostate tissue. ?Transurethral needle ablation (TUNA). This procedure uses radio frequencies to destroy and remove a small amount of prostate tissue. ?Interstitial laser coagulation (ILC). This procedure uses a laser to destroy and remove a small amount of prostate tissue. ?Transurethral electrovaporization (TUVP). This procedure uses electrodes to destroy and remove a small amount of prostate tissue. ?Prostatic urethral lift. This procedure inserts an implant to push the lobes of the prostate away from the urethra. Follow these instructions at home: Take lhph-ydw-tdjkwlz and prescription medicines only as told by your health care provider. Monitor your symptoms for any changes. Contact your health care provider with any changes. Avoid drinking large amounts of liquid before going to bed or out in public. Avoid or reduce how much caffeine or alcohol you drink. Give yourself time when you urinate. Keep all follow-up visits. This is important. Contact a health care provider if: You have unexplained back pain. Your symptoms do not get better with treatment. You develop side effects from the medicine you are taking. Your urine becomes very dark or has a bad smell. Your lower abdomen becomes distended and you have trouble passing urine. Get help right away if: You have a fever or chills. You suddenly cannot urinate. You feel light-headed or very dizzy, or you faint. There are large amounts of blood or clots in your urine. Your urinary problems become hard to manage. You develop moderate to severe low back or flank pain. The flank is the side of your body between the ribs and the hip. These symptoms may be an emergency. Get help right away. Call 911. Do not wait to see if the symptoms will go away. Do not drive yourself to the hospital. Summary Benign prostatic hyperplasia (BPH) is an enlarged prostate that is caused by the normal aging process. It is not caused by cancer. An enlarged prostate can press on the urethra. This can make it hard to pass urine. This condition is more likely to develop in men older than 50 years. Get help right away if you suddenly cannot urinate. This information is not intended to replace advice given to you by your health care provider. Make sure you discuss any questions you have with your health care provider. Document Revised: 09/25/2021 Document Reviewed: 09/25/2021 [employer] Patient Education 2022 [employer]. Follow Up Care 09/06/2021 10:14:50 With:MILDRED GUEVARA, Danny Keen, URL Address: [facility] [address] [place] [address]- When: Unknown [facility] 06-09-2023 NoteCardiology Clinic Note Subjective Luis Alfredo Almanza is a 81 y.o. year old male patient with history of coronary artery disease status post CABG in 2014, hypertension, type 2 diabetes mellitus, and chronic kidney disease seen in follow-up. Patient Active Problem List Diagnosis Abnormal results of cardiovascular function studies Benign essential hypertension Chest pain Chronic kidney disease Chronic systolic heart failure (CMS/HCC) Coronary arteriosclerosis Diabetes mellitus (CMS/HCC) Disorder of lipid metabolism Dyspnea Hypertensive disorder Sleep apnea Other abnormal findings on microbiological examination of urine Nonrheumatic aortic valve stenosis No family history on file. Social History Tobacco Use Smoking status: Never Smokeless tobacco: Never Substance Use Topics Alcohol use: Yes Comment: occasional HPI 81-year-old male with HFrEF, chronic systolic heart failure, CAD status post CABG 11/10/2013 [place] to LAD and left radial artery to OM, hypertension, hyperlipidemia, ventricular premature beats, chronic kidney disease stage III. At visit of 04/16/2020 I stopped losartan and started him on Entresto. He has felt much better with that. Today he reports that he continues to do well. No chest pain. His shortness of breath continues to improve. NYHA class I. No significant lower extremity edema. No palpitations. Blood testing 08/02/2021: Hemoglobin 14.7, platelets 204, potassium 4.4, BUN 24, creatinine 1.51, cholesterol 115, HDL 34, triglycerides 225, LDL 36, hemoglobin A1c 6.6. Update: 03/07/2022 Today patient says he continues to feel well. He can walk 1/4 mile with what he considers stable exertional dyspnea no chest discomfort. He is not following blood pressures at home, and weighs occasionally, noticing 13 pound weight drop over the past 6 months with intentional reduction in carbohydrates and portions. He follows reduced sodium diet and is compliant with his medication, although admits to missing about 1 morning's dose per week. At the beginning of March he will travel to his winter home in [place], and stay until June. 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 Update: 08/29/2022 Has been doing well since last OV No chest pain, dyspnea, palpitations No lower extremity low ROS Objective Visit Vitals BP 130/82 (BP Location: Left arm, Patient Position: Sitting) Pulse (!) 49 Ht 1.829 m (6') Wt 117 kg (257 lb) SpO2 98% BMI 34.86 kg/m??? Smoking Status Never BSA 2.44 m??? Physical Exam General: Awake, alert, good spirits. NAD Pulm: Breath sounds clear to ascultation bilaterally with no wheeze, crackles or rhonchi Cards: Regular rate and rhythm, S1, S2. No S3 or S4 gallop. Murmur: none Abd: Soft, Nontender, physiologic bowel sounds are present Extr: Lower extremity edema: None. DP pulses:2+ Skin: warm, dry, well perfused Neuro: A&Ox3, No gross deficits Allergies Allergies Allergen Reactions Oxycodone-Acetaminophen Other Hallucinations Medications Current Outpatient Medications: allopurinol (Zyloprim) 300 mg tablet, Take 300 mg by mouth in the morning., Disp: , Rfl: ALPRAZolam (Xanax) 0.5 mg tablet, take 1 tablet by mouth once daily if needed, Disp: , Rfl: amitriptyline (Elavil) 10 mg tablet, , Disp: , Rfl: aspirin 81 mg chewable tablet, in the morning., Disp: , Rfl: atorvastatin (Lipitor) 20 mg tablet, Take 20 mg by mouth at bedtime., Disp: , Rfl: fenofibrate micronized (Lofibra) 200 mg capsule, Take 200 mg by mouth with breakfast., Disp: , Rfl: finasteride (Proscar) 5 mg tablet, Take 5 mg by mouth in the morning., Disp: , Rfl: furosemide (Lasix) 20 mg tablet, Take 20 mg by mouth in the morning., Disp: , Rfl: glipiZIDE (Glucotrol) 5 mg tablet, Take 5 mg by mouth in the morning., Disp: , Rfl: metFORMIN XR (Glucophage-XR) 500 mg 24 hr tablet, Take 500 mg by mouth in the morning and at bedtime., Disp: , Rfl: metoprolol succinate XL (Toprol-XL) 100 mg 24 hr tablet, Take 100 mg by mouth in the morning., Disp: , Rfl: oxybutynin XL (Ditropan-XL) 10 mg 24 hr tablet, Take 10 mg by mouth in the morning., Disp: , Rfl: pantoprazole (ProtoNix) 40 mg EC tablet, Take 40 mg by mouth before breakfast., Disp: , Rfl: sacubitriL-valsartan (Entresto) 49-51 mg tablet, Take 1 tablet by mouth in the morning and at bedtime., Disp: , Rfl: tamsulosin (Flomax) 0.4 mg 24 hr capsule, Take 0.4 mg by mouth in the morning and at bedtime., Disp: , Rfl: Recent Labs 12/24/2021 CBC: WBC 6.6, hemoglobin 14.2, hematocrit 44.5, platelets 193 CMP: Sodium 140, potassium 4.7, CO2 30.7, BUN 22, creatinine 1.66, GFR 40% Lipid profile: Cholesterol 104, HDL 38, triglycerides 156, LDL 34.8 Imaging and other tests Echocardiogram 08/27/20: ([facility]) Global LVSF mildly reduced; EF 40-45%, segmental wall motion abnormalities seen. Grade 2 moderate diastolic dysfunction. Biatrial enlargeme (more content not included)...[facility]06-09-[facility]23 NotePatient here for 6 mo follow up chronic systolic heart failure, CAD, and aortic valve stenosis. Denies chest pain, SOB, and LE edema. Had labs a few weeks ago at PCP's office. Review of Systems HENT: Positive for hearing loss. Musculoskeletal: Positive for arthritis, back pain and joint pain. All other systems reviewed and are negative.[facility] 09-06-2021 Hospital Discharge instructions Patient Education 09/06/2021 10:12:42 Prostatitis Prostatitis Prostatitis is swelling or inflammation of the prostate gland. The prostate is a walnut-sized glandthat is involved in the production of semen. It is located below a man's bladder, in front of the rectum. There are four types of prostatitis: Chronic nonbacterial prostatitis. This is the most common type of prostatitis. It may be associatedwith a viral infection or autoimmune disorder. Acute bacterial prostatitis. This is the least common type of prostatitis. It starts quickly and isusually associated with a bladder infection, high fever, and shaking chills. It can occur at any age. Chronic bacterial prostatitis. This type usually results from acute bacterial prostatitis that happens repeatedly (is recurrent) or has not been treated properly. It can occur in men of any age but is most common among middle-aged men whose prostate has begun to get larger. The symptoms are not as severe as symptoms caused by acute bacterial prostatitis. Prostatodynia or chronic pelvic pain syndrome (CPPS). This type is also called pelvic floor disorder. It is associated with increased muscular tone in the pelvis surrounding the prostate. What are the causes? Bacterial prostatitis is caused by infection from bacteria. Chronic nonbacterial prostatitis may becaused by: Urinary tract infections (UTIs). Nerve damage. A response by the body s disease-fighting system (autoimmune response). Chemicals in the urine. The causes of the other types of prostatitis are usually not known. What are the signs or symptoms? Symptoms of this condition vary depending upon the type of prostatitis. If you have acute bacterialprostatitis, you may experience: Urinary symptoms, such as: ?Painful urination. ?Burning during urination. ?Frequent and sudden urges to urinate. ?Inability to start urinating. ?A weak or interrupted stream of urine. Vomiting. Nausea. Fever. Chills. Inability to empty the bladder completely. Pain in the: ?Muscles or joints. ?Lower back. ?Lower abdomen. If you have any of the other types of prostatitis, you may experience: Urinary symptoms, such as: ?Sudden urges to urinate. ?Frequent urination. ?Difficulty starting urination. ?Weak urine stream. ?Dribbling after urination. Discharge from the urethra. The urethra is a tube that opens at the end of the penis. Pain in the: ?Testicles. ?Penis or tip of the penis. ?Rectum. ?Area in front of the rectum and below the scrotum (perineum). Problems with sexual function. Painful ejaculation. Bloody semen. How is this diagnosed? This condition may be diagnosed based on: A physical and medical exam. Your symptoms. A urine test to check for bacteria. An exam in which a health care provider uses a finger to feel the prostate (digital rectal exam). A test of a sample of semen. Blood tests. Ultrasound. Removal of prostate tissue to be examined under a microscope (biopsy). Tests to check how your body handles urine (urodynamic tests). A test to look inside your bladder or urethra (cystoscopy). How is this treated? Treatment for this condition depends on the type of prostatitis. Treatment may involve: Medicines to relieve pain or inflammation. Medicines to help relax your muscles. Physical therapy. Heat therapy. Techniques to help you control certain body functions (biofeedback). Relaxation exercises. Antibiotic medicine, if your condition is caused by bacteria. Warm water baths (sitz baths). Sitz baths help with relaxing your pelvic floor muscles, which helpsto relieve pressure on the prostate. Follow these instructions at home: Take hkcd-uyn-hchyvao and prescription medicines only as told by your health care provider. If you were prescribed an antibiotic, take it as told by your health care provider. Do not stop taking the antibiotic even if you start to feel better. If physical therapy, biofeedback, or relaxation exercises were prescribed, do exercises as instructed. Take sitz baths as directed by your health care provider. For a sitz bath, sit in warm water that is deep enough to cover your hips and buttocks. Keep all follow-up visits as told by your health care provider. This is important. Contact a health care provider if: Your symptoms get worse. You have a fever. Get help right away if: You have chills. You feel nauseous. You vomit. You feel light-headed or feel like you are going to faint. You are unable to urinate. You have blood or blood clots in your urine. This information is not intended to replace advice given to you by your health care provider. Make sure you discuss any questions you have with your health care provider. Document Released: 03/06/2001 Document Revised: 05/22/2018 Document Reviewed: 11/27/2016 [employer] Patient Education [employer]. Follow Up Care 03/08/2021 09:46:57 With:MILDRED GUEVARA, Danny Keen, URL Address: [facility] [address], [place] [address]- [phone] When:09/06/2022 [facility] evaluation + Plan note Future Appointments Appointment Date:09/08/2022 08:45:00 AM Scheduled Provider:Danny BAEZ MD Location:[facility] Appointment Type:URO Office Visit [facility] evaluation + Plan note Future Appointments Appointment Date:2022 09:30:00 AM Scheduled Provider: Location:[facility] Appointment Type:FM Medicare Wellness Subsequent Appointment Date:09/14/2023 08:45:00 AM Scheduled Provider:Danny BAEZ MD Location:[facility] Appointment Type:URO Office Visit [facility] evaluation + Plan note Future Appointments Appointment Date:09/14/2023 08:45:00 AM Scheduled Provider:Danny BAEZ MD Location:[facility] [place] Appointment Type:URO Office Visit Appointment Date:01/07/2024 11:00:00 AM Scheduled Provider: Location:[facility] Appointment Type: Medicare Wellness Subsequent Appointment Date:03/01/2024 10:15:00 AM Scheduled Provider:Pk Monge MD [facility] - [facility] Type Description Date Medical History CORONARY ARTERY DISEASE Medical History HEART FAILURE REDUCED EJECTION F RACTION Medical History AORTIC VALVE STENOSIS Medical History CHRONIC KIDNEY DISEASE STAGE V Medical History HYPERTENSION Medical History SLEEP APNEA Medical History DIABETES MELLITUS Medical History CHEST PAIN Medical History DYSPNEA Medical History NONRHEUMATIC AORTIC VALVE STENOS IS Surgical History HX OF CABG Surgical History HERNIA REPAIR X 13 Surgical History RIGHT LEG FRACTURE Hospitalization History SEE ABOVE [facility] Other Hospital course Narrative No data available for this section [facility] Hospital Discharge instructions No data available for this section [facility] No data available for this section [facility] Summary Purpose Family History No Family History Records FoundNo Family History Records FoundNo Family History Records FoundNo Family History Records FoundNo Family History Records Found No data available for this section No data available for this section No Family History Records FoundNo Family History Records FoundNo Family History Records FoundNo Family History Records Found Advance Directives No Advanced Directives Records FoundNo Advanced Directives Records FoundNo Advanced Directives Records FoundNo Advanced Directives Records FoundNo Advanced Directives Records FoundNo Advanced Directives Records FoundNo Advanced Directives Records FoundNo Advanced Directives Records FoundNo Advanced Directives Records Found Additional Source Comments (unrecognized sect ion and content) No Status Records FoundNo Status Records FoundNo Status Records FoundNo Status Records FoundNo Status Records FoundNo Status Records FoundNo Status Records FoundNo Status Records FoundNo Status Records Found INFORMATION SOURCE (unrecogn ized section and content) DATE CREATED AUTHOR 09/16/2017 [facility] DATE CREATED AUTHOR AUTHOR'S ORGANIZ ATION 08/30/2020 [facility] DATE CREATED AUTHOR AUTHOR'S ORGANIZ ATION 12/27/2021 [facility] DATE CREATED AUTHOR AUTHOR'S ORGANIZ ATION 07/22/2023 [facility] EPIC DATE CREATED AUTHOR AUTHOR'S ORGANIZ ATION 08/03/2023 [facility] DATE CREATED AUTHOR AUTHOR'S ORGANIZ ATION 09/02/2023 [facility] DATE CREATED AUTHOR AUTHOR'S ORGANIZ ATION 09/10/2023 [facility] DATE CREATED AUTHOR AUTHOR'S ORGANIZ ATION 09/12/2023 [facility] Care Team (unrecognized sect ion and content) Personnel Name: WING PEREZ MD Address: [address] [place] [address] Personnel Name: Pk Monge MD Address: Address: [address] [place] [address] Personnel Name: Pk Monge MD Address: Address: [address] [place] [address] Personnel Name: Pk Monge MD Address: Address: [address] [place] [address] REASON FOR VISIT (unrecogniz ed section and content) CKD FOR RECORDS PERTAINING TO PATIENTS WHO ARE OR HAVE BEEN ENROLLED IN A CHEMICAL DEPENDENCY/SUBSTANCEABUSE PROGRAM, SOME INFORMATION MAY BE OMITTED. This clinical summary was aggregated from multiple sources. Caution should be exercised in using it in the provision of clinical care. This summary normalizes information from multiple sources, and as a consequence, information in this document may materially change the coding, format and clinical context of patient data. In addition, data may be omitted in some cases. CLINICAL DECISIONS SHOULD BE BASED ON THE PRIMARY CLINICAL RECORDS. [facility]. provides no warranty or guarantee of the accuracy or completeness of information in this document.
--- NOTE | 2023-09-14 07:00 | CA_ITS ---
Patient Name: JEFERSON BANGURA MR#: [id number] : 1940 Exam Date: 09/14/2023 Ordering Doctor: CATHERINE SHEPARD ECHOCARDIOGRAM REPORT PROCEDURE: CA ECHO W/ CON INDICATIONS: Heart failure with reduced EF COMPARISON: None. DESCRIPTION: COMPLETE ECHOCARDIOGRAM Real-time transthoracic echocardiography with 2D, M-mode, spectral and color flow Doppler performed. QUALITY: Lumason contrast was administered due to suboptimal imaging for left ventricular opacification to improve delineation of endocardial boarders. LEFT VENTRICLE: Normal chamber size. Normal left ventricular wall thickness. There is akinesis of the inferior and inferolateral segments. Global systolic function is moderately to severely reduced. No evidence of intracavitary thrombus. LV EF: Visual estimation of left ventricular ejection fraction is moderate to severely decreased at 30-35%. DIASTOLIC: ATRIAL SEPTUM: LEFT ATRIUM: Severe dilatation. RIGHT ATRIUM: Moderate dilatation. RIGHT VENTRICLE: Mild dilatation. Normal right ventricular systolic function. TRICUSPID VALVE: Normal mobility and thickness. No stenosis with trivial regurgitation. Unable to assess right-sided pressures due to lack of measurable tricuspid regurgitation. MITRAL VALVE: Normal mobility and thickness. No evidence of mitral valve stenosis. There is no mitral annular calcification. Mild mitral regurgitation. AORTIC VALVE: Normal trileaflet appearance. Moderately calcified aortic valve. Moderately diminished mobility. Doppler velocity suggest moderate aortic valve stenosis. DVI 0.36, KENJI 1.3 cm2, Vmax 3.1 m/s, Mean gradient 21 mmHg. Mild aortic regurgitation. AORTIC ROOT: Normal diameter and appearance. PULMONIC VALVE: Normal thickness and mobility. No stenosis. Trivial regurgitation. PERICARDIUM: No evidence of pericardial effusion. IVC: Collapses with inspirations. Normal size. PLEURA: CONCLUSION: 1. Left ventricular systolic function is moderately to severely reduced with segmental wall motion abnormalities. LVEF is 30 to 35%. 2. The right ventricle is mildly dilated and exhibits normal systolic function. 3. Moderate aortic valve stenosis. 4. Moderate to severe biatrial dilatation. 5. Unable to assess right-sided pressures due to lack of measurable tricuspid regurgitation. Adult Echocardiography Procedure Report Left Ventricle LVEDD (3.7 - 5.6 cm): 5.55 cm LVESD (2.2 - 4.0 cm): 4.60 cm LVIVS thickness (0.6 - 1.2 cm): 0.90 cm LVPW thickness (0.5 - 1.0 cm): 0.60 cm e': 0.06 m/s E - e': 11.60 LVOT Max Gradient: 5.14 mm[Hg] LVOT Area (cm2): 1.13 m/s Peak Velocity (LVOT): 1.13 m/s Mean Velocity (LVOT): 0.80 m/s LVOT Diameter 2.18 cm Left Ventricular Ejection Fraction: 30-35 % Left Atrium LA Volume Index (2D A2C): 54.44 ml/m2 Left Atrium Systolic Dimension: 6.26 cm Mitral Valve MV E to A Ratio: 0.94 Mitral Valve A-Wave Peak Velocity: 0.80 m/s Mitral Valve E-Wave Peak Velocity: 0.75 m/s Right Ventricle RV Internal Diastolic Dimension: 3.96 cm Aorta AO Root Diam: 3.45 cm Ascending Ao Diam: 3.04 cm Aortic Valve AoV Area (Peak Ray): 1.37 cm2, 1.35 cm2 AoV Area (VTI): 1.23 cm2, 1.26 cm2 Peak Velocity(Antegrade Flow): 3.13 m/s, 3.04 m/s Peak Gradient(Antegrade Flow): 39.19 mm[Hg], 36.85 mm[Hg] Mean Velocity(Antegrade Flow): 2.13 m/s, 2.14 m/s Mean Gradient(Antegrade Flow): 21.23 mm[Hg], 20.50 mm[Hg] Velocity Time Integral: 69.60 cm, 72.69 cm Tricuspid Valve Peak Velocity (Regurgitant Flow): 1.58 m/s, 1.62 m/s, 1.76 m/s Pulmonic Valve Mean Gradient: 3.66 mm[Hg] Mean Velocity: 0.92 m/s Peak Velocity: 1.25 m/s, 1.30 m/s Peak Gradient: 6.74 mm[Hg], 6.23 mm[Hg] Right Atrium Right Atrium Systolic Pressure: 45.96 ml, 45.96 ml Dictated by: Joesph Singh M.D. on 09/14/2023 at 18:57 Approved by: Joesph Singh M.D. on 09/14/2023 at 19:03
[2023-09-14] MEDS: SULFUR HEXAFLUORIDE MICROSPHR 25 MG (5ML VIAL) IV (10:58)
== END 2023-09-14 06:53 | disposition home or self-care (01) ==
LOC: CARD 06:53
PROVIDERS: PCP Family Medicine; Visit Provider Nurse Practitioner
DX: I50.22 Chronic systolic (congestive) heart failure (principal)
CPT/HCPCS: C8929; Q9950

== ENCOUNTER 2023-11-06 09:07 | Outpatient (OUT) | payer OTHER, SELFPAY ==
--- OUTSIDE RECORDS SUMMARY | 2023-11-06 09:16 | XMS_ITS | CCD ---
Author Organization [facility] Care Team Providers Care Book Solicitor Name Role Phone Luci Farrell Unavailable Unavailab eloisa Farrell, Luci Peralta Unavailable Unavailab eloisa Farrell, Luci Fabian Unavailable Unavailab Marilou Bunch Unavailable Unavailable Bud, Luci Peralta Unavailable Unavailab WING López Referring Unavailable UNKNOWN, PROVIDER Admitting Unavailable UNKNOWN, PROVIDER Attending Unavailable WING PEREZ Primary Care Unavailable WING PEREZ Primary Care Physician CHRIS, DR WING Dickinson Primary Care Unavailable [...] Attending Unavailable JOSE ANGEL LONGORIA Attending Unavailable Danny BAEZ Attending Unavailable MD Pk Monge. Attending Unavailable MD Pk Monge. Admitting Unavailable Christiano Blackman Attending Unavailable MD Pk Monge Referring Unavailable Pk Monge Referring Unavailable Christiano Blackman Attending Unavailable Christiano Blackman Admitting Unavailable Pk Monge Attending Unavailable Pk Monge Attending Unavailable Pk Monge Attending Unavailable Pk Monge Attending Unavailable Pk Monge Attending Unavailable Pk Monge Attending Unavailable Pk Monge Attending Unavailable Pk Monge Attending Unavailable Danny BAEZ Attending Unavailable Pk Monge Attending Unavailable Pk Monge Admitting Unavailable JOVANY GALEAS Attending Unavailable TRENT FERNANDEZ Attending Unavailable TRENT FERNANDEZ Attending Unavailable Allergies Allergy Classification Reported Allergen(s) Allergy Type Date of Onset Reaction(s) Facility Acetaminophen / oxyCODONE (2 sources) Acetaminophen / oxyCODONE; Translations: [Acetaminophen / Oxycodone] Drug Allergy 4 Mild (qualifier value) [facility] Repository Anti-Epileptic Agents (1 source) gabapentin; Translations: [gabapentin] Drug Allergy Unknown (qualifier value) [facility] (9 sources) Acetaminophen / oxyCODONE; Translations: [acetaminophen-ox ycodone] Drug Allergy Mild (qualifier value) [facility] (1 source) Acetaminophen / oxyCODONE Drug Allergy 6 [facility] Repository (3 sources) gabapentin; Translations: [gabapentin] Drug Allergy 0 [facility] (1 source) tamsulosin Drug Allergy 6 [facility] (4 sources) gabapentin; Translations: [gabapentin] Drug Allergy Unknown (qualifier value) [facility] (1 source) Acetaminophen / oxyCODONE; Translations: [OXYCODONE-ACETAM INOPHEN] Drug Allergy 4 [facility] Repository Medications Current Medications Medication Drug Class(es) Dates Sig (Normalized) Sig (Original) allopurinol 300 mg oral tablet (3 sources) Xanthine Oxidase Inhibitor Start: 08-06-2022 take 1 tablet by mouth once daily allopurinol 300 mg Tab 300 mg, Oral, Daily, # 90 tab(s), Refills(s) 1, Pharmacy: [facility], 185, cm, 08/06/22 10:21:00 [...] bedtime, # 90 tab(s), Refills(s) 1, Pharmacy: [facility], 185, cm, 08/06/22 10:21:00 [...] day Active aspirin 81 mg oral tablet (7 sources) Platelet Aggregation Inhibitor, Nonsteroidal Anti-inflammatory Drug Start: 08-29-2019 take 81 mg by mouth once daily aspirin 81 mg, Oral, Daily, Refills(s) 0 Start Date: 08/29/19 Status: Ordered take 1 tablet by garrett th every twenty-four hours Aspirin 81 MG 1 tablet Orally Once a day Active atorvastatin 20 mg oral tablet (7 sources) HMG-CoA Reductase Inhibitor Start: 08-29-2019 End: 12-26-2023 take 1 tablet by mouth once daily atorvastatin 20 mg Tab 20 mg, Oral, Daily, X 90 day(s), # 90 tab(s), Refills(s) 3, Pharmacy: [facility], 178, cm, 12/31/22 15:01:00 EDT, Height/Length Dosing, 120, kg, 12/31/22 15:01:00 EDT, Weight Dosing Start Date: 12/31/22 Stop Date: 12/26/23 Status: Ordered cholecalciferol 0.01 mg oral tablet (1 source) Vitamin D take 2 tablets by mouth once daily Vitamin D3 10 MCG (400 UNIT) 2 tablets Orally Once a day Active Chondroitin Sulfates / Glucosamine (6 sources) Start: 08-06-2022 take 1 tablet by mouth once daily Osteo Bi-Flex oral tablet 1 tablet, Daily, Refill(s) 0 Start Date: 08/06/22 Status: Ordered Osteo Bi-Flex On e Per Day - as directed Orally Active dapagliflozin 10 mg oral tablet (4 sources) Sodium-Glucose Cotransporter 2 Inhibitor Start: 09-01-2023 take 1 tablet by mouth once daily Farxiga 10 mg oral tablet 10 mg = 1 tab(s), Oral, Daily, Refills(s) 0 Start Date: 09/01/23 Status: Ordered docusate sodium 100 mg oral tablet (7 sources) Start: 08-29-2019 take 100 mg by mouth twice daily Colace 100 mg, Oral, BID, Refills(s) 0 Start Date: 08/29/19 Status: Ordered take 2 capsules by m outh every twelve hours Colace 100 MG 2 capsule as needed Orally TWICE A DAY Active fenofibrate 200 mg oral capsule (3 sources) Peroxisome Proliferator Receptor alpha Agonist Start: 08-06-2022 take 1 capsule by mouth once daily fenofibrate 200 mg oral capsule 200 mg = 1 cap(s), Oral, Daily, # 90 cap(s), Refills(s) 1, Pharmacy: [facility], 185, cm, 08/06/22 10:21:00 EDT, Height/Length Dosing, 119, kg, 08/06/22 10:21:00 EDT, Weight Dosing Start Date: 08/06/22 Status: Ordered Start: 01-09-2020 take 1 capsule by mo uth once daily fenofibrate 200 mg oral capsule 200 mg = 1 cap(s), Oral, Daily, # 30 cap(s), Refills(s) 0 Start Date: 01/09/20 Status: Ordered finasteride 5 mg oral tablet (5 sources) 5-alpha Reductase Inhibitor Start: 09-14-2023 take 1 tablet by mouth once daily finasteride 5 mg Tab 5 mg = 1 tab(s), Oral, Daily, Refills(s) 0 Start Date: 09/14/23 Status: Ordered Start: 08-29-2019 End: 09-03-2023 take 1 tablet by mouth once daily finasteride 5 mg Tab 5 mg = 1 tab(s), Oral, Daily, X 90 day(s), # 90 tab(s), Refills(s) 3, Pharmacy: [facility], 185, cm, 09/08/22 8:40:00 EDT, Height/Length Dosing, 116, kg, 09/08/22 8:40:00 EDT, Weight Dosing Start Date: 09/08/22 Stop Date: 09/03/23 Status: Ordered Fish Oils (7 sources) Start: 01-09-2020 Fish Oil Oral, Daily, Refill(s) 0 Start Date: 01/09/20 Status: Ordered take 1 capsule by mouth once verenice ly Fish Oil 1200 MG 1 capsule Orally Once a day Active furosemide 20 mg oral tablet (7 sources) Loop Diuretic Start: 12-31-2022 take 1 tablet by mouth once daily furosemide 20 mg Tab 20 mg = 1 tab(s), Oral, Daily, # 90 tab(s), Refills(s) 1, Pharmacy: [facility], 178, cm, 12/31/22 15:01:00 EDT, Height/Length Dosing, 120, kg, 12/31/22 15:01:00 EDT, Weight Dosing Start Date: 12/31/22 Status: Ordered Start: 08-29-2019 take 1 tablet by garrett once daily furosemide 20 mg Tab 20 mg = 1 tab(s), Oral, Daily, # 90 tab(s), Refills(s) 1, Pharmacy: [facility], 185, cm, 08/06/22 10:21:00 EDT, Height/Length Dosing, 119, kg, 08/06/22 10:21:00 EDT, Weight Dosing Start Date: 08/06/22 Status: Ordered glipiZIDE 5 mg oral tablet (7 sources) Sulfonylurea Start: 03-02-2023 take 1 tablet by mouth once daily glipiZIDE 5 mg Tab 5 mg, Oral, Daily, # 90 tab(s), Refills(s) 1, Pharmacy: [facility], 178, cm, 03/02/23 10:10:00 EST, Height/Length Dosing, 118.1, kg, 03/02/23 10:10:00 EST, Weight Dosing Start Date: 03/02/23 Status: Ordered Start: 08-29-2019 take 1 tablet by garrett th once daily glipiZIDE 5 mg Tab 5 mg, Oral, Daily, # 90 tab(s), Refills(s) 1, Pharmacy: [facility], 185, cm, 08/06/22 10:21:00 EDT, Height/Length Dosing, 119, kg, 08/06/22 10:21:00 EDT, Weight Dosing Start Date: 08/06/22 Status: Ordered metFORMIN hydrochloride 500 mg oral tablet (5 sources) Biguanide Start: 03-02-2023 take 1 tablet by mouth twice daily metformin 500 mg ER Tab 500 mg = 1 tab(s), Oral, BID, # 180 tab(s), Refills(s) 0, Pharmacy: [facility], 178, cm, 03/02/23 10:10:00 EST, Height/Length Dosing, 118.1, kg, 03/02/23 10:10:00 EST, Weight Dosing Start Date: 03/02/23 Status: Ordered take 1 tablet by garrett th every twelve hours metFORMIN HCl ER 500 MG 1 TABLET Orally TWICE A DAY Active 24 hr metoprolol succinate 100 mg extended release oral tablet (7 sources) beta-Adrenergic Michael Start: 03-02-2023 take 1 tablet by mouth once daily metoprolol 100 mg ER Tab 100 mg = 1 tab(s), Oral, Daily, # 90 tab(s), Refills(s) 1, Pharmacy: [facility], 178, cm, 03/02/23 10:10:00 EST, Height/Length Dosing, 118.1, kg, 03/02/23 10:10:00 EST, Weight Dosing Start Date: 03/02/23 Status: Ordered Start: 01-09-2020 take 1 tablet by garrett th once daily metoprolol 100 mg ER Tab 100 mg = 1 tab(s), Oral, Daily, # 90 tab(s), Refills(s) 1, Pharmacy: [facility], 185, cm, 08/06/22 10:21:00 EDT, Height/Length Dosing, 119, kg, 08/06/22 10:21:00 EDT, Weight Dosing Start Date: 08/06/22 Status: Ordered 24 hr oxybutynin chloride 10 mg extended release oral tablet (7 sources) Cholinergic Muscarinic Antagonist Start: 01-01-2023 take 1 tablet by mouth twice daily oxybutynin 10 mg ER Tab 10 mg = 1 tab(s), Oral, BID, # 180 tab(s), Refills(s) 3, Pharmacy: [facility], 178, cm, 12/31/22 15:01:00 EDT, Height/Length Dosing, 120, kg, 12/31/22 15:01:00 EDT, Weight Dosing Start Date: 01/01/23 Status: Ordered Start: 09-08-2022 End: 09-03-2023 take 2 tablets by mouth once daily oxybutynin 10 mg ER Tab 20 mg = 2 tab(s), Oral, Daily, X 90 day(s), # 180 tab(s), Refills(s) 3, Pharmacy: [facility], 185, cm, 09/08/22 8:40:00 EDT, Height/Length Dosing, 116, kg, 09/08/22 8:40:00 EDT, Weight Dosing Start Date: 09/08/22 Stop Date: 09/03/23 Status: Ordered Start: 07-11-2021 take 2 tablets by mo [facility] once daily oxybutynin 10 mg ER Tab 20 mg = 2 tab(s), Oral, Daily, # 180 cap(s), Refills(s) 3, Pharmacy: [facility], 185, cm, 03/08/21 8:55:00 EST, Height/Length Dosing, 129, kg, 03/08/21 8:55:00 EST, Weight Dosing Start Date: 07/11/21 Status: Ordered take 1 tablet by [facility] every twelve hours oxyBUTYnin Chloride ER 10 MG 1 tablet Orally TWICE A DAY Active pantoprazole 40 mg delayed release oral tablet (7 sources) Proton Pump Inhibitor Start: 09-01-2023 take 1 tablet by mouth once daily Pantoprazole [address] Tab 40 mg = 1 tab(s), Oral, Daily, Refills(s) 0 Start Date: 09/01/23 Status: Ordered Start: 08-06-2022 End: 08-01-2023 take 1 tablet by mouth once daily Pantoprazole [address] Tab 40 mg, Oral, Daily, X 90 day(s), # 90 tab(s), Refills(s) 3, Pharmacy: [facility], 185, cm, 08/06/22 10:21:00 EDT, Height/Length Dosing, 119, kg, 08/06/22 10:21:00 EDT, Weight Dosing Start Date: 08/06/22 Stop Date: 08/01/23 Status: Ordered Start: 08-29-2019 take 40 mg by mouth once daily pantoprazole 40 mg, Oral, Daily, Refills(s) 0 Start Date: 08/29/19 Status: Ordered sacubitril 49 mg / valsartan 51 mg oral tablet (6 sources) Angiotensin 2 Receptor Michael Start: 07-14-2022 take 1 tablet by mouth twice daily Entresto 49 mg-51 mg oral tablet 1 tab(s), Oral, BID, Refill(s) 0 Start Date: 07/14/22 Status: Ordered spironolactone 25 mg oral tablet (4 sources) Aldosterone Antagonist Start: 09-01-2023 take 0.5 tablet by mouth once daily spironolactone 25 mg Tab See Instructions, Take 1/2 orally daily, Refills(s) 0 Start Date: 09/01/23 Status: Ordered tamsulosin hydrochloride 0.4 mg oral capsule (7 sources) alpha-Adrenergic Michael Start: 09-14-2023 take 1 capsule by mouth twice daily tamsulosin 0.4 mg Cap 0.4 mg = 1 cap(s), Oral, BID, # 180 cap(s), Refills(s) 3, [facility], 185, cm, 09/14/23 8:52:00 EDT, Height/Length Dosing, 117.2, kg, 09/14/23 8:52:00 EDT, Weight Dosing Start Date: 09/14/23 Status: Ordered Start: 09-06-2021 End: 09-03-2023 take 1 capsule by mouth twice daily tamsulosin 0.4 mg Cap 0.4 mg = 1 cap(s), Oral, BID, X 90 day(s), # 180 cap(s), Refills(s) 3, Pharmacy: [facility], 185, cm, 09/08/22 8:40:00 EDT, Height/Length Dosing, 116, kg, 09/08/22 8:40:00 EDT, Weight Dosing Start Date: 09/08/22 Stop Date: 09/03/23 Status: Ordered traZODone hydrochloride 50 mg oral tablet (4 sources) Serotonin Reuptake Inhibitor Start: 07-21-2023 take 1 tablet by mouth once daily at bedtime traZODONE 50 mg Tab 50 mg = 1 tab(s), Oral, Once a day (at bedtime), # 90 tab(s), Refills(s) 3, [facility], [facility], cm, 07/21/23 14:10:00 EDT, Height/Length Dosing, 121, kg, 07/21/23 14:10:00 EDT, Weight Dosing Start Date: 07/21/23 Status: Ordered Vitamin D (6 sources) Start: 08-29-2019 Vitamin D 5000 , Oral, Daily, Refills(s) 0 Start Date: 08/29/19 Status: Ordered Vitamin E (2 sources) Start: 08-29-2019 vitamin E Oral , Daily, Refills(s) 0 Start Date: 08/29/19 Status: Ordered Vitamin E 400 UNIT (1 source) take 1 capsule by mouth once daily Vitamin E 400 UNIT 1 capsule Orally Once a day Active Problems Active Problems Problem Classification Problem Date Documented Date Episodic/Chronic Anxiety disorders (5 sources) Anxiety 07-14-2022 Chronic Calculus of urinary tract (11 sources) Urinary bladder stone; Translations: [Kidney stone] Onset: 4 01-09-2020 Episodic Cardiac dysrhythmias (2 sources) Ventricular premature depolarization; Translations: [Ventricular premature depolarization] Onset: 4 Chronic Chronic kidney disease (6 sources) Chronic kidney disease stage 3; Translations: [Chronic kidney disease stage 3B ] 07-14-2022 Chronic Chronic kidney disease (3 sources) Chronic kidney disease; Translations: [Chronic kidney disease, stage 3a] Onset: 2 Congestive heart failure; nonhypertensive (2 sources) Chronic systolic (congestive) heart failure; Translations: [Chronic systolic (congestive) heart failure] Onset: 2 Chronic Coronary atherosclerosis and other heart disease (7 sources) Coronary artery stenosis; Translations: [Atherosclerotic heart disease of [place] coronary artery without angina pectoris] Onset: 4 [...] Onset: 2 Chronic Diabetes mellitus without complication (13 sources) Type 2 diabetes mellitus without complications; Translations: [Type 2 diabetes mellitus] Onset: 2 Chronic Comment on above: Linked per outpatien t CDI policy. Disorders of lipid metabolism (15 sources) Mixed hyperlipidemia; Translations: [Pure hypercholesterolemia, unspecified] Onset: 2 Chronic Esophageal disorders (1 source) Esophageal disorders Onset: 7 Essential hypertension (9 sources) Hypertensive disorder; Translations: [Benign hypertension] 07-14-2022 Chronic Comment on above: Linked per outpatien t CDI policy. Essential hypertension (1 source) Essential hypertension Onset: 7 Genitourinary symptoms and ill-defined conditions (13 sources) Urge incontinence; Translations: [Post-micturition incontinence ] Onset: 2 Chronic Genitourinary symptoms and ill-defined conditions (20 sources) Dysuria; Translations: [Joshua hematuria] 02-13-2020 Episodic Gout and other crystal arthropathies (2 sources) Gout, unspecified; Translations: [Gout] Onset: 2 Chronic Heart valve disorders (2 sources) Nonrheumatic aortic (valve) stenosis; Translations: [Nonrheumatic aortic (valve) stenosis] Onset: 2 Chronic Hyperplasia of prostate (9 sources) Benign prostatic hypertrophy with outflow obstruction; Translations: [Benign prostatic hyperplasia with lower urinary tract symptoms] Onset: 2 Chronic Hypertension with complications and secondary hypertension (3 sources) 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; Translations: [Hypertensive chronic kidney disease with stage 5 chronic kidney disease or end stage renal disease] Chronic Inflammatory conditions of male genital organs (7 sources) Chronic prostatitis; Translations: [Chronic prostatitis] Onset: [...] Secondary hyperparathyroidism of renal origin Chronic Other diseases of kidney and ureters (1 source) Acquired renal cyst without neoplastic change; Translations: [Cyst of kidney, acquired] Onset: 4 Episodic Other diseases of kidney and ureters (2 sources) Cyst of kidney 09-14-2023 Episodic Other endocrine disorders (1 source) Hyperparathyroidism, unspecified; Translations: [HYPERPARATHYROIDISM UNSPECIFIED] Onset: 2 Chronic Other endocrine disorders (1 source) Hyperparathyroidism 07-14-2022 Chronic Other nutritional; endocrine; and metabolic disorders (5 sources) Body mass index 30+ - obesity 08-06-2022 Chronic Residual codes; unclassified (5 sources) Obstructive sleep apnea syndrome 07-14-2022 Chronic Residual codes; unclassified (4 sources) Insomnia 12-31-2022 Episodic Unclassified (1 source) Benign prostatic hyperplasia without lower urinry tract symp / N40.0(ICD-10) Onset: 7 Unclassified (1 source) Athscl heart disease of [place] coronary artery w/o ang pctrs / I25.10(ICD-10) Onset: 7 Unclassified (1 source) Hallucinations, unspecified / R44.3(ICD-10) Onset: 7 Unclassified (2 sources) Incisional hernia with obstruction, without gangrene / K43.0(ICD-10) Onset: 7 Unclassified (1 source) Anxiety disorder, unspecified / F41.9(ICD-10) Onset: 7 Unclassified (1 source) 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 exterminator (current) use of aspirin / Z79.82(ICD-10) Onset: 7 Unclassified (1 source) Incisional hernia without obstruction or gangrene / K43.2(ICD-10) Onset: 7 Unclassified (1 source) Presence of aortocoronary bypass graft / Z95.1(ICD-10) Onset: 7 Unclassified (6 sources) Finding of sensation of bladder 08-29-2019 Viral infection (5 sources) Herpes zoster 07-14-2022 Episodic Past or [...] Name Value Interpretation Reference Range Facil ity Office Visiton 10-28-2023 Follow-up visit [id number] Renate Almanza 1940 M Date Provider Department Center 10/28/2023 Karly-TRENT FERNANDEZ [facility] Raghu Hos No family history on file Level of Service:56666 OK OFFICE/OUTPATIENT ESTABLISHED MOD MDM 30 MIN Normal [facility] Ambulatory Visit Summaryon 0 09-14-2023 Ambulatory Visit Summary LUIS ALFREDO ALMANZA :1940 Visit Date:09/14/2023 Ambulatory Visit Instructions Your Diagnosis BPH with urinary obstruction Urge incontinence Kidney stones Renal cyst Your Care Team Attending Physician - MILDRED GUEVARA, Danny Keen Primary Care Physician - Saleem GUEVARA, Pk Cesar This Is Your Medications List finasteride (finasteride 5 mg Tab) oxybutynin (oxybutynin 10 mg ER Tab) tamsulosin (tamsulosin 0.4 mg Cap) Contact prescribing physician if questions or concerns aspirin atorvastatin (atorvastatin 20 mg Tab) chondroitin-glucosamine (Osteo Bi-Flex oral tablet) dapagliflozin (Farxiga 10 mg oral tablet) docusate (Colace) ergocalciferol (Vitamin D) furosemide (furosemide 20 mg Tab) glipiZIDE (glipiZIDE 5 mg Tab) metformin (metformin 500 mg ER Tab) metoprolol (metoprolol 100 mg ER Tab) omega-3 polyunsaturated fatty acids (Fish Oil) pantoprazole (Pantoprazole [address] Tab) sacubitril-valsartan (Entresto 49 mg-51 mg oral tablet) spironolactone (spironolactone 25 mg Tab) trazodone (traZODONE 50 mg Tab) Procedures Performed Transurethral water vapor ablation of prostate (01/17/2020), Cystoscopy (10/27/2019), Cystoscope (09/06/2019), CABG x 4 - Coronary artery bypass grafts x 4, Cardiac catheter, History of hernia repair, Insertion of catheter into heart chamber, Trigger finger. Discharge Vitals Temperature (Temporal Artery) 37 ?C Heart Rate (Peripheral) 51 Respiratory Rate 16 Blood Pressure 102/69 Height 185 cm Height 73 in Weight 117.2 kg Weight 257.84 lb BMI 34.24 What to do next Scheduled Follow-Up Appointments 2023 11:00 AM EDT With: Where: [facility] [place] Invalid Interpretation Code [address] [place] [id number]- \.br\ Thursday 8:15 AM EDT \.br\ With: MILDRED GUEVARA, Danny Keen\.br\ Where: [facility] Patient Educationon 09-14-19 Patient Education Urology Benign Prostatic Hyperplasia Benign prostatic hyperplasia (BPH) is an enlarged prostate gland that is caused by the normal aging process. The prostate may get bigger as a man gets older. The condition is not caused by cancer. The prostate is a walnut-sized gland that is involved in the production of semen. It is located in front of the rectum and below the bladder. The bladder stores urine. The urethra carries stored urine out of the body. An enlarged prostate can press on the urethra. This can make it harder to pass urine. The buildup of urine in the bladder can cause infection. Back pressure and infection may progress to bladder damage and kidney (renal) failure. What are the causes? This condition is part of the normal aging process. However, not all men develop problems from this condition. If the prostate enlarges away from the urethra, urine flow will not be blocked. If it enlarges toward the urethra and compresses it, there will be problems passing urine. What increases the risk? This condition is more likely to develop in men older than 50 years. What are the signs or symptoms? Symptoms of this condition include: ? Getting up often during the night to urinate. ? Needing to urinate frequently during the day. ? Difficulty starting urine flow. ? Decrease in size and strength of your urine stream. ? Leaking (dribbling) after urinating. ? Inability to pass urine. This needs immediate treatment. ? Inability to completely empty your bladder. ? Pain when you pass urine. This is more common if there is also an infection. ? Urinary tract infection (UTI). How is this diagnosed? This condition is diagnosed based on your medical history, a physical exam, and your symptoms. Tests will also be done, such as: ? A post-void bladder scan. This measures any amount of urine that may remain in your bladder after you finish urinating. ? A digital rectal exam. In a rectal exam, your health care provider checks your prostate by putting a lubricated, gloved finger into your rectum to feel the back of your prostate gland. This exam detects the size of your gland and any abnormal lumps or growths. ? An exam of your urine (urinalysis). ? A prostate specific antigen (PSA) screening. This is a blood test used to screen for prostate cancer. ? An ultrasound. This test uses sound waves [...] severity of your condition. Treatment may include: ? Observation and yearly exams. This may be the only treatment needed if your condition and symptoms are mild. ? Medicines to relieve your symptoms, including: ? Medicines to shrink the prostate. ? Medicines to relax the muscle of the prostate. ? Surgery in severe cases. Surgery may include: ? Prostatectomy. In this procedure, the prostate tissue is removed completely through an open incision or with a laparoscope or robotics. ? Transurethral resection of the prostate (TURP). In this procedure, a tool is inserted through the opening at the tip of the penis (urethra). It is used to cut away tissue of the inner core of the prostate. The pieces are removed through the same opening of the penis. This removes the blockage. ? Transurethral incision (TUIP). In this procedure, small cuts are made in the prostate. This lessens the prostate's pressure on the urethra. ? Transurethral microwave thermotherapy (TUMT). This procedure uses microwaves to create heat. The heat destroys and removes a small amount of prostate tissue. ? Transurethral needle ablation (TUNA). This procedure uses radio frequencies to destroy and remove a small amount of prostate tissue. ? Interstitial laser coagulation (ILC). This procedure uses a laser to destroy and remove a small amount of prostate tissue. ? Transurethral electrovaporization (TUVP). This procedure uses electrodes to destroy and remove a small amount of prostate tissue. ? Prostatic urethral lift. This procedure inserts an implant to push the lobes of the prostate away from the urethra. Follow these instructions at home: ? Take [id number] and prescription medicines only as told by your health care provider. ? Monitor your symptoms for any changes. Contact your health care provider with any changes. ? Avoid drinking large amounts of liquid before going to bed or out in public. ? Avoid or reduce how much caffeine or alcohol you drink. ? Give yourself time when you urinate. ? Keep all follow-up visits. This is important. Contact a health care provider if: ? You have unexplained back pain. ? Your symptoms do not get better with treatment. ? You develop side effects from the medicine (more content not included)... Normal [facility] Urology Office/Clinic Noteon 09-14-2023 Urology Office/Clinic Note Chief Complaint BPH and urge incontinence HPI Staff 1yr f/u to BPH & Urge Incontinence. *Finasteride 5mg, Flomax 0.4mg bid & Oxybutynin 20mg QD therapy Dysuria: no Incomplete bladder emptying: no Hematuria: no Frequency: no Urgency: no Nocturia: 1-2x Stream: no straining or intermittency Leaking: if he waits too long Post void dripping: no Wearing pads/ Depends: wears pads Urge incontinence: no Stress incontinence: no Incontinence without Sensory Awareness: no Abdominal pain: no Flank pain: no Sexual complaints: no History of Present Illness Tests reviewed: reviewed UA, GATITO I have reviewed the previous health record information and history for this patient from Dr. Baez. I have reviewed and verified the staff HPI to be accurate for this encounter. Review of Systems PHQ Score Initial Depression Screen Score: 0 SCORE ROS - Provider Constitutional: denies weight loss, denies hot flashes. Eyes: denies eye problems. Gastrointestinal: denies nausea, denies vomiting. Cardiovascular: denies chest pain or angina. Integumentary: no dryness Musculoskeletal: denies musculoskeletal symptoms. ENMT: denies otolaryngeal symptoms. Respiratory: no shortness of breath. Heme/Lymph: denies easy bleeding tendency, denies easy bruising tendency. Psychiatric: no confusion, no anxiety. Genitourinary: See HPI. Physical Exam Vitals & Measurements T: 37 ?C(Temporal Artery) HR: 51(Peripheral) RR: 16 BP: 102/69 HT: 73 in HT: 185 cm WT: 117.2 kg WT: 257.84 lb BMI: 34.24 General Appearance: alert, no distress, well nourished, well developed male. Assessment/Plan 1. BPH with urinary obstruction (N40.1: Benign prostatic hyperplasia with lower urinary tract symptoms) S/p Rezum 01/17/20. UA today negative for blood and infection. Denies any infections in the past year. Taking Finasteride 5 mg qd and Flomax 0.4 mg bid. Good stream. Feels he empties. -Cont Finasteride and Flomax wo changes. States PCP refills Finasteride. Refills for Flomax sent to [facility] today. 2. Urge incontinence (N39.41: Urge incontinence) Taking Oxybutynin 20 mg ER qd (one 10 mg ER tab in the morning and another in the evening). Only leaking if he waits too long. No accidents. Wears a pad for protection. Unsure how often he voids. Gets up 1x/night to void, pt feels this is bothersome. Recommended pt to try taking both tabs of Oxybutynin in the evening. -Cont Oxybutynin 20 mg ER qd (two 10mg ER tabs in the evening). Pt to call for refills. 3. Kidney stones (N20.0: Calculus of kidney) GATITO 10/27/22 [facility] - 0.5 x 0.3 x 0.5 cm nonobstructing R renal stone. 0.6 x 0.4 x 0.4 cm nonobstructing L renal stone in lower pole. Reviewed imaging results. Ultrasounds tend to overestimate size of stones. No indication for intervention at this time. -Cont sx monitoring 4. Renal cyst (N28.1: Cyst of kidney, acquired) GATITO 10/27/22 [facility] - 1.6 x 1.4 x 1.4 cm anechoic lesion with posterior acoustic enhancement of L kidney, likely a cyst. No perinephric fluid collection. -Simple cysts do not require monitoring Follow-up With When Contact Information MILDRED GUEVARA, Danny Keen, [facility] [address], [place] [id number] [id number] Additional Instructions: 1 year (no labs) Patient Education Benign Prostatic Hyperplasia I, Eugenia Mcneill, personally scribed for Dr. Baez on 09/14/2023 09:40:42. . Documentation recorded by the scribe, Eugenia Mcneill, accurately reflects the services(s) I performed and decisions made by me. Authenticated by Dr. Baez on 09/14/2023 09:44:47. Problem List/Past Medical History Ongoing Anxiety Benign hypertension with chronic kidney disease Bladder calculi BMI 34.0-34.9,adult BPH with urinary obstruction Chronic kidney disease (CKD), stage III (moderate) Chronic prostatitis Coronary artery stenosis Feeling of incomplete bladder emptying Herpes zoster Hypercholesterolemia Hypertension Insomnia Kidney stones Microhematuria Nocturia Obstructive sleep apnea Post-void dribbling Renal cyst Type 2 diabetes mellitus with chronic kidney disease Type 2 diabetes mellitus with hypercholesterolemia Urge incontinence Historical No qualifying data Procedure/Surgical History Transurethral [...] tablet, 10 mg= 1 tab(s), Oral, Daily finasteride 5 mg Tab, 5 mg= 1 tab(s), Oral, Daily Fish Oil, Oral, Daily furosemide 20 mg Tab, 20 mg= 1 tab(s), Oral, Daily, 1 refills glipiZIDE 5 mg Tab, 5 (more content not included)... [facility] Comment on above: Result Comment: Elec tronically Signed By: Danny BAEZ MD\.br\Date and Time Signed: 09/14/23 09:44 EDT\.br\Electronically Co-Signed By: Eugenia Mcneill\.br\Date and Time Co-Signed: 09/14/23 09:41 EDT Insurance Correspondenceon 0 09-10-2023 Insurance Correspondence [id number] F [facility] Coding Summary.on 09-08-2023 Coding Summary. CCJEDuvu22XAf0hCi+PG hlYW Q+GF1CNCDvQ69rvWBmrL7fE6 NMTElOSywgQVBQTElOSyIgbm YhQW3epHFsCHWz IC8+BG0sFMFcUxxnfKXsv6D4 pZS4P19igl9yMOykaAD8LCFf LnUmkukir0nkkNz9KMscImqk OyBt SVZaiE04SFL0nK19Xf31gKOd uTGje2mlfXy6GfYiKLInFMS0 yYymUQybg0PrRWPeK13dgJGh c2U6 SLCyhDhusMArGvCesAI4kO5t OOavvcsnf1pkacybGpj0wq57 cRAxz7Z6nCY7S4NxlnL8RFYe bGQg DqfmmXDAqL4kzrfuf4ocmutt OwDpAFWkXIl0WBy7YDXnvCfc HgWmQU02HCV9DCGlpjViH4Ap LWFs vWiiWzR3s4G0Kl2WZ1PZYlaq U6OESPFRCIqsdOM+YD10xy53 G6TbGindBnp7NHPvYUC4qVC7 aD0n DLWuLWyeq2Z8qCJ9I8HvtoRw ny5rw3xtREWqWDghJ55ntEJn e4Q0GEMsrEK7PLVlpEspTbQd aG93 Oyc+CKOdrJilk7SfOkvqi3yj v9tfcGj5YizbPQKpxzChkDij SDH8c4QxYm4uDPRavZP8cRD5 aD0i FlFlKjK8MSbrP490AvEpzZUp NpdlW24vA4LqaMU+PHRyPjx0 HQEzeKmyNK7gT4EgODUcyupa bGVm vPucPF8bHWGkvxtvEVKoeH0s SCHtR5s3JuNxStX9ZTszL1Jl SIZjmynuAe45gY9vJiTaEqZ7 MGlu V0BccbU7MTNusXFlGJteZEM4 T62hk7P9QZMsXMGvXXP5dCM8 vX4xyAourfdmtGYbsFgsrsIc dGlj UHomUIomJ368XXLpwGziOyXz ZGluZyBEYXRlOiAgMDYvMTgv MjAyNDwvdGQ+NQFeLQI1jXqm PSAn wOOkBRlbMh0gyJmbzNivUG4x CRCtqvywMTAmeU8kSOKapSFj gUarLW5tROUbejmhf512MuQd MHB0 YRHlaCXzY5RhsY5sFmIvQUBo KIMpU4AirYNpLVttP289KTqj VzA6EULrbkAhI4WvDWBivYsy OiB0 f7H7Jb5Ff0ObyfmpN9TgvOQe RoUfQplhASy5C4QaDviwfVF+ EJ49CWOhNP14UDj1OSG1jUrh PSdi XRHfN8GjiP6nCsDaAXJePJJk Oyc+PHRhYmxlIHdpZHRoPScx PABcLqMilFhkKK6tQj3qDHFc LWNv rNbjgLEbLaRcg2gvGVQcXLze JF5gjMaiF0ZxbOT7MVDeh9y9 So30G56aW1AkrJM+PGNvbCB3 aWR0 cV7oItIzAmB0RHkhQ160NdGi mSKpQyijt1vta4oobYq1YnN2 UUErkxQkiAjnIBF7z0GqEm49 Y29s IHdpZHRoPSIxNSUiIHZhbGln wq4kqE4cRc7+XPTjyJV9yVK8 gM1aJmRrEmO6WPygK488ZlIe cCIv Zfsre7mkd9axePd8BgAfTZBo prVbhRqsCMQ0p0NjDo71T9Gd eAjjz7PsIuu6ep40aXWfy8N3 bGU9 J0AtGFNfardqkAKyiGhzDD5y TIHdbrvsJREunW5sDYEbY8r3 IlYcIkR6VZmfX5HkwzJ2EJYo bGQg ARCvrXNWeX6lrxagn9tlgrlo BrKgKRVqQHh8DOw0FAZxlLzn PoBjWUO4SwE1WOV8hVGshC2c bGln txebrF1nAuf+BGP5dMLmiVSW AF2dKzzqpOE+DHEtZVE8bAvb MErsJVJwhZ6kUPNiO1q6CvZk LjA1 UGroY6SrtiI3NUCgwCPxGOQw vYRNiG6zydcst4hjxieoMdJn UKIwOZj2FVh8VREriIgfCtSl ZWZ0 ReN7RCJ2xYHtnF4wyDcwedip mR1hDwp+KstqhGrlYGR8LQe0 D9MjJfo0KPTkvErzPP8znXLl ZGlu Bc2hdOginEnkOA3kGHJbzusc w279VyGer8igLLNsiLQeKMbb GAR8Z65rd2U0BZNtZNZuJSG9 dGV4 tR5xjOywxvaoqKDmqMpzibQb xGtlNXztMMrzY214IDLxjLms PuBzUBi1U6NrNbz4RDMqzFbr ZT0n oYErTQfiEz9jwKmeqNebVN9o RNAasqfua551OqPmg8tyTVMy aQNkJXdwXKP5X58qm5N5TGSj MDAw GNG8uOD4sM0hjYtjkophbEIl aPxctvHypMdjNMwkZDdjW828 HJShwXbkXpGnaVj3K0BiHjz4 ZCBz uXsjHC7peAYiAVirQj6txXii jQrzJO6xNALswxubk375NuCg v3ldZQDdsSOsQSexWSU2P84w b3I6 OYOlVRYeUCM9dHF0mW9qaPio bjogbGVmdDsgdmVydGljYWwt RTqsG795WGGnpZisAuUonIlt bnQg CLqbEEf4V0FaAcjrlGJ+PC90 EAHqUR66zQYfxANqf7yltIv6 NgWdSLZpMFR0cAzzCMnfj4Jl ZXIt M19stDKnm8F0QKRfaKqxvZTj UsDysFV9dR0lQAukvhmex5bl bajwFqxxb6fypn12aU22R44t IHdp DXBqPSQwIZJqAUKdpEhsdd4o aJ7tZp1+JUTcqCU0tMR3qP4u NZCgYfY1LRsrO435ZsVeeZJz Pjxj n3zjd2xoaFh7ImN7NOKveoMp mOteAPA3p2WbCq21H09kKFxd WGIiTBUtOQKnGMFaqStsud1t dG9w Ii8+UKYazWY6oVF0hQ1qUqZh MoZ9PLihC344DzWzmDWyOkec F60yW2UlpUV+LDLbGlv9AFFt dHls KK9mkBQjWSyhQj3gEVZ4GpEa VzUwCFjqH8KuVPOjsznzzqrz fHC5KNDsDIVhmQ40Dt5fxIun MTBw pYGPgH9ktdmie1jsodtnWeKs UEHnYAg8NFc3EGKcrGqbYvJl ARZ0UbS8IYF5hMNyhA1tiGhx bjog sE3kV4NyOSDwrqvqAw77hE4e VxNmRdQ6DRwuWdu+TUVZRVIs FBsOXt5KZImfXStxjDO+PHRk IHN0 qPyiIAaoZUHatA7fFURgW8r2 QmAxKpS4YCygW5XuFAVoifyu Gg33zA7uErJpDlY2LDvgZ5Ur bnQ6 SXAteLBkTPrlZTS4G97wr8Y7 OEZcZVBoUTL1iAX5oW2yfCim bjogbGVmdDsgdmVydGljYWwt YWxp Y360WPIrmBulTfPaKjVtObC5 GOA9N2SoXwr8INAtbSezEQ9u oDAfBHwrXe7ccGgdtOniAS6s NTBp daxzHQDewB6aRQYxhAYfiCfo BI1xHBWukneky694CbDkMNF4 HGLxxPAeM8KiyS3dQgNbYJNz MDAw E2DnzUEqYAzkJ845DYssKzL6 GLJpxtErM9FtRMLenZcqQbH2 k7J6Qm66TLEDEZFhgqhblNH+ PHRk QOA6fNacDNnnUDCovC5fMQWq T9c5QyUbIbQ3GHuiZ0OnSCWa nxlcWm24gE7mEcQzTmU7NShp O2Zv enY1FCPiySCoQGnjIIO5T27s u7I3FOWjRXYmMCY7eGN1jZ3a bGlnbjogbGVmdDsgdmVydGlj YWwt JTrfJ579QNDwhIfhZk4yrLM6 R6KmFje9YTCahNncCS9kmFFp AKwyIj8moWvvvDajIM0mDMNm bjtw OAQffE6pHWTqvBZajAiwTD8h SQMagdibj033CpNdOXL0XMGj oOEwG0QykU7hJtUyDPAqTDPi O3Rl jJBjBJryE038MSisRrY3JKWm dzPkD4RtAWTfyZetTqW7q9T0 Xy7PKZCxETKseQEpWwO5R8Js Pjwv dHI+SW63KBRrTB94hGWmtJFx q4sezNu4ToYfYEMbLEV8pRwu TRybh8HtDIPgB73zxTMft2F7 IGNv aJirnWHsCsCssSK1tD2bKXdg uauqw2ntwmuaKbkrz4hkko50 aM09X31lCVhhJZRjIIZcPVQf IHZh xRsoqh6rkP2nJq4+PGNvbCB3 jQW1zC7zAqVfQpA8BJrlG747 FkItbNBzKhxhs5tuc7xayQo0 IjIw VRTgwkTsjYnmTLL3l9PeJb92 B63uYVygAWLwZNGjKHJmFYXe kPaheb7fxR5mDt2+NQ7jl1gj cm91 fQ53pPO+VHRhGKV9mIgjTApr IGPqoC8wUMhwZiL2LVWrVcUj jP77jFQxTRztRk1thIetuRzf MC4w XTDezlbbf761PhZsq5xaWIJp fIPaSTbxKMR7T16ti4A9ALMo FVEtEPZ4fLH7sN7cyXeagogi bGVm lUzathYxhAoxSEzzBYvlR051 OOWeaYecGgIijCBeM6gaobED OE9sAtwqwSR+IBYgYXJ2oDkk PSdw ZMGddK5cSSLrU7c4TwZkFhY9 WRwnA1GhxlS9GUUeuMXbYNOs pQKIkK4dtmqvu8nzoyhaWyPg MDAw UEb9FGd2OWFukCnrQqUkSWP4 UmS1FCJ7oMUdlS8dpGpvbgub tS6zBod+RklOOjwvdGQ+PHRk IHN0 xPmdYLeuJLDscZ4wPWTjD5q4 BkFqZyD6QWgqE2JxndU1ONWn xYSrOJKzqTYYrG0oftdhj3it cjog VpFhFBOgNAb5ISj8QSNtnMmv HvHnZXY6QkY5QCY1vTPbzC6z jQqjworczX0yIyp+TVJOOjwv dGQ+ AWWzLUD0mSfxXIbkVSGzjJ4z KGBlP5y7GdCgVwK8JZdkF6Xw vpB7MXMckNXxTGAdxQSUkN4c cztj c4guvdztYjHuVJQsAIp1XBc0 WFMjzOiuUfJlIZS8SuQ1DFH9 bJGnsY3whPbcdpkywE4dZuk+ UGF5 HJD9XX83AU25B1UaCtvfbBLn bGU+PHRhYmxlIHdpZHRoPScx URBcFsHvmOauPR8yYl4hTLEo LWNv bGxhcHNlOiBjb (more content not included)... Normal [facility] Coding Summary. BDZXCmur94EQu6wAk+PG hlYW Q+ZT2WXYRlU50gpJDrsC2bP1 NMTElOSywgQVBQTElOSyIgbm DkBY5kcHHfIUAi IC8+ME3bZNUsXpbyhLPzg7N7 aOT3T20hpd6dACymnEA0MWYd AjMyrukrr6wnoKp9ISsqQckn OyBt WPFqzX82PEU5jT61Jz48uGDw uPZfr9cfqSs0FhGgUCIdEXX9 jEkaRHthz4WxVJWwY77onYQs c2U6 BEAwvFtqjKQzXtBphCU4aE9x BCoiylmsj9gpykrjBav1hg49 vPMum7J6wDM7B2LruzD2UCMs bGQg FkymnRGTmW6ftgfrm2qvkshe LmUxOOXzHGo9SRm8AVMyqLoj DfRxJJ07XTN0MSGsddYaN1Qf LWFs iDlvHpK7w3B9Bf9ZR1MFIfkk J5WDLTEIXDgfsTA+TR50aw85 H8UfSgfjIpe1LMTiCCH7wSM1 aD0n XISaFGrjh4V3eLV6C5SelgUr zl6yl6emVIKbUPkhB43ltBEk t2D7TXLufAC5BICvbJseDvGz aG93 Oyc+KRXorOyau8IvQqqki2tz y9ctcLz2LrfkLZTdyvYcyUrv TZN3w2SvUa1bEPFxmMO0zFS9 aD0i MpIfNnP9FPyoZ677GrUxaWOl NlojS85rS6JxrDB+PHRyPjx0 KNHivZeuIX9tN3GwDDFcfvus bGVm xRfuVC0nXGSfxxkcDQDooC1n JULhU1b4KmIsPuJ7HIakA7Jg LSVnwzduSi48nC6yCdGtRfB8 MGlu H8IlgvC0QYUafBGhZQdxKOB5 V28zc6C1DYPtKDKkOJJ5eFP5 fZ6vrOavhbdybDKgfQgjvlFc dGlj XRmfUMwkY641PQIajOxrAyKh ZGluZyBEYXRlOiAgMDYvMTgv MjAyNDwvdGQ+HEOcHLW3pHus PSAn dGDiVFdnPc3nnXmteBytNZ0x MELxhbdnZKLrwV9tALSifIQx aCgsTA6wHDStyimwb022FpOj MHB0 OVQmnKUmH9GsaW7kXiCxQAOm KUSvX6MecLBmLBybU552BDed JeS0YNWzzcRqR4EyDVRkiSnu OiB0 p8I2Tr5Ei6VccrxbK1TxpNAy ReCuFrtwGSq7R7NbJkqshSE+ PU77QQIiHB36XZw9NDK0xRxh PSdi IQBpX7HaaK6bQhHzDSXxFPGb Oyc+PHRhYmxlIHdpZHRoPScx FNAeBnSzfTxjUG0nOf9wRJPq LWNv uOkkyUZbUvPac6ubCNTzSUnn UL4kaAygP7GfbNE5HRVqe6h4 Xi42Y84iX0HaaBW+PGNvbCB3 aWR0 qS1oOeJjBwA0NLasO957RrXr mLBiHwiwx2zkc5xpwYm4QsF6 RPLuxlZwrOosGMM4n1WcCs52 Y29s IHdpZHRoPSIxNSUiIHZhbGln ws9bgM3hBl8+PSCavTO1iCG2 pX2dRbWcBcB8THkhT283EdSd cCIv Gcopr7dks6xykTy8JiFcQNKb qyDrwWgdIRB3w5LvZb76Z4Fv aHzlp1VfHzk8cx40vVJam8B3 bGU9 W5AzNDVkffgzgAAxiSurAT0x TMMwlabyPIWqqE0tZIRqV4e4 MpBoNgR4FHjlB6ZopcR6SKKo bGQg MLPhcHDUiT2ibstpk7glphfu WqSiHTTdGCf7PId1CPXrdMjt WnEeAAA2QwI9IXV0eNFrwJ3t bGln qdwvvG4kYth+HDJ0sKXfxAAD ET1gKcprzZE+CHNeNFH1wSfi BMyeOIJqtT2vRYYsH6h1SvBo LjA1 FGxzI0NrsbZ5TLYdbYWnMDDz mZGNcD6eqdpgu8vywdfuPlCd NMCtDOe4WAc3OYCkcCnmUxFo ZWZ0 OdL4GIS5aXLvhF5tmOslqbsh vD5tDtd+FajneFvnVUD9CYo9 I8QcIyj2JUNvbSikGD5voOHg ZGlu Dv5vjGitrCzaQB8uLDJlxein s959GwKst3ooUBEnaOJiJYrj UFE1C73xx0Y5AWDnZIMoPQL3 dGV4 cB1utEpgubkjeZHtlHpgfoOg sHjkRNkbVNpsY688WLFamEfj BdGyBWy2Y5MdByu9MYZkrBoi ZT0n dSNtKVtcXn7nrYqeyFdvHJ0v OBLevrtdr005HiHyz2zeOJSd cXYhHQyqNRC3K97cq7U7NUCv MDAw VAN8eKI2jH7akZankscziOIl nGhzbbWgzGapUMhhRZyrR678 RHHezMdbQiPpzDg0J3ChPnk5 ZCBz aTtsMH6ubEYrYIqiUt2fcUuy jZzaUE5sVKAttcrzy954BcLh s5hkNGBmuJPvUVhvXAM5W45o b3I6 WPLyICChDFU7yYI0oG8ifZwh bjogbGVmdDsgdmVydGljYWwt COhyQ922YBWnfCgbJnFldPzj bnQg PXuhNUb6I4WtBsiduOY+PC90 GXMwKH34wWYksCDbm0lygMl8 QxOiEPKtEMQ6qFmbQRsjr1Kn ZXIt C91qiIGho7S6NYBumXstrUQp QnGopGV7mM4cTXyukbhfe4xe iruvOoomb0bitz67oB17D71j IHdp TWPwMEWoLJUyVZAvrOaysf8m cN9bDw9+YFJwhAX4mID4vB4q XREsJuI5VPwtW791FkIzmPBg Pjxj g4fhw8hpqVc3YbE2UUJtapRb zZwtOCF7z9QrGn80S92rEOdn GPHzEVUnAERoTOIoaBxcvh3k dG9w Ii8+VWYcgZT0uGA5vV0wIzWx ZsI2ABeiB404RdOabTCqRfoq I56hC1UjkFV+MYNaBly0YYCa dHls RG9pjFEyTJomNe9mRSI7EmBd PkBtIZdkP5XrAVIrwgvxnwqe xSK4SIIdYRBtcJ85Go2yuEuu MTBw oELRbZ3auilvl7emgytwGfNp ODSnWNb8FOc0ZSIrzCogOaQk YPY2ChF5TDF0oKBvyQ1quDue bjog hB6lV4UgNLIrftymOc31fA0u SfWhStB5JIpsWnz+TUVZRVIs IIzLIt9ICFwgOBdahVR+PHRk IHN0 hQzgZUrvPSQjnU7dVOJtP3g5 UgKxFrH6WMoqP3QuDSGffiqc Le11hZ9uIeVuUeI4VJvaD2Vx bnQ6 DDLjjKVoTKiqKAU8T33vn1K0 ICCtWBFmWOF5tRP4wG1dqIwg bjogbGVmdDsgdmVydGljYWwt YWxp N032EYDwdOpyFhSmErYwAmY4 PZW1X3WeVdu9PTTuzIkpFR1l hOTtTPxrKm3waHooyVcxMN5v NTBp bkyuLYJudI6aTPSovORhhQzo GG3pYWWusgrhs467NlRkYKZ9 WREmgYEcE4LekB1dFkSaGSOj MDAw R3DrqFQdCWihA294OYnbIjK3 QKRcoaEfO7MjYTEjcGyxZnS2 q4I0Kq26YOWQNWBtoynbeHO+ PHRk EQN0jAbfUTtxWUJqsF8hOQTf L6g0PlNoDgS5LCapN0DkQNZh ittoAi76rN4nPqZtXcG7HNdh O2Zv lrT6XJSccWFrYTrjBCG7E26p l0Q5RPIaYTWvDDQ4aZS0vU3k bGlnbjogbGVmdDsgdmVydGlj YWwt IDmvZ799LIHxwIphLc9bwUQ3 W0TxHvo1RCWxwJwuJB0ibYPy CZiyTx0tiSupjKljZF5qNJDy bjtw XNUrmR8zBQBngKJeyCoqMH5t LBPxbodhz719DtTzYKC5JULh jVHiO3XcsK3pHtLhRPFlLGWq O3Rl lAHpSOdgU966PSelJnN6HSSw zoYxF3MbHRAcsMtlGpO5d5W0 Oy4MoMHzIIFkUE75EQ68MO17 L3Ry PjwvdGFibGU+PHRhYmxlIHdp LVKaXJnpKQGiAhQtuWkxFI4w Bs9xNBVsZGDjtNvorAPlSiUo b2xs PCGlKYltCV7czUmoK1PlsHP4 FLAwx3h7Oq21M56gR4PbqPN+ OIIojHJ7aRK0sV5mJqMnLcJ7 YWxp T888OnNqaAApXlhdv6pmx4gp jQh7GaZxJOArzjRbyKnyALC2 y5DxQi21X23mWTghGTMhNPSu MCUi UGFmoYlcej9mfQ7eDt4+PGNv uMO6lBU5tF7hBmWpJwF5WXre G066NgLfxBXmQjwyW62vS5Pu dXA+ MOUoOvo6BNJcpSgwDD9nyNJi NTxcCd0jINV4KfPcZgAzCOdi G1JhPCRpucfxypncdKT8TVKd MDUw rA11An0xeFvdDz1qRWEwPDB2 LATekBTqH6NjxK3vYpKxTZGs JUIoO4CmcQIhPHanC136OObc ZnQ7 MYIqysGkV3BdLFJhlDxiNcA7 j7E3Xy9SzLvawCEeBX0qQcIq KCh0N7IhYpf8NYMiaPoqLH3c cGFk IArjQs0otRbsbOwgYN5rNPEb lmell248PsFmd8jgPDLyuXLj NGumJFU8W05eb6V8EPPuZPXi MDA7 cSV8gV8jsNiihvubrBBmrKsf zlVqvXjbRSwqCMhwA838DUEz nAsuZqTTXiq3Y5GiYqt6HKDu dHls IB9lkPXdKCgnSc2huJbgoDjc NM5rMQKqsnzhz312SaPen3vl BZOxqKHzSBwjVOX7G12ne1V1 ICMw YIBwIAT5fMQ9cJ0vzOysonni bGVmdDsgdmVydGljYWwtYWxp E543NQUkaUbwRa1SUfg0C6Lo Pjx0 QCOveSyeQL2mpFYbHTdjTj0d qYoamFmaOY7tXJGhrhnuv244 PdNjn3mgVHGiySVaDDduFMK1 Y29s q0J1ISYjORGbMSO7zFR2jL1s bGlnbjogbGVmdDsgdmVydGlj AJphHEhuG086XLHqkSozDfXl eWVy OjwvdGQ+JD00fp16Z3XmCpju Jfj7GJIhWFX8dPO5xI1qTRHs SIxyb4T8rXI1Q9LoxpQcom7w b2xs YIWiQQkcU11xc (more content not included)... Normal [facility] Patient Eval Forms Officeon 09-02-2023 Patient Eval Forms Office [id number]#1.00T IFF Normal [facility] BMPOrdered By: SYSTEM SYSTEM on 09-01-2023 Anion gap [Moles/Vol] 9 mmol/L Normal 6-16 [facility] Comment on above: Performed By: #### 2 [id number] #### [facility] [address] [place] [address] Calcium [Mass/Vol] 11.0 mg/dL Normal 8.9-11.1 Remiso l Chem Comment on above: Performed By: #### 2 [id number] #### [facility] [address] [place] [address] Chloride [Moles/Vol] 104 mmol/L Normal 101-111 Alexis britney Chem Comment on above: Performed By: #### 2 [id number] #### [facility] [address] [place] [address] CO2 [Moles/Vol] 28 mmol/L Normal 21-31 [facility] Comment on above: Performed By: #### 2 [id number] #### [facility] [address] [place] [address] Creatinine [Mass/Vol] 1.1 mg/dL Normal 0.5-1.3 [facility] Comment on above: Performed By: #### 2 [id number] #### [facility] [address] [place] [address] Glucose [Mass/Vol] 180 mg/dL Normal 55-199 Remiso l Chem Comment on above: Performed By: #### 2 [id number] #### [facility] [address] [place] [address] Potassium [Moles/Vol] 3.9 mmol/L Normal 3.5-5.3 [facility] Comment on above: Performed By: #### 2 [id number] #### [facility] [address] [place] [address] Sodium [Moles/Vol] 137 mmol/L Normal 135-145 Remiso l Chem Comment on above: Performed By: #### 2 [id number] #### [facility] [address] [place] [address] Urea nitrogen [Mass/Vol] 16 mg/dL Normal 5- [facility] Comment on above: Performed By: #### 2 [id number] #### [facility] [address] [place] [address] BMPon 09-01-2023 Urea nitrogen/Creatinine [Mass ratio] 14 No Units Normal 10- [facility] Comment on above: Performed By: #### 2 [id number] #### [facility] [address] [place] [address] CHEMISTRYOrdered By: SYSTEM SYSTEM on 09-01-2023 Urea nitrogen/Creatinine [Mass ratio] 14 mg/mg Normal 10 - [facility]isol Chem Consenton 09-01-2023 Consent [id number]#1.00TIF F Normal [facility] Consent for Treatmenton 08-21 Consent for Treatment [id number]#1.00TIF F Normal [facility] Family Medicine Office/Clini c Noteon 09-01-2023 Family Medicine Office/Clinic Note HPI Staff Luis Alfredo is an 82 year old male presenting for 6 month follow up DM, HTN Do you have any of the following symptoms? Foot Exam: sees foot dr Eye Exam: due Last A1C: Hgb A1C [...] Immunizations Vaccine Date Status Comments SARS-CoV-2 mRNA (toaaronnameran 5y-11y) vac 01/02/2023 Recorded comirnaty Pfizer zoster vaccine, inactivated 01/02/2023 Recorded influenza virus vaccine, inactivated 12/31/2022 Given SARS-CoV-2 (COVID-19) mRNAMUL.ORD![id number] 01/04/2022 Recorded (more content not included)... Normal [facility] Comment on above: Result Comment: Elec tronically Signed By: Saleem GUEVARA, Pk Whitley.br\Date and Time Signed: 09/01/23 10:46 EDT CpyX3gUalmdhw By: Robert nguyen on 09-01-2023 HbA1c (Bld) [Mass fraction] 6.4 % High <=5.9 [facility] [place] [facility] Comment on above: Performed By: #### 7 [id number] #### [facility] [address] [place] [address] Patient Educationon 09-01-19 Patient Education Nutrition BMI [...] numbers. This can be done either in Vietnamese ([place] or metric measurements. Note that charts and online BMI calculators are available to help you find your BMI quickly and easily without having to do these calculations yourself. To calculate your BMI in Vietnamese ([place] measurements: 1. Measure your weight in [...] for Disease Control and Prevention: www.cdc.gov ? [place] [employer]: www.heart.org ? National Heart, Lung, and Blood [place]: www.nhlbi.nih.gov Summary ? Body mass index (BMI) is a number that is calculated from a person's weight and height. ? BMI may help estimate how much of a person's weight is composed of fat. BMI can help identify those who may be at higher risk for certain medical problems. ? BMI can be measured using Vietnamese measurements or metric measurements. ? BMI charts are used to identify whether you are underweight, normal weight, overweight, or obese. This information is not intended to replace advice given to you by your health care provider. Make sure you discuss any questions you have with your health care provider. Document Revised: 11/30/2019 Document Reviewed: 10/07/2019 [employer] Patient Education ? 2022 [employer]. [facility] Patient Eval Forms Officeon 09-01-2023 Patient Eval Forms Office [id number]#1.00TIF F [facility] eGFROrdered By: ROBIN Desouza on 09-01-2023 eGFR 67 mL/min/1.73 m2 Normal >=59 [facility] Comment on above: Order Comment: Order added by Discern Expert. Performed By: #### 1 [id number] #### [facility] [address] [place] [address] Physician Orderon 08-20-2023 Physician Order [id number]#1.00TI FF [facility] Insurance Correspondenceon 0 08-19-2023 Insurance Correspondence [id number]#1.00TI FF [facility] Consultation Noteon 08-06-19 24 Consultation Note [id number]#1.00TIF F [facility] Office Visiton 07-29-2023 Follow-up visit [id number] Renate Almanza 1940 M Date Provider Department Center 07/29/2023 TRENT PATEL KAREN [facility] No family history on file Level of Service:19031 [place] OFFICE/OUTPATIENT ESTABLISHED MOD MDM 30 MIN Normal [facility] Ambulatory Visit Summaryon 0 07-21-2023 Ambulatory Visit Summary LUIS ALFREDO ALMANZA :1940 Visit Date:07/21/2023 Ambulatory Visit Instructions Your [...] Follow-Up Appointments Thursday 10:15 AM EDT With: Pk Monge MD Where: [facility] Invalid Interpretation Code [address] [place] [address]- \.br\ Thursday 2:00 PM EDT \.br\ With:\.br\ Where: [facility] Medicine Office/Clini c Noteon 07-21-2023 Family Medicine [...] day(s), # 90 tab(s), Refills(s) 3, Pharmacy: [facility], [facility], cm, 12/31/22 15:01:00 EDT, Height/Length [...] virus vaccine, inactivated 12/31/2022 Given SARS-CoV-2 (COVID-19) mRNAMUL.ORD![id number] 01/04/2022 Recorded influenza virus vaccine, inactivated 12/23/2021 Recorded influenza virus vaccine, inactivated 01/05/2021 Recorded SARS-CoV-2 (COVID-19) mRNA BNT-162b2 vax 01/05/2021 Recorded influenza virus vaccine, inactivated 05/19/2020 Recorded SARS-CoV-2 (COVID-19) mRNA BNT-162b2 vax 05/19/2020 Recorded 2022-08-06: [id number] SARS-CoV-2 (COVID-19) mRNA-1273 vaccine 04/28/2020 Recorded influenza virus vaccine, inactivated 12/2019 Recorded (more content not included)... Normal [facility] Comment on above: Result Comment: Elec tronically Signed By: Saleem GUEVARA, Pk Cesar\.br\Date and Time Signed: 07/21/23 14:48 EDT Patient [...] these instructions at home: Medicines ? Take bnrl-vlg-snjohsk and prescription medicines only as told by [...] quitting, ask your (more content not included)... Normal [facility] Orders Onlyon 03-25-2023 Orders Only [id number] Jonas Almanzachip Desouza 1940 [facility] Provider Department Center 03/25/2023 MARY NORTON KAREN [facility] No family history on file [facility] Documentationon 03-24-2023 Documentation [id number] Jonas Almanzachip Lyly 1940 Date Provider Department Center 03/24/[address] No family history on file [facility] Echocardiographyon Echocardiography [id number]#1.00TIF F Normal [facility] Ambulatory Visit Summaryon 05-03-2022 Ambulatory Visit Summary LUIS ALFREDO ALMANZA :1940 Visit Date:03/02/2023 Ambulatory Visit Instructions Your [...] Follow-Up Appointments Thursday 10:15 AM EDT With: Pk Monge MD Where: [facility] Invalid Interpretation Code [address] [place] [address]- \.br\ Thursday 2:00 PM EDT \.br\ With:\.br\ Where: [facility] Medicine [place] [facility] Family Medicine Office/Clini c Noteon 03-02-2023 Family Medicine [...] he cancelled them as it was through [email or web address]. He needs supplies but not getting any calls History of Present Illness Luis Alferdo Almanza is an 82-year-old male who presents [...] with voice recognition artificial intelligence software, specifically [employer], [employer] and or Att[employer]. Substitutions may have occurred due to the inherent limitations of voice recognition and artificial intelligence software. Documentation services were performed after patient or guardian consented to allow [employer] to record this visit. ROSIBEL hedis specialist and provider reviewed before signing. ROSIBEL: [...] prostate (01/16 (more content not included)... Normal [facility] Comment on above: Result Comment: Elec tronically Signed By: Pk Monge MD\.br\Date and Time Signed: 03/02/23 14:54 EST\.br\Electronically Co-Signed By: Constanza Hi\.br\Date and Time Co-Signed: 03/02/23 13:16 EST Family Medicine Office/Clini c Noteon 01-06-2023 Family Medicine Office/Clinic Note HPI Staff Luis Alfredo is an 81 year old male presenting to discuss a lot of medical issues and medication review Saw rUiah for medicare wellness and he is due for urine microalbumin and diabetic foot exam. labs are up to date done at [facility] about 6 weeks ago ( we do not have to have results) Sees Heart dr and urologist and they fill those meds Needs all his medications refilled to new pharmacy [facility] and they are all updated in his [...] has a history of heart surgery. His package liner is Dr. Miguelangel Rosado. The patient's last blood sugar this morning was 127 mg/dL. The patient is going to [place] next week. Review of Systems PHQ Score [...] We are waiting on labs from [facility]. Labs as of 08/12/2023 showed a creatinine [...] with voice recognition artificial intelligence software, specifically [employer], [employer] and or Attune. Substitutions may have occurred due to the inherent limitations of voice recognition and artificial intelligence software. Documentation services were performed after patient or guardian consented to allow naaya to record this visit. ROSIBEL hedis specialist and provider reviewed before signing. ROSIBEL: [...] No qualifying (more content not included)... Normal [facility] Comment on above: Result Comment: Elec tronically Signed By: Pk Monge MD\.br\Date and Time Signed: 01/06/23 11:10 EDT\.br\Electronically Co-Signed By: Constanza Hi.br\Date and Time Co-Signed: 12/31/22 16:41 EDT Family [...] for CDC) : N/A Roopa Abebe LPN Jamil - 12/31/2022 14:51 EDT Summary Temperature Oral : 36.7 DegC(Converted to: 98.1 DegF) Roopa Abebe LPN Jamil 12/31/2022 15:00 EDT Preferred Lab : [facility] Preferred Rad : [facility] Patient Counseled : Nutrition, Physical activity Height [...] Present : No actual or suspected pain Roopa Abebe LPN 12/31/2022 14:51 EDT Depression Screening Little Interest, Pleasure in Activities (ref) : Not at all Feeling Down, Depressed, Hopeless : Not at all Initial Depression Screening Score : 0 Depression Screening Result : Negative Roopa Abebe LPN - 12/31/2022 14:51 EDT Procedures / Surgeries [...] 17:36 EDT - Roopa Abebe LPN w/ [facility] ; Last Reviewed Dt/Tm: 12/31/2022 14:52:28 EDT [...] have housing Y (more content not included)... [facility] Comment on above: Result Comment: Elec tronically Signed By: Pk Monge MD\.br\Date and Time Signed: 01/06/23 11:10 EDT\.br\Electronically Co-Signed By: Uriah Golden\.br\Date and Time Co-Signed: 12/31/22 15:24 EDT Immunization Recordson 01-06 Immunization Records [id number] F [facility] Lab Reportson 01-06-2023 Lab Reports [id number]#[id number] F [facility] Consent for Flu Vaccineon Consent for Flu Vaccine [id number]#1.00T IFF [facility] Screenson 01-01-2023 Screens [id number]#[id number] F [facility] Ambulatory Visit Summaryon 1 Ambulatory Visit Summary LUIS ALFREDO ALMANZA DOB:1940 Visit Date:12/31/2022 Ambulatory Visit Instructions Your Diagnosis [...] Follow-Up Appointments Thursday 10:00 AM EST With: kP Monge MD Where: [facility] Invalid Interpretation Code [address] [place] [address]- \.br\ Thursday 2:00 PM EDT \.br\ With:\.br\ Where: [facility] Ambulatory Visit Summary LUIS ALFREDO ALMANZA :1940 [...] Monge MD [facility] (TRUE METRIX GLUCOSE TEST STRIP) allopurinol [...] GUEVARA, Danny Keen Where: [facility] [id number] \.br\ Medications\.br \ What How Much When [...] ? \.br\ Place frequently used items in qgvj-qn-krpze places. Lower the shelves around your home [...] way.\.br\ ? \.br\ Do not use floor danish or wax that makes floors slippery. If [...] or salt on walkways during winter months.\.br\ [facility] Patient Educationon 01-01-20 Patient Education Caregiving Fall Prevention in the [...] night-lights. ? Place frequently used items in pkfr-na-whwqn places. Lower the shelves around your home [...] the way. ? Do not use floor danish or wax that makes floors slippery. If [...] include working with a physical therapist or management trainer to improve your strength, balance, and endurance. Where to find more information ? Centers for Disease Control and Prevention, [place]: www.cdc.gov ? National [place] on Aging: www.giovanni.nih.gov Contact a health care [...] health ca (more content not included)... Normal [facility] Family Medicine Office/Clini c Noteon 11-04-2022 Family [...] Current issues/complaints: none, needs lab work for review consultant week of dec 08 would like it [...] (E21.3: Hyperparathyroidism, unspecified) - Will have the [employer] address 3. Hypertension (I10: Essential (primary) hypertension) [...] - Enoch (more content not included)... Normal [facility] Comment on above: Result Comment: Elec tronically Signed By: Saleem GUEVARA, Pk Whitley.br\Date and Time Signed: 11/04/22 17:27 EDT RAD - Ultrasound Reporton RAD - Ultrasound Report [id number]: 127 Normal [facility] CBC AUTO DIFFon 12-24-2021 BASO # 0.1 103/ul Normal 0.0-0.1 [facility] Comment on above: Performed By: #### C BC #### [facility] [address] [address] [address] Penny Allen Basophils/100 WBC (Bld) 1.1 % Normal 0.2-2.0 [facility] Comment on above: Performed By: #### C BC #### [facility] [address] [address] [address] Penny Allen EO # 0.1 103/ul Normal 0.0-0.7 [facility] Comment on above: Performed By: #### C BC #### [facility] [address] [address] [address] Penny Allen Eosinophils/100 WBC (Bld) 2.1 % Normal 0.9-7.0 [facility] Comment on above: Performed By: #### C BC #### [facility] [address] [address] [address] Penny Allen Erythrocyte distribution width (RBC) [Ratio] 13.9 % Normal 11.0-15.0 [facility] Comment on above: Performed By: #### C BC #### [facility] [address] [place] [address] Dr. Penny Allen Hematocrit (Bld) [Volume fraction] 44.5 % Normal 42.0-54.0 [facility] Comment on above: Performed By: #### C BC #### [facility] [address] [place] [address] Dr. Penny Allen Hemoglobin (Bld) [Mass/Vol] 14.2 g/dL Normal 14.0-18.0 [facility] Comment on above: Performed By: #### C BC #### [facility] [address] [place] [address] Dr. Penny lAlen IG # 0.04 10e3/ul Critically high 0.00-0.03 [facility] Comment on above: Performed By: #### C BC #### [facility] [address] [place] [address] Dr. Penny Allen IG % 0.6 % Critically high 0.0-0.5 [facility] Comment on above: Performed By: #### C BC #### [facility] [address] [place] [address] Dr. Penny Allen LYMPH # 1.4 103/ul Normal 1.2-3.8 [facility] Comment on above: Performed By: #### C BC #### [facility] [address] [place] [address] Dr. Penny Allen Lymphocytes/100 WBC (Bld) 20.8 % Normal 20.5-60.0 [facility] Comment on above: Performed By: #### C BC #### [facility] [address] [place] [address] Dr. Penny Allen MANUAL DIFF REQ NO Normal [facility] Comment on above: Performed By: #### C BC #### [facility] [address] [place] [address] Dr. Penny Allen MCH (RBC) [Entitic mass] 28.4 pg Normal 25.9-34.0 [facility] Comment on above: Performed By: #### C BC #### [facility] [address] [place] [address] Dr. Penny Allen MCHC (RBC) [Mass/Vol] 31.9 g/dL Normal 29.9-35.2 [facility] Comment on above: Performed By: #### C BC #### [facility] [address] [place] [address] Dr. Penny Allen MCV (RBC) [Entitic vol] 89.0 fL Normal 80.0-94.0 [facility] Comment on above: Performed By: #### C BC #### [facility] [address] [place] [address] Dr. Penny Allen MONO # 0.8 103/ul Normal 0.3-0.8 [facility] Comment on above: Performed By: #### C BC #### [facility] [address] [place] [address] Dr. Penny Allen Monocytes/100 WBC (Bld) 12.2 % Critically high 1.7-12.0 [facility] Comment on above: Performed By: #### C BC #### [facility] [address] [place] [address] Dr. Penny Allen NEUT # 4.1 103/ul Normal 1.4-6.5 [facility] Comment on above: Performed By: #### C BC #### [facility] [address] [place] [address] Dr. Penny Allen Neutrophils/100 WBC (Bld) 63.2 % Normal 43.0-75.0 [facility] Comment on above: Performed By: #### C BC #### [facility] [address] [place] [address] Dr. Penny Allen Platelet mean volume (Bld) [Entitic vol] 11.4 fL Normal 9.5-13.5 [facility] Comment on above: Performed By: #### C BC #### [facility] [address] [place] [address] Dr. Penny Allen PLT 193 103/ul Normal 150-450 [facility] Comment on above: Performed By: #### C BC #### [facility] [address] [place] [address] Dr. Penny Allen RBC 5.00 106/ul Normal 4.70-6.10 [facility] Comment on above: Performed By: #### C BC #### [facility] [address] [place] [address] Dr. Penny Allen WBC 6.6 103/ul Normal 4.0-11.0 [facility] Comment on above: Performed By: #### C BC #### [facility] [address] [place] [address] Dr. Penny Allen GLYCOHEMOGLOBIN A1Con 2021 ADA RECOMMENDATION SEE BELOW Normal [facility] Comment on above: Result Comment: ADA RECOMMENDED LIMIT 4.0 - 6.0 ADA THERAPEUTIC TARGET < 7.0 ACTION SUGGESTED > 7.0 Performed By: #### A 1C #### [facility] [address] [place] [address] Dr. Penny Allen HbA1c (Bld) [Mass fraction] 6.1 % Normal 4.5-6.2 [facility] Comment on above: Performed By: #### A 1C #### [facility] [address] [place] [address] Dr. Penny Allen LIPID PROFILEon 12-24-2021 CHOL-HDL RATIO NORM SEE BELOW Normal [facility] Comment on above: Result Comment: 3.3 - 4.4 LOW RISK 4.4 - 7.1 AVERAGE RISK 7.1 - 11.0 MODERATE RISK >11.0 HIGH RISK Performed By: #### C MP, URIC, LIPID #### [facility] [address] [place] [address] Dr. Penny Allen Cholesterol [Mass/Vol] 104 mg/dL Normal <=200 [facility] Comment on above: Performed By: #### C MP, URIC, LIPID #### [facility] [address] [place] [address] Dr. Penny Allen Cholesterol in HDL [Mass/Vol] 38 mg/dL Critically low 40-60 [facility] Comment on above: Performed By: #### C MP, URIC, LIPID #### [facility] [address] [place] [address] Dr. Penny Allen Cholesterol in LDL [Mass/Vol] 34.8 mg/dL Normal [facility] Comment on above: Performed By: #### C MP, URIC, LIPID #### [facility] [address] [address] [address] Penny Allen Cholesterol.total/Ch olesterol in HDL [Mass ratio] 2.7 {ratio} Normal [facility] Comment on above: Performed By: #### C MP, URIC, LIPID #### [facility] [address] [address] [address] Penny Allen HDL NORMAL > or = 60 mg/dl - LO W CARDIOVASCULAR RISK <40 mg/dl - HIGH CARDIOVASCULAR RISK Normal [facility] Comment on above: Performed By: #### C MP, URIC, LIPID #### [facility] [address] [address] [address] Penny Allen LDL CALC NORMAL SEE BELOW Normal [facility] Comment on above: Result Comment: <100 mg/dl OPTIMAL 100 - 129 mg/dl NEAR OR ABOVE OPTIMAL 130 - 159 mg/dl BORDERLINE HIGH 160 - 189 mg/dl HIGH >190 mg/dl VERY HIGH Performed By: #### C MP, URIC, LIPID #### [facility] [address] [address] [address] Penny Allen Triglyceride [Mass/Vol] 156 mg/dL Critically high <=150 [facility] Comment on above: Performed By: #### C MP, URIC, LIPID #### [facility] [address] [address] [address] Penny Allen VLDL CALC 31.2 mg/dL Normal [facility] Comment on above: Performed By: #### C MP, URIC, LIPID #### [facility] [address] [address] [address] Penny Allen PROF 14(COMP METB)on 022 Albumin [Mass/Vol] 3.6 g/dL Normal 3.4-5.0 [facility] Comment on above: Performed By: #### C MP, URIC, LIPID #### [facility] [address] [address] [address] Penny Allen Albumin/Globulin [Mass ratio] 1.0 {ratio} Normal [facility] Comment on above: Performed By: #### C MP, URIC, LIPID #### [facility] [address] [address] [address] Penny Allen ALP [Catalytic activity/Vol] 43 U/L Critically low 46-116 [facility] Comment on above: Performed By: #### C MP, URIC, LIPID #### [facility] [address] [address] [address] Penny Allen ALT [Catalytic activity/Vol] 18 U/L Normal 16-63 [facility] Comment on above: Performed By: #### C MP, URIC, LIPID #### [facility] [address] [place] [address] Dr. Penny Allen Anion gap [Moles/Vol] 10.0 mmol/L Normal [facility] Comment on above: Performed By: #### C MP, URIC, LIPID #### [facility] [address] [place] [address] Dr. Penny Allen AST [Catalytic activity/Vol] 16 U/L Normal 15-37 [facility] Comment on above: Performed By: #### C MP, URIC, LIPID #### [facility] [address] [place] [address] Dr. Penny Allen Bilirubin [Mass/Vol] 0.5 mg/dL Normal 0.2-1.0 [facility] Comment on above: Performed By: #### C MP, URIC, LIPID #### [facility] [address] [place] [address] Dr. Penny Allen Calcium [Mass/Vol] 9.9 mg/dL Normal 8.5-10.1 [facility] Comment on above: Performed By: #### C MP, URIC, LIPID #### [facility] [address] [place] [address] Dr. Penny Allen Chloride [Moles/Vol] 104 mmol/L Normal 98-107 [facility] Comment on above: Performed By: #### C MP, URIC, LIPID #### [facility] [address] [place], [place] [id number] Dr. Penny Allen CO2 [Moles/Vol] 30.7 mmol/L Normal 21.0-32.0 [facility] Comment on above: Performed By: #### C MP, URIC, LIPID #### [facility] [address] [place] [address] Dr. Penny Allen Creatinine [Mass/Vol] 1.66 mg/dL Critically high 0.70-1.30 [facility] Comment on above: Performed By: #### C MP, URIC, LIPID #### [facility] [address] [place] [address] Dr. Penny Allen EGFR-AF SAUDI ARABIAN 49 mL/min/1.73m2 Critically low >=60 [facility] Comment on above: Performed By: #### C MP, URIC, LIPID #### [facility] [address] [place] [address] Dr. Penny Allen EGFR-NON AF SAUDI ARABIAN 40 mL/min/1.73m2 Critically low >=60 [facility] Comment on above: Performed By: #### C MP, URIC, LIPID #### [facility] [address] [place] [address] Dr. Penny Allen Globulin (S) [Mass/Vol] 3.5 g/dL Normal [facility] Comment on above: Performed By: #### C MP, URIC, LIPID #### [facility] [address] [place] [address] Dr. Penny Allen Glucose [Mass/Vol] 128 mg/dL Normal [facility] Comment on above: Performed By: #### C MP, URIC, LIPID #### [facility] [address] [place] [address] Dr. Penny Allen Performed By: #### A 1C #### [facility] [address] [place] [address] Dr. Penny Allen Potassium [Moles/Vol] 4.7 mmol/L Normal 3.5-5.1 [facility] Comment on above: Performed By: #### C MP, URIC, LIPID #### [facility] [address] [place] [address] Dr. Penny Allen Protein [Mass/Vol] 7.1 g/dL Normal 6.4-8.2 [facility] Comment on above: Performed By: #### C MP, URIC, LIPID #### [facility] [address] [place] [address] Dr. Penny Allen Sodium [Moles/Vol] 140 mmol/L Normal 136-145 [facility] Comment on above: Performed By: #### C MP, URIC, LIPID #### [facility] [address] [place] [address] Dr. Penny Allen Urea nitrogen [Mass/Vol] 22.0 mg/dL Critically high 7.0-18.0 [facility] Comment on above: Performed By: #### C MP, URIC, LIPID #### [facility] [address] [place] [address] Dr. Penny Allen Urea nitrogen/Creatinine [Mass ratio] 13.3 mg/mg Normal [facility] Comment on above: Performed By: #### C MP, URIC, LIPID #### [facility] [address] [place] [address] Dr. Penny Allen URIC ACID SERUMon 12-24-2021 Urate [Mass/Vol] 3.8 mg/dL Normal 3.5-7.2 [facility] Comment on above: Performed By: #### C MP, URIC, LIPID #### [facility] [address] [place] [address] Dr. Penny Allen VITAMIN D 25 OHon 12-24-2021 VIT D 25-OH 46.8 ng/mL Normal [facility] Comment on above: Performed By: #### V ITAD #### [facility] [address] [place] [address] Dr. Penny Allen VIT D RANGES SEE BELOW Normal [facility] Comment on above: Result Comment: <20 ng/mL Vit D deficient 20 - <30 ng/mL Vit D insufficient 30 - 100 ng/mL Vit D sufficient >100 ng/mL Potential Toxicity Performed By: #### V ITAD #### [facility] [address] [place] [address] Dr. Penny Allen CBC AUTO DIFFon 08-02-2021 BASO # 0.1 103/ul Normal 0.0-0.1 [facility] Comment on above: Performed By: #### C BC #### [facility] [address] [place] [address] Dr. Penny Allen Basophils/100 WBC (Bld) 1.3 % Normal 0.2-2.0 [facility] Comment on above: Performed By: #### C BC #### [facility] [address] [place] [address] Dr. Penny Allen EO # 0.2 103/ul Normal 0.0-0.7 [facility] Comment on above: Performed By: #### C BC #### [facility] [address] [place] [address] Dr. Penny Allen Eosinophils/100 WBC (Bld) 2.4 % Normal 0.9-7.0 [facility] Comment on above: Performed By: #### C BC #### [facility] [address] [place] [address] Dr. Penny Allen Erythrocyte distribution width (RBC) [Ratio] 14.0 % Normal 11.0-15.0 [facility] Comment on above: Performed By: #### C BC #### [facility] [address] [place] [address] Dr. Penny Allen Hematocrit (Bld) [Volume fraction] 45.2 % Normal 42.0-54.0 [facility] Comment on above: Performed By: #### C BC #### [facility] [address] [place] [address] Dr. Penny Allen Hemoglobin (Bld) [Mass/Vol] 14.7 g/dL Normal 14.0-18.0 [facility] Comment on above: Performed By: #### C BC #### [facility] [address] [place] [address] Dr. Penny Allen IG # 0.08 10e3/ul Critically high 0.00-0.03 [facility] Comment on above: Performed By: #### C BC #### [facility] [address] [place] [address] Dr. Penny Allen IG % 1.1 % Critically high 0.0-0.5 [facility] Comment on above: Performed By: #### C BC #### [facility] [address] [place] [address] Dr. Penny Allen LYMPH # 2.0 103/ul Normal 1.2-3.8 [facility] Comment on above: Performed By: #### C BC #### [facility] [address] [place] [address] Dr. Penny Allen Lymphocytes/100 WBC (Bld) 28.7 % Normal 20.5-60.0 [facility] Comment on above: Performed By: #### C BC #### [facility] [address] [place] [address] Dr. Penny Allen MANUAL DIFF REQ NO Normal [facility] Comment on above: Performed By: #### C BC #### [facility] [address] [place] [address] Dr. Penny Allen MCH (RBC) [Entitic mass] 28.9 pg Normal 25.9-34.0 [facility] Comment on above: Performed By: #### C BC #### [facility] [address] [place] [address] Dr. Penny Allen MCHC (RBC) [Mass/Vol] 32.5 g/dL Normal 29.9-35.2 [facility] Comment on above: Performed By: #### C BC #### [facility] [address] [place] [address] Dr. Penny Allen MCV (RBC) [Entitic vol] 88.8 fL Normal 80.0-94.0 [facility] Comment on above: Performed By: #### C BC #### [facility] [address] [place] [address] Dr. Penny Allen MONO # 0.7 103/ul Normal 0.3-0.8 [facility] Comment on above: Performed By: #### C BC #### [facility] [address] [place] [address] Dr. Penny Allen Monocytes/100 WBC (Bld) 10.0 % Normal 1.7-12.0 [facility] Comment on above: Performed By: #### C BC #### [facility] [address] [place] [address] Dr. Penny Allen NEUT # 4.0 103/ul Normal 1.4-6.5 [facility] Comment on above: Performed By: #### C BC #### [facility] [address] [place] [address] Dr. Penny Allen Neutrophils/100 WBC (Bld) 56.5 % Normal 43.0-75.0 [facility] Comment on above: Performed By: #### C BC #### [facility] [address] [place] [address] Dr. Penny Allen Platelet mean volume (Bld) [Entitic vol] 10.9 fL Normal 9.5-13.5 [facility] Comment on above: Performed By: #### C BC #### [facility] [address] [place] [address] Dr. Penny Allen PLT 204 103/ul Normal 150-450 [facility] Comment on above: Performed By: #### C BC #### [facility] [address] [place] [address] Dr. Penny Allen RBC 5.09 106/ul Normal 4.70-6.10 [facility] Comment on above: Performed By: #### C BC #### [facility] [address] [place] [address] Dr. Penny Allen WBC 7.1 103/ul Normal 4.0-11.0 [facility] Comment on above: Performed By: #### C BC #### [facility] [address] [place] [address] Dr. Penny Allen GLYCOHEMOGLOBIN A1Con 2021 ADA RECOMMENDATION SEE BELOW Normal [facility] Comment on above: Result Comment: ADA RECOMMENDED LIMIT 4.0 - 6.0 ADA THERAPEUTIC TARGET < 7.0 ACTION SUGGESTED > 7.0 Performed By: #### A 1C #### [facility] [address] [place] [address] Dr. Penny Allen Glucose [Mass/Vol] 143 mg/dL Normal [facility] Comment on above: Performed By: #### A 1C #### [facility] [address] [address] [address] Penny Allen HbA1c (Bld) [Mass fraction] 6.6 % Critically high 4.5-6.2 [facility] Comment on above: Performed By: #### A 1C #### [facility] [address] [place] [address] Dr. Penny Allen LIPID PROFILEon 08-02-2021 CHOL-HDL RATIO NORM SEE BELOW Normal [facility] Comment on above: Result Comment: 3.3 - 4.4 LOW RISK 4.4 - 7.1 AVERAGE RISK 7.1 - 11.0 MODERATE RISK >11.0 HIGH RISK Performed By: #### C MP, LIPID #### [facility] [address] [place] [address] Dr. Penny Allen Cholesterol [Mass/Vol] 115 mg/dL Normal <=200 [facility] Comment on above: Performed By: #### C MP, LIPID #### [facility] [address] [place] [address] Dr. Penny Allen Cholesterol in HDL [Mass/Vol] 34 mg/dL Critically low 40-60 [facility] Comment on above: Performed By: #### C MP, LIPID #### [facility] [address] [place] [address] Dr. Penny Allen Cholesterol in LDL [Mass/Vol] 36.0 mg/dL Normal [facility] Comment on above: Performed By: #### C MP, LIPID #### [facility] [address] [place] [address] Dr. Penny Allen Cholesterol.total/Ch olesterol in HDL [Mass ratio] 3.4 {ratio} Normal [facility] Comment on above: Performed By: #### C MP, LIPID #### [facility] [address] [place] [address] Dr. Penny Allen HDL NORMAL > or = 60 mg/dl - LO W CARDIOVASCULAR RISK <40 mg/dl - HIGH CARDIOVASCULAR RISK Normal [facility] Comment on above: Performed By: #### C MP, LIPID #### [facility] [address] [place] [address] Dr. Penny Allen LDL CALC NORMAL SEE BELOW Normal [facility] Comment on above: Result Comment: <100 mg/dl OPTIMAL 100 - 129 mg/dl NEAR OR ABOVE OPTIMAL 130 - 159 mg/dl BORDERLINE HIGH 160 - 189 mg/dl HIGH >190 mg/dl VERY HIGH Performed By: #### C MP, LIPID #### [facility] [address] [place] [address] Dr. Penny Allen Triglyceride [Mass/Vol] 225 mg/dL Critically high <=150 [facility] Comment on above: Performed By: #### C MP, LIPID #### [facility] [address] [place] [address] Dr. Penny Allen VLDL CALC 45.0 mg/dL Normal [facility] Comment on above: Performed By: #### C MP, LIPID #### [facility] [address] [place] [address] Dr. Penny Allen PROF 14(COMP METB)on 022 Albumin [Mass/Vol] 3.4 g/dL Normal 3.4-5.0 [facility] Comment on above: Performed By: #### C MP, LIPID #### [facility] [address] [place] [address] Dr. Penny Allen Albumin/Globulin [Mass ratio] 1.0 {ratio} Normal [facility] Comment on above: Performed By: #### C MP, LIPID #### [facility] [address] [place] [address] Dr. Penny Allen ALP [Catalytic activity/Vol] 45 U/L Critically low 46-116 [facility] Comment on above: Performed By: #### C MP, LIPID #### [facility] [address] [place] [address] Dr. Penny Allen ALT [Catalytic activity/Vol] 27 U/L Normal 16-63 [facility] Comment on above: Performed By: #### C MP, LIPID #### [facility] [address] [place] [address] Dr. Penny Allen Anion gap [Moles/Vol] 10.2 mmol/L Normal [facility] Comment on above: Performed By: #### C MP, LIPID #### [facility] [address] [place] [address] Dr. Penny Allen AST [Catalytic activity/Vol] 17 U/L Normal 15-37 [facility] Comment on above: Performed By: #### C MP, LIPID #### [facility] [address] [place] [address] Dr. Penny Allen Bilirubin [Mass/Vol] 0.3 mg/dL Normal 0.2-1.0 [facility] Comment on above: Performed By: #### C MP, LIPID #### [facility] [address] [place] [address] Dr. Penny Allen Calcium [Mass/Vol] 9.8 mg/dL Normal 8.5-10.1 [facility] Comment on above: Performed By: #### C MP, LIPID #### [facility] [address] [place] [address] Dr. Penny Allen Chloride [Moles/Vol] 104 mmol/L Normal 98-107 [facility] Comment on above: Performed By: #### C MP, LIPID #### [facility] [address] [place] [address] Dr. Penny Allen CO2 [Moles/Vol] 28.2 mmol/L Normal 21.0-32.0 [facility] Comment on above: Performed By: #### C MP, LIPID #### [facility] [address] [place] [address] Dr. Penny Allen Creatinine [Mass/Vol] 1.51 mg/dL Critically high 0.70-1.30 [facility] Comment on above: Performed By: #### C MP, LIPID #### [facility] [address] [place] [address] Dr. Penny Allen EGFR-AF SAUDI ARABIAN 54 mL/min/1.73m2 Critically low >=60 [facility] Comment on above: Performed By: #### C MP, LIPID #### [facility] [address] [place] [address] Dr. Penny Allen EGFR-NON AF SAUDI ARABIAN 45 mL/min/1.73m2 Critically low >=60 [facility] Comment on above: Performed By: #### C MP, LIPID #### [facility] [address] [place] [address] Dr. Penny Allen Globulin (S) [Mass/Vol] 3.5 g/dL Normal [facility] Comment on above: Performed By: #### C MP, LIPID #### [facility] [address] [place] [address] Dr. Penny Allen Glucose [Mass/Vol] 132 mg/dL Critically high 74-106 [facility] Comment on above: Performed By: #### C MP, LIPID #### [facility] [address] [place] [address] Dr. Penny Allen Potassium [Moles/Vol] 4.4 mmol/L Normal 3.5-5.1 [facility] Comment on above: Performed By: #### C MP, LIPID #### [facility] [address] [place] [address] Dr. Penny Allen Protein [Mass/Vol] 6.9 g/dL Normal 6.4-8.2 [facility] Comment on above: Performed By: #### C MP, LIPID #### [facility] [address] [place] [address] Dr. Penny Allen Sodium [Moles/Vol] 138 mmol/L Normal 136-145 [facility] Comment on above: Performed By: #### C MP, LIPID #### [facility] [address] [place] [address] Dr. Penny Allen Urea nitrogen [Mass/Vol] 24.0 mg/dL Critically high 7.0-18.0 [facility] Comment on above: Performed By: #### C MP, LIPID #### [facility] [address] [place] [address] Dr. Penny Allen Urea nitrogen/Creatinine [Mass ratio] 15.9 mg/mg Normal [facility] Comment on above: Performed By: #### C MP, LIPID #### [facility] [address] [place] [address] Dr. Penny Allen Cardiovascular Lab Reporton 03-30-2020 Cardiovascular Lab Report [facility] Patient Name: Luis Alfredo Almanza [facility] MR #: [id number] Physician: Trent Karimi of [facility] Service Date: 03/30/2020 Division of Birthdate: 1940 Cardiology Room #: [facility] [address] [address] Cardiovascular Laboratory Report INDICATION: The patient is [...] signed informed consent. He was brought to [facility] in a fasting state. The right groin area was prepped and draped in usual fashion. Using micropuncture technique and ultrasound guidance, the right common femoral artery was accessed. The inner cannula was advanced. Limited right common femoral angiography was performed followed by upsizing to a 6-Indian x 11 cm sheath. Access was obtained using same technique in the right common femoral vein and a 6-Indian x 11 cm sheath was placed. A 6-Indian Angulo catheter was used for right heart catheterization with measurement of pressures and calculation of cardiac output using the estimated Ronen method. Angulo catheter was removed. Bilateral selective coronary angiography was then performed using 6-Indian JL4 and JR4 diagnostic catheters. The 6-Indian JR4 diagnostic catheter was used to selectively engage the radial graft to the OM. Angiography was performed. Catheters were removed. A 6-Indian CHANDAN catheter was used to selectively engage [...] 40% stenosis in the proximal RCA. 4. Wxzj-ip-zjbboukd elevation of filling pressures. 5. Ilwa-qe-pwzhfbrj pulmonary hypertension. 6. Preserved cardiac output and [...] A (more content not included)... Normal [facility] BASIC METABOLIC PANELon 07-3 Anion gap 12 mmol/L Normal 10 - 20 [facility] Comment on above: Performed By: #### A MY ####[facility], [place] [phone] Bicarbonate (HCO3) 27 mmol/L Normal 21 - 32 [facility] Comment on above: Performed By: #### A MY ####[facility], [place] [phone] Calcium 9.9 mg/dL Normal 8.6 - 10.6 [facility] Comment on above: Performed By: #### A MY ####[facility], [place] [phone] Chloride 104 mmol/L Normal 98 - 107 [facility] Comment on above: Performed By: #### A MY ####[facility], [place] [phone] Creatinine 1.21 mg/dL Normal 0.50 - 1.30 [facility] Comment on above: Performed By: #### A MY ####[facility], [place] [phone] eGFR (non-black) 70 mL/min/{1.73_m2} Normal >60 [facility] Comment on above: Result Comment: CALC ULATIONS OF ESTIMATED GFR ARE PERFORMED USING THE MDRD STUDY EQUATION FOR THE IDMS-TRACEABLE CREATININE METHODS. CLIN CHEM 2007;53:766-72 Performed By: #### A MY ####[facility], [place] [phone] eGFR (non-black) 58 mL/min/{1.73_m2} Abnormal >60 [facility] Comment on above: Performed By: #### A MY ####[facility], [place] [phone] Glucose mass conc 133 mg/dL High 74 - 99 [facility] Comment on above: Performed By: #### A MY ####[facility], [place] [phone] Potassium molar conc 3.8 mmol/L Normal 3.5 - 5.3 [facility] Comment on above: Performed By: #### A MY ####[facility], [place] [phone] Sodium 139 mmol/L Normal 136 - 145 [facility] Comment on above: Performed By: #### A MY ####[facility], [place] [phone] Urea nitrogen 18 mg/dL Normal 6 - 23 [facility] Comment on above: Performed By: #### A MY ####[facility], [place] [phone] CBCon 10-20-2016 Erythrocyte distribution width Auto Ratio (RBC) 15.9 % High 11.5 - 14.5 [facility] Comment on above: Performed By: #### A MY ####[facility], [place] [phone] Erythrocytes (RBC) 4.08 x10E12/L Low 4.50 - 5.90 [facility] Comment on above: Performed By: #### A MY ####[facility], [place] [phone] Hematocrit (HCT) 35.4 % Low 41.0 - 52.0 [facility] Comment on above: Performed By: #### A MY ####[facility], [place] [phone] Hemoglobin mass conc (Bld) 11.1 g/dL Low 13.5 - 17.5 [facility] Comment on above: Performed By: #### A MY ####[facility], [place] [phone] MCHC mass conc (RBC) 31.4 g/dL Low 32.0 - 36.0 [facility] Comment on above: Performed By: #### A MY ####[facility], [place] [phone] MCV 87 fL Normal 80 - 100 [facility] Comment on above: Performed By: #### A MY ####[facility], [place] [phone] Nucleated erythrocytes 0.0 /100 WBC Normal 0.0-0.0 [facility] Comment on above: Performed By: #### A MY ####[facility], [place] [phone] Platelets 184 10*3/uL Normal 150 - 450 [facility] Comment on above: Performed By: #### A MY ####[facility], [place] [phone] WBC (Leukocytes) 8.7 10*3/uL Normal 4.4 - 11.3 [facility] Comment on above: Performed By: #### A MY ####[facility], [place] [phone] Discharge Summaryon 10-21-19 17 Discharge Summary Send Summary:Dischar ge Summary Providers:Provider Role Provider Name? Referring Marilou Bautista? Referring Luci Farrell? Primary Marilou Bautista? Primary Wing Perez Recipients: Marilou Bautista CNP (CERTIFIED) - [phone] [] Wing Perez MD - [id number] []Luci Farrell MD - [id number] [Preferred]Discharge:[facility] flora:Admission Date: .15-Oct-2016 05:50:00Discharge Date: [id number] Physician at Discharge: Novitsky, Luci WilliamAdmission Reason: Ventral hernia repairFinal Discharge Diagnoses: Ventral hernia repairProcedures: Date: 15-Oct-2016 16:19:00Procedure Name: Abdominal wall reconstruction with bilateral rectus sheath andtransversus abdominis release, VHRCondition at Discharge: SatisfactoryDisposition at Discharge: Home Health Care - NewVital Signs: T P R BP [id number] 36.8 78 18 145/80 94%Date/Time 10/20 8:02 [...] Other (with phone number) Skilled Disciplines Ordered: PTHome Care Services: Home Care Skilled Service: Rehab [...] / Team Contact Info:Provider/Team Contact Info-Pager Number: Manjit/[phone]/Chris tation:.: .: Electronic Signatures:Tisha Vega (HOUSEHOLD MANAGER (CERTIFIED)) (Signed 20-Oct-2016 11:14) Authored: Send Summary, Summary Content, Ongoing Care, AttestationLast Updated: 20-Oct-2016 11:14 by Tisha Vega (HOUSEHOLD MANAGER (CERTIFIED)) Normal [facility] GLUCOSE-POCTon 10-20-2016 Glucose mass conc 147 mg/dL High 74 - 99 [facility] Comment on above: Performed By: #### L IPAS ####[facility], [place] [phone] MAGNESIUMon 10-20-2016 Magnesium 1.76 mg/dL Normal 1.60 - 2.40 [facility] Comment on above: Performed By: #### A MY ####[facility], [place] [phone] BASIC METABOLIC PANELon 09-22 Anion gap 11 mmol/L Normal 10 - 20 [facility] Comment on above: Performed By: #### A MY ####[facility], [place] [phone] Bicarbonate (HCO3) 29 mmol/L Normal 21 - 32 [facility] Comment on above: Performed By: #### A MY ####[facility], [place] [phone] Calcium 10.4 mg/dL Normal 8.6 - 10.6 [facility] Comment on above: Performed By: #### A MY ####[facility], [place] [phone] Chloride 101 mmol/L Normal 98 - 107 [facility] Comment on above: Performed By: #### A MY ####[facility], [place] [phone] Creatinine 1.25 mg/dL Normal 0.50 - 1.30 [facility] Comment on above: Performed By: #### A MY ####[facility], [place] [phone] eGFR (non-black) 68 mL/min/{1.73_m2} Normal >60 [facility] Comment on above: Result Comment: CALC ULATIONS OF ESTIMATED GFR ARE PERFORMED USING THE MDRD STUDY EQUATION FOR THE IDMS-TRACEABLE CREATININE METHODS. CLIN CHEM 2007;53:766-72 Performed By: #### A MY ####[facility], [place] [phone] eGFR (non-black) 56 mL/min/{1.73_m2} Abnormal >60 [facility] Comment on above: Performed By: #### A MY ####[facility], [place] [phone] Glucose mass conc 142 mg/dL High 74 - 99 [facility] Comment on above: Performed By: #### A MY ####[facility], [place] [phone] Potassium molar conc 4.2 mmol/L Normal 3.5 - 5.3 [facility] Comment on above: Performed By: #### A MY ####[facility], [place] [phone] Sodium 137 mmol/L Normal 136 - 145 [facility] Comment on above: Performed By: #### A MY ####[facility], [place] [phone] Urea nitrogen 21 mg/dL Normal 6 - 23 [facility] Comment on above: Performed By: #### A MY ####[facility], [place] [phone] CBCon 10-19-2016 Erythrocyte distribution width Auto Ratio (RBC) 15.9 % High 11.5 - 14.5 [facility] Comment on above: Performed By: #### A MY ####[facility], [place] [phone] Erythrocytes (RBC) 4.34 x10E12/L Low 4.50 - 5.90 [facility] Comment on above: Performed By: #### A MY ####[facility], [place] [phone] Hematocrit (HCT) 37.8 % Low 41.0 - 52.0 [facility] Comment on above: Performed By: #### A MY ####[facility], [place] [phone] Hemoglobin mass conc (Bld) 12.0 g/dL Low 13.5 - 17.5 [facility] Comment on above: Performed By: #### A MY ####[facility], [place] [phone] MCHC mass conc (RBC) 31.7 g/dL Low 32.0 - 36.0 [facility] Comment on above: Performed By: #### A MY ####[facility], [place] [phone] MCV 87 fL Normal 80 - 100 [facility] Comment on above: Performed By: #### A MY ####[facility], [place] [phone] Nucleated erythrocytes 0.0 /100 WBC Normal 0.0-0.0 [facility] Comment on above: Performed By: #### A MY ####[facility], [place] [phone] Platelets 181 10*3/uL Normal 150 - 450 [facility] Comment on above: Performed By: #### A MY ####[facility], [place] [phone] WBC (Leukocytes) 11.6 10*3/uL High 4.4 - 11.3 [facility] Comment on above: Performed By: #### A MY ####[facility], [place] [phone] GLUCOSE-POCTon 10-19-2016 Glucose mass conc 121 mg/dL High [address] [place] [address] Comment on above: Performed By: #### A MY ####[facility], [place] [phone] Glucose mass conc 151 mg/dL High [address] [place] [address] Comment on above: Performed By: #### A MY ####[facility], [place] [phone] Glucose mass conc 159 mg/dL [address] Comment on above: Performed By: #### A MY ####[facility], [place] [phone] Glucose mass conc 160 mg/dL High [address] [place] [address] Comment on above: Performed By: #### U AMIC ####[facility], [place] [phone] Glucose mass conc 138 mg/dL [address] Comment on above: Performed By: #### U AMIC ####[facility], [place] [phone] HEMOGLOBIN A1Con 10-19-2016 Glucose mass conc 148 mg/dL Normal [facility] Comment on above: Performed By: #### A MY ####[facility], [place] [phone] Hemoglobin A1c/Hemoglobin.total mass fraction (Bld) 6.8 % Normal [facility] Comment on above: Result Comment: Diag nosis of Diabetes-Adults Non-Diabetic: < or = 5.6% Increased risk for developing diabetes: 5.7-6.4% Diagnostic of diabetes: > or = 6.5%. Monitoring of Diabetes Age (y) Therapeutic Goal (%) Adults: >18 <7.0 Pediatrics: 13-18 <7.5 7-12 <8.0 0- 6 7.5-8.5 [employer]. Diabetes Care 33(S1), Mar 2009. Performed By: #### A MY ####[facility], [place] [phone] MAGNESIUMon 10-19-2016 Magnesium 1.85 mg/dL Normal 1.60 - 2.40 [facility] Comment on above: Performed By: #### A MY ####[facility], [place] [phone] BASIC METABOLIC PANELon 09-21 Anion gap 13 mmol/L Normal 10 - 20 [facility] Comment on above: Performed By: #### U AMIC ####[facility], [place] [phone] Bicarbonate (HCO3) 30 mmol/L Normal 21 - 32 [facility] Comment on above: Performed By: #### U AMIC ####[facility], [place] [phone] Calcium 10.8 mg/dL High 8.6 - 10.6 [facility] Comment on above: Performed By: #### U AMIC ####[facility], [place] [phone] Chloride 99 mmol/L Normal 98 - 107 [facility] Comment on above: Performed By: #### U AMIC ####[facility], [place] [phone] Creatinine 1.38 mg/dL High 0.50 - 1.30 [facility] Comment on above: Performed By: #### U AMIC ####[facility], [place] [phone] eGFR (non-black) 61 mL/min/{1.73_m2} Normal >60 [facility] Comment on above: Result Comment: CALC ULATIONS OF ESTIMATED GFR ARE PERFORMED USING THE MDRD STUDY EQUATION FOR THE IDMS-TRACEABLE CREATININE METHODS. CLIN CHEM 2007;53:766-72 Performed By: #### U AMIC ####[facility], [place] [phone] eGFR (non-black) 50 mL/min/{1.73_m2} Abnormal >60 [facility] Comment on above: Performed By: #### U AMIC ####[facility], [place] [phone] Glucose mass conc 144 mg/dL High 74 - 99 [facility] Comment on above: Performed By: #### U AMIC ####[facility], [place] [phone] Potassium molar conc 4.8 mmol/L Normal 3.5 - 5.3 [facility] Comment on above: Performed By: #### U AMIC ####[facility], [place] [phone] Sodium 137 mmol/L Normal 136 - 145 [facility] Comment on above: Performed By: #### U AMIC ####[facility], [place] [phone] Urea nitrogen 26 mg/dL High 6 - 23 [facility] Comment on above: Performed By: #### U AMIC ####[facility], [place] [phone] CBC AND DIFFERENTIALon 10-18 % AUTOMATED IMMATURE GRAN 1.1 % High 0.0 - 0.9 [facility] Comment on above: Result Comment: Perc ent differential counts (%) should be interpreted in the context of the absolute cell counts (cells/L). Performed By: #### U AMIC ####[facility], [place] [phone] % NEUTROPHIL 72.2 % Normal 40.0 - 80.0 [facility] Comment on above: Performed By: #### U AMIC ####[facility], [place] [phone] Basophils/100 WBC Auto (Bld) 0.08 x10E9/L Normal 0.00 - 0.10 [facility] Comment on above: Performed By: #### U AMIC ####[facility], [place] [phone] Basophils/100 WBC Auto (Bld) 0.4 % Normal 0.0 - 2.0 [facility] Comment on above: Performed By: #### U AMIC ####[facility], [place] [phone] Eosinophils 0.11 10*3/uL Normal 0.00 - 0.40 [facility] Comment on above: Performed By: #### U AMIC ####[facility], [place] [phone] Eosinophils/100 leukocytes 0.6 % Normal 0.0 - 6.0 [facility] Comment on above: Performed By: #### U AMIC ####[facility], [place] [phone] Erythrocyte distribution width Auto Ratio (RBC) 15.7 % High 11.5 - 14.5 [facility] Comment on above: Performed By: #### U AMIC ####[facility], [place] [phone] Erythrocytes (RBC) 4.83 x10E12/L Normal 4.50 - 5.90 [facility] Comment on above: Performed By: #### U AMIC ####[facility], [place] [phone] Hematocrit (HCT) 43.2 % Normal 41.0 - 52.0 [facility] Comment on above: Performed By: #### U AMIC ####[facility], [place] [phone] Hemoglobin mass conc (Bld) 12.9 g/dL Low 13.5 - 17.5 [facility] Comment on above: Performed By: #### U AMIC ####[facility], [place] [phone] Lymphocytes 2.36 10*3/uL Normal 0.80 - 3.00 [facility] Comment on above: Performed By: #### U AMIC ####[facility], [place] [phone] Lymphocytes/100 leukocytes 13.3 % Normal 13.0 - 44.0 [facility] Comment on above: Performed By: #### U AMIC ####[facility], [place] [phone] MCHC mass conc (RBC) 29.9 g/dL Low 32.0 - 36.0 [facility] Comment on above: Performed By: #### U AMIC ####[facility], [place] [phone] MCV 89 fL Normal 80 - 100 [facility] Comment on above: Performed By: #### U AMIC ####[facility], [place] [phone] Monocytes 2.21 10*3/uL High 0.05 - 0.80 [facility] Comment on above: Performed By: #### U AMIC ####[facility], [place] [phone] Monocytes/100 leukocytes 12.4 % High 2.0 - 10.0 [facility] Comment on above: Performed By: #### U AMIC ####[facility], [place] [phone] Neutrophils 12.85 10*3/uL High 1.60 - 5.50 [facility] Comment on above: Performed By: #### U AMIC ####[facility], [place] [phone] Nucleated erythrocytes 0.0 /100 WBC Normal 0.0-0.0 [facility] Comment on above: Performed By: #### U AMIC ####[facility], [place] [phone] Platelets 192 10*3/uL Normal 150 - 450 [facility] Comment on above: Performed By: #### U AMIC ####[facility], [place] [phone] WBC (Leukocytes) 17.8 10*3/uL High 4.4 - 11.3 [facility] Comment on above: Performed By: #### U AMIC ####[facility], [place] [phone] GLUCOSE-POCTon 10-18-2016 Glucose mass conc 131 mg/dL High 74 - 99 [facility] Comment on above: Performed By: #### U AMIC ####[facility], [place] [phone] Glucose mass conc 184 mg/dL High 74 - 99 [facility] Comment on above: Performed By: #### U AMIC ####[facility], [place] [phone] Glucose mass conc 144 mg/dL High 74 - 99 [facility] Comment on above: Performed By: #### U AMIC ####[facility], [place] [phone] MAGNESIUMon 10-18-2016 Magnesium 2.02 mg/dL Normal 1.60 - 2.40 [facility] Comment on above: Performed By: #### U AMIC ####[facility], [place] [phone] BASIC METABOLIC PANELon 09-21 Anion gap 13 mmol/L Normal 10 - 20 [facility] Comment on above: Performed By: #### U A ####[facility], [place] [phone] Bicarbonate (HCO3) 30 mmol/L Normal 21 - 32 [facility] Comment on above: Performed By: #### U A ####[facility], [place] [phone] Calcium 10.8 mg/dL High 8.6 - 10.6 [facility] Comment on above: Performed By: #### U A ####[facility], [place] [phone] Chloride 99 mmol/L Normal 98 - 107 [facility] Comment on above: Performed By: #### U A ####[facility], [place] [phone] Creatinine 1.54 mg/dL High 0.50 - 1.30 [facility] Comment on above: Performed By: #### U A ####[facility], [place] [phone] eGFR (non-black) 53 mL/min/{1.73_m2} Abnormal >60 [facility] Comment on above: Result Comment: CALC ULATIONS OF ESTIMATED GFR ARE PERFORMED USING THE MDRD STUDY EQUATION FOR THE IDMS-TRACEABLE CREATININE METHODS. CLIN CHEM 2007;53:766-72 Performed By: #### U A ####[facility], [place] [phone] eGFR (non-black) 44 mL/min/{1.73_m2} Abnormal >60 [facility] Comment on above: Performed By: #### U A ####[facility], [place] [phone] Glucose mass conc 154 mg/dL High 74 - 99 [facility] Comment on above: Performed By: #### U A ####[facility], [place] [phone] Potassium molar conc 5.4 mmol/L High 3.5 - 5.3 [facility] Comment on above: Performed By: #### U A ####[facility], [place] [phone] Sodium 137 mmol/L Normal 136 - 145 [facility] Comment on above: Performed By: #### U A ####[facility], [place] [phone] Urea nitrogen 28 mg/dL High 6 - 23 [facility] Comment on above: Performed By: #### U A ####[facility], [place] [phone] CBCon 10-17-2016 Erythrocyte distribution width Auto Ratio (RBC) 15.9 % High 11.5 - 14.5 [facility] Comment on above: Performed By: #### U A ####[facility], [place] [phone] Erythrocytes (RBC) 5.10 x10E12/L Normal 4.50 - 5.90 [facility] Comment on above: Performed By: #### U A ####[facility], [place] [phone] Hematocrit (HCT) 45.0 % Normal 41.0 - 52.0 [facility] Comment on above: Performed By: #### U A ####[facility], [place] [phone] Hemoglobin mass conc (Bld) 14.3 g/dL Normal 13.5 - 17.5 [facility] Comment on above: Performed By: #### U A ####[facility], [place] [phone] MCHC mass conc (RBC) 31.8 g/dL Low 32.0 - 36.0 [facility] Comment on above: Performed By: #### U A ####[facility], [place] [phone] MCV 88 fL Normal 80 - 100 [facility] Comment on above: Performed By: #### U A ####[facility], [place] [phone] Nucleated erythrocytes 0.0 /100 WBC Normal 0.0-0.0 [facility] Comment on above: Performed By: #### U A ####[facility], [place] [phone] Platelets 189 10*3/uL Normal 150 - 450 [facility] Comment on above: Performed By: #### U A ####[facility], [place] [phone] WBC (Leukocytes) 18.4 10*3/uL High 4.4 - 11.3 [facility] Comment on above: Performed By: #### U A ####[facility], [place] [phone] GLUCOSE-POCTon 10-17-2016 Glucose mass conc 137 mg/dL High 74 - 99 [facility] Comment on above: Performed By: #### U AMI ####[facility], [place] [phone] Glucose mass conc 201 mg/dL High 74 - 99 [facility] Comment on above: Performed By: #### U A ####[facility], [place] [phone] Glucose mass conc 142 mg/dL High 74 - 99 [facility] Comment on above: Performed By: #### U A ####[facility], [place] [phone] Glucose mass conc 151 mg/dL High 74 - 99 [facility] Comment on above: Performed By: #### U A ####[facility], [place] [phone] Glucose mass conc 155 mg/dL High 74 - 99 [facility] Comment on above: Performed By: #### U A ####[facility], [place] [phone] MAGNESIUMon 10-17-2016 Magnesium 2.17 mg/dL Normal 1.60 - 2.40 [facility] Comment on above: Performed By: #### U A ####[facility], [place] [phone] POTASSIUMon 10-17-2016 Potassium molar conc 5.3 mmol/L Normal 3.5 - 5.3 [facility] Comment on above: Performed By: #### U AMIC ####[facility], [place] [phone] BASIC METABOLIC PANELon 09-21 Anion gap 15 mmol/L Normal 10 - 20 [facility] Comment on above: Performed By: #### C BC ####[facility], [place] [phone] Bicarbonate (HCO3) 27 mmol/L Normal 21 - 32 [facility] Comment on above: Performed By: #### C BC ####[facility], [place] [phone] Calcium 10.6 mg/dL Normal 8.6 - 10.6 [facility] Comment on above: Performed By: #### C BC ####[facility], [place] [phone] Chloride 102 mmol/L Normal 98 - 107 [facility] Comment on above: Performed By: #### C BC ####[facility], [place] [phone] Creatinine 1.46 mg/dL High 0.50 - 1.30 [facility] Comment on above: Performed By: #### C BC ####[facility], [place] [phone] eGFR (non-black) 57 mL/min/{1.73_m2} Abnormal >60 [facility] Comment on above: Result Comment: CALC ULATIONS OF ESTIMATED GFR ARE PERFORMED USING THE MDRD STUDY EQUATION FOR THE IDMS-TRACEABLE CREATININE METHODS. CLIN CHEM 2007;53:766-72 Performed By: #### C BC ####[facility], [place] [phone] eGFR (non-black) 47 mL/min/{1.73_m2} Abnormal >60 [facility] Comment on above: Performed By: #### C BC ####[facility], [place] [phone] Glucose mass conc 130 mg/dL High 74 - 99 [facility] Comment on above: Performed By: #### C BC ####[facility], [place] [phone] Potassium molar conc 4.8 mmol/L Normal 3.5 - 5.3 [facility] Comment on above: Performed By: #### C BC ####[facility], [place] [phone] Sodium 139 mmol/L Normal 136 - 145 [facility] Comment on above: Performed By: #### C BC ####[facility], [place] [phone] Urea nitrogen 28 mg/dL High 6 - 23 [facility] Comment on above: Performed By: #### C BC ####[facility], [place] [phone] CBCon 10-16-2016 Erythrocyte distribution width Auto Ratio (RBC) 15.9 % High 11.5 - 14.5 [facility] Comment on above: Performed By: #### C BC ####[facility], [place] [phone] Erythrocytes (RBC) 5.21 x10E12/L Normal 4.50 - 5.90 [facility] Comment on above: Performed By: #### C BC ####[facility], [place] [phone] Hematocrit (HCT) 45.3 % Normal 41.0 - 52.0 [facility] Comment on above: Performed By: #### C BC ####[facility], [place] [phone] Hemoglobin mass conc (Bld) 14.6 g/dL Normal 13.5 - 17.5 [facility] Comment on above: Performed By: #### C BC ####[facility], [place] [phone] MCHC mass conc (RBC) 32.2 g/dL Normal 32.0 - 36.0 [facility] Comment on above: Performed By: #### C BC ####[facility], [place] [phone] MCV 87 fL Normal 80 - 100 [facility] Comment on above: Performed By: #### C BC ####[facility], [place] [phone] Nucleated erythrocytes 0.0 /100 WBC Normal 0.0-0.0 [facility] Comment on above: Performed By: #### C BC ####[facility], [place] [phone] Platelets 175 10*3/uL Normal 150 - 450 [facility] Comment on above: Performed By: #### C BC ####[facility], [place] [phone] WBC (Leukocytes) 15.2 10*3/uL High 4.4 - 11.3 [facility] Comment on above: Performed By: #### C BC ####[facility], [place] [phone] GLUCOSE-POCTon 10-16-2016 Glucose mass conc 166 mg/dL High 74 - 99 [facility] Comment on above: Performed By: #### U A ####[facility], [place] [phone] Glucose mass conc 135 mg/dL High 74 - 99 [facility] Comment on above: Performed By: #### U A ####[facility], [place] [phone] Glucose mass conc 131 mg/dL High 74 - 99 [facility] Comment on above: Performed By: #### C BC ####[facility], [place] [phone] Glucose mass conc 171 mg/dL High 74 - 99 [facility] Comment on above: Performed By: #### C BC ####[facility], [place] [phone] MAGNESIUMon 10-16-2016 Magnesium 1.92 mg/dL Normal 1.60 - 2.40 [facility] Comment on above: Performed By: #### C BC ####[facility], [place] [phone] ABO/RH GROUP TESTon 10-16-19 17 ABO TYPE O Normal [facility] Comment on above: Performed By: #### C BC ####[facility], [place] [phone] RH TYPE Positive Normal [facility] Comment on above: Performed By: #### C BC ####[facility], [place] [phone] GLUCOSE-POCTon 10-15-2016 Glucose mass conc 170 mg/dL High 74 - 99 [facility] Comment on above: Performed By: #### C BC ####[facility], [place] [phone] [facility] Surgical Pathology Depar tmenton 10-15-2016 [facility] Surgical Pathology Department Name LUIS ALFREDO ALMANZA Pathologist: DEBORAH YANGate of Procedure: 10/15/2016Date Received: 10/15/2016Date Reported 10/20/2016Submitting Physician: LUCI FARRELL MDLocation: TOWER 9 Other External # FINAL DIAGNOSISSKIN, SOFT TISSUE, AND MESH, EXCISION: --SKIN AND SUBCUTIS WITH ATTACHED SYNTHETIC MESHThe gross and/or microscopic findings were reviewed in conjunction withpathology resident, Zena Paez M.D. Electronically Signed Out By URIAH WHITE MD/Torito the signature on this report, the individual [...] x 16 x 4.5 cm. The specimen wrvaiu930 grams. Serial cross sections reveal a homogeneous fibrofatty cut surfacewith mesh, suture material, and possible purulent debris. Representativesections are submitted in one cassette.HNG/AKNakn/10/16 Normal [facility] Comment on above: Performed By: #### L IPAS ####[facility], [place] [phone] AMYLASEon 10-14-2016 Amylase 26 U/L Low 29 - 103 [facility] Comment on above: Performed By: #### A MY ####[facility], [place] [phone] CBCon 10-14-2016 Erythrocyte distribution width Auto Ratio (RBC) 15.8 % High 11.5 - 14.5 [facility] Comment on above: Performed By: #### C BC ####[facility], [place] [phone] Erythrocytes (RBC) 5.88 x10E12/L Normal 4.50 - 5.90 [facility] Comment on above: Performed By: #### C BC ####[facility], [place] [phone] Hematocrit (HCT) 51.1 % Normal 41.0 - 52.0 [facility] Comment on above: Performed By: #### C BC ####[facility], [place] [phone] Hemoglobin mass conc (Bld) 15.8 g/dL Normal 13.5 - 17.5 [facility] Comment on above: Performed By: #### C BC ####[facility], [place] [phone] MCHC mass conc (RBC) 30.9 g/dL Low 32.0 - 36.0 [facility] Comment on above: Performed By: #### C BC ####[facility], [place] [phone] MCV 87 fL Normal 80 - 100 [facility] Comment on above: Performed By: #### C BC ####[facility], [place] [phone] Nucleated erythrocytes 0.0 /100 WBC Normal 0.0-0.0 [facility] Comment on above: Performed By: #### C BC ####[facility], [place] [phone] Platelets 176 10*3/uL Normal 150 - 450 [facility] Comment on above: Performed By: #### C BC ####[facility], [place] [phone] WBC (Leukocytes) 9.2 10*3/uL Normal 4.4 - 11.3 [facility] Comment on above: Performed By: #### C BC ####[facility], [place] [phone] CHEST; 2 VIEW APon 7 CHEST; 2 [...] Electronically signed by: LISANDRO ROLON MD Normal [facility] COAGULATION SCREENon 017 aPTT 24 s Low 25 - 36 [facility] Comment on above: Result Comment: NOTE NEW REFERENCE RANGE. THE APTT IS NO LONGER USED FOR MONITORING UNFRACTIONATED HEPARIN THERAPY. FOR MONITORING HEPARIN THERAPY, USE THE HEPARIN ASSAY. Performed By: #### C OAGS ####[facility] [employer] [facility], [place] [phone] INR Coag RelTime (PPP) 1.1 {INR} Normal 0.9 - 1.1 [facility] Comment on above: Performed By: #### C OAGS ####[facility] [employer] [facility], [place] [phone] Prothrombin time (PT) Coag time (PPP) 12.1 s Normal 9.8 - 12.7 [facility] Comment on above: Result Comment: NOTE NEW REFERENCE RANGE. Performed By: #### C OAGS ####[facility] [employer] [facility], [place] [phone] COMPREHENSIVE PANELon 2016 Alanine aminotransferase (ALT) 22 U/L Normal 10 - 52 [facility] Comment on above: Result Comment: Daniela ents treated with Sulfasalazine may generate falsely decreased results for ALT. Performed By: #### C MP ####[facility], [place] [phone] Albumin 4.3 g/dL Normal 3.4 - 5.0 [facility] Comment on above: Performed By: #### C MP ####[facility], [place] [phone] Alkaline phosphatase (ALP) 50 U/L Normal 33 - 136 [facility] Comment on above: Performed By: #### C MP ####[facility], [place] [phone] Anion gap 12 mmol/L Normal 10 - 20 [facility] Comment on above: Performed By: #### C MP ####[facility], [place] [phone] Aspartate aminotransferase (AST) 22 U/L Normal 9 - 39 [facility] Comment on above: Performed By: #### C MP ####[facility], [place] [phone] Bicarbonate (HCO3) 29 mmol/L Normal 21 - 32 [facility] Comment on above: Performed By: #### C MP ####[facility], [place] [phone] Bilirubin (total) 0.6 mg/dL Normal 0.0 - 1.2 [facility] Comment on above: Performed By: #### C MP ####[facility], [place] [phone] Calcium 11.0 mg/dL High 8.6 - 10.6 [facility] Comment on above: Performed By: #### C MP ####[facility], [place] [phone] Chloride 101 mmol/L Normal 98 - 107 [facility] Comment on above: Performed By: #### C MP ####[facility], [place] [phone] Creatinine 1.46 mg/dL High 0.50 - 1.30 [facility] Comment on above: Performed By: #### C MP ####[facility], [place] [phone] eGFR (non-black) 47 mL/min/{1.73_m2} Abnormal >60 [facility] Comment on above: Performed By: #### C MP ####[facility], [place] [phone] eGFR (non-black) 57 mL/min/{1.73_m2} Abnormal >60 [facility] Comment on above: Result Comment: CALC ULATIONS OF ESTIMATED GFR ARE PERFORMED USING THE MDRD STUDY EQUATION FOR THE IDMS-TRACEABLE CREATININE METHODS. CLIN CHEM 2007;53:766-72 Performed By: #### C MP ####[facility], [place] [phone] Glucose mass conc 146 mg/dL High 74 - 99 [facility] Comment on above: Performed By: #### C MP ####[facility], [place] [phone] Potassium molar conc 4.7 mmol/L Normal 3.5 - 5.3 [facility] Comment on above: Performed By: #### C MP ####[facility], [place] [phone] Protein 7.2 g/dL Normal 6.4 - 8.2 [facility] Comment on above: Performed By: #### C MP ####[facility], [place] [phone] Sodium 137 mmol/L Normal 136 - 145 [facility] Comment on above: Performed By: #### C MP ####[facility], [place] [phone] Urea nitrogen 23 mg/dL Normal 6 - 23 [facility] Comment on above: Performed By: #### C MP ####[facility], [place] [phone] HEMOGLOBIN A1Con 10-14-2016 Glucose mass conc 148 mg/dL Normal [facility] Comment on above: Performed By: #### C BC ####[facility], [place] [phone] Hemoglobin A1c/Hemoglobin.total mass fraction (Bld) 6.8 % Normal [facility] Comment on above: Result Comment: Diag nosis of Diabetes-Adults Non-Diabetic: < or = 5.6% Increased risk for developing diabetes: 5.7-6.4% Diagnostic of diabetes: > or = 6.5%. Monitoring of Diabetes Age (y) Therapeutic Goal (%) Adults: >18 <7.0 Pediatrics: 13-18 <7.5 7-12 <8.0 0- 6 7.5-8.5 [employer]. Diabetes Care 33(S1), Mar 2009. Performed By: #### C BC ####[facility], [place] [phone] LIPASEon 10-14-2016 Lipase 36 U/L Normal 9 - 82 [facility] Comment on above: Result Comment: Danuta puncture immediately after or during the administration of Metamizole may lead to falsely low results. Testing should be performed immediately prior to Metamizole dosing. Performed By: #### L IPAS ####[facility], [place] [phone] PREALBUMINon 10-14-2016 Prealbumin 29.2 mg/dL Normal 18.0 - 40.0 [facility] Comment on above: Performed By: #### P REAL ####[facility], [place] [phone] STAPH/MRSA SCREENon 10-15-19 17 STAPH/MRSA SCREEN PATIENT: EULALIA ALMANZA LOCATION: [facility]#: [id number] : 42 AGE: SEX: M ORDERED BY: SHELBY FARRELL: ANTERIOR NARES COLLECTED: 10/14/16 08:08ANTIBIOTICS AT FILIPPO.: RECEIVED : 10/14/16 09:37SITE: Nasal R E S U L T S STAPH/MRSA SCREEN FINAL 10/16/16 08:36 NO Staphylococcus aureus ISOLATED. Normal [facility] TYPE + SCREENon 10-14-2016 ABO TYPE O Normal [facility] Comment on above: Performed By: #### C BC ####[facility], [place] [phone] RH TYPE Positive Normal [facility] Comment on above: Performed By: #### C BC ####[facility], [place] [phone] ANTIBODY SCREEN Negative Normal [facility] Comment on above: Performed By: #### C BC ####[facility], [place] [phone] UA MICROSCOPICon 10-14-2016 Erythrocytes (RBC) 5 /HPF Normal 0-5 [facility] Comment on above: Performed By: #### U AMIC ####[facility], [place] [phone] SQUAMOUS EPITH. CELLS 1 /HPF Normal [facility] Comment on above: Performed By: #### U AMIC ####[facility], [place] [phone] Urine, mucus presence in sediment 1+ /LPF Normal [facility] Comment on above: Performed By: #### U AMIC ####[facility], [place] [phone] WBC (Leukocytes) 2 /HPF Normal 0-5 [facility] Comment on above: Performed By: #### U AMIC ####[facility], [place] [phone] URINALYSISon 10-14-2016 Bilirubin (total) Negative Normal NEGATIVE [facility] Comment on above: Performed By: #### U A ####[facility], [place] [phone] BLOOD Negative Normal NEGATIVE [facility] Comment on above: Performed By: #### U A ####[facility], [place] [phone] Glucose mass conc Negative Normal NEGATIVE [facility] Comment on above: Performed By: #### U A ####[facility], [place] [phone] pH of blood 6.0 [pH] Normal 5.0 - 8.0 [facility] Comment on above: Performed By: #### U A ####[facility], [place] [phone] Protein 30 (1+) Abnormal NEGATIVE [facility] Comment on above: Performed By: #### U A ####[facility], [place] [phone] Urine, appearance CLEAR Normal CLEAR [facility] Comment on above: Performed By: #### U A ####[facility], [place] [phone] Urine, color YELLOW Normal STRAW,YELLOW [facility] Comment on above: Performed By: #### U A ####[facility], [place] [phone] Urine, ketones presence Negative Normal NEGATIVE [facility] Comment on above: Performed By: #### U A ####[facility], [place] [phone] Urine, leukocyte esterase presence Negative Normal NEGATIVE [facility] Comment on above: Performed By: #### U A ####[facility], [place] [phone] Urine, nitrite presence Negative Normal NEGATIVE [facility] Comment on above: Performed By: #### U A ####[facility], [place] [phone] Urine, specific gravity 1.014 Normal 1.005 - 1.035 [facility] Comment on above: Performed By: #### U A ####[facility], [place] [phone] Urine, urobilinogen <2.0 Normal 0.0 - 1.9 [facility] Comment on above: Performed By: #### U A ####[facility], [place] [phone] ASCORBIC ACID Canceled Normal [facility] Comment on above: Order Comment: TEST URINALYSIS WAS CANCELLED, 10/14/2016 09:03 NO SPECIMEN RECEIVED IN LAB. Result Comment: Conc entrations > = 20 mg/dL of ascorbic acid can be expected to cause stronginterference in the reactions testing for glucose, nitrite and blood. It isrecommended to discontinue Vitamin C administration and retest in 10 hours. Performed By: #### U A ####[facility], [place] [phone] Bilirubin (total) Canceled Normal [facility] Comment on above: Order Comment: TEST URINALYSIS WAS CANCELLED, 10/14/2016 09:03 NO SPECIMEN RECEIVED IN LAB. Performed By: #### U A ####[facility], [place] [phone] BLOOD Canceled Normal [facility] Comment on above: Order Comment: TEST URINALYSIS WAS CANCELLED, 10/14/2016 09:03 NO SPECIMEN RECEIVED IN LAB. Performed By: #### U A ####[facility], [place] [phone] Glucose mass conc Canceled Normal [facility] Comment on above: Order Comment: TEST URINALYSIS WAS CANCELLED, 10/14/2016 09:03 NO SPECIMEN RECEIVED IN LAB. Performed By: #### U A ####[facility], [place] [phone] pH of blood Canceled Normal [facility] Comment on above: Order Comment: TEST URINALYSIS WAS CANCELLED, 10/14/2016 09:03 NO SPECIMEN RECEIVED IN LAB. Performed By: #### U A ####[facility], [place] [phone] Protein Canceled Normal [facility] Comment on above: Order Comment: TEST URINALYSIS WAS CANCELLED, 10/14/2016 09:03 NO SPECIMEN RECEIVED IN LAB. Performed By: #### U A ####[facility], [place] [phone] Urine, appearance Canceled Normal [facility] Comment on above: Order Comment: TEST URINALYSIS WAS CANCELLED, 10/14/2016 09:03 NO SPECIMEN RECEIVED IN LAB. Performed By: #### U A ####[facility], [place] [phone] Urine, color Canceled Normal [facility] Comment on above: Order Comment: TEST URINALYSIS WAS CANCELLED, 10/14/2016 09:03 NO SPECIMEN RECEIVED IN LAB. Performed By: #### U A ####[facility], [place] [phone] Urine, ketones presence Canceled Normal [facility] Comment on above: Order Comment: TEST URINALYSIS WAS CANCELLED, 10/14/2016 09:03 NO SPECIMEN RECEIVED IN LAB. Performed By: #### U A ####[facility], [place] [phone] Urine, leukocyte esterase presence Canceled Normal [facility] Comment on above: Order Comment: TEST URINALYSIS WAS CANCELLED, 10/14/2016 09:03 NO SPECIMEN RECEIVED IN LAB. Performed By: #### U A ####[facility], [place] [phone] Urine, nitrite presence Canceled Normal [facility] Comment on above: Order Comment: TEST URINALYSIS WAS CANCELLED, 10/14/2016 09:03 NO SPECIMEN RECEIVED IN LAB. Performed By: #### U A ####[facility], [place] [phone] Urine, specific gravity Canceled Normal [facility] Comment on above: Order Comment: TEST URINALYSIS WAS CANCELLED, 10/14/2016 09:03 NO SPECIMEN RECEIVED IN LAB. Performed By: #### U A ####[facility], [place] [phone] Urine, urobilinogen Canceled Normal [facility] Comment on above: Order Comment: TEST URINALYSIS WAS CANCELLED, 10/14/2016 09:03 NO SPECIMEN RECEIVED IN LAB. Performed By: #### U A ####[facility], [place] [phone] URINE CULTURE,BACTERIALon URINE CULTURE,BACTERIAL PATIENT: LUIS ALFREDO ALMANZA LOCATION: [facility]#: [id number] : 42 AGE: SEX: M ORDERED BY: SHELBY FARRELL: URINE COLLECTED: 10/14/16 08:08ANTIBIOTICS AT FILIPPO.: RECEIVED : 10/14/16 10:23SITE: Clean Catch/Voided R E S U L T S URINE CULTURE,BACTERIAL FINAL 10/15/16 07:30 NO SIGNIFICANT GROWTH. Normal [facility] Vital Signs Date Time Vital Sign Value Performing Clinician Facility 09-14-2023 08:36-0400 Blood Pressure Location Danny BAEZ [facility] 09-14-2023 08:36-0400 Body temperature 98.6 [degF] Danny BAEZ [facility] 09-14-2023 08:36-0400 Diastolic blood pressure 69 mm[Hg] Danny BAEZ [facility] 09-14-2023 08:36-0400 Heart rate 51 /min Danny BAEZ [facility] 09-14-2023 08:36-0400 Respiratory rate 16 /min Danny BAEZ [facility] 09-14-2023 08:36-0400 Systolic blood pressure 102 mm[Hg] Danny BAEZ [facility] 12-16-2022 11:00-0400 Body height 182.88 cm Tita Wali [facility] [employer] Other 12-16-2022 11:00-0400 Body mass index (BMI) [Ratio] 34.85 kg/m2 Tita Wali [facility] [employer] Other 12-16-2022 11:00-0400 Body temperature 96.6 [degF] Tita Wali [facility] [employer] Other 12-16-2022 11:00-0400 Body weight 116.58 kg Tita Wali [facility] [employer] Other 12-16-2022 11:00-0400 Diastolic blood pressure 64 mm[Hg] Tita Wali Other [employer] Other 12-16-2022 11:00-0400 Respiratory rate 18 /min Tita Wali [facility] [employer] Other 12-16-2022 11:00-0400 SaO2% (BldA) [Mass fraction] 97 % Tita Wali Other [employer] [facility] [employer] Other 12-16-2022 11:00-0400 Systolic blood pressure 135 mm[Hg] Tita Wali [facility] [employer] Other 09-08-2022 08:38-0400 Blood Pressure Location Dannylinda BAEZ [facility] 09-08-2022 08:38-0400 Diastolic blood pressure 74 mm[Hg] Danny BAEZ [facility] 09-08-2022 08:38-0400 Heart rate 68 /min Danny BAEZ [facility] 09-08-2022 08:38-0400 Systolic blood pressure 129 mm[Hg] Danny BAEZ [facility] 09-06-2021 09:34-0400 Blood Pressure Location Danny BAEZ [facility] 09-06-2021 09:34-0400 Diastolic blood pressure 87 mm[Hg] Danny BAEZ [facility] 09-06-2021 09:34-0400 Heart rate 78 /min Danny BAEZ [facility] 09-06-2021 09:34-0400 Respiratory rate 16 /min Danny BAEZ [facility] 09-06-2021 09:34-0400 Systolic blood pressure 131 mm[Hg] [facility] En[facility] Date Encounter Type Care Provider Facility Start: 03-01-2024 ambulatory [facility] Start: 01-07-2024 ambulatory Pk Monge [facility] Start: 11-03-2023 End: 11-03-2023 ambulatory [facility] Start: 10-28-2023 End: 10-28-2023 ambulatory [facility] Start: 09-17-2023 End: 09-17-2023 ambulatory [facility] [place]: 09-17-2023 End: 09-17-2023 Patient encounter procedure Christiano ChenAnnel Blackman [facility] Start: 09-14-2023 End: 09-14-2023 ambulatory Danny BAEZ Facility:[facility] Start: 09-14-2023 End: 09-14-2023 Patient encounter procedure Danny BAEZ [facility] Start: 09-01-2023 End: 09-01-2023 ambulatory Pk Monge [place] Start: 09-01-2023 End: 09-01-2023 Patient encounter procedure Christiano ChenAnnel Blackman [facility] Start: 09-01-2023 End: 09-01-2023 Lab Drop off Pk Monge [facility] Start: 09-01-2023 End: 09-01-2023 ambulatory MD kP Monge [place] Start: 07-29-2023 ambulatory [facility]ANN [facility] Start: 07-21-2023 End: 07-21-2023 ambulatory Pk Monge Facility:[facility] Start: 07-21-2023 End: 07-21-2023 ambulatory JOSE ANGEL Parish [facility] Not Available Start: 03-03-2023 End: 03-03-2023 ambulatory JOSE ANGEL Parish [facility] Not Available Start: 03-02-2023 End: 03-02-2023 ambulatory Pk Monge Facility:[facility] Start: 12-31-2022 End: 12-31-2022 ambulatory Pk Monge Facility: [facility] Start: 12-31-2022 End: 12-31-2022 ambulatory Pk Monge Facility:[facility] Rojas [facility]endy Start: 12-16-2022 End: 12-16-2022 ambulatory Tita Wali [facility] [employer] Other Start: 12-16-2022 Office outpatient visit 25 minutes Tita Wali [facility] Start: 11-04-2022 End: 11-04-2022 ambulatory Pk Monge Facility: [facility] Start: 09-08-2022 End: 09-08-2022 Patient encounter procedure Danny BAEZ [facility] Start: 12-24-2021 End: 12-25-[address] WING PEREZ Facility:[facility] Start: 09-06-2021 End: 09-06-2021 Patient encounter procedure Danny BAEZ [facility] Start: 08-02-2021 End: 08-03-[address] WING PEREZ Facility:[facility] Start: 03-30-2020 End: 03-31-2020 ambulatory WING PEREZ Facility:[facility] Start: 10-15-2016 End: 10-20-2016 Evaluation and management of inpatient Luci Farrell Facility:[facility] Start: 10-14-2016 Ambulatory Luci Heller acility:[facility] Start: 10-14-2016 Ambulatory Luci Heller acility:[facility] Procedures Date Procedure Procedure Detail Performing Clinician Start: 01-17-2020 Transurethral water vapor ablation of prostate Danny BAEZ Start: 10-27-2019 Cystoscopy Danny ELLSWORTH Comment on above: cysto, shock lithopa xy [...] OWENS History of hernia repair Cherry BAEZ Plan of Treatment Date Care Activity Detail Author Start: 09-16-2024 ambulatory Ambulatory Facility:[facility] Krishnamurthy Immunizations Immunization Date Immunization Notes Care Provider Angie ordonez 01-02-2023 SARS-CoV-2 mRNA (tozinameran 5y-11y) vaccine Basem Blackman [facility] Comment on above: Result Comment: alona celisty Pfizer 01-02-2023 zoster vaccine recombinant Basem Blackman [facility] 12-31-2022 influenza, high dose seasonal, preservative-free Basem Blackman [facility] 01-04-2022 SARS-CoV-2 (COVID-19 ) [id number] Danny BAEZ [facility] 12-23-2021 influenza virus vaccine, unspecified formulation Dannylinda BAEZ [facility] 01-05-2021 influenza virus vaccine, unspecified formulation Danny BAEZ [facility] 01-05-2021 SARS-CoV-2 (COVID-19 ) mRNA BNT-162b2 vax Danny BAEZ [facility] 05-19-2020 influenza virus vaccine, unspecified formulation Dannylinda BAEZ [facility] 05-19-2020 SARS-CoV-2 (COVID-19 ) mRNA BNT-162b2 vax Danny BAEZ [facility] Comment on above: Result Comment: 2022: [id number] 04-28-2020 SARS-CoV-2 (COVID-19 ) mRNA-1273 vaccine Dannylinda BAEZ [facility] 12-22-2019 influenza virus vaccine, unspecified formulation Dannylinda BAEZ [facility] 11-29-2019 influenza virus vaccine, unspecified formulation Danny BAEZ [facility] 01-06-2019 influenza virus vaccine, unspecified formulation Danny BAEZ [facility] 01-06-2019 pneumococcal conjuga te vaccine, 13 valent Danny BAEZ [facility] 01-14-2017 influenza virus vaccine, unspecified formulation [facility] 01-01-2017 influenza virus vaccine, unspecified formulation Danny BAEZ [facility] Payers Date Payer Category Payer Medicare dgyg 2022 Unknown [facility] 1959 Medicare [id number] 1959 Unknown [id number] 1941 Unknown [id number] 2.16.8 40.1.574221.3.579.2.647 1941 Unknown [id number] 2.16.84 0.1.368063.3.579.2.593 1941 Unknown [id number] 2.16.84 0.1.414412.3.579.2.593 1941 Unknown [id number] 2.16.84 0.1.309978.3.579.2.1259 1941 Unknown [id number] 2.16.840 .1.140994.3.579.2.1259 1941 Unknown [id number] 2.16.8 40.1.462192.3.579.2.727 1941 Unknown [id number] 2.16.8 40.1.728429.3.579.2.727 1941 Unknown [id number] 2.16.8 40.1.706315.3.579.2.727 1941 Unknown [id number] 2.16.8 40.1.720173.3.579.2.727 1941 Unknown [id number] 2.16.8 40.1.632158.3.579.2.727 1941 Unknown [id number] 2.16.8 40.1.464633.3.579.2.727 1941 Unknown [id number] 2.16.8 40.1.635348.3.579.2.727 1941 Unknown [id number] 2.16.8 40.1.275954.3.579.2.727 1941 Unknown [id number] 2.16.8 40.1.592960.3.579.2.727 1941 Unknown [id number] 2.16.8 40.1.337853.3.579.2.727 1941 Unknown [id number] 2.16.8 40.1.976957.3.579.2.727 1941 Unknown [id number] 2.16.8 40.1.717546.3.579.2.727 1941 Unknown [id number] 2.16.8 40.1.393693.3.579.2.727 Medicare [id number] Social History Date Type Detail Facility Start: 03-08-2021 End: 09-14-2023 Tobacco smoking status Never smoked tobacco (finding) [facility] Comment on above: denies Sex Assigned At Male [facility] Tobacco smoking status Never [facility] Comment on above: denies Medical Equipment Procedure Code Equipment Code Equipment Origin al Text Equipment Identifier Dates TEST BLOOD SUGAR ONCE DAILY Start: 08-06-2022 Functional Status Date Assessment Result Facility 09-14-2023 Functional Status N/A [facility] 09-08-2022 Functional Status N/A [facility] 09-06-2021 Functional Status N/A [facility] Clinical Notes 09-06-2021 to 11-03-2023 Note Date & Type Note Facility 11-03-2023 Note Discuss possible pac maddy Fernandez. Review of Systems HENT: Positive for hearing loss. Musculoskeletal: Positive for arthritis, back pain and joint pain. All other systems reviewed and are negative. [facility] 10-28-2023 Note [facility] Subjective Luis Alfredo Almanza is a 82 y.o. year old male patient being seen for 3 mo follow up chronic systolic heart failure, CAD, aortic valve stenosis, and hyperlipidemia. Farxiga and spironolactone were added at last visit in July 2024. Furosemide was stopped. Echo and labs were done in August. Denies chest pain, SOB, palpitations, and lightheadedness/syncope. Says he's been feeling very well lately. Patient Active Problem List Diagnosis Abnormal results [...] zoster Hypercholesterolemia Insomnia Microhematuria Nocturia Post-void dribbling Kidney stones Renal cyst No family history on file. 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 He underwent CABG [...] this showed a PVC burden of 6.72%. At visit of 07/29/2023 I optimize GDMT for heart failure by adding spironolactone 12.5 mg daily and Farxiga 10 mg daily. I stopped furosemide 20 mg daily. Today he is seen in follow-up. He reports that he has been doing very well. He has no lower extremity edema. No shortness of breath to his current level of activity. No chest pain. No palpitations. No dizziness or lightheadedness. Review of Systems HENT: Positive for hearing loss. Musculoskeletal: Positive for arthritis, back pain and joint pain. All other systems reviewed and are negative. Objective Visit Vitals BP 108/70 (BP Location: Left arm, Patient Position: Sitting) Pulse 55 Ht 1.829 m (6') Wt 112 kg (248 lb) SpO2 97% BMI 33.63 kg/m??? Smoking Status Never BSA 2.39 m??? Physical Exam Constitutional: Appearance: He is well-developed. He is not ill-appearing. HENT: Head: Normocephalic and atraumatic. Nose: Nose normal. Eyes: General: No scleral icterus. Pupils: Pupils are equal, round, and reactive to light. Neck: Thyroid: No thyromegaly. Vascular: No JVD. Cardiovascular: Rate and Rhythm: Regular rhythm. Bradycardia present. Pulses: Radial pulses are 2+ on the [...] swelling. Cervical back: Neck supple. Right lower leg: No edema. Left lower leg: No edema. Skin: General: Skin is warm and dry. Neurological: General: No focal deficit present. Mental Status: He is alert and oriented to person, place, and time. Psychiatric: Mood and Affect: Mood normal. Behavior: Behavior is cooperative. Judgment: Judgment normal. Allergies Allergies Allergen Reactions Oxycodone-Acetaminophen Other Hallucinations Medications Current Outpatient Medications: ALPRAZolam (Xanax) 0.5 mg tablet, take 1 tablet by mouth once daily if needed, Disp: , Rfl: aspirin 81 mg chewable tablet, in the morning., Disp: , Rfl: atorvastatin (Lipitor) 20 mg tablet, Take 20 mg by mouth at bedtime., Disp: (more content not included)... [facility] 09-14-2023 Hospital Discharge instructions Patient Education 09/14/2023 09:40:23 Benign Prostatic Hyperplasia Benign Prostatic Hyperplasia Benign prostatic hyperplasia (BPH) is an enlarged prostate gland that is caused by the normal aging process. The prostate may get bigger as a man gets older. The condition is not caused by cancer. The prostate is a walnut-sized gland that is involved in the production of semen. It is located in front of the rectum and below the bladder. The bladder stores urine. The urethra carries stored urine out of the body. An enlarged prostate can press on the urethra. This can make it harder to pass urine. The buildup of urine in the bladder can cause infection. Back pressure and infection may progress to bladder damage and kidney (renal) failure. What are the causes? This condition is part of the normal aging process. However, not all men develop problems from this condition. If the prostate enlarges away from the [...] urethra. Follow these instructions at home: Take drfe-aix-lzzxbaz and prescription medicines only as told by [...] provider. Document Revised: 09/25/2021 Document Reviewed: 09/25/2021 [employer] formerly [employer] Patient Education 2022 [employer]. 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 He underwent CABG [...] in the m (more content not included)... [facility] 03-24-2023 Note Provider called pt t o [...] evaluate AO stenosis with reduced EF. Dea Fritz MANAGER STAFFING Division of Cardiology, [facility]- [phone] Pager- [phone] Email- [email or web address] 03-17-2023 Note This report has been cancelled. [facility] 03-17-2023 Note This report has been cancelled. [facility] 03-17-2023 Note This report has been cancelled. [facility] 03-17-2023 Note This report has been cancelled. [facility] 12-16-2022 Evaluation note Encounter Date Diagnosis Assessment [...] kidney stones. Continue follow-up with the urology. [employer] Other 06-19-2023 Hospital Discharge instructions Patient Education [...] urethra. Follow these instructions at home: Take ygeu-jgs-bjgagox and prescription medicines only as told by [...] provider. Document Revised: 09/25/2021 Document Reviewed: 09/25/2021 [employer] Patient Education 2022 [employer]. Follow Up Care 09/06/2021 10:14:50 With:MILDRED GUEVARA, Danny Keen, URL Address: [facility] [address], [place] [id number]- When: Unknown [facility] Hospital Discharge instructions Patient Education 09/06/2021 10:12:42 [...] prostate. Follow these instructions at home: Take nmft-ida-snhkbwa and prescription medicines only as told by [...] 03/06/2001 Document Revised: 05/22/2018 Document Reviewed: 11/27/2016 [employer] Patient Education 2020 [employer]. Follow Up Care 03/08/2021 09:46:57 With:Danny BAEZ MD, URL Address: [facility] [address], [place] [address]- [phone] When:09/06/2022 [facility] evaluation + Plan note Future Appointments Appointment Date:09/08/2022 08:45:00 AM Scheduled Provider:Danny BAEZ MD Location:[facility] Appointment Type:URO Office Visit [facility] evaluation + Plan note Future Appointments Appointment Date:2022 09:30:00 AM Scheduled Provider: Location[facility] Appointment Type: Medicare Wellness Subsequent Appointment Date:09/14/2023 08:45:00 AM Scheduled Provider:Danny BAEZ MD Location:[facility] Appointment Type:URO Office Visit [facility] evaluation + Plan note Future Appointments Appointment Date:09/14/2023 08:45:00 AM Scheduled Provider:[facility] Office Visit Appointment Date:01/07/2024 11:00:00 AM Scheduled Provider: Location:[facility] Appointment Type: Medicare Wellness Subsequent Appointment Date:03/01/2024 10:15:00 AM Scheduled Provider:Pk Monge MD Location[facility] App[facility]ments Appointment Date:09/17/2023 08:15:00 PM Scheduled Provider: [facility] Type:RN TRIAGE Sleep Study w/C-PAP () Appointment Date:01/07/2024 11:00:00 AM Scheduled Provider: Location:[facility] Appointment Type: Medicare Wellness Subsequent Appointment Date:03/01/2024 10:15:00 AM Scheduled Provider:Pk Monge MD Location:[facility] Appointment Type: Open Appointment Date:09/16/2024 08:15:00 AM Scheduled Provider:Danny BAEZ MD Location:[facility] Appointment Type:URO Office Visit [facility] evaluation + Plan note Future Appointments Appointment Date:01/07/2024 11:00:00 AM Scheduled Provider: Location:[facility] Appointment Type: Medicare Wellness Subsequent Appointment Date:03/01/2024 10:15:00 AM Scheduled Provider:Pk Monge MD Location:[facility] Appointment Type: Open Appointment Date:09/16/2024 08:15:00 AM Scheduled Provider:Danny BAEZ MD Location:[facility] - Reported* Type Description Date [...] RIGHT LEG FRACTURE Hospitalization History SEE ABOVE [employer] Other Hospital course Narrative No data available for this section [facility] Hospital Discharge instructions No data available for this section [facility] No data available for this section [facility] Summary Purpose Family History No Family History [...] section and content) DATE CREATED AUTHOR 09/16/2017 [facility] DATE CREATED AUTHOR AUTHOR'S ORGANIZ ATION 08/30/2020 [facility] DATE CREATED AUTHOR AUTHOR'S ORGANIZ ATION 12/27/2021 [facility] DATE CREATED AUTHOR AUTHOR'S ORGANIZ ATION 07/22/2023 [facility] EPIC DATE CREATED AUTHOR AUTHOR'S ORGANIZ ATION 09/02/2023 [facility] DATE CREATED AUTHOR AUTHOR'S ORGANIZ ATION 09/24/2023 [facility] DATE CREATED AUTHOR AUTHOR'S ORGANIZ ATION 10/23/2023 [facility] DATE CREATED AUTHOR AUTHOR'S ORGANIZ ATION 11/05/2023 [facility] Care Team (unrecognized sect ion and content) Personnel Name: WING PEREZ MD Address: [address] [place] [address] Personnel Name: Pk Monge MD Address: Address: [address] [place] [address] Personnel Name: Pk Monge MD Address: Address: [address] [place] [address] Personnel Name: Pk Monge MD Address: Address: [address] [place] [address] Personnel Name: Pk Monge MD Address: Address: [address] [place] [address] Personnel Name: Pk Monge MD Address: Address: [address] [place] [address]- REASON FOR VISIT (unrecogniz ed section and [...] BE BASED ON THE PRIMARY CLINICAL RECORDS. [facility] [employer] [facility]. provides no warranty or guarantee of the accuracy or completeness of information in this document.
[2023-11-06 10:05] LABS: Basophils Absolute Auto 0.1 10^3/uL (0.0-0.1); Basophils Percent Auto 0.7 % (0.2-2.0); Eosinophils Absolute Auto 0.2 10^3/uL (0.0-0.7); Eosinophils Percent Auto 2.4 % (0.9-7.0); Hematocrit 45.8 % (42.0-54.0); Hemoglobin 14.9 g/dL (14.0-18.0); Immature Granulocytes Abs Auto 0.04 10^3/uL (0.00-0.03); Immature Granulocytes Pct Auto 0.5 % (0.0-0.5); Lymphocytes Absolute Auto 1.5 10^3/uL (1.2-3.8); Lymphocytes Percent Auto 16.7 % (20.5-60.0); Mean Corpuscular HGB Conc 32.5 g/dL (29.9-35.2); Mean Corpuscular Hemoglobin 29.1 pg (25.9-34.0); Mean Corpuscular Volume 89.5 fL (80.0-94.0); Mean Platelet Volume 11.6 fL (9.5-13.5); Monocytes Absolute Auto 0.9 10^3/uL (0.3-0.8); Monocytes Percent Auto 9.8 % (1.7-12.0); Neutrophils Absolute Auto 6.1 10^3/uL (1.4-6.5); Neutrophils Percent Auto 69.9 % (43.0-75.0); Platelet Count 166 10^3/uL (150-450); Red Blood Count 5.12 10^6/uL (4.70-6.10); Red Cell Distribution Width 13.9 % (11.0-15.0); White Blood Count 8.7 10^3/uL (4.0-11.0)
[2023-11-06 10:26] LABS: Anion Gap 10.4; BUN Creatinine Ratio 17.5; Calcium 10.1 mg/dL (8.5-10.1); Carbon Dioxide 29.1 mmol/L (21.0-32.0); Chloride 100 mmol/L (98-107); Estimated GFR (African America >60 (>=60); Estimated GFR (Non-African Ame 55 (>=60); Glucose 109 mg/dL (74-106); Potassium 4.5 mmol/L (3.5-5.1); Sodium 135 mmol/L (136-145)
== END 2023-11-06 09:08 | disposition home or self-care (01) ==
LOC: LAB 09:09
PROVIDERS: PCP Family Medicine; Visit Provider Internal Medicine Cardiovascular Disease
DX: I11.0 Hypertensive heart disease with heart failure (principal); I43 Cardiomyopathy in diseases classified elsewhere
CPT/HCPCS: 36415; 80048; 85025

== ENCOUNTER 2023-11-10 09:22 | Outpatient (OUT) | payer OTHER, SELFPAY ==
--- NOTE | 2023-11-10 09:31 | XR_ITS ---
The [address] [address] Patient Name: JEFERSON BANGURA MRN: [id number] date: 1940 Sex: M Assigned Patient Location: RAD Current Patient Location: [facility] Accession/Order Number: [id number] Exam Date: 11/10/2023 09:26 Report Date: 11/10/2023 09:59 At the request of: JOVANY GALEAS Procedure: XR chest 2V PROCEDURE: XR chest 2V DATE: 11/10/2023 8:26 AM CDT COMPARISONS: Chest x-ray and CT abdomen from 10/10/2019. 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 Poststernotomy changes are again identified. Electronic cardiac device now overlies the left upper chest with wires extending to the heart. The lungs are clear. There is no evidence of pleural effusion or pneumothorax. There is elevated right hemidiaphragm as on previous exam. XR/XR chest 2V IMPRESSION: Placement of left sided electronic cardiac device in good position in these projections. No evidence of pneumothorax. Otherwise stable chest. Electronically authenticated by: REBECCA TAYLOR Date: 11/10/2023 09:59
== END 2023-11-10 09:23 | disposition home or self-care (01) ==
LOC: RAD 09:22
PROVIDERS: PCP Family Medicine; Visit Provider Internal Medicine Cardiovascular Disease
DX: Z95.810 Presence of automatic (implantable) cardiac defibrillator (principal)
CPT/HCPCS: 71046

== ENCOUNTER 2024-10-31 07:31 | Outpatient (OUT) | payer OTHER, SELFPAY ==
--- OUTSIDE RECORDS SUMMARY | 2024-10-31 07:35 | XMS_ITS | CCD ---
Author Organization [facility] Care Team Providers Care Local Area Network Administrator Name Role Phone Edilbertokeyur Luci Peralta Unavailable Unavailab eloisa Frarell, Luciarlen Peralta Unavailable Unavailab eloisa Farrell, Luci Peralta Unavailable Unavailab Marilou Bunch Unavailable Unavailable Bud, Luci Peralta Unavailable Unavailab WING López Referring Unavailable UNKNOWN, PROVIDER Admitting Unavailable UNKNOWN, PROVIDER Attending Unavailable WING PEREZ Primary Care Unavailable WING PEREZ Primary Care Physician FARHAN, DR WING Dickinson Primary Care Unavailable FARHAN, DR WING Dickinson Admitting Unavailable FARHAN, DR WING Dickinson Attending Unavailable FARHAN, DR WING Dickinson Consulting Unavailable FARHAN, DR WING Dickinson Admitting Unavailable FARHAN, DR WING Dickinson Attending Unavailable FARHAN, DR WING Dickinson Consulting Unavailable FARHAN, DR WING Dickinson Primary Care Unavailable Pk Monge. Primary Care Physician Tita Keyes Unavailable MD Pk Monge. Attending Unavailable MD Pk Monge. Admitting Unavailable MD Pk Monge Admitting Unavailable MD Pk Monge Attending Unavailable MD Pk Monge Referring Unavailable Blackman, Basem GAnnel Admitting Unavailable Blackman, Basem GAnnel Attending Unavailable MD Pk Monge. Attending Unavailable MD Pk Monge. Attending Unavailable MD Pk Monge Attending Unavailable MD Pk Monge Attending Unavailable Danny LEVY Attending Unavailable Pk Monge MD Primary Care Provider CANDICE LONGORIA Attending Unavailable CANDICE LONGORIA Attending Unavailable CANDICE LONGORIA Attending Unavailable CANDICE LONGORIA Attending Unavailable LLC, GENERIC Primary Care Physician Unavailab ROCÍO Morales Referring Unavailable ADAL, KEVIN Admitting Unavailable ADAL, KEVIN Attending Unavailable ADAL, KEVIN Referring Unavailable ADAL, KEVIN Referring Unavailable REED, ROCÍO Referring Unavailable ADAL, KEVIN Referring Unavailable ADAL, KEVIN Referring Unavailable ADAL, KEVIN Referring Unavailable ADAL, KEVIN Referring Unavailable ADAL, KEVIN Referring Unavailable MOUKARBEL, TRENT Attending Unavailable ADAL, KEVIN Attending Unavailable ADAL, KEVIN Referring Unavailable ADAL, KEVIN Referring Unavailable MOUKARBEL, TRENT Attending Unavailable ADAL, KEVIN Referring Unavailable KITYRIS Attending Unavailable ADAL, KEVIN Referring Unavailable ADAL, KEVIN Referring Unavailable REED, ROCÍO Referring Unavailable ADAL, KEVIN Referring Unavailable ADAL, KEVIN Referring Unavailable ADAL, KEVIN Referring Unavailable ADAL, KEVIN Referring Unavailable ADAL, KEVIN Referring Unavailable Danny ELVY Attending Unavailable Pk Monge Admitting Unavailable Pk Monge Attending Unavailable Pk Monge Attending Unavailable Pk Monge Attending Unavailable Christiano Blackman Attending Unavailable Pk Monge Referring Unavailable Danny LEVY Attending Unavailable MD Pk Monge Attending Unavailable MD Pk Monge Attending Unavailable MD Pk Monge Attending Unavailable MD Pk Monge Attending Unavailable MD Pk Monge Attending Unavailable SANDY FOSTER Attending Unavailnadja dickinson Allergies Allergy Classification Reported Allergen(s) Allergy Type Date of Onset Reaction(s) Facility Acetaminophen / oxyCODONE (2 sources) Acetaminophen / oxyCODONE; Translations: [Acetaminophen / Oxycodone] Drug Allergy 4 Mild (qualifier value) [facility] Repository Anti-Epileptic Agents (1 source) gabapentin; Translations: [gabapentin] Drug Allergy Unknown (qualifier value) [facility] [place] (13 sources) Acetaminophen / oxyCODONE; Translations: [acetaminophen-ox ycodone] Drug Allergy Mild (qualifier value) [facility] (1 source) Acetaminophen / oxyCODONE Drug Allergy 6 [facility] Repository (5 sources) gabapentin; Translations: [gabapentin] Drug Allergy 0 [facility] Repository (1 source) tamsulosin Drug Allergy 6 [facility] Repository (7 sources) gabapentin; Translations: [gabapentin] Drug Allergy Unknown (qualifier value) [facility] (3 sources) Acetaminophen Drug Allergy 3 Hallucinations [facility] (3 sources) oxyCODONE Drug Allergy 3 Hallucinations [facility] (4 sources) Acetaminophen / oxyCODONE; Translations: [OXYCODONE-ACETAM INOPHEN] Drug Allergy 4 Hallucinations [facility] Medications Current Medications Medication Drug Class(es) Dates Sig (Normalized) Sig (Original) allopurinol 300 mg oral tablet (9 sources) Xanthine Oxidase Inhibitor Start: 08-29-2019 take 1 tablet by mouth once daily allopurinol 300 mg Tab 300 mg, Oral, Daily, # 90 tab(s), Refills(s) 1, Pharmacy: [facility], 185, cm, 08/06/22 10:21:00 EDT, Height/Length Dosing, 119, kg, 08/06/22 10:21:00 EDT, Weight Dosing Start Date: 08/06/22 Status: Ordered ALPRAZolam 0.5 mg oral tablet (11 sources) Benzodiazepine Start: 01-07-2024 take 1 tablet by mouth once daily as needed for anxiety alprazolam 0.5 mg Tab 0.5 mg = 1 tab(s), Oral, Daily, PRN for anxiety, prn, # 30 tab(s), Refills(s) 0, Pharmacy: [id number], 185, cm, 03/01/24 10:22:00 EST, Height/Length Dosing, 111.2, kg, 03/01/24 10:22:00 EST, Weight Dosing Start Date: 03/01/24 Status: Ordered Quantity: 30.0 Unit: tab(s) Repeat number: 1 Start: 09-06-2021 take 1 tablet by garrett th three times daily as needed for anxiety alprazolam 0.5 mg oral tablet, disintegrating 0.5 mg = 1 tab(s), Oral, TID, PRN for anxiety, Refills(s) 0 Start Date: 09/06/21 Status: Ordered amitriptyline hydrochloride 10 mg oral tablet (9 sources) Tricyclic Antidepressant Start: 08-06-2022 take 1 tablet by mouth once daily at bedtime amitriptyline 10 mg Tab 10 mg, Oral, Once a day (at bedtime), Take 2 hours before bedtime, # 90 tab(s), Refills(s) 1, Pharmacy: [facility], 185, cm, 08/06/22 10:21:00 EDT, Height/Length Dosing, 119, kg, 08/06/22 10:21:00 EDT, Weight Dosing Start Date: 08/06/22 Status: Ordered Start: 08-29-2019 amitriptyline Oral, Once a day (at bedtime), Refills(s) 0 Start Date: 08/29/19 Status: Ordered Ascorbic Acid (9 sources) Vitamin C Start: 08-29-2019 Vitamin C Helena y, Refills(s) 0 Start Date: 08/29/19 Status: Ordered take 1 tablet by mouth in the mo rning Ascorbic Acid (vitamin C) 250 MG tablet Take 250 mg by mouth in the morning. Active take 1 tablet by garrett th every twenty-four hours Vitamin C 500 MG 1 tablet Orally Once a day Active aspirin 81 mg oral tablet (16 sources) Platelet Aggregation Inhibitor, Nonsteroidal Anti-inflammatory Drug Start: 08-29-2019 take 81 mg by mouth once daily aspirin 81 mg, Oral, Daily, Refills(s) 0 Start Date: 08/29/19 Status: Ordered Repeat number: 1 take 1 tablet by mouth in the mo rning aspirin 81 MG EC tablet Take 81 mg by mouth in the morning. Active take 1 tablet by garrett th every twenty-four hours Aspirin 81 MG 1 tablet Orally Once a day Active atorvastatin 20 mg oral tablet (16 sources) HMG-CoA Reductase Inhibitor Start: 08-29-2019 End: 12-26-2023 atorvastatin 20 mg Tab See Instructions, TAKE 1 TABLET DAILY, # 90 tab(s), Refills(s) 3, Pharmacy: [facility], 185, cm, 09/14/23 8:52:00 EDT, Height/Length Dosing, 117.2, kg, 09/14/23 8:52:00 EDT, Weight Dosing Start Date: 12/10/23 Status: Ordered Quantity: 90.0 Unit: tab(s) Repeat number: 1 cholecalciferol 0.025 mg oral capsule (7 sources) Vitamin D take 1 capsule by mouth in the morning cholecalciferol (Vitamin D-3) 25 MCG (1000 UT) capsule Take 1,000 Units by mouth in the morning. Active take 2 tablets by mouth once verenice ly Vitamin D3 10 MCG (400 UNIT) 2 tablets Orally Once a day Active Chondroitin Sulfates / Glucosamine (9 sources) Start: 08-06-2022 take 1 tablet by mouth once daily Osteo Bi-Flex oral tablet 1 tablet, Daily, Refill(s) 0 Start Date: 08/06/22 Status: Ordered Repeat number: 1 Start: 08-06-2022 take 1 tablet by garrett th once daily Osteo Bi-Flex oral tablet 1 tablet, Daily, Refill(s) 0 Start Date: 08/06/22 Status: Ordered Osteo Bi-Flex On e Per Day - as directed Orally Active dapagliflozin 10 mg oral tablet (12 sources) Sodium-Glucose Cotransporter 2 Inhibitor Start: 07-29-2023 End: 07-28-2024 take 1 tablet by mouth once daily Farxiga 10 mg oral tablet 10 mg = 1 tab(s), Oral, Daily, # 90 tab(s), Refills(s) 4, Pharmacy: [facility], 185, cm, 09/14/23 8:52:00 EDT, Height/Length Dosing, 117.2, kg, 09/14/23 8:52:00 EDT, Weight Dosing Start Date: 12/02/23 Status: Ordered Quantity: 90.0 Unit: tab(s) Repeat number: 5 docusate sodium 100 mg oral tablet (16 sources) Start: 08-29-2019 take 100 mg by mouth twice daily Colace 100 mg, Oral, BID, Refills(s) 0 Start Date: 08/29/19 Status: Ordered Repeat number: 1 take 1 capsule by mouth in the m orning docusate sodium (Colace) 50 MG capsule Take 50 mg by mouth in the morning and 50 mg before bedtime. Active take 2 capsules by m outh every twelve hours Colace 100 MG 2 capsule as needed Orally TWICE A DAY Active fenofibrate 200 mg oral capsule (9 sources) Peroxisome Proliferator Receptor alpha Agonist Start: 01-09-2020 take 1 capsule by mouth once daily fenofibrate 200 mg oral capsule 200 mg = 1 cap(s), Oral, Daily, # 90 cap(s), Refills(s) 1, Pharmacy: [facility], 185, cm, 08/06/22 10:21:00 EDT, Height/Length Dosing, 119, kg, 08/06/22 10:21:00 EDT, Weight Dosing Start Date: 08/06/22 Status: Ordered finasteride 5 mg oral tablet (14 sources) 5-alpha Reductase Inhibitor Start: 07-26-2024 take 1 tablet by mouth once daily finasteride 5 mg Tab 5 mg = 1 tab(s), Oral, Daily, # 90 tab(s), Refills(s) 3, Pharmacy: [facility], 185, cm, 05/30/24 15:43:00 EDT, Height/Length Dosing, 114.3, kg, 05/30/24 15:43:00 EDT, Weight Dosing Start Date: 07/26/24 Status: Ordered Quantity: 90.0 Unit: tab(s) Repeat number: 4 Start: 12-04-2023 take 1 tablet by garrett th once daily finasteride 5 mg Tab 5 mg = 1 tab(s), Oral, Daily, # 90 tab(s), Refills(s) 1, Pharmacy: [facility], 185, cm, 09/14/23 8:52:00 EDT, Height/Length Dosing, 117.2, kg, 09/14/23 8:52:00 EDT, Weight Dosing Start Date: 12/04/23 Status: Ordered Start: 09-14-2023 take 1 tablet by garrett th once daily finasteride 5 mg Tab 5 mg = 1 tab(s), Oral, Daily, Refills(s) 0 Start Date: 09/14/23 Status: Ordered Start: 08-29-2019 End: 09-03-2023 take 1 tablet by mouth once daily finasteride 5 mg Tab 5 mg = 1 tab(s), Oral, Daily, X 90 day(s), # 90 tab(s), Refills(s) 3, Pharmacy: [facility], 185, cm, 09/08/22 8:40:00 EDT, Height/Length Dosing, 116, kg, 09/08/22 8:40:00 EDT, Weight Dosing Start Date: 09/08/22 Stop Date: 09/03/23 Status: Ordered Fish Oils (10 sources) Start: 01-09-2020 Fish Oil Oral, Daily, Refill(s) 0 Start Date: 01/09/20 Status: Ordered Repeat number: 1 Start: 01-09-2020 Fish Oil Oral, Daily, Refill(s) 0 Start Date: 01/09/20 Status: Ordered [facility] 1 [facility] Fish Oil 1200 MG 1 capsule Orally Once a day Active furosemide 20 mg oral tablet (14 sources) Loop Diuretic Start: 08-29-2019 take 1 tablet by mouth once daily furosemide 20 mg Tab 20 mg = 1 tab(s), Oral, Daily, # 90 tab(s), Refills(s) 1, Pharmacy: [facility], 178, cm, 12/31/22 15:01:00 EDT, Height/Length Dosing, 120, kg, 12/31/22 15:01:00 EDT, Weight Dosing Start Date: 12/31/22 Status: Ordered glipiZIDE 5 mg oral tablet (16 sources) Sulfonylurea Start: 08-29-2019 take 1 tablet by mouth once daily glipiZIDE 5 mg Tab 5 mg, Oral, Daily, # 90 tab(s), Refills(s) 1, Pharmacy: [facility], 185, cm, 09/14/23 8:52:00 EDT, Height/Length Dosing, 117.2, kg, 09/14/23 8:52:00 EDT, Weight Dosing Start Date: 12/02/23 Status: Ordered Quantity: 90.0 Unit: tab(s) Repeat number: 2 Handicap Placard, 5 years. (1 source) Start: 04-28-[address], 5 years. Handicap Placard, 5 years., See Instructions, 1 EA, 0, Handicap Placard, 5 years., Supply Start Date: 04/28/24 Status: Ordered Quantity: 1.0 Unit: EA Repeat number: 1 Indications: Difficulty in walking, not elsewhere classified; Other specified health status; Obesity, unspecified; Body mass index [BMI] 31.0-31.9, adult; ketoconazole 20 mg/ml topical cream (1 source) Azole Antifungal Start: 05-16-2024 ketoconazole Top 2% Crm 1 marita, Topical, TID, 60 gm, Refill(s) 0, as needed, [id number], 185, cm, 04/28/24 15:47:00 EST, Height/Length Dosing, 108.9, kg, 04/28/24 15:47:00 EST, Weight Dosing Start Date: 05/16/24 Status: Ordered Quantity: 60.0 Unit: g Repeat number: 1 metFORMIN hydrochloride 500 mg oral tablet (14 sources) Biguanide Start: 07-26-2024 take 1 tablet by mouth twice daily metformin 500 mg ER Tab 500 mg = 1 tab(s), Oral, BID, # 180 tab(s), Refills(s) 3, Pharmacy: [facility], 185, cm, 05/30/24 15:43:00 EDT, Height/Length Dosing, 114.3, kg, 05/30/24 15:43:00 EDT, Weight Dosing Start Date: 07/26/24 Status: Ordered Quantity: 180.0 Unit: tab(s) Repeat number: 4 Start: 03-02-2023 take 1 tablet by garrett th twice daily metformin 500 mg ER Tab 500 mg = 1 tab(s), Oral, BID, # 180 tab(s), Refills(s) 0, Pharmacy: [facility], 185, cm, 01/07/24 11:39:00 EDT, Height/Length Dosing, 109.8, kg, 01/07/24 11:39:00 EDT, Weight Dosing Start Date: 01/27/24 Status: Ordered take 1 tablet by garrett th every twelve hours metFORMIN HCl ER 500 MG 1 TABLET Orally TWICE A DAY Active 24 hr metoprolol succinate 100 mg extended release oral tablet (16 sources) beta-Adrenergic Michael Start: 03-02-2023 take 1 tablet by mouth once daily metoprolol 100 mg ER Tab 100 mg = 1 tab(s), Oral, Daily, # 90 tab(s), Refills(s) 1, Pharmacy: [facility], 178, cm, 03/02/23 10:10:00 EST, Height/Length Dosing, 118.1, kg, 03/02/23 10:10:00 EST, Weight Dosing Start Date: 03/02/23 Status: Ordered Quantity: 90.0 Unit: tab(s) Repeat number: 2 Start: 01-09-2020 take 1 tablet by garrett th once daily metoprolol 100 mg ER Tab 100 mg = 1 tab(s), Oral, Daily, # 90 tab(s), Refills(s) 1, Pharmacy: [facility], 185, cm, 08/06/22 10:21:00 EDT, Height/Length Dosing, 119, kg, 08/06/22 10:21:00 EDT, Weight Dosing Start Date: 08/06/22 Status: Ordered take 1 tablet by garrett th every twenty-four hours metoprolol succinate XL (Toprol-XL) 100 MG 24 hr tablet Take by mouth. Do not crush or chew. Active 24 hr oxybutynin chloride 10 mg extended release oral tablet (16 sources) Cholinergic Muscarinic Antagonist Start: 07-26-2024 take 1 tablet by mouth twice daily oxybutynin 10 mg ER Tab 10 mg = 1 tab(s), Oral, BID, # 180 tab(s), Refills(s) 3, Pharmacy: [facility], 185, cm, 05/30/24 15:43:00 EDT, Height/Length Dosing, 114.3, kg, 05/30/24 15:43:00 EDT, Weight Dosing Start Date: 07/26/24 Status: Ordered Quantity: 180.0 Unit: tab(s) Repeat number: 4 Start: 01-01-2023 take 1 tablet by garrett th twice daily oxybutynin 10 mg ER Tab 10 mg = 1 tab(s), Oral, BID, # 180 tab(s), Refills(s) 3, Pharmacy: [facility], 178, cm, 12/31/22 15:01:00 EDT, Height/Length Dosing, 120, kg, 12/31/22 15:01:00 EDT, Weight Dosing Start Date: 01/01/23 Status: Ordered Start: 09-08-2022 End: 09-03-2023 take 2 tablets by mouth once daily oxybutynin 10 mg ER Tab 20 mg = 2 tab(s), Oral, Daily, X 90 day(s), # 180 tab(s), Refills(s) 3, Pharmacy: [facility], 185, cm, 09/08/22 8:40:00 EDT, Height/Length Dosing, 116, kg, 09/08/22 8:40:00 EDT, Weight Dosing Start Date: 09/08/22 Stop Date: 09/03/23 Status: Ordered Start: 07-11-2021 [facility] 2 tablets [facility] daily oxybutynin 10 mg ER Tab 20 mg = 2 tab(s), Oral, Daily, # 180 cap(s), Refills(s) 3, Pharmacy: [facility], 185, cm, 03/08/21 8:55:00 EST, Height/Length Dosing, 129, kg, 03/08/21 8:55:00 EST, Weight Dosing Start Date: 07/11/21 Status: Ordered take 1 tablet by garrett every twenty-four hours in the morning oxybutynin XL (Ditropan-XL) 10 MG 24 hr tablet Take 10 mg by mouth in the morning. Do not crush, chew, or split. . Active take 1 tablet by garrett every twelve hours oxyBUTYnin Chloride ER 10 MG 1 tablet Orally TWICE A DAY Active pantoprazole 40 mg delayed release oral tablet (16 sources) Proton Pump Inhibitor Start: 08-04-2024 take 1 tablet by mouth once daily Pantoprazole [address] Tab 40 mg = 1 tab(s), Oral, Daily, # 90 tab(s), Refills(s) 3, Pharmacy: [id number], 185, cm, 08/01/24 17:16:00 EDT, Height/Length Dosing, 111.2, kg, 08/01/24 17:16:00 EDT, Weight Dosing Start Date: 08/04/24 Status: Ordered Quantity: 90.0 Unit: tab(s) Repeat number: 4 Start: 09-01-2023 take 1 tablet by garrett th once daily Pantoprazole [address] Tab 40 mg = 1 tab(s), Oral, Daily, Refills(s) 0 Start Date: 09/01/23 Status: Ordered Start: 08-06-2022 End: 08-01-2023 take 1 tablet by mouth once daily Pantoprazole [address] Tab 40 mg, Oral, Daily, X 90 day(s), # 90 tab(s), Refills(s) 3, Pharmacy: [facility], 185, cm, 08/06/22 10:21:00 EDT, Height/Length Dosing, 119, kg, 08/06/22 10:21:00 EDT, Weight Dosing Start Date: 08/06/22 Stop Date: 08/01/23 Status: Ordered Start: 08-29-2019 take 40 mg by mouth once daily pantoprazole 40 mg, Oral, Daily, Refills(s) 0 Start Date: 08/29/19 Status: Ordered sacubitril 49 mg / valsartan 51 mg oral tablet (15 sources) Angiotensin 2 Receptor Michael Start: 07-14-2022 take 1 tablet by mouth twice daily Entresto 49 mg-51 mg oral tablet 1 tab(s), Oral, BID, Refill(s) 0 Start Date: 07/14/22 Status: Ordered Repeat number: 1 Sacubitril-Valsa rtan (ENTRESTO PO) Take by mouth. Active spironolactone 25 mg oral tablet (12 sources) Aldosterone Antagonist Start: 09-01-2023 take 0.5 tablet by mouth once daily spironolactone 25 mg Tab See Instructions, Take 1/2 orally daily, Refills(s) 0 Start Date: 09/01/23 Status: Ordered Repeat number: 1 Start: 07-29-2023 End: 07-28-2024 spironolactone (Aldactone) 2 5 MG tablet Take 12.5 mg by mouth in the morning. 07/29/2023 07/28/2024 Active tamsulosin hydrochloride 0.4 mg oral capsule (15 sources) alpha-Adrenergic Michael Start: 09-14-2023 take 1 capsule by mouth twice daily tamsulosin 0.4 mg Cap 0.4 mg = 1 cap(s), Oral, BID, # 180 cap(s), Refills(s) 3, [facility], cm, 09/14/23 8:52:00 EDT, Height/Length Dosing, 117.2, kg, 09/14/23 8:52:00 EDT, Weight Dosing Start Date: 09/14/23 Status: Ordered Start: 09-06-2021 End: 09-03-2023 take 1 capsule by mouth twice daily tamsulosin 0.4 mg Cap 0.4 mg = 1 cap(s), Oral, BID, X 90 day(s), # 180 cap(s), Refills(s) 3, Pharmacy: [facility], 185, cm, 09/08/22 8:40:00 EDT, Height/Length Dosing, 116, kg, 09/08/22 8:40:00 EDT, Weight Dosing Start Date: 09/08/22 Stop Date: 09/03/23 Status: Ordered TAMSULOSIN HCL P O Take by mouth. Active traZODone hydrochloride 50 mg oral tablet (13 sources) Serotonin Reuptake Inhibitor Start: 07-21-2023 take 1 tablet by mouth once daily at bedtime traZODONE 50 mg Tab 50 mg = 1 tab(s), Oral, Once a day (at bedtime), # 90 tab(s), Refills(s) 3, Pharmacy: [id number], 185, cm, 04/28/24 15:47:00 EST, Height/Length Dosing, 108.9, kg, 04/28/24 15:47:00 EST, Weight Dosing Start Date: 04/29/24 Status: Ordered Quantity: 90.0 Unit: tab(s) Repeat number: 4 Vitamin D (9 sources) Start: 08-29-2019 Vitamin D 5000 , Oral, Daily, Refills(s) 0 Start Date: 08/29/19 Status: Ordered Repeat number: 1 Start: 08-29-2019 Vitamin D 5000 , Oral, Daily, Refills(s) 0 Start Date: 08/29/19 Status: Ordered Vitamin E (8 sources) Start: 08-29-2019 vitamin E Oral , Daily, Refills(s) 0 Start Date: 08/29/19 Status: Ordered take 1 capsule by mouth in the m orning vitamin E 180 MG (400 UNIT) capsule Take 180 mg by mouth in the morning. Active Vitamin E 400 UNIT (1 source) take 1 capsule by mo ut once daily Vitamin E 400 UNIT 1 capsule Orally Once a day Active Problems Active Problems Problem Classification Problem Date Documented Date Episodic/Chronic Administrative/socia l admission (1 source) Bereavement 04-28-2024 Episodic Anxiety disorders (8 sources) Anxiety 07-14-2022 Chronic Calculus of urinary tract (18 sources) Urinary bladder stone; Translations: [Kidney stone] Onset: 4 01-09-2020 Episodic Cardiac dysrhythmias (2 sources) Ventricular premature depolarization; Translations: [Ventricular premature depolarization] Onset: 4 Chronic Chronic kidney disease (9 sources) Chronic kidney disease stage 3; Translations: [Chronic kidney disease stage 3B ] 07-14-2022 Chronic Chronic kidney disease (3 sources) Chronic kidney disease; Translations: [Chronic kidney disease, stage 3a] Onset: 2 Conduction disorders (4 sources) Presence of automatic (implantable) cardiac defibrillator; Translations: [Encounter for adjustment and management of automatic implantable cardiac defibrillator] Onset: 4 Chronic Congestive heart failure; nonhypertensive (2 sources) Chronic systolic (congestive) heart failure; Translations: [Chronic systolic (congestive) heart failure] Onset: 4 Chronic Coronary atherosclerosis and other heart disease (10 sources) Coronary artery stenosis; Translations: [Atherosclerotic heart disease of [place] coronary artery without angina pectoris] Onset: 4 07-14-2022 Chronic Coronary atherosclerosis and other heart disease (1 source) Coronary atherosclerosis and other heart disease Onset: 7 Diabetes mellitus with complications (3 sources) Type 2 diabetes mellitus with unspecified complications; Translations: [Disorder of kidney due to diabetes mellitus] Onset: 2 Chronic Diabetes mellitus without complication (19 sources) Type 2 diabetes mellitus without complications; Translations: [Type 2 diabetes mellitus] Onset: 2 Chronic Comment on above: Linked per outpatien t CDI policy. Disorders of lipid metabolism (18 sources) Mixed hyperlipidemia; Translations: [Pure hypercholesterolemia, unspecified] Onset: 2 Chronic Esophageal disorders (1 source) Esophageal disorders Onset: 7 Essential hypertension (15 sources) Hypertensive disorder; Translations: [Benign hypertension] 07-14-2022 Chronic Comment on above: Linked per outpatien t CDI policy. Essential hypertension (1 source) Essential hypertension Onset: 7 Genitourinary symptoms and ill-defined conditions (19 sources) Urge incontinence; Translations: [Post-micturition incontinence ] Onset: 2 Chronic Genitourinary symptoms and ill-defined conditions (20 sources) Dysuria; Translations: [Joshua hematuria] 02-13-2020 Episodic Gout and other crystal arthropathies (2 sources) Gout, unspecified; Translations: [Gout] Onset: 2 Chronic Heart valve disorders (2 sources) Nonrheumatic aortic (valve) stenosis; Translations: [Nonrheumatic aortic (valve) stenosis] Onset: 2 Chronic Hyperplasia of prostate (13 sources) Benign prostatic hypertrophy with outflow obstruction; Translations: [Benign prostatic hyperplasia with lower urinary tract symptoms] Onset: 2 Chronic Hypertension with complications and secondary hypertension (3 sources) 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; Translations: [Hypertensive chronic kidney disease with stage 5 chronic kidney disease or end stage renal disease] Chronic Inflammatory conditions of male genital organs (10 sources) Chronic prostatitis; Translations: [Chronic prostatitis] Onset: 2 Chronic Inflammatory conditions of male genital organs (2 sources) Prostatitis 01-09-2020 Episodic Mycoses (3 sources) Onychomycosis; Translations: [Tinea unguium] 12-01-2023 Episodic Nutritional deficiencies (1 source) Vitamin D deficiency, unspecified; Translations: [VITAMIN D DEFICIENCY UNSPECIFIED] Onset: 2 Chronic Other connective tissue disease (1 source) Polymyalgia rheumatica 07-14-2022 Chronic Other connective tissue disease (3 sources) Pain of toes of bilateral feet; Translations: [Pain in right toe(s)] 12-01-2023 Episodic Other diseases of kidney and ureters (1 source) Secondary hyperparathyroidism; Translations: [Secondary hyperparathyroidism of renal origin] Chronic Other diseases of kidney and ureters (1 source) Secondary hyperparathyroidism of renal origin Chronic Other diseases of kidney and ureters (2 sources) Acquired renal cyst without neoplastic change; Translations: [Cyst of kidney, acquired] Onset: 4 Episodic Other diseases of kidney and ureters (5 sources) Cyst of kidney 09-14-2023 Episodic Other endocrine disorders (1 source) Hyperparathyroidism, unspecified; Translations: [HYPERPARATHYROIDISM UNSPECIFIED] Onset: 2 Chronic Other endocrine disorders (1 source) Hyperparathyroidism 07-14-2022 Chronic Other nervous system disorders (1 source) Walking disability 04-28-2024 Chronic Other nutritional; endocrine; and metabolic disorders (11 sources) Body mass index 30+ - obesity 08-06-2022 Chronic Other skin disorders (3 sources) Dystrophia unguium; Translations: [Nail dystrophy] 12-01-2023 Episodic Residual codes; unclassified (11 sources) Obstructive sleep apnea syndrome; Translations: [Obstructive sleep apnea (adult) (pediatric)] Onset: 07-14-2022 Chronic Residual codes; unclassified (7 sources) Insomnia 12-31-2022 Episodic Unclassified (1 source) Benign prostatic hyperplasia without lower urinry tract symp / N40.0(ICD-10) Onset: 7 Unclassified (1 source) Athscl heart disease of [place] coronary artery w/o ang pctrs / I25.10(ICD-10) Onset: 7 Unclassified (1 source) Hallucinations, unspecified / R44.3(ICD-10) Onset: 7 Unclassified (2 sources) Incisional hernia with obstruction, without gangrene / K43.0(ICD-10) Onset: 7 Unclassified (1 source) Anxiety disorder, unspecified / F41.9(ICD-10) Onset: 7 Unclassified (1 source) senior living (current) use of aspirin / Z79.82(ICD-10) Onset: 7 Unclassified (1 source) Incisional hernia without obstruction or gangrene / K43.2(ICD-10) Onset: 7 Unclassified (1 source) Presence of aortocoronary bypass graft / Z95.1(ICD-10) Onset: 7 Unclassified (9 sources) Finding of sensation of bladder 08-29-2019 Unclassified (1 source) Non-smoker 03-31-2024 Viral infection (8 sources) Herpes zoster 07-14-2022 Episodic Past or Other Problems Problem Classification Problem Date Documented Da te Episodic/Chronic Abdominal hernia (1 source) Incisional hernia without obstruction or gangrene; Translations: [Incisional hernia without obstruction or gangrene] Onset: 10-14-2016 Episodic Coronary atherosclerosis and other heart disease (2 sources) Presence of aortocoronary bypass graft; Translations: [Presence of aortocoronary bypass graft] Onset: 10-28-2023 Episodic Unclassified (1 source) Incisional hernia with obstruction, without gangrene; Translations: [Incisional hernia with obstruction, without gangrene] Onset: 10-15-2016 Results Test Name Value Interpretation Reference Range Facility Orders Onlyon 10-08-2024 Orders Only [id number] Renate Almanza 1940 M Date Provider Department Center 10/08/2024 DOMINIQUE MIRAMONTES [facility] No family history on file [facility] Ambulatory Visit Summaryon 0 09-16-2024 Ambulatory Visit Summary Ambulatory Visit Summary ARCHIE LUIS ALFREDO M :1940 Visit Date:09/16/2024 Ambulatory Visit Instructions Your Diagnosis BPH with urinary obstruction Kidney stones Renal cyst Tests Performed XR Abdomen 1 View -- Results Pending -- Please visit your patient portal for your results or contact your primary care physician. Your Care Team Attending Physician - MILDRED GUEVARA, Danny Keen Primary Care Physician - [facility] This Is Your Medications List finasteride (finasteride 5 mg Tab) oxybutynin (oxybutynin 10 mg ER Tab) Contact prescribing physician if questions or concerns Misc Prescription (Alejandro Martines, 5 years.) alprazolam (alprazolam 0.5 mg Tab) aspirin atorvastatin (atorvastatin 20 mg Tab) chondroitin-glucosamine (Osteo Bi-Flex oral tablet) dapagliflozin (Farxiga 10 mg oral tablet) docusate (Colace) ergocalciferol (Vitamin D) glipiZIDE (glipiZIDE 5 mg Tab) ketoconazole topical (ketoconazole Top 2% Crm) metformin (metformin 500 mg ER Tab) metoprolol [...] chamber, Trigger finger. Discharge Vitals Temperature (Oral) 37 ???C Heart Rate (Peripheral) 62 Respiratory Rate 16 Blood Pressure 130/98 Height 185 cm Height 73 in Weight 110.9 kg Weight 244.492 lb BMI 32.4 What to do next Scheduled Follow-Up Appointments Thursday 3:20 PM EDT With: Saleem GUEVARA, Pk Cesar Where: [address] [address]- Thursday 1:00 PM EDT With: Where: [address] [address]- [id number] 8:00 AM EDT With: Danny LEVY MD Where: [facility] [address] [place] [address]- You Need to Schedule the Following Appointments Follow Up with MILDRED GUEVARA, Danny Keen, URL When: In 1 year Comments: 1 year with JACKELYN Where: [facility] [address], [place] [address]- [phone] Medications What How Much When Why Instructions Unchanged finasteride (finasteride 5 mg Tab) 1 Tablets By Mouth Every day Unchanged oxybutynin (oxybutynin 10 mg ER Tab) 1 Tablets By Mouth 2 times a day Unchanged alprazolam (alprazolam 0.5 mg Tab) 1 Tablets By Mouth Every day as needed for for anxiety prn Contact prescribing physician if questions or concerns Unchanged aspirin 81 Milligram By Mouth Every day Contact prescribing physician if questions or concerns Unchanged atorvastatin (atorvastatin 20 mg Tab) See instructions TAKE 1 TABLET DAILY Contact prescribing physician if questions or concerns Unchanged chondroitin-glucosamine (Osteo Bi-Flex oral tablet) 1 tablet Every day Contact prescribing physician if questions or concerns Unchanged dapagliflozin (Farxiga 10 mg oral tablet) 1 Tablets By Mouth Every day Contact prescribing physician if questions or concerns Unchanged docusate (Colace) 100 Milligram By Mouth 2 times a day Contact prescribing physician if questions or concerns Unchanged ergocalciferol (Vitamin D) 5000 By Mouth Every day Contact prescribing physician if questions or concerns Unchanged glipiZIDE (glipiZIDE 5 mg Tab) 5 Milligram By Mouth Every day Contact prescribing physician if questions or concerns Unchanged ketoconazole topical (ketoconazole Top 2% Crm) 1 Application Topical 3 times a day as needed Contact prescribing physician if questions or concerns Unchanged metformin (metformin 500 mg ER Tab) 1 Tablets By Mouth 2 times a day Contact prescribing physician if questions or concerns Unchanged metoprolol (metoprolol 100 mg ER Tab) 1 Tablets By Mouth Every day Contact prescribing physician if questions or concerns Unchanged Misc Prescription (Handicap Conrad, 5 years.) See instructions Impaired ambulation BMI 31.0-31.9,adult Obesity (BMI 30-39.9) Nonsmoker Handicap Conrad, 5 years. Contact prescribing physician if questions or concerns Unchanged omega-3 polyunsaturated fatty acids (Fish Oil) By Mouth Every day Contact prescribing physician if questions or concerns Unchanged pantoprazole (Pantoprazole [address] Tab) 1 Tablets By Mouth Every day Contact prescribing physician if questions or concerns Unchanged sacubitril-valsartan (Entresto 49 mg-51 mg oral tablet) 1 Tablets By Mouth 2 times a day Contact prescribing physician if questions or concerns Uncha (more content not included)... [facility] Urology Office/Clinic Noteon 09-16-2024 Urology Office/Clinic Note Urology Office/Clinic Note Chief Complaint 1 yr no labs HPI Staff 1yr f/u no labs BPH, Urge Incontinence, kidney stones, Renal cyst *Finasteride 5mg & Oxybutynin 20mg QD pt denies any urinary issues History of Present Illness Tests Reviewed: Reviewed UA. I have reviewed and verified the staff HPI to be accurate for this encounter. I have reviewed the previous health record information and history for this patient from Dr. Levy There have been no associated fever, chills, flank pain, or blood in the urine. Denies any urinary infections since last encounter. Review of Systems PHQ Score Initial [...] tendency. Psychiatric: no confusion, no anxiety. Genitourinary: denies dysuria, denies hematuria, denies discharge, denies urinary frequency, denies urinary hesitancy, denies nocturia, denies incontinence, denies genital sores, denies decreased libido, and denies erectile dysfunction. Physical Exam Vitals & Measurements T: 37 ???C(Oral) HR: 62(Peripheral) RR: 16 BP: 130/98 HT: 73 in HT: 185 cm WT: 110.9 kg WT: 244.492 lb BMI: 32.4 General Appearance: alert, no distress, well nourished, well developed male. Flank Pain: none. Bladder: nonpalpable. Assessment/Plan 1. BPH with urinary obstruction (N40.1: Benign prostatic hyperplasia with lower urinary tract symptoms) UA today shows Glucose 1000 in urine/ Diabetes. On Finasteride 5mg therapy. Patient to continue medication. Good flow, feels empty. Patient has an urge if he waits to long due to watching TV. Patient to call if he needs refills on Finasteride. 2. Kidney stones (N20.0: Calculus of kidney) GATITO 10/27/22 [facility] - 0.5 x 0.3 x 0.5 cm nonobstructing R renal stone. 0.6 x 0.4 x 0.4 cm nonobstructing L renal stone in lower pole. Reviewed imaging results. Ultrasounds tend to overestimate size of stones. No indication for intervention at this time. -Cont sx monitoring. Will check KUB prior to 1 year appt. 3. Renal cyst (N28.1: Cyst of kidney, acquired) GATITO 10/27/22 [facility] - 1.6 x 1.4 x 1.4 cm anechoic lesion with posterior acoustic enhancement of L kidney, likely a cyst. No perinephric fluid collection. -Simple cysts do not require monitoring Plan 1 year fu with KUB Follow-up With When Contact Information MILDRED GUEVARA, EDUARDO Luis In 1 year [facility] [address], [place] [address]- [phone] Additional Instructions: 1 year with KUB Patient Education Kidney Stones, [id number] Benita Melara, personally scribed for Dr. Levy on 09/16/2024 08:54:13. . Documentation recorded by the scribe, andre Macario, accurately reflects the services(s) I performed and decisions made by me. Authenticated by Dr. Levy on 09/16/2024 08:55:31. 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 Medications alprazolam 0.5 mg Tab, 0.5 mg= 1 tab(s), Oral, Daily, PRN aspirin, 81 mg, Oral, Daily atorvastatin 20 mg Tab, See Instructions Colace, 100 mg, Oral, BID Entresto 49 mg-51 mg oral tablet, 1 tab(s), Oral, BID Farxiga 10 mg oral tablet, 10 mg= 1 tab(s), Oral, Daily, 4 refills finasteride 5 mg Tab, 5 mg= 1 tab(s), Oral, Daily, 3 refills Fish Oil, Oral, Daily glipiZIDE 5 mg Tab, 5 mg, Oral, Daily, 1 refills Handicap Placard, 5 years., See Instructions ketoconazole Top 2% Crm, 1 marita, Topical, TID metformin 500 mg ER Tab, 500 mg= 1 tab(s), Oral, BID, 3 refills metoprolol 100 mg ER Tab, 100 mg= 1 tab(s), Oral, Daily, 1 refills Osteo Bi-Flex oral tablet, 1 tablet, Daily oxybutynin 10 mg ER Ta (more content not included)... [facility] Comment on above: Result Comment: Elec tronically Signed By: Danny LEVY MD\.br\Date and Time Signed: 09/16/24 08:55 EDT\.br\Electronically Co-Signed By: Benita Macario\.br\Date and Time Co-Signed: 09/16/24 08:54 EDT Ambulatory Visit Summaryon 0 08-01-2024 Ambulatory Visit Summary Ambulatory Visit Summary LUIS ALFREDO ALMANZA :1940 Visit Date:08/01/2024 Ambulatory Visit Instructions Your Diagnosis Type 2 diabetes mellitus with chronic kidney disease Hypercholesterolemia Hypertension Bereavement Anxiety Chronic kidney disease (CKD), stage III (moderate) Nonsmoker Obesity (BMI 30-39.9) BMI 32.0-32.9,adult Your Care Team Attending Physician - Pk Monge MD Primary Care Physician - Pk Monge MD. This Is Your Medications List [place] Prescription (Alejandro Martines, 5 years.) alprazolam (alprazolam 0.5 mg Tab) aspirin atorvastatin (atorvastatin 20 mg Tab) chondroitin-glucosamine (Osteo Bi-Flex oral tablet) dapagliflozin (Farxiga 10 mg oral tablet) docusate (Colace) ergocalciferol (Vitamin D) finasteride (finasteride 5 mg Tab) glipiZIDE (glipiZIDE 5 mg Tab) ketoconazole topical (ketoconazole Top 2% Crm) metformin (metformin 500 mg ER Tab) metoprolol (metoprolol 100 mg ER Tab) omega-3 polyunsaturated fatty acids (Fish Oil) oxybutynin (oxybutynin 10 mg ER Tab) pantoprazole (Pantoprazole [address] Tab) pantoprazole (Pantoprazole [address] Tab) [...] heart chamber, Trigger finger. Discharge Vitals Temperature (Tympanic) 36.6 ???C Heart Rate (Peripheral) 64 Respiratory Rate 18 Blood Pressure 110/74 Height 185 cm Height 73 in Weight 111.2 kg Weight 245.154 lb BMI 32.49 What to do next Scheduled Follow-Up Appointments Thursday 8:15 AM EDT With: MILDRED GUEVARA, Danny Keen Where: [facility] [address] [place] [address]- Thursday 3:20 PM EDT With: Saleem GUEVARA, Pk Cesar Where: [address] [address]- Thursday 1:00 PM EDT With: Where: [address] [address]- Medications What How Much When Why Instructions Unchanged alprazolam (alprazolam 0.5 mg Tab) 1 Tablets By Mouth Every day as needed for for anxiety prn Unchanged aspirin 81 Milligram By Mouth Every day Unchanged atorvastatin (atorvastatin 20 mg Tab) See instructions TAKE 1 TABLET DAILY Unchanged chondroitin-glucosamine (Osteo Bi-Flex oral tablet) 1 tablet Every day Unchanged dapagliflozin (Farxiga 10 mg oral tablet) 1 Tablets By Mouth Every day Unchanged docusate (Colace) 100 Milligram By Mouth 2 times a day Unchanged ergocalciferol (Vitamin D) 5000 By Mouth Every day Unchanged finasteride (finasteride 5 mg Tab) 1 Tablets By Mouth Every day Unchanged glipiZIDE (glipiZIDE 5 mg Tab) 5 Milligram By Mouth Every day Unchanged ketoconazole topical (ketoconazole Top 2% Crm) 1 Application Topical 3 times a day as needed Unchanged metformin (metformin 500 mg ER Tab) 1 Tablets By Mouth 2 times a day Unchanged metoprolol (metoprolol 100 mg ER Tab) 1 Tablets By Mouth Every day Unchanged Misc Prescription (Handicap [place], 5 years.) See instructions Impaired ambulation BMI 31.0-31.9,adult Obesity (BMI 30-39.9) Nonsmoker Handicap Placard, 5 years. Unchanged omega-3 polyunsaturated fatty acids (Fish Oil) By Mouth Every day Unchanged oxybutynin (oxybutynin 10 mg ER Tab) 1 Tablets By Mouth 2 times a day Unchanged pantoprazole (Pantoprazole [address] Tab) 1 Tablets By Mouth Every day Unchanged pantoprazole (Pantoprazole [address] Tab) 1 Tablets By Mouth Every day Unchanged sacubitril-valsartan (Entresto 49 mg-51 mg oral tablet) 1 Tablets By Mouth 2 times a day Unchanged spironolactone (spironolactone 25 mg Tab) See instructions Take 1/ 2 orally daily Unchanged trazodone (traZODONE 50 mg Tab) 1 Tablets By Mouth Once a day (at bedtime) Allergies Percocet (Mild) gabapentin (Unknown) Problems Ongoing - Any problem that you are currently receiving treatment for. Anxiety Benign hypertension with chronic kidney disease Bereavement Bladder calculi BMI 32.0-32.9,adult BPH with urinary obstruction Chronic kidney disease (CKD), stage III (moderate) Chronic prostatitis Coronary artery stenosis Feeling of incomplete bladder emptying Herpes zoster Hypercholesterolemia Hypertension Impaired ambulation Insomnia Kidney stones Microhematuria Nocturia Nonsmoker Obesity (BMI 30-39.9) CAROLYN (obstructive sleep apnea) Post-void dribbling Renal cyst Type 2 diabetes mellitus with chronic kidney disease Type 2 diabetes mellitus with hypercholesterolemia Urge incontine (more content not included)... [facility] Family Medicine Office/Clini c Noteon 08-01-2024 Family Medicine Office/Clinic Note Family Medicine Office/Clinic Note Chief Complaint 6m follow up Difficulty with eating due to bereavement HPI Staff 6m follow up Patient is here for follow up on Diabetes. How often are you checking your blood sugars? _ needs new aamir. What are your average readings? _ Paresthesias, Ulcerations or sores? no Lisinopril, aspirin, statin therapy? Yes Last A1c: Hgb A1C %: 6.4 % High (09/01/23 11:00:00) Hgb A1c POC: 5.5 % (03/31/24 10:08:00) Patient is here for follow up on hypertension. How often are you checking your blood pressure? _no What are your average readings? _ Yearly BMP: _ BUN: 16 mg/dL (09/01/23 11:00:00) Calcium Lvl: 11 mg/dL (09/01/23 11:00:00) Chloride: 104 mmol/L (09/01/23 11:00:00) CO2: 28 mmol/L (09/01/23 11:00:00) Creatinine: 1.1 mg/dL (09/01/23 11:00:00) eGFR: 67 mL/min/1.73 m2 (09/01/23 11:00:00) Glucose Lvl: 180 mg/dL (09/01/23 11:00:00) Potassium Lvl: 3.9 mmol/L (09/01/23 11:00:00) Sodium Lvl: 137 mmol/L (09/01/23 11:00:00) Questions/Concerns: Would like script for ASA. History of Present Illness - The patient is an 83-year-old male presenting with difficulty with eating due to bereavement. - Significant events such as loved one's birthday and holidays have exacerbated symptoms. - Bereavement impacts appetite and dietary habits. - Emotional distress associated with significant dates. - Incorporates ready-made meals but variety needed for diabetic alignment. - Reports loneliness affecting self-care in chronic conditions. Review of Systems PHQ Score Initial Depression Screen Score: 0 SCORE Physical Exam Vitals & Measurements T: 36.6 ???C(Tympanic) HR: 64(Peripheral) RR: 18 BP: 110/74 SpO2: 95% HT: 73 in HT: 185 cm WT: 245.154 lb WT: 111.2 kg BMI: 32.49 General: alert, no acute distress ENMT: oral mucosa moist Cardiovascular: Regular rate and rhythm, normal peripheral perfusion Respiratory: Lungs clear to auscultation, respirations non labored Extremities: no deformity, no trauma Neurological: oriented x 4, level of consciousness appropriate for age, CN II-XII intact, motor strength equal & normal bilaterally, speech normal Abdomen: Soft, Non-tender, Non-distended, + Bowel sounds Assessment/Plan 1. 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 - Suggest ready-made meal options. - Monitor blood glucose levels. 2. Hypercholesterolemia (E78.00: Pure hypercholesterolemia, unspecified) - Continue as before. 3. Hypertension (I10: Essential (primary) hypertension) - At goal. NO issues at this time 4. Bereavement (Z63.4: Disappearance and of family member) - Engage in enjoyable activities, strengthen social support. - Explore potential counseling. - Monitor dietary changes. 5. Anxiety (F41.9: Anxiety disorder, unspecified) - Doing ok with his anxiety. - Will monitor 6. Chronic kidney disease (CKD), stage III (moderate) (N18.30: Chronic kidney disease, stage 3 unspecified) - Monitor renal function due to dietary changes. - Routine labs to evaluate kidney health. 7. Nonsmoker (Z78.9: Other specified health status) - Please continue to not smoke. 8. Obesity (BMI 30-39.9) (E66.9: Obesity, unspecified) - Diet and exercise advised 9. BMI 32.0-32.9,adult (Z68.32: Body mass index [BMI] 32.0-32.9, adult) - BMI education added Ordered: Body Mass Index (BMI) documented 3008F Current tobacco non-user 1036F Depression Screening Negative 3352F Discharge medications reconciled with current medications in outpatient record 1111F HBA1C <7.0 Most Recent Level 3044F Influenza immunization status assessed 1030F Medication list documented in medical record 1159F Most recent diastolic blood pressure <80 mm Hg 3078F Most recent LDL-C < 100 mg/Dl 3048F Patient screen for fall risk: no falls in last year or 1 fall with no injury in last year 1101F Review of all meds by a prescribing practitioner or clinical pharmacist documented in EHR 1160F Systolic BP <130 mm Hg (Most Recent) 3074F - 83-year-old male with history of anxiety disorder and chronic kidney disease presenting with bereavement impacting nutrition and chronic condition management. - Bereavement affects appetite and fluid intake. - Emotional distress impacts chronic condition self-management. - Nutritional guidance and support necessary. During our discussion, we addressed the emotional distress caused by bereavement, particularly surrounding significant dates, and how it impacts diet and self-management of chronic health conditions. I recommended exploring enjoyable activities to counter loneliness and encouraged participation in social support networks. We discussed the potential use of meal services like [employer] to provide diabetic-friendly meals easily, which could enhance the patient's nutritional intake. The patient was re (more content not included)... [facility] Comment on above: Result Comment: Elec tronically Signed By: Saleem GUEVARA, Pk Cesar\.br\Date and Time Signed: 08/01/24 18:32 EDT Orders Onlyon 07-07-2024 Orders Only [id number] Jonas Almanzachip [facility] 1940 M Date Provider Department Center 07/07/2024 Juanito-ROCÍO [facility] No family history on file [facility] Family Medicine Office/Clini c Noteon 05-31-2024 Family Medicine Office/Clinic Note Family Medicine Office/Clinic Note Chief Complaint 1m follow up Issues with sleep, possibly related to caffeine intake. HPI Staff 1m follow up Still not sleeping the best. No changes since last encounter. Does not need refills at this time. History of Present Illness The patient is an 83-year-old male presenting for a routine wellness assessment with a focus on addressing sleep disturbances. During the discussion, the patient outlined issues related to his sleep patterns, noting the influence of excess caffeine intake and anticipatory concerns regarding an upcoming trip. Despite increased anxiety and difficulty in sleeping, he has been cautious with the use of prescription medications like Xanax and trazodone, the latter of which he uses minimally. His high BMI status persists, categorized under obesity. He has maintained a nonsmoker status with no changes reported. Other routine health concerns remain stable. - Monitoring of BMI with recommendations for weight management strategies. - Discussion of sleep hygiene, including limiting caffeine intake in the afternoon. - current prescription for trazodone for sleep support. - Reinforcement of status as a nonsmoker. Review of Systems PHQ Score Initial Depression Screen Score: 0 SCORE Physical Exam Vitals & Measurements T: 36.2 ???C(Tympanic) HR: 50(Peripheral) RR: 18 BP: 122/74 SpO2: 96% HT: 73 in HT: 185 cm WT: 114.3 kg WT: 251.988 lb BMI: 33.4 General: alert, no acute distress ENMT: oral mucosa moist Cardiovascular: Regular rate and rhythm, normal peripheral perfusion Respiratory: Lungs clear to auscultation, respirations non labored Extremities: no deformity, no trauma Neurological: oriented x 4, level of consciousness appropriate for age, CN II-XII intact, motor strength equal & normal bilaterally, speech normal Abdomen: Soft, Non-tender, Non-distended, + Bowel sounds Assessment/Plan 1. Bereavement (Z63.4: Disappearance and of family member) Discussed bereavement. Pt is improving greatly. OK to go to [place] as long is patient has a safety net. 2. BMI 33.0-33.9,adult (Z68.33: Body mass index [BMI] 33.0-33.9, adult) BMI education added. 3. Obesity (BMI 30-39.9) (E66.9: Obesity, unspecified) The patient's obesity will be managed through recommended lifestyle modifications, including a balanced diet and increased physical activity. Regular monitoring of weight and associated cardiovascular risks is advised. 4. Nonsmoker (Z78.9: Other specified health status) Addressed through sleep hygiene strategies focused on reducing caffeine intake and managing travel-related stress. Current medications, such as trazodone, may be utilized as needed, with dosage guidance provided. Follow-up evaluation if symptoms persist. 83-year-old male with a history of obesity presenting with sleep disturbance issues. The sleep difficulties are likely related to recent increased caffeine intake and stress over travel plans. A strategic focus remains on optimizing the patient???s current pharmacologic regimen while emphasizing non-pharmacologic sleep support measures. Continued weight management and maintenance of nonsmoking status are critical health maintenance goals. During the visit, I discussed the importance of maintaining regular sleep patterns with the patient, emphasizing that caffeine intake should be limited in the afternoon to optimize sleep quality. We reviewed his use of trazodone, ensuring understanding of its appropriate use for sporadic insomnia without becoming dependent. Additionally, I encouraged him to adhere to diet modifications and increased physical activity to manage his BMI effectively. The plan to address sleep includes monitoring for changes or persistence of symptoms, with readiness to adjust the management plan as necessary based on follow-up evaluations. Total time spent preparing for the encounter, evaluating and assessing the patient, documenting the visit, and ordering appropriate follow-up work was 30 minutes. 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 Normal [facility] Comment on above: Result Comment: Elec tronically Signed By: Saleem GUEVARA, Pk Cesar\.br\Date and Time Signed: 05/31/24 11:16 EDT Office Visiton 05-12-2024 Follow-up visit [id number] ArchieJonaschip [facility] 1940 M Date Provider Department Center 05/12/2024 TRENT PATEL [facility] No family history on file Level of Service:54298 NE OFFICE/OUTPATIENT ESTABLISHED MOD [facility] 30 MIN Normal [facility] Family Medicine Office/Clini c Noteon 04-28-2024 Family Medicine Office/Clinic Note Family Medicine Office/Clinic Note Chief Complaint Discuss Medications Review of medications and assessment of readiness for travel after recent bereavement. HPI Staff Pt presents today to discuss medications. recently passed and pt would like clarity on which meds he should be taking. Last encounter 03/31/24 pt was in office due to confusion on furosemide therapy. Dr Monge did speak to cardiology office, and did verify that pt should NOT be on furosemide. Pt was made aware. Pt would like to discuss adding naproxen. Would also like to discuss getting handicap placard. History of Present Illness The patient is an 83-year-old male presenting with concerns related to his current medication regimen and readiness for travel following recent bereavement. The patient has a history of obesity, as evidenced by a BMI in the range of 31.0-31.9, and is a nonsmoker. The conversation centered on the management and organization of his medication due to recent adjustments and omissions. The patient is missing trazodone and metformin, with other medications needing verification against his home supply. There was a detailed review of medicines including metoprolol, Entresto, fish oil, metformin, spironolactone, vitamin D3, Farxiga, glipizide, pantoprazole, trazodone, aspirin, atorvastatin, finasteride, and oxibutynin. Trazodone was particularly noted as a missing medication. Additionally, the patient's ability to manage his health and medication independently was discussed in light of travel plans to [place], where he hoped to briefly reside. He expressed concerns about his mental readiness and grief after losing his spouse two weeks ago. The patient is coping with the loss, making new lifestyle changes such as wanting to be independent while recognizing limitations. The family expressed concerns about his ability to remain alone in [place] and the impact on his emotional well-being. - Discussed the importance of medication adherence, particularly with respect to maintaining continuity in managing obesity and related conditions. - Introduced the potential need for a life alert system for safety, considering recent transitions and vulnerability due to bereavement. Review of Systems PHQ Score Initial Depression Screen Score: 0 SCORE Physical Exam Vitals & Measurements T: 36.8 ???C(Tympanic) HR: 86(Peripheral) RR: 18 BP: 136/84 SpO2: 98% HT: 73 in HT: 185 cm WT: 108.9 kg WT: 240.083 lb BMI: 31.82 General: alert, no acute distress ENMT: oral mucosa moist Cardiovascular: Regular rate and rhythm, normal peripheral perfusion Respiratory: Lungs clear to auscultation, respirations non labored Extremities: no deformity, no trauma Neurological: oriented x 4, level of consciousness appropriate for age, CN II-XII intact, motor strength equal & normal bilaterally, speech normal Abdomen: Soft, Non-tender, Non-distended, + Bowel sounds Assessment/Plan 1. Bereavement (Z63.4: Disappearance and of family member) Discussed counseling. Discussed needs. Follow up in 1 month. 2. Impaired ambulation (R26.2: Difficulty in walking, not elsewhere classified) Will do handicap placard Ordered: Misc Prescription, Handicap Placard, 5 years., See Instructions, 1 EA, 0, Handicap Placard, 5 years., Supply 3. BMI 31.0-31.9,adult (Z68.31: Body mass index [BMI] 31.0-31.9, adult) Continuation of management for obesity through current medications including metformin and Farxiga. Medication adherence was emphasized to control obesity-related health risks. A comprehensive review of the medication regimen was conducted to ensure clarity and consistency. Adjustments were made to ensure the patient had an updated medication list. Ordered: Misc Prescription, Handicap Placard, 5 years., See Instructions, 1 EA, 0, Handicap Placard, 5 years., Supply 4. Obesity (BMI 30-39.9) (E66.9: Obesity, unspecified) Emphasis was placed on maintaining a tailored medication regimen including metformin and Farxiga. Further discussion of lifestyle interventions was necessary to support pharmacologic measures aimed at weight management. Ensured accurate medication documentation to address obesity and associated health conditions. Ordered: Misc Prescription, Handicap Placard, 5 years., See Instructions, 1 EA, 0, Handicap Placard, 5 years., Supply 5. Nonsmoker (Z78.9: Other specified health status) Continuous nonsmoking status was acknowledged and reinforced as a positive health behavior that supports overall wellness and management of obesity. Ordered: Misc Prescription, Handicap Placard, 5 years., See Instructions, 1 EA, 0, Handicap Placard, 5 years., Supply Orders: tamsulosin, 0.4 mg = 1 cap(s), Oral, BID, # 28 tab(s), Refills(s) 0 trazodone, 50 mg = 1 tab(s), Oral, Once a day (at bedtime), # 90 tab(s), Refills(s) 3 83-year-old male with a history of obesity, nonsmoking status, and recent bereavement presenting with concerns about his medication management and travel p (more content not included)... 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 Your Care Team Attending Physician - Pk Monge MD Primary Care Physician - Pk Monge MD This Is Your Medications List alprazolam (alprazolam 0.5 mg Tab) aspirin atorvastatin (atorvastatin 20 mg Tab) chondroitin-glucosamine (Osteo Bi-Flex oral tablet) dapagliflozin (Farxiga 10 mg oral tablet) docusate (Colace) ergocalciferol (Vitamin D) finasteride (finasteride 5 mg Tab) glipiZIDE (glipiZIDE 5 mg Tab) ketoconazole topical (ketoconazole Top 2% Crm) metformin (metformin 500 mg ER Tab) metoprolol (metoprolol 100 mg ER Tab) omega-3 polyunsaturated fatty acids (Fish Oil) oxybutynin (oxybutynin 10 mg ER Tab) pantoprazole (Pantoprazole [address] Tab) sacubitril-valsartan (Entresto 49 mg-51 mg oral tablet) spironolactone (spironolactone 25 mg Tab) tamsulosin (tamsulosin 0.4 mg Cap) trazodone (traZODONE 50 mg Tab) Procedures Performed Transurethral water vapor ablation of prostate (01/17/2020), Cystoscopy (10/27/2019), Cystoscope (09/06/2019), CABG x 4 - Coronary artery bypass grafts x 4, Cardiac catheter, History of hernia repair, Insertion of catheter into heart chamber, Trigger finger. Discharge Vitals Temperature (Tympanic) 36.8 ???C Heart Rate (Peripheral) 78 Respiratory Rate 18 Blood Pressure 136/80 Height 185 cm Height 73 in Weight 113.2 kg Weight 249.563 lb BMI 33.08 What to do next Scheduled Follow-Up Appointments Thursday 10:00 AM EDT With: Alexandr Monge MDuel E. Where: [address] [address]- Thursday 8:15 AM EDT With: Danny LEVY MD Where: [facility] [address] [place] [address]- Thursday 1:00 PM EDT With: Where: [address] [address]- Medications What How Much When Instructions Unchanged alprazolam (alprazolam 0.5 mg Tab) 1 Tablets By Mouth Every day as needed for for anxiety prn Unchanged aspirin 81 Milligram By Mouth Every day Unchanged atorvastatin (atorvastatin 20 mg Tab) See instructions TAKE 1 TABLET DAILY Unchanged chondroitin-glucosamine (Osteo Bi-Flex oral tablet) 1 tablet Every day Unchanged dapagliflozin (Farxiga 10 mg oral tablet) 1 Tablets By Mouth Every day Unchanged docusate (Colace) 100 Milligram By Mouth 2 times a day Unchanged ergocalciferol (Vitamin D) 5000 By Mouth Every day Unchanged finasteride (finasteride 5 mg Tab) 1 Tablets By Mouth Every day Unchanged glipiZIDE (glipiZIDE 5 mg Tab) 5 Milligram By Mouth Every day Unchanged ketoconazole topical (ketoconazole Top 2% Crm) 1 Application Topical 3 times a day as needed Unchanged metformin (metformin 500 mg ER Tab) 1 Tablets By Mouth 2 times a day Unchanged metoprolol (metoprolol 100 mg ER Tab) 1 Tablets By Mouth Every day Unchanged omega-3 polyunsaturated fatty acids (Fish Oil) By Mouth Every day Unchanged oxybutynin (oxybutynin 10 mg ER Tab) 1 Tablets By Mouth 2 times a day Unchanged pantoprazole (Pantoprazole [address] Tab) 1 Tablets By Mouth Every day Unchanged sacubitril-valsartan (Entresto 49 mg-51 mg oral tablet) 1 Tablets By Mouth 2 times a day Unchanged spironolactone (spironolactone 25 mg Tab) See instructions Take 1/ 2 orally daily Unchanged tamsulosin (tamsulosin 0.4 mg Cap) 1 Capsules By Mouth 2 times a day Unchanged trazodone (traZODONE 50 mg Tab) 1 Tablets By Mouth Once a day (at bedtime) Allergies Percocet (Mild) gabapentin (Unknown) Problems Ongoing - Any problem that you are currently receiving treatment for. Anxiety Benign hypertension with chronic kidney disease Bladder calculi BMI 32.0-32.9,adult BPH with urinary obstruction Chronic kidney disease (CKD), stage III (moderate) Chronic prostatitis Coronary artery stenosis Feeling of incomplete bladder emptying Herpes zoster Hypercholesterolemia Hypertension Insomnia Kidney stones Microhematuria Nocturia CAROLYN (obstructive sleep apnea) Post-void dribbling Renal cyst Type 2 diabetes mellitus with chronic kidney disease Type 2 diabetes mellitus with hypercholesterolemia Urge incontinence Historical - Any problem that you are no longer receiving treatment for. BMI 34.0-34.9,adult Patient Survey You may receive a survey via text or e-mail asking about your office visit. Please share your experience with us by completing your survey. We appreciate your feedback and thank you for choosing us for your care. Normal [facility] Family Medicine Office/Clini c Noteon 03-31-2024 Family Medicine Office/Clinic Note Family Medicine Office/Clinic Note Chief Complaint Discuss Medication HPI Staff Pt presents today to discuss furosemide refill. Pt called office 03/11/24 requesting refill of furosemide, however medication was not on list. History of Present Illness Patient presents for confusion on medications. Patient requested Lasix however it was not on his med list. When reviewing the patient's chart we did find Lasix from 2022 however patient had also been added on Entresto. I have no recent documentation from cardiology to compare. Have requested records from cardiology so I can see what the patient should be on. Patient is also frustrated that he has not had his CPAP adjusted. Blood sugars need to be checked. Kidney function has been very good lately. This may be because the patient is off Lasix. Patient is not having edema. Review of Systems PHQ Score Initial Depression Screen Score: 2 SCORE Physical Exam Vitals & Measurements T: 36.8 ???C(Tympanic) HR: 78(Peripheral) RR: 18 BP: 136/80 SpO2: 96% HT: 73 in HT: 185 cm WT: 113.2 kg WT: 249.563 lb BMI: 33.08 General: alert, no acute distress ENMT: oral mucosa moist, Cardiovascular: regular rate and rhythm, normal peripheral perfusion Respiratory: Lungs CTA, respirations non labored Extremities: no deformity, no trauma Neurological: oriented x 4, LOC appropriate for age, CN II-XII intact, motor strength equal & normal bilaterally, speech normal Abdomen: Soft, Nontender, Non-distended, + BS Assessment/Plan 1. Chronic kidney disease (CKD), stage III (moderate) (N18.30: Chronic kidney disease, stage 3 unspecified) Last labs from August 2023 showed an EGFR of 67. If on repeat the patient's renal function is still above the stage III will remove this diagnosis. 2. Type 2 diabetes mellitus with chronic kidney disease (E11.22: Type 2 diabetes mellitus with diabetic chronic kidney disease) A1c today. Ordered: A1c POC 82008 3. Benign hypertension with chronic kidney disease (I12.9: Hypertensive chronic kidney disease with stage 1 through stage 4 chronic kidney disease, or unspecified chronic kidney disease) Blood pressure is well-controlled at 114/70. Again concern to add Lasix on when the patient's blood pressure is already within normal limits. 4. BMI 33.0-33.9,adult (Z68.33: Body mass index [BMI] 33.0-33.9, adult) BMI education added 5. Obesity (BMI 30-39.9) (E66.9: Obesity, unspecified) Diet and exercise advised 6. Nonsmoker (Z78.9: Other specified health status) Please continue not to smoke Total time spent preparing for the encounter, evaluating and assessing the patient, documenting the visit, and ordering appropriate follow-up work was 40 minutes. Follow-up No qualifying data available Problem List/Past Medical History Ongoing Anxiety Benign hypertension with chronic kidney disease Bladder calculi BMI 32.0-32.9,adult BMI 33.0-33.9,adult BPH with urinary obstruction Chronic kidney disease (CKD), stage III (moderate) Chronic prostatitis Coronary artery stenosis Feeling of incomplete bladder emptying Herpes zoster Hypercholesterolemia Hypertension Insomnia Kidney stones Microhematuria Nocturia Nonsmoker Obesity (BMI 30-39.9) CAROLYN (obstructive sleep apnea) Post-void dribbling Renal cyst Type 2 diabetes mellitus with chronic kidney disease Type 2 diabetes mellitus with hypercholesterolemia Urge incontinence Historical BMI 34.0-34.9,adult Procedure/Surgical History Transurethral water vapor ablation of prostate (01/17/2020), Cystoscopy (10/27/2019), Cystoscope (09/06/2019), CABG x 4 - Coronary artery bypass grafts x 4, Cardiac catheter, History of hernia repair, Insertion of catheter into heart chamber, Trigger finger. Medications alprazolam 0.5 mg Tab, 0.5 mg= 1 tab(s), Oral, Daily, PRN aspirin, 81 mg, Oral, Daily atorvastatin 20 mg Tab, See Instructions Colace, 100 mg, Oral, BID Entresto 49 mg-51 mg oral tablet, 1 tab(s), Oral, BID Farxiga 10 mg oral tablet, 10 mg= 1 tab(s), Oral, Daily, 4 refills finasteride 5 mg Tab, 5 mg= 1 tab(s), Oral, Daily, 1 refills Fish Oil, Oral, Daily glipiZIDE 5 mg Tab, 5 mg, Oral, Daily, 1 refills ketoconazole Top 2% Crm, 1 marita, Topical, TID metformin 500 mg ER Tab, 500 mg= [...] Percocet (Mild) gabapentin (Unknown) Social History Alcohol Never, 01/07/2024 Substance Abuse - Denies Substance Abuse, 01/09/2020 Never, 01/07/2024 Tobacco - Denies Tobacco Use, 01/09/2020 Never (less t (more content not included)... Normal [facility] Comment on above: Result Comment: Elec tronically Signed By: Saleem GUEVARA, Pk Whitley.br\Date and Time Signed: 03/31/24 12:29 EST Ambulatory Visit Summaryon 1 05-02-2023 Ambulatory Visit Summary Ambulatory Visit Summary LUIS ALFREDO ALMANZA :1940 Visit Date:03/01/2024 Ambulatory Visit Instructions Your Diagnosis Type 2 diabetes mellitus with chronic kidney disease Hypertension Benign hypertension with chronic kidney disease CAROLYN (obstructive sleep apnea) Post-void dribbling Hypercholesterolemia BMI 32.0-32.9,adult Exogenous obesity Nonsmoker Your Care Team Attending Physician - Pk Monge MD Primary Care Physician - Pk Monge MD This Is Your Medications List alprazolam (alprazolam 0.5 mg Tab) aspirin atorvastatin (atorvastatin 20 mg Tab) chondroitin-glucosamine (Osteo Bi-Flex oral tablet) dapagliflozin (Farxiga 10 mg oral tablet) docusate (Colace) ergocalciferol (Vitamin D) finasteride (finasteride 5 mg Tab) glipiZIDE (glipiZIDE 5 mg Tab) ketoconazole topical (ketoconazole Top 2% Crm) metformin (metformin 500 mg ER Tab) metoprolol (metoprolol 100 mg ER Tab) omega-3 polyunsaturated fatty acids (Fish Oil) oxybutynin (oxybutynin 10 mg ER Tab) pantoprazole (Pantoprazole [address] Tab) sacubitril-valsartan (Entresto 49 mg-51 mg oral tablet) spironolactone (spironolactone 25 mg Tab) tamsulosin (tamsulosin 0.4 mg Cap) trazodone (traZODONE 50 mg Tab) Procedures Performed Transurethral water vapor ablation of prostate (01/17/2020), Cystoscopy (10/27/2019), Cystoscope (09/06/2019), CABG x 4 - Coronary artery bypass grafts x 4, Cardiac catheter, History of hernia repair, Insertion of catheter into heart chamber, Trigger finger. Discharge Vitals Temperature (Temporal Artery) 36.3 ???C Heart Rate (Peripheral) 70 Respiratory Rate 16 Blood Pressure 114/70 Height 185 cm Height 73 in Weight 111.2 kg Weight 245.154 lb BMI 32.49 What to do next Scheduled Follow-Up Appointments Thursday 10:00 AM EDT With: Pk Monge MD Where: [address] [address]- Thursday 8:15 AM EDT With: MILDRED GUEVARA, Danny Keen Where: [facility] [address] [place] [address]- Thursday 1:00 PM EDT With: Where: [address] [address]- Medications What How Much When Instructions Unchanged alprazolam (alprazolam 0.5 mg Tab) 1 Tablets By Mouth As needed for for anxiety prn Unchanged aspirin 81 Milligram By Mouth Every day Unchanged atorvastatin (atorvastatin 20 mg Tab) See instructions TAKE 1 TABLET DAILY Unchanged chondroitin-glucosamine (Osteo Bi-Flex oral tablet) 1 tablet Every day Unchanged dapagliflozin (Farxiga 10 mg oral tablet) 1 Tablets By Mouth Every day Unchanged docusate (Colace) 100 Milligram By Mouth 2 times a day Unchanged ergocalciferol (Vitamin D) 5000 By Mouth Every day Unchanged finasteride (finasteride 5 mg Tab) 1 Tablets By Mouth Every day Unchanged glipiZIDE (glipiZIDE 5 mg Tab) 5 Milligram By Mouth Every day Unchanged ketoconazole topical (ketoconazole Top 2% Crm) 1 Application Topical 3 times a day as needed Unchanged metformin (metformin 500 mg ER Tab) 1 Tablets By Mouth 2 times a day Unchanged metoprolol (metoprolol 100 mg ER Tab) 1 Tablets By Mouth Every day Unchanged omega-3 polyunsaturated fatty acids (Fish Oil) By Mouth Every day Unchanged oxybutynin (oxybutynin 10 mg ER Tab) 1 Tablets By Mouth 2 times a day Unchanged pantoprazole (Pantoprazole [address] Tab) 1 Tablets By Mouth Every day Unchanged sacubitril-valsartan (Entresto 49 mg-51 mg oral tablet) 1 Tablets By Mouth 2 times a day Unchanged spironolactone (spironolactone 25 mg Tab) See instructions Take 1/ 2 orally daily Unchanged tamsulosin (tamsulosin 0.4 mg Cap) 1 Capsules By Mouth 2 times a day Unchanged trazodone (traZODONE 50 mg Tab) 1 Tablets By Mouth Once a day (at bedtime) Allergies Percocet (Mild) gabapentin (Unknown) Problems Ongoing - Any problem that you are currently receiving treatment for. Anxiety Benign hypertension with chronic kidney disease Bladder calculi BMI 32.0-32.9,adult BPH with urinary obstruction Chronic kidney disease (CKD), stage III (moderate) Chronic prostatitis Coronary artery stenosis Feeling of incomplete bladder emptying Herpes zoster Hypercholesterolemia Hypertension Insomnia Kidney stones Microhematuria Nocturia CAROLYN (obstructive sleep apnea) Post-void dribbling Renal cyst Type 2 diabetes mellitus with chronic kidney disease Type 2 diabetes mellitus with hypercholesterolemia Urge incontinence Historical - Any problem that you are no longer receiving treatment for. BMI 34.0-34.9,adult Patient Survey You may receive a survey via text or e-mail asking about your office visit. Please share your experience with us by completing your survey. We appreciate your feedbac (more content not included)... Normal [facility] Family Medicine Office/Clini c Noteon 03-01-2024 Family Medicine Office/Clinic Note Family Medicine Office/Clinic Note Chief Complaint Management of existing chronic conditions and spouse's cognitive health. HPI Staff Luis Alfredo is an 83 year old male presenting for 6 month follow up DM, HTN, CKD Do you have any of the following symptoms? Foot Exam: UTD Eye Exam: due Last A1C: recent 6.4% in comments per Dr Monge Hgb A1C %: 6.4 % High (09/01/23 11:00:00) Hgb A1c POC: 5.6 % (03/02/23 11:04:00) Statin: atorvastatin 20mg Patient is here for follow up on hypertension. How often are you checking your blood pressure? Doesnt check BP at home What are your average readings? N/A, Not checking at home Yearly BMP: 09/01/23 questions/concerns: need his ketoconazole cream refilled [facility], ( dr perez rxed in past doesn't use daily) History of Present Illness The patient is an 83-year-old male presenting with multiple chronic health conditions. He has a documented history of hypertension and hypertensive chronic kidney disease, for which he is stable on current medications. His blood pressure remains well-controlled as noted during today???s visit. Hypercholesterolemia is managed as per prior visits with no adjustments discussed or made currently. Management of type 2 diabetes mellitus remains effective, with recent A1c levels stable at 6.4%. The condition is stable with the current regimen. The patient's BMI categorizes him into the obesity class as a result of exogenous factors, and he acknowledged related lifestyle measures but without new intervention in this visit. Obstructive sleep apnea was diagnosed previously; however, he has not yet started using his new CPAP machine, awaiting follow-up from his provider. The patient also reported post-void dribbling but did not indicate any recent changes or new symptoms. Additionally, there is a mention of mild anxiety treated intermittently with alprazolam; usage is approximately a half pill weekly without any noted increase in frequency or severity. Significantly, the discussion involved concerns about his spouse's cognitive health, reflecting potential early signs of dementia, though the patient noted his spouse remains unawareness of these issues. Review of Systems PHQ Score Initial Depression Screen Score: 0 SCORE - Psychiatric: Reports anxiety managed with alprazolam. - Genitourinary: Reports post-void dribbling. Physical Exam Vitals & Measurements T: 36.3 ???C(Temporal Artery) HR: 70(Peripheral) RR: 16 BP: 114/70 SpO2: 96% HT: 73 in HT: 185 cm WT: 111.2 kg WT: 245.154 lb BMI: 32.49 General: alert, no acute distress ENMT: oral mucosa moist Cardiovascular: Regular rate and rhythm, normal peripheral perfusion Respiratory: Lungs clear to auscultation, respirations non labored Extremities: no deformity, no trauma Neurological: oriented x 3, level of consciousness appropriate for age, CN II-XII intact, motor strength equal & normal bilaterally, speech normal Abdomen: Soft, Non-tender, Non-distended, + Bowel sounds Assessment/Plan 1. Type 2 diabetes mellitus with chronic kidney disease (E11.22: Type 2 diabetes mellitus with diabetic chronic kidney disease) Maintain current diabetes management plan given stable A1c; encourage continued monitoring of blood glucose levels. Ordered: Body Mass Index (BMI) documented 3008F Current tobacco non-user 1036F Depression Screening Negative 3352F Influenza immunization administered or previously received 4274F Most recent diastolic blood pressure <80 mm Hg 3078F Patient screen for fall risk: no falls in last year or 1 fall with no injury in last year 1101F Systolic BP <130 mm Hg (Most Recent) 3074F 2. Hypertension (I10: Essential (primary) hypertension) At goal with meds. Ordered: Body Mass Index (BMI) documented 3008F Current tobacco non-user 1036F Depression Screening Negative 3352F Influenza immunization administered or previously received 4274F Most recent diastolic blood pressure <80 mm Hg 3078F Patient screen for fall risk: no falls in last year or 1 fall with no injury in last year 1101F Systolic BP <130 mm Hg (Most Recent) 3074F 3. Benign hypertension with chronic kidney disease (I12.9: Hypertensive chronic kidney disease with stage 1 through stage 4 chronic kidney disease, or unspecified chronic kidney disease) Continue current antihypertensive therapy as blood pressure readings are satisfactory. Reassess renal function regularly. Ordered: Body Mass Index (BMI) documented 3008F Current tobacco non-user 1036F Depression Screening Negative 3352F Influenza immunization administered or previously received 4274F Most recent diastolic blood pressure <80 mm Hg 3078F Patient screen for fall risk: no falls in last year or 1 fall with no injury in last year 1101F Systolic BP <130 mm Hg (Most Recent) 3074F 4. CAROLYN (obstructive sleep apnea) (G47.33: Obstructive sleep apnea (adult) (pediatric)) Patient advised to follow up for CPAP fitting; encourage him to contact Dr. Blackman's of (more content not included)... Normal [facility] Comment on above: Result Comment: Elec tronically Signed By: Saleem GUEVARA, Pk Cesar\.br\Date and Time Signed: 03/01/24 11:00 EST Lab Miscellaneous-LCon 02-24 Lab Miscellaneous COMMENT Invalid Interpretation Code [facility] Comment on above: Result Comment: Test Ordered: [id number] Hemoglobin A1c Hemoglobin A1c 6.4 [H ] % CB Reference Range: 4.8-5.6 Prediabetes: 5.7 - 6.4 Diabetes: >6.4 Glycemic control for adults with diabetes: <7.0 Performed at: [facility] [address] [place] [address] [id number] PhD Zo Ochoa Performed By: #### 1 [id number] #### [facility] [address] [place] [address] Lab Miscellaneous-LCon 02-23 Test Code [id number] Invalid Interpretation Code [facility] Comment on above: Performed By: #### 1 [id number] #### [facility] [address] [place] [address] Test Name A1C Invalid Interpretation Code [facility] Comment on above: Performed By: #### 1 [id number] #### [facility] [address] [place] [address] CBC w/ Auto Diffon 4 Basophils/100 WBC (Bld) 1.2 % Normal 0.0-2.0 [facility] Comment on above: Performed By: #### 2 [id number] #### [facility] [address] [place] [address] Basophils/Leukocytes Auto (Bld) [Pure # fraction] 0.1 E9/L Normal 0.0-0.2 [facility] Comment on above: Performed By: #### 2 [id number] #### [facility] [address] [place] [address] Eosinophils (Bld) [#/Vol] 0.2 E9/L Normal 0.0-0.5 [facility] Comment on above: Performed By: #### 2 [id number] #### [facility] [address] [place] [address] Eosinophils/100 WBC (Bld) 2.8 % Normal 0.0-8.0 [facility] Comment on above: Performed By: #### 2 [id number] #### [facility] [address] [place] [address] Erythrocyte distribution width (RBC) [Ratio] 14.5 % High 10.9-14.2 [facility] Comment on above: Performed By: #### 2 [id number] #### [facility] [address] [place] [address] 26745 Hematocrit (Bld) [Volume fraction] 47.5 % Normal 37.7-49.0 [facility] Comment on above: Performed By: #### 2 [id number] #### [facility] [address] [place] [address] Hemoglobin (Bld) [Mass/Vol] 16.1 g/dL Normal 13.5-17.5 [facility] Comment on above: Performed By: #### 2 [id number] #### [facility] [address] [place] [address] Lymphocytes (Bld) [#/Vol] 1.8 E9/L Normal 1.0-4.0 [facility] Comment on above: Performed By: #### 2 [id number] #### [facility] [address] [place] [address] Lymphocytes/100 WBC (Bld) 23.6 % Normal 14.0-50.0 [facility] Comment on above: Performed By: #### 2 [id number] #### [facility] [address] [place] [address] MCH (RBC) [Entitic mass] 29.2 pg Normal 27.0-34.0 [facility] Comment on above: Performed By: #### 2 [id number] #### [facility] [address] [place] [address] MCHC (RBC) [Mass/Vol] 33.9 g/dL Normal 31.4-36.0 [facility] Comment on above: Performed By: #### 2 [id number] #### [facility] [address] [place] [address] MCV (RBC) [Entitic vol] 86.0 fL Normal 80.0-100.0 [facility] Comment on above: Performed By: #### 2 [id number] #### [facility] [address] [place] [address] Monocytes (Bld) [#/Vol] 0.8 E9/L Normal 0.2-1.0 [facility] Comment on above: Performed By: #### 2 [id number] #### [facility] [address] [place] [address] Neutrophils (Bld) [#/Vol] 4.7 E9/L Normal 2.0-7.5 [facility] Comment on above: Performed By: #### 2 [id number] #### [facility] [address] [place] [address] Neutrophils/100 WBC (Bld) 62.4 % Normal 36.0-75.0 [facility] Comment on above: Performed By: #### 2 [id number] #### [facility] [address] [place] [address] Platelet 204.0 E9/L Normal 150.0-500.0 [facility] Comment on above: Performed By: #### 2 [id number] #### [facility] [address] [place] [address] Platelet mean volume (Bld) [Entitic vol] 9.6 fL Normal 6.4-10.8 [facility] Comment on above: Performed By: #### 2 [id number] #### [facility] [address] [place] [address] RBC (Bld) [#/Vol] 5.5 E12/L Normal 4.3-5.9 [facility] Comment on above: Performed By: #### 2 [id number] #### [facility] [address] [place] [address] WBC corrected for nucl RBC Auto (Bld) [#/Vol] 7.6 E9/L Normal 4.0-11.0 [facility] Comment on above: Result Comment: Jeane pheral smear review performed. Performed By: #### 2 [id number] #### [facility] [address] [place] [address] CHEMISTRYOrdered By: SYSTEM SYSTEM on 02-23-2024 Albumin DL <= 20 mg/L (U) [Mass/Vol] 4.0 mg/dL High 0.0 - 1.9 mg/dL [facility] Albumin/Creatinine DL <= 20 mg/L (U) [Mass ratio] 27.5 mg/gm Cr Normal 0.0 - 30.0 mg/gm Cr [facility] Comment on above: Interpretive Data: 3 0-300 mg/g Cr indicates an increased risk for diabetic nephropathy. >300 mg/g Cr is consistent with clinical nephropathy. Cholesterol [Mass/Vol] 124 mg/dL Normal 120 - 200 mg/dL [facility] Cholesterol in HDL [Mass/Vol] 33 mg/dL Invalid Interpretation Code [facility] Comment on above: Result Comment: '>= 60 LOW RISK' '<= 40 HIGH RISK' Cholesterol in LDL [Mass/Vol] 59 mg/dL Normal <=129mg/dL [facility] Cholesterol in VLDL [Mass/Vol] 57 mg/dL High 7 - 40 mg/dL [facility] Triglyceride [Mass/Vol] 284 mg/dL High <=149mg/dL [facility] U Creatinine 145.4 mg/dL Invalid Interpretation Code [facility] HEMATOLOGYOrdered By: SYSTEM SYSTEM on 02-23-2024 Basophils/100 WBC (Bld) 1.2 % Normal 0.0 - 2.0 % Remisol Heme Basophils/Leukocytes Auto (Bld) [Pure # fraction] 0.1 E9/L Normal 0.0 - 0.2 E9/L [facility] Eosinophils (Bld) [#/Vol] 0.2 E9/L Normal 0.0 - 0.5 E9/L [facility] Eosinophils/100 WBC (Bld) 2.8 % Normal 0.0 - 8.0 % [facility] Erythrocyte distribution width (RBC) [Ratio] 14.5 % High 10.9 - 14.2 % [facility] Hematocrit (Bld) [Volume fraction] 47.5 % Normal 37.7 - 49.0 % [facility] Hemoglobin (Bld) [Mass/Vol] 16.1 g/dL Normal 13.5 - 17.5 gm/dL [facility] Lymphocytes (Bld) [#/Vol] 1.8 E9/L Normal 1.0 - 4.0 E9/L [facility] Lymphocytes/100 WBC (Bld) 23.6 % Normal 14.0 - 50.0 % [facility]e MCH (RBC) [Entitic mass] 29.2 pg Normal 27.0 - 34.0 pg Remisol Heme MCHC (RBC) [Mass/Vol] 33.9 g/dL Normal 31.4 - 36.0 gm/dL [facility] MCV (RBC) [Entitic vol] 86.0 fL Normal 80.0 - 100.0 fL [facility] Monocytes (Bld) [#/Vol] 0.8 E9/L Normal 0.2 - 1.0 E9/L [facility] Monocytes/100 WBC (Bld) 10.0 % Normal 4.0 - 14.0 % [facility] Neutrophils (Bld) [#/Vol] 4.7 E9/L Normal 2.0 - 7.5 E9/L [facility] Neutrophils/100 WBC (Bld) 62.4 % Normal 36.0 - 75.0 % [facility] Platelet 204.0 E9/L Normal 150.0 - 500.0 E9/L [facility] Platelet mean volume (Bld) [Entitic vol] 9.6 fL Normal 6.4 - 10.8 fL [facility]e RBC (Bld) [#/Vol] 5.5 E12/L Normal 4.3 - 5.9 E12/L [facility] WBC corrected for nucl RBC Auto (Bld) [#/Vol] 7.6 E9/L Normal 4.0 - 11.0 E9/L [facility] Comment on above: Result Comment: Jeane pheral smear review performed. Lipid Panelon 02-23-2024 Cholesterol [Mass/Vol] 124 mg/dL Normal 120-200 [facility] Comment on above: Performed By: #### 2 [id number] #### [facility] [address] [place] [address] Cholesterol in HDL [Mass/Vol] 33 mg/dL Invalid Interpretation Code [facility] Comment on above: Result Comment: '>= 60 LOW RISK' '<= 40 HIGH RISK' Performed By: #### 2 [id number] #### [facility] [address] [place] [address] Cholesterol in LDL [Mass/Vol] 59 mg/dL Normal <=129 [facility] Comment on above: Performed By: #### 2 [id number] #### [facility] [address] [place] [address] Cholesterol in VLDL [Mass/Vol] 57 mg/dL High 7-40 [facility] Comment on above: Performed By: #### 2 [id number] #### [facility] [address] [place] [address] Triglyceride [Mass/Vol] 284 mg/dL High <=149 [facility] Comment on above: Performed By: #### 2 [id number] #### [facility] [address] [place] [address] U MA/Cr Ratioon 02-23-2024 Albumin DL <= 20 mg/L (U) [Mass/Vol] 4.0 mg/dL High 0.0-1.9 [facility] Comment on above: Performed By: #### 1 [id number] #### [facility] [address] [place] [address] Albumin/Creatinine DL <= 20 mg/L (U) [Mass ratio] 27.5 mg/gm Cr Normal .0-30.0 [facility] Comment on above: Result Comment: 30-3 00 mg/g Cr indicates an increased risk for diabetic nephropathy. >300 mg/g Cr is consistent with clinical nephropathy. Performed By: #### 1 [id number] #### [facility] [address] [place] [address] U Creatinine 145.4 mg/dL Invalid Interpretation Code [facility] Comment on above: Performed By: #### 1 [id number] #### [facility] [address] [place] [address] Family Medicine Office/Clini c Noteon 01-19-2024 Family Medicine Office/Clinic Note Family Medicine Office/Clinic Note Chief Complaint Subsequent Medicare Wellness History of Present Illness Covid-19, MERS, Ebola Screen *Contact With Person With Highly Contagious Disease Like Ebola/MERS/COVID-19 AND Have One or More of the Symptoms Below : No *Travel to a Country With Wide-Spread Ebola/MERS/COVID-19 in the Past 21 Days AND Have One or More of the Symptoms Below : No Patient Reported Covid-19 Testing : No *Verify Droplet, Contact Precautions for Ebola (Reference for CDC) : N/A *Verify Airborne, Droplet Precautions for MERS/COVID-19 : N/A Nevin Diaz - 01/07/2024 11:11 EDT Medicare/Medicaid Summary Chief Complaint : Subsequent Medicare Wellness Patient Counseled : Nutrition, Physical activity, Elevated BMI Height/Length Measured : 185 cm(Converted to: 6 ft 1 in, 72.83 in) Weight Measured : 109.8 kg(Converted to: 242 lb 1 Ounces, 242.068 lb) Body Mass Index Measured : 32.08 kg/m2 Height in Inches : 73 in Weight in Pounds : 241.56 lb Systolic Blood Pressure : 136 mmHg Diastolic Blood Pressure : 74 mmHg Blood Pressure Location : Left arm Blood Pressure Position : Sitting O2 Sat Resting/Exertion Alpha : Resting Peripheral Pulse Rate : 60 bpm Respiratory Rate : 16 br/min SpO2 : 95 % Pain Present : No actual or suspected pain Nevin Diaz - 01/07/2024 11:11 EDT Hearing and Vision Screening FT FT Whisper Test Comments : patient has hearing aides, but they are broken. Ordering new ones. Vision Screen Comments : wears corrective lens, has yearly eye exams at [facility] Nevin Diaz - 01/07/2024 11:11 EDT Advance Directive FT Advance Directive : Yes Type of Advance Directive : Living will, Medical durable power of patent attorney Organ Donation Consent : Yes Nevin Diaz - 01/07/2024 11:11 EDT Procedures / Surgeries FT - Procedure History (As Of: 01/07/2024 11:39:45 EDT) Anesthesia Minutes: 0 ; Procedure Name: History of hernia repair ; Procedure Minutes: 0 ; Last Reviewed Dt/Tm: 01/07/2024 11:14:57 EDT Procedure Dt/Tm: 09/06/2019 ; Anesthesia Minutes: 0 ; Procedure Name: Cystoscope ; Procedure Minutes: 0 ; Last Reviewed Dt/Tm: 01/07/2024 11:14:57 EDT Procedure Dt/Tm: 10/27/2019 ; Anesthesia Minutes: 0 ; Procedure Name: Cystoscopy Stone Removal ; Procedure Minutes: 0 ; Comments: 01/09/2020 11:33 EDT - Akila Vergara cysto, shock lithopaxy of bladder stone ; Last Reviewed Dt/Tm: 01/07/2024 11:14:57 EDT Procedure Dt/Tm: 01/17/2020 ; Anesthesia Minutes: 0 ; Procedure Name: Transurethral water vapor ablation of prostate ; Procedure Minutes: 0 ; Last Reviewed Dt/Tm: 01/07/2024 11:14:57 EDT Anesthesia Minutes: 0 ; Procedure Name: Insertion of catheter into heart chamber ; Procedure Minutes: 0 ; Last Reviewed Dt/Tm: 01/07/2024 11:14:57 EDT Anesthesia Minutes: 0 ; Procedure Name: Trigger finger ; Procedure Minutes: 0 ; Last Reviewed Dt/Tm: 01/07/2024 11:14:57 EDT Anesthesia Minutes: 0 ; Procedure Name: CABG x 4 - Coronary artery bypass grafts x 4 ; Procedure Minutes: 0 ; Comments: 07/14/2022 17:36 EDT - Roopa Abebe LPN w/ [facility] ; Last Reviewed Dt/Tm: 01/07/2024 11:14:57 EDT Anesthesia Minutes: 0 ; Procedure Name: Cardiac catheter ; Procedure Minutes: 0 ; Comments: 07/14/2022 17:37 EDT - Roopa Abebe LPN stent 11/01/04 ; Last Reviewed Dt/Tm: 01/07/2024 11:14:57 EDT Family History Family History (As Of: 01/07/2024 11:39:45 EDT) Father: Relation: Father ; Gender: Male ; Nomenclature: Hypertension ; Value: Positive Mother: Relation: Mother ; Gender: Female ; Nomenclature: Hyperlipidemia ; Value: Positive Sister: Relation: Sister ; Gender: Female ; Nomenclature: Leukemia ; Value: Positive Medicare/Medicaid Social History FT Social History (As Of: 01/07/2024 11:39:45 EDT) Alcohol: Never Comments: 01/07/2024 11:15 - Nevin Diaz: denies use (Last Updated: 01/07/2024 11:15:14 EDT by Nevin Diaz) Tobacco: Denies Tobacco Use Never (less than 100 in lifetime) Tobacco Use:. Comments: 01/07/2024 11:15 - Nevin Diaz: denies use. 12/31/2022 14:15 - Uriah Golden: denies (Last Updated: 01/07/2024 11:15:31 EDT by Nevin Diaz) Substance Abuse: Denies Substance Abuse Never Comments: 01/07/2024 11:15 - Nevin Diaz: denies use. (Last Updated: 01/07/2024 11:15:42 EDT by Nevin Diaz) Health Risk Assessment FT HRA little interest or pleasure? : No HRA down, depressed, or hopeless? : No Hazards in your house? : No Fall Risk Past Year : No Worried About Falling : Yes Use a Cane or Walker? : No Someone Helps You in the Morning : No Fallen or felt dizzy standing up? : No Assistance with personal care? : No Trouble taking meds correctly? : No HRA Pain Present : No Able to walk without help? : Yes Ability to shop w/out help : Yes Prepare your own meals? : Yes Housework without help? : Yes Handle money without help : Yes Track own medications without help? : Yes Overall mo (more content not included)... 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 Chronic kidney disease (CKD), stage III (moderate) Hypercholesterolemia Hypertension Anxiety CAROLYN (obstructive sleep apnea) Obesity due to excess calories Your Care Team Attending Physician - Pk Monge MD Primary Care Physician - Pk Monge MD This Is Your Medications List alprazolam (alprazolam 0.5 mg Tab) aspirin atorvastatin (atorvastatin 20 mg Tab) chondroitin-glucosamine (Osteo Bi-Flex oral tablet) dapagliflozin (Farxiga 10 mg oral tablet) docusate (Colace) ergocalciferol (Vitamin D) finasteride (finasteride 5 mg Tab) glipiZIDE (glipiZIDE 5 mg Tab) metformin (metformin 500 mg ER Tab) metoprolol (metoprolol 100 mg ER Tab) omega-3 polyunsaturated fatty acids (Fish Oil) oxybutynin (oxybutynin 10 mg ER Tab) pantoprazole (Pantoprazole [address] Tab) sacubitril-valsartan (Entresto 49 mg-51 mg oral tablet) spironolactone (spironolactone 25 mg Tab) tamsulosin (tamsulosin 0.4 mg Cap) trazodone (traZODONE 50 mg Tab) Procedures Performed Transurethral water vapor ablation of prostate (01/17/2020), Cystoscopy (10/27/2019), Cystoscope (09/06/2019), CABG x 4 - Coronary artery bypass grafts x 4, Cardiac catheter, History of hernia repair, Insertion of catheter into heart chamber, Trigger finger. Discharge Vitals Heart Rate (Peripheral) 60 Respiratory Rate 16 Blood Pressure 136/74 Height 185 cm Height 73 in Weight 109.8 kg Weight 241.56 lb BMI 32.08 What to do next Scheduled Follow-Up Appointments Thursday 8:20 AM EST With: Where: [address] [id number]- Thursday 10:15 AM EST With: Saleem GUEVARA, Pk Cesar Where: [address] [id number]- Thursday 8:15 AM EDT With: Danny LEVY MD Where: [facility] [address] [place], [place] [id number]- Thursday 1:00 PM EDT With: Where: [address] [id number]- You Need to Complete the Following CBC w/ Auto Diff, Blood, Routine collect, 01/07/24, Order for future visit, Lab Collect, Benign hypertension with chronic kidney disease, Print Label By Order Location HgbA1c, Blood, Routine collect, 01/07/24, Order for future visit, Lab Collect, Type 2 diabetes mellitus with hypercholesterolemia, Print Label By Order Location Lipid Panel, Blood, Routine collect, 01/07/24, Order for future visit, Lab Collect, Hypercholesterolemia, Print Label By Order Location Urine Microalbumin/Creatinine Ratio, Urine, Routine collect, 01/07/24, Order for future visit, Nurse collect, Benign hypertension with chronic kidney disease, Print Label By Order Location Medications What How Much When Instructions Unchanged alprazolam (alprazolam 0.5 mg Tab) 1 Tablets By Mouth As needed for for anxiety prn Unchanged aspirin 81 Milligram By Mouth Every day Unchanged atorvastatin (atorvastatin 20 mg Tab) See instructions TAKE 1 TABLET DAILY Unchanged chondroitin-glucosamine (Osteo Bi-Flex oral tablet) 1 tablet Every day Unchanged dapagliflozin (Farxiga 10 mg oral tablet) 1 Tablets By Mouth Every day Unchanged docusate (Colace) 100 Milligram By Mouth 2 times a day Unchanged ergocalciferol (Vitamin D) 5000 By Mouth Every day Unchanged finasteride (finasteride 5 mg Tab) 1 Tablets By Mouth Every day Unchanged glipiZIDE (glipiZIDE 5 mg Tab) 5 Milligram By Mouth Every day Unchanged metformin (metformin 500 mg ER Tab) 1 Tablets By Mouth 2 times a day Unchanged metoprolol (metoprolol 100 mg ER Tab) 1 Tablets By Mouth Every day Unchanged omega-3 polyunsaturated fatty acids (Fish Oil) By Mouth Every day Unchanged oxybutynin (oxybutynin 10 mg ER Tab) 1 Tablets By Mouth 2 times a day Unchanged pantoprazole (Pantoprazole [address] Tab) 1 Tablets By Mouth Every day Unchanged sacubitril-valsartan (Entresto 49 mg-51 mg oral tablet) 1 Tablets By Mouth 2 times a day Unchanged spironolactone (spironolactone 25 mg Tab) See instructions Take 1/ 2 orally daily Unchanged tamsulosin (tamsulosin 0.4 mg Cap) 1 Capsules By Mouth 2 times a day Unchanged trazodone (traZODONE 50 mg Tab) 1 Tablets By Mouth Once a day (at bedtime) Allergies Percocet (Mild) gabapentin (Unknown) Problems Ongoing - Any problem that you are currently receiving treatment for. Anxiety Benign hypertension with chronic kidney diseas (more content not included)... Normal [facility] Office Visiton 11-18-2023 Follow-up visit [id number] Renate Almanza Lyly 1940 M Date Provider Department Center 11/18/2023 YRIS BERNSTEIN CARD [facility] No family history on file Level of Service:78236 NE POSTOP FOLLOW UP VISIT RELATED TO ORIGINAL PX Reason for Visit and Comments: Wound Check [[id number]] Normal [facility] ANESon 11-09-2023 ANES ----- ----- Attestation signed by Kevin Galeas MD at 11/09/2023 12:07 PM By using the attestations below, the signing clinician agrees that I have read and verify that the documentation has been personally reviewed by me and ensure that the documentation accurately reflects the encounter. GC: I personally saw this patient on the day of the encounter, performed the isaacs portion(s) of the service and participated in the management and confirm the resident's documentation. Please note there may be an additional personal documentation from me. ----- Patient: Luis Aflredo Almanza Procedure Information Date/Time: 11/09/23 1100 Procedure: Biventricular ICD upgrade - needs done by end october Location: [facility] [facility] / [facility] (Cath) Providers: Kevin Galeas MD Clinical information reviewed: Allergies Meds Physical Exam Airway Mallampati: III Neck ROM: full Cardiovascular Rhythm: regular Dental Pulmonary - normal exam Abdominal - normal exam Abdomen: soft Anesthesia Plan ASA 3 other (Conscious sedation) intravenous induction Anesthetic plan and risks discussed with patient. Use of blood products discussed with patient who consented to blood products. Plan discussed with attending and fellow. Additional Equipment Requests Normal [facility] HPon 11-09-2023 HP ----- ----- Attestation signed by Kevin Galeas MD at 11/11/2023 8:50 AM By using the attestations below, the signing clinician agrees that I have read and verify that the documentation has been personally reviewed by me and ensure that the documentation accurately reflects the encounter. GC: I personally saw this patient on the day of the encounter, performed the isaacs portion(s) of the service and participated in the management and confirm the resident's documentation. Please note there may be an additional personal documentation from me. ----- H&P reviewed. The patient was examined and there are no changes to the H&P. [facility] Saba 11-09-2023 ANGNOTAlok RN educated pt on d/ c instructions. RN encouraged pt to voice any questions or concerns. Pt verbalizes no questions or concerns at this time. Pt was wheeled off of unit with all of belongings. [facility] ANGNOTAlok CHG wipes and betadi ne nasal swabs completed. [facility] Orders Onlyon 11-09-2023 Orders Only [id number] Jonas Almanzachip [facility] 1940 Date Provider Department [place] 11/09/2023 KEVAN ROTH [facility] No family history on file [facility] Abstracton 11-05-2023 Abstract [id number] Jonas Almanzachip [facility] 1940 Date Provider Department Center 11/05/2023 Kim-KEVIN GALEAS [facility] [place] No family history on file [facility] Orders Onlyon 11-05-2023 Orders Only [id number] Renate Almanza 1940 M Date Provider Department Center 11/05/2023 KEVAN ROTH [facility] No family history on file Normal [facility] HPon 11-03-2023 [facility] Electrophysiology Consult Note [place] [facility] - [facility] Reason for visit: CMP HPI: Luis Alfredo Almanza is a 82 y.o. year old with past medical history of heart failure, CAD s/p bypass surgery 2013, aortic valve stenosis, hyperlipidemia who has been previously seen by Dr. JUAREZ. He has a prior histry as documented below 1. 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 He underwent CABG 11/10/2013, with OWENS to LAD and left radial artery to the OM. 2. Ischemic cardiomyopathy with mildly to moderately reduced left ventricular systolic (EF 41%) by echo 02/2014. 3. Mild mitral and moderate tricuspid regurgitation by echo 02/2014. 4. Hypertension. 5. Dyslipidemia. 6. CKD cr ~ 1.4 for several years Previous cath has revealed mild to moderate elevation of filling pressures, patent bypasses to the LAD and OM and moderate stenosis in the RCA. Due to frequent PVCs during the cardiac catheterization procedure, Dr JUAREZ I checked a Holter monitor and this [...] pain. No palpitations. No dizziness or lightheadedness. PMH: Past Medical History: Diagnosis Date CHF (congestive heart failure) (CMS/HCC) Coronary artery disease Diabetes mellitus (CMS/HCC) Hyperlipidemia Hypertension PVC (premature ventricular contraction) Sleep apnea PSH: Past Surgical History: Procedure Laterality Date ABDOMINAL SURGERY CARDIAC CATHETERIZATION CORONARY ARTERY BYPASS GRAFT SH: Social Determinants of Health Tobacco Use: Low Risk (11/03/2023) Patient History Smoking Tobacco Use: Never Smokeless Tobacco Use: Never Passive Exposure: Not on file Alcohol Use: Not on file Financial Resource Strain: Not on file Food Insecurity: Not on file Transportation Needs: Not on file Physical Activity: Not on file Stress: Not on file Social Connections: Not on file Intimate Partner Violence: Unknown (05/14/2023) [place] [facility] Fear of Current or Ex-Partner: Not on file Emotionally Abused: Not on file Physically Abused: Not on file Sexually Abused: Not on file Physically or Sexually Abused: Not on file Depression: Not on file Housing Stability: Not on file Utilities: Not on file Allergies: Allergies Allergen Reactions Oxycodone-Acetaminophen Other Hallucinations Weight: 116kg Visit Vitals BP 123/73 (BP Location: Right arm, Patient Position: Sitting) Pulse 53 Ht 1.829 m (6') Wt 116 kg (255 lb) SpO2 95% BMI 34.58 kg/m??? Smoking Status Never BSA 2.43 m??? Meds: Current Outpatient Medications on File Prior to Visit Medication Sig Dispense Refill allopurinol (Zyloprim) 300 mg tablet Take 300 mg by mouth in the morning. ALPRAZolam (Xanax) 0.5 mg tablet take 1 tablet by mouth once daily if needed amitriptyline (Elavil) 10 mg tablet aspirin 81 mg chewable tablet in the morning. atorvastatin (Lipitor) 20 mg tablet Take 20 mg by mouth at bedtime. cholecalciferol (Vitamin D-3) 25 MCG (1000 UT) capsule Take 1,000 Units by mouth in the morning. dapagliflozin propanediol (Farxiga) 10 mg Take 1 tablet (10 mg) by mouth in the morning. 90 tablet 3 dapagliflozin propanediol (Farxiga) 10 mg Take 1 tablet (10 mg) by mouth once daily as directed. 30 tablet 1 fenofibrate micronized (Lofibra) 200 mg capsule Take 200 mg by mouth with breakfast. finasteride (Proscar) 5 mg tablet Take 5 mg by mouth in the morning. glipiZIDE (Glucotrol) 5 mg tablet Take 5 mg by mouth in the morning. metFORMIN XR (Glucophage-XR) 500 mg 24 hr tablet Take 500 mg by mouth in the morning and at bedtime. metoprolol succinate XL (Toprol-XL) 100 mg 24 hr tablet Take 100 mg by mouth in the morning. oxybutynin XL (Ditropan-XL) 10 mg 24 hr tablet Take 10 mg by mouth in the morning. pantoprazole (ProtoNix) 40 mg EC tablet Take 40 mg by mouth before breakfast. sacubitril-valsartan (Entresto) 49-51 mg tablet Take 1 tablet by mouth in the morning and at bedtime. 180 tablet 3 spironolactone (Aldactone) 25 mg tablet Take 0.5 tablets (12.5 mg) by mouth in the morning. 45 tablet 3 tamsulosin (Flomax) 0.4 mg 24 hr capsule Take 0.4 mg by mouth in the morning and at bedtime. traZODone (Desyrel) 50 mg tablet Take 50 mg by mouth at bedtime. No current facility-administered medications on file prior to visit. ROS: Review of Systems HENT: Positive for hearing loss. Musculoskeletal: Positive for arthritis, back pain and joint pain. All other systems reviewed and are negative. Physical Exam: Constitutional General Appearance: well-nourished, well-developed, (more content not included)... Normal [facility] Office Visiton 11-03-2023 Follow-up visit [id number] Renate Almanza 1940 [facility] Provider Department Center 11/03/2023 KEVIN DELUCA [facility] Raghu [facility] No family history on file Level of Service:24917 NE OFFICE/OUTPATIENT NEW MODERATE MDM 45 MINUTES Normal [facility] Orders Onlyon 11-03-2023 Orders Only [id number] Renate Almanza 1940 [facility] Provider Department Center 11/03/2023 MARY NORTON [facility] Raghu [facility] No family history on file Normal [facility] Office Visiton 10-28-2023 Follow-up visit [id number] Renate Almanza Lyly 1940 [facility] Provider Department [place] 10/28/2023 TRENT PATEL [facility] Raghu [facility] No family history on file Level of Service:12870 NE OFFICE/OUTPATIENT ESTABLISHED MOD MDM 30 MIN Normal [facility] Ambulatory Visit Summaryon 0 09-14-2023 Ambulatory Visit Summary LUIS ALFREDO ALMANZA :1940 Visit Date:09/14/2023 Ambulatory Visit Instructions Your Diagnosis BPH with urinary obstruction Urge incontinence Kidney stones Renal cyst Your Care Team Attending Physician - MILDRED GUEVARA, Danny Keen Primary Care Physician - Pk Monge MD This Is Your Medications List finasteride (finasteride [...] Appointments 2023 11:00 AM EDT With: Where: [facility] Invalid Interpretation Code [address] [place] [address]- \.b r\ Thursday 8:15 AM EDT \.br\ With: MILDRED GUEVARA, Danny Keen\.br\ Where: [facility] Patient Educationon 09-14-19 Patient Education Urology [...] Follow these instructions at home: ? Take qqbs-biu-fmngjuv and prescription medicines only as told by [...] the medicine (more content not included)... Normal [facility] Urology Office/Clinic Noteon 09-14-2023 Urology Office/Clinic [...] and history for this patient from Dr. Levy. I have reviewed and verified the staff [...] refills Finasteride. Refills for Flomax sent to [facility] today. 2. Urge incontinence (N39.41: Urge incontinence) [...] With When Contact Information MILDRED GUEVARA, Danny R, URL [facility] [address], [place] [address]- [phone] Additional Instructions: 1 year (no labs) Patient Education Benign Prostatic Hyperplasia I, Eugenia Mcneill, personally scribed for Dr. Levy on 09/14/2023 09:40:42. . Documentation recorded by the geraldibEugenia dickinson, accurately reflects the services(s) I performed and decisions made by me. Authenticated by Dr. Levy on 09/14/2023 09:44:47. Problem List/Past Medical History [...] mg Tab, 5 (more content not included)... [facility] Comment on above: Result Comment: Elec tronically Signed By: Danny LEVY MD\.br\Date and Time Signed: 09/14/23 09:44 EDT\.br\Electronically Co-Signed By: Eugenia Mcneill\.br\Date and Time Co-Signed: 09/14/23 09:41 EDT Insurance Correspondenceon 0 09-10-2023 Insurance Correspondence [id number]#1.00TIFF [facility] Coding Summary.on 09-08-2023 Coding Summary. LQZCUmud26JIq7eVj+PG hlYWQ +OQ1CAPDfL13lnFSnyK7nQ3OX TElOSywgQVBQTElOSyIgbmFtZ H2zgYHtBLHh IC8+MY8yXSKoLyhgePAeg0Z7p GJ6S65jxm5yJZzkvBP4FKByKx Zftpjby0ufiLh0GXdxYymrGtP t FYGmlN02SNE3mA59Mf04iKHbb QNpp5rveAx1UqRjIVYmGMM3cH oqAFmey2SzPRKvL25uuXBru9H 6 DMHfcUrcjZMhYeSqzEU6xH3lI Kdjcfutp8imstuzBxh5az13nU Qsb1V8tBV7J7VwlfR6NYAyiKI g QugrxSPPbA2fzaiwt6tcbkinJ hSbOBKrUSr0GZl7FIIixLlwLu AcEI66WPX3GEXcxmTyA7HsBOB s xLxhSiL7j1K8Jl5KC5FDSzmjJ 1VNTUFSWTwvdGQ+LP57fs21Q1 IjBniwRto6SMHwGEA3sKG8dO3 n KVMqAPomy7Z1hHC7O6UaunWyc i4ey5pmRTPyMJhfE42nqZKgk8 Z1MISinVR8KVPqlDsuNtYaeT0 3 Oyc+HUIxeCgbi0StVatyd6uku 8anhHt1PzqrJLDpnkMkkHaiKF Z8o5FuZf6yXVIocPY9tAT1nP3 i ArZjZcR7ZDxaO438IyWnqWFkL ihsB95rX6QijPB+PAKiSmz4VF KrpWpzMW5vV0IcTBYqzyoreKN m hMeiYW3rIWHriahrWOStuR3nY BBcC3g9JjJrFzB7YGttF8QxEO MlkyafBm56uY6wHqGtPmY9EFk u S0UphbQ9NZUzfZVjKKebVYP0U 52uq0G3CBFsTIVnJCM9sPJ6iL 1hbGlnbjogbGVmdDsgdmVydGl j PHdcQMhuC907MDQynXdhRxWeV GluZyBEYXRlOiAgMDYvMTgvMj AyNDwvdGQ+DPIzQHE5jJwtJPP n vNPxBJulPt6zcBlquVhaMU6xE IElxqheONWgkQ3yPSOgfINktY cfUJ3yIPFlqzbxl838YsCiAIY 0 HOTayZJlY7KbiO8sTuVsLOXvK LUvR9KzmOYgTLgbC058EWwnTe M6DRVlviXpX9IqAGXfbHhdVgL 0 o6U0Ew7Zo3FsanjkG5WnhVHgO wLvSbjgFWf1I0HrQtcmjII+PC 53LCSjKH40ZYm2ABX3qMllVFp i EOCuE4TjpD3jYtLjLBMsIUVlB yc+PHRhYmxlIHdpZHRoPScxMD TfFeCjhPhlGN9nFx5vHWHnNFO v iNddhXQiTqNpf9frIFInDAweO L0wdUvrQ9VodCZ1AHXqg1y9Mc 00P17eU0XrzKP+RJYryCG2rQO 0 qT9iXeWsMiA1YXrpR083MuLso RQkYyhpx3wyd9vzyPc9NqU1FD VawdXzoRlpXWY6r0PlEs71A70 s IHdpZHRoPSIxNSUiIHZhbGlnb v2uiX3kHk6+USGuaTX4nLY7sD 1hXtNkEyS1AKznG027QoXggEG v Kqugy6iur4wviBg7EuTzSVRkj uFkiMvpPRJ8d0QoQg84X5JrdW ovz4BoKjr1an27dSAym7R9zKI 9 C5EeVDWowmamwCLmrCekRJ0aG PXhapjrTVVjoQ7mITTlL2b8Lp ItYaH6QHtnY5DtfgL8MSDcnOL g REXklIKBhX6orwjtx1zrwpjbJ kEeEEDgJLv9LTq8FSNflQuoUh CyYKH9YjS7TGK3dQPbiM5qtAr n yildwQ0gZlo+VVM5fTJchZVUO U9kYkvznSG+UOPhSNA8uXqeMX crFZDnrB1zTYAgW8r7LsBuKqM 1 GXfjY9BckcN6NETvwQQzTARrk QDUbZ5vtkfys2rhsuctEqYkWY StDQk8NFt9IQYxnDxrHyNbMXT 0 BfJ4RPQ9wWMgmU5owTqdhrrwt G9wOyc+IzkxwXjfMBE6EJk5K8 UtItf0LYAanJboZB1izAPbLWx u Qm8yoRflpUgcJC6tYMRtnqggc 185DlFfv7toHGOsyXIpQEghKI D8Z44gj4W3JKUfJPChKGH3bXN 4 eE2tvGjefnnbjPPbeUlhavPvl MgiKIdaNYacI206WAMylYgtEf CwVWu0L1JsDec7YVOqwDltMW7 n hJBsFEwrFd2biAoorVwoXD9uY QUaoklzt176BeYxx0yyXTUifL PiATjkLBM6W36an2L0OAOrNVF w FOD3cKM3aS5frDpslgipnZExw NtkssEduZicGFnyFOuxC945ZM MlzYtoDyDjuSt4Z5SmRxh8NHV z nPhnQQ3umGXjPLwkPr0pdGuvt NwfYB4ySUBktmuon358CxFzx8 doJNZysXElQDsxUTU8S44as4V 6 AKZxWTGrTIY6uMX4sM9hsNwwt jogbGVmdDsgdmVydGljYWwtYW uyG845PWQrkWljDwOenSmwexH g GJuxNIq9B4MnXttrgUS+PC90Y IXbFZ87nAIqxOAxm2mfpQy8Yz LiBBRqXLJ2xLtgHEqrx7IgELD t F13xaTFvq5E3PSObgAxxzIMwW dRnbDZ5tT4rYGlhmmxmz0ddxy mhIoddt2mnwv51qB62D06xZCo p IBRzUCRjZMWgJZQhiJqyuq7kl G9wIi8+ZMTufBA9aLE7cW7pEW ZgNdS7GUtnZ559PsOgcICmDmq j h8pta9hrgBe9HtB7DEVaixChg JbuWYT6g3JrFk20C83sGSycGI FyIFClVIOuAJXcqEyaqo6mbA7 w Ii8+HVWofCI2qHZ9sF4sRfPgU nE0LGvoA390MlKhrCLuTgtcY6 0gP3XnrHA+NUGfRtu6VTUlqUo s JQ9yrCYqTTmzWe3dLNN4HuHiV vHqUGfaI5ArHXIatfrtuirhiE Y1XHUkHNDuaQ91Jj9ckGelMTX w rCYBoO0powmmk6sbelsyShJnN RKcKIa8XBv5CISksNscXxFwVL U3IpY6HSU1vXFgqJ7suRziurp g hO7hZ6InHKHryqpxCx86bU3mS mWyEbT6AWnlJyu+TUVZRVIsIE fDCx0RHBhhYMabzLK+PHRkIHN 0 aBdnSFluQOOxtH6pYGWxA0z6N hVtFyY4CQcgX2CmWRYhuxvrAo 45bA1sEaRjVqP8PAhjJ8WagiU 6 XDWmrJWyJCuiSJA1F12az8S0K XOtZZXjLDJ1rSY7lM6gqDorqk ogbGVmdDsgdmVydGljYWwtYWx p Z817MORhrKmgDeFsNbIbYvI3I QG7Z9RiJqe6QJQrsYjzYN1xnO AoUCdiAj2apUmuoUkhQR1qGQM p stjwDVPncL2mCLThlZElgFarQ P5hJFSgmqlju221QwVqMXP3RR UxcYAuR4GorL1jUdIwBEQbTKS w T7CziALjVIyiN485CVqxVaN3I AAhggSwL1WoJURswPmhTgM3r8 D0Gq20TPSKWPGcualyjUO+PHR k FNQ8ySaaVEyfXTDbbP1sLFOfP 7c8HbNnXcV0EXszV7NuWTZnwn ggNc95dQ8nKrVhQuK0URclI8X v pwQ4TNQbdMFaTHeuZVS7U30qk 0X7JRIbVZMtOLA7bBC6aC0unH lnbjogbGVmdDsgdmVydGljYWw t JEkvR728BTGzpMntUy5dxMO8W 7PpBee8SKXqpKtfNB9uxRCoAO jeOc9xvJfhkJatJF2cLESgjxb w GBYqjE7eJAKutZIxeRhqYF7nK JSpkmfeq949TiYkRMT8ZCVdfG MoW0NriL7dBaMlUJKzBBHbK3X l qLHtSEhcI435JGuhKoT8TVHsl zLwX7WrDGTlgEwwAgN7u2R5Ra 6ZpVLvFLKgTN69AX00TU09Z2X y PjwvdGFibGU+PHRhYmxlIHdpZ IFbDOxqLLQxLrZhiYndZE7kEr 5oGDNlKMWxuVqtcCCjFkXil3n s BCAtMAsaZO1qwGryD9WftDV8Y FUeb4h4Dw68P52aD0RpaPO+PG RalAV5yFU5jD8pSlDhSlO4PKb p A721DbDbtDVdIdaxg1nqy2jqs Hb1QvWfZVJjtbJoyNiaHML4o5 LoAv02A29mKFzjFXPfMNNqUHE i EXPkxTesje5tlJ0oWe4+PGNvb IT2aZK5oG9fEtZuRfE8WXfyJ3 83KwQseMKkYnhfQ82vV5WggRG + UCDzXrq8HVRngScgHM2dyEWvU JzkTn2dWCM3RpHqAvYeLJzfY8 KjXJDxahtvhojleYV3IUJwZNM w iJ27Xo6xdDdvRn3bDHSwMSI7X BEwiRWgC3WijL6jZrOaBORyGW UxM0RdoETpJPkcS181PVxyXcL 7 AMEpqcUgS9QgQUGypLhjRlB7a 1U4Zk1GrGdkzGJnDY3vHqUmKE m9S3UnNdj8ERHjtEkiRS1ucQL k PDrqCo5fuQbugUqaQQ8jKUKjq oifl730YeSuv7wfWFSurWDkYT kjNBT2V43ud0A1ZYNwVYInSHD 7 hQZ4hH5qcWirrutuuOFhlJxmk oDcvAwlDLezKZraN968GYAeeP kxFaNJRqh8O2HcWfx1CYPxqIm s SG6djGBfFObfNc2qlSibyShyA O8qKOAopbkdd044XzZmv6ocAL XesXArWLfxXGG4F27iq3Y8PUU w FKArVWB4oJA5pX5fhFyutamnk GVmdDsgdmVydGljYWwtYWxpZ2 52XGYroIxjRb9FGum8P6IwIuz 0 YJQgbUemKO0roXSsMUwtJp2mu CeppMirLZ0rUZHeoghma844Ie Dbq9qiOWYdaYIaPCufXYT1P39 s y4H7VTGdPLJfEQV6tWJ8sI1qa GlnbjogbGVmdDsgdmVydGljYW rfGYmvN361VKUeaIjaYeXunLE y OjwvdGQ+ZR75ki08W5OpFkqcB hy6DBHlMID5rOZ9qU9nJNAlOH mwx2M2oXJ2D4IsstUqnf4bs2f s NJFkYMvbW97cv (more content not included)... Normal [facility] Patient Eval Forms Officeon 09-02-2023 Patient Eval Forms Office [id number]#[id number] F Normal [facility] BMPOrdered By: SYSTEM SYSTEM on 09-01-2023 Anion gap [Moles/Vol] 9 mmol/L Normal 6-16 Rem isol Chem Comment on above: Performed By: #### 2 [id number] #### [facility] [address] [place] [address] Calcium [Mass/Vol] 11.0 mg/dL Normal 8.9-11.1 Remiso l Chem Comment on above: Performed By: #### 2 [id number] #### [facility] [address] [place] [address] Chloride [Moles/Vol] 104 mmol/L Normal 101-111 Alexis britney Chem Comment on above: Performed By: #### 2 [id number] #### [facility] [address] [place] [address] CO2 [Moles/Vol] 28 mmol/L Normal 21-31 Remisol C hem Comment on above: Performed By: #### 2 [id number] #### [facility] [address] [place] [address] Creatinine [Mass/Vol] 1.1 mg/dL Normal 0.5-1.3 Rem isol Chem Comment on above: Performed By: #### 2 [id number] #### [facility] [address] [place] [address] Glucose [Mass/Vol] 180 mg/dL Normal 55-199 Remiso l Chem Comment on above: Performed By: #### 2 [id number] #### [facility] [address] [place] [address] Potassium [Moles/Vol] 3.9 mmol/L Normal 3.5-5.3 Rem isol Chem Comment on above: Performed By: #### 2 [id number] #### [facility] [address] [place] [address] Sodium [Moles/Vol] 137 mmol/L Normal 135-145 Remiso l Chem Comment on above: Performed By: #### 2 [id number] #### [facility] [address] [place] [address] Urea nitrogen [Mass/Vol] 16 mg/dL Normal 5-21 Remisol Chem Comment on above: Performed By: #### 2 [id number] #### [facility] [address] [place] [address] BMPon 09-01-2023 Urea nitrogen/Creatinine [Mass ratio] 14 No Units Normal 10-20 [facility] Comment on above: Performed By: #### 2 [id number] #### [facility] [address] [place] [address] CHEMISTRYOrdered By: Robert garcia on 09-01-2023 HbA1c (Bld) [Mass fraction] 6.4 % High <=5.9% [facility] Chem[employer] CHEMISTRYOrdered By: SYSTEM SYSTEM on 09-01-2023 Urea nitrogen/Creatinine [Mass ratio] 14 mg/mg Normal 10 - 20 Remisol Chem Consenton 09-01-2023 Consent [id number]#1.00TIFF Normal [facility] Consent for Treatmenton 08-21 Consent for Treatment [id number]#1.00TIFF Normal [facility] Family Medicine Office/Clini c Noteon 09-01-2023 [...] at home Yearly BMP: 08/11/22_ questions/concerns: dr Singh office was to fax us lab orders [...] virus vaccine, inactivated 12/31/2022 Given SARS-CoV-2 (COVID-19) mRNAMUL.ORD![id number] 01/04/2022 Recorded (more content not included)... Normal [facility] Comment on above: Result Comment: Elec tronically Signed By: Saleem GUEVARA, Pk Cesar\.br\Date and Time Signed: 09/01/23 10:46 EDT Patient Educationon 09-01-19 Patient Education Nutrition BMI [...] numbers. This can be done either in [place] or metric measurements. Note that charts and online BMI calculators are available to help you find your BMI quickly and easily without having to do these calculations yourself. To calculate your BMI in [place] measurements: 1. Measure your weight in [...] for Disease Control and Prevention: www.cdc.gov ? [place] Heart Association: www.heart.org ? National Heart, Lung, and Blood Boring: www.nhlbi.nih.gov Summary ? Body mass index (BMI) is a number that is calculated from a person's weight and height. ? BMI may help estimate how much of a person's weight is composed of fat. BMI can help identify those who may be at higher risk for certain medical problems. ? BMI can be measured using [place] measurements or metric measurements. ? BMI charts are used to identify whether you are underweight, normal weight, overweight, or obese. This information is not intended to replace advice given to you by your health care provider. Make sure you discuss any questions you have with your health care provider. Document Revised: 11/30/2019 Document Reviewed: 10/07/2019 [employer] Patient Education ? 2022 Kash. [facility] Patient Eval Forms Officeon 09-01-2023 Patient Eval Forms Office [id number]#1.00TIFF [facility] eGFROrdered By: ROBIN Desouza on 09-01-2023 eGFR 67 mL/min/1.73 m2 Normal >=59 Remisol Chem Comment on above: Order Comment: Order added by Discern Expert. Performed By: #### 1 [id number] #### [facility] [address] [place] [address] Physician Orderon 08-20-2023 Physician Order [id number]#1.00TIFF [facility] Insurance Correspondenceon 0 08-19-2023 Insurance Correspondence [id number]#1.00TIFF [facility] Consultation Noteon 08-06-19 Consultation Note [id number]#1.00TIFF [facility] Ambulatory Visit Summaryon 0 07-21-2023 Ambulatory [...] EDT With: Saleem GUEVARA, Pk Cesar Where: [facility] Invalid Interpretation Code [address] [place] [address] [place] [address]- \.b r\ Thursday 2:00 PM EDT \.br\ With:\.br\ Where: [facility] Office/Clini c Noteon 07-21-2023 Family Medicine Office/Clinic [...] day(s), # 90 tab(s), Refills(s) 3, Pharmacy: [facility], 178, cm, 12/31/22 15:01:00 EDT, [...] virus vaccine, inactivated 12/31/2022 Given SARS-CoV-2 (COVID-19) mRNAMUL.ORD![id number] 01/04/2022 Recorded influenza virus vaccine, inactivated 12/23/2021 Recorded influenza virus vaccine, inactivated 01/05/2021 Recorded SARS-CoV-2 (COVID-19) mRNA BNT-162b2 vax 01/05/2021 Recorded influenza virus vaccine, inactivated 05/19/2020 Recorded SARS-CoV-2 (COVID-19) mRNA BNT-162b2 vax 05/19/2020 Recorded 2022-08-06: [id number] SARS-CoV-2 (COVID-19) mRNA-1273 vaccine 04/28/2020 Recorded influenza virus vaccine, inactivated 12/2019 Recorded (more content not included)... Normal [facility] Comment on above: Result Comment: Elec [...] these instructions at home: Medicines ? Take gkgz-tza-crazuvx and prescription medicines only as told by [...] ask your (more content not included)... Normal [facility] Echocardiographyon 4 Echocardiography [id number]#1.00TIFF Normal [facility] CBC AUTO DIFFon 12-24-2021 BASO # 0.1 103/ul Normal 0.0-0.1 [facility] Comment on above: Performed By: #### C BC #### [facility] [address] [place] [address] Dr. Penny Allen Basophils/100 WBC (Bld) 1.1 % Normal 0.2-2.0 [facility] Comment on above: Performed By: #### C BC #### [facility] [address] [address] [address] Penny Allen EO # 0.1 103/ul Normal 0.0-0.7 [facility] Comment on above: Performed By: #### C BC #### [facility] [address] [place] [address] Dr. Penny Allen Eosinophils/100 WBC (Bld) 2.1 % Normal 0.9-7.0 [facility] Comment on above: Performed By: #### C BC #### [facility] [address] [place] [address] Dr. Penny Allen Erythrocyte distribution width (RBC) [Ratio] 13.9 % Normal 11.0-15.0 [facility] Comment on above: Performed By: #### C BC #### [facility] [address] [place] [address] Dr. Penny Allen Hematocrit (Bld) [Volume fraction] 44.5 % Normal 42.0-54.0 [facility] Comment on above: Performed By: #### C BC #### [facility] [address] [place] [address] Dr. Penny Allen Hemoglobin (Bld) [Mass/Vol] 14.2 g/dL Normal 14.0-18.0 [facility] Comment on above: Performed By: #### C BC #### [facility] [address] [place] [address] Dr. Penny Allen IG # 0.04 10e3/ul Critically high 0.00-0.03 [facility] Comment on above: Performed By: #### C BC #### [facility] [address] [place] [address] Dr. Penny Allen IG % 0.6 % Critically high 0.0-0.5 [facility] Comment on above: Performed By: #### C BC #### [facility] [address] [place] [address] Dr. Penny Allen LYMPH # 1.4 103/ul Normal 1.2-3.8 [facility] Comment on above: Performed By: #### C BC #### [facility] [address] [place] [address] Dr. Penny Allen Lymphocytes/100 WBC (Bld) 20.8 % Normal 20.5-60.0 [facility] Comment on above: Performed By: #### C BC #### [facility] [address] [place] [address] Dr. Penny Allen MANUAL DIFF REQ NO Normal [facility] Comment on above: Performed By: #### C BC #### [facility] [address] [place] [address] Dr. Penny Allen MCH (RBC) [Entitic mass] 28.4 pg Normal 25.9-34.0 [facility] Comment on above: Performed By: #### C BC #### [facility] [address] [address] [address] Penny Allen MCHC (RBC) [Mass/Vol] 31.9 g/dL Normal 29.9-35.2 [facility] [facility] Comment on [facility]: Performed By: #### C BC #### [facility] [address] [address] [address] Penny Allen MCV (RBC) [Entitic vol] 89.0 fL Normal 80.0-94.0 [facility] Comment on above: Performed By: #### C BC #### [facility] [address] [place] [address] Dr. Penny Allen MONO # 0.8 103/ul Normal 0.3-0.8 [facility] Comment on above: Performed By: #### C BC #### [facility] [address] [place] [address] Dr. Penny Allen Monocytes/100 WBC (Bld) 12.2 % Critically high 1.7-12.0 [facility] Comment on above: Performed By: #### C BC #### [facility] [address] [address] [address] Penny Allen NEUT # 4.1 103/ul Normal 1.4-6.5 [facility] Comment on above: Performed By: #### C BC #### [facility] [address] [address] [address] Penny Allen Neutrophils/100 WBC (Bld) 63.2 % Normal 43.0-75.0 [facility] Comment on above: Performed By: #### C BC #### [facility] [address] [address] [address] Penny Allen Platelet mean volume (Bld) [Entitic vol] 11.4 fL Normal 9.5-13.5 [facility] Comment on above: Performed By: #### C BC #### [facility] [address] [address] [address] Penny Allen PLT 193 103/ul Normal 150-450 [facility] Comment on above: Performed By: #### C BC #### [facility] [address] [place] [address] Dr. Penny Allen RBC 5.00 106/ul Normal 4.70-6.10 [facility] Comment on above: Performed By: #### C BC #### [facility] [address] [address] [address] Penny Allen WBC 6.6 103/ul Normal 4.0-11.0 [facility] Comment on above: Performed By: #### C BC #### [facility] [address] [place] [address] Dr. Penny Allen GLYCOHEMOGLOBIN A1Con 2021 ADA RECOMMENDATION SEE BELOW Normal [facility] Comment on above: Result Comment: ADA RECOMMENDED LIMIT 4.0 - 6.0 ADA THERAPEUTIC TARGET < 7.0 ACTION SUGGESTED > 7.0 Performed By: #### A 1C #### [facility] [address] [place] [address] Dr. Penny Allen HbA1c (Bld) [Mass fraction] 6.1 % Normal 4.5-6.2 [facility] Comment on above: Performed By: #### A 1C #### [facility] [address] [place] [address] Dr. Penny Allen LIPID PROFILEon 12-24-2021 CHOL-HDL RATIO NORM SEE BELOW Normal [facility] Comment on above: Result Comment: 3.3 - 4.4 LOW RISK 4.4 - 7.1 AVERAGE RISK 7.1 - 11.0 MODERATE RISK >11.0 HIGH RISK Performed By: #### C MP, URIC, LIPID #### [facility] [address] [place] [address] Dr. Penny Allen Cholesterol [Mass/Vol] 104 mg/dL Normal <=200 [facility] Comment on above: Performed By: #### C MP, URIC, LIPID #### [facility] [address] [place] [address] Dr. Penny Allen Cholesterol in HDL [Mass/Vol] 38 mg/dL Critically low 40-60 [facility] Comment on above: Performed By: #### C MP, URIC, LIPID #### [facility] [address] [address] [address] Penny Allen Cholesterol in LDL [Mass/Vol] 34.8 mg/dL Normal [facility] Comment on above: Performed By: #### C MP, URIC, LIPID #### [facility] [address] [address] [address] Penny Allen Cholesterol.total/Cho lesterol in HDL [Mass ratio] 2.7 {ratio} Normal [facility] Comment on above: Performed By: #### C MP, URIC, LIPID #### [facility] [address] [address] [address] Penny Allen HDL NORMAL > or = 60 mg/dl - LO W CARDIOVASCULAR RISK <40 mg/dl - HIGH CARDIOVASCULAR RISK Normal [facility] Comment on above: Performed By: #### C MP, URIC, LIPID #### [facility] [address] [address] [address] Penny Allen LDL CALC NORMAL SEE BELOW Normal [facility] Comment on above: Result Comment: <100 mg/dl OPTIMAL 100 - 129 mg/dl NEAR OR ABOVE OPTIMAL 130 - 159 mg/dl BORDERLINE HIGH 160 - 189 mg/dl HIGH >190 mg/dl VERY HIGH Performed By: #### C MP, URIC, LIPID #### [facility] [address] [address] [address] Penny Allen Triglyceride [Mass/Vol] 156 mg/dL Critically high <=150 [facility] Comment on above: Performed By: #### C MP, URIC, LIPID #### [facility] [address] [address] [address] Penny Allen VLDL CALC 31.2 mg/dL Normal [facility] Comment on above: Performed By: #### C MP, URIC, LIPID #### [facility] [address] [address] [address] Penny Allen PROF 14(COMP METB)on 022 Albumin [Mass/Vol] 3.6 g/dL Normal 3.4-5.0 [facility] Comment on above: Performed By: #### C MP, URIC, LIPID #### [facility] [address] [address] [address] Penny Allen Albumin/Globulin [Mass ratio] 1.0 {ratio} Normal [facility] Comment on above: Performed By: #### C MP, URIC, LIPID #### [facility] [address] [address] [address] Penny Allen ALP [Catalytic activity/Vol] 43 U/L Critically low 46-116 [facility] Comment on above: Performed By: #### C MP, URIC, LIPID #### [facility] [address] [place] [address] Dr. Penny Allen ALT [Catalytic activity/Vol] 18 U/L Normal 16-63 [facility] Comment on above: Performed By: #### C MP, URIC, LIPID #### [facility] [address] [place] [address] Dr. Penny Allen Anion gap [Moles/Vol] 10.0 mmol/L Normal [facility] Comment on above: Performed By: #### C MP, URIC, LIPID #### [facility] [address] [place] [address] Dr. Penny Allen AST [Catalytic activity/Vol] 16 U/L Normal 15-37 [facility] Comment on above: Performed By: #### C MP, URIC, LIPID #### [facility] [address] [address] [address] Penny Allen Bilirubin [Mass/Vol] 0.5 mg/dL Normal 0.2-1.0 [facility] Comment on above: Performed By: #### C MP, URIC, LIPID #### [facility] [address] [place] [address] Dr. Penny Allen Calcium [Mass/Vol] 9.9 mg/dL Normal 8.5-10.1 [facility] Comment on above: Performed By: #### C MP, URIC, LIPID #### [facility] [address] [place] [address] Dr. Penny Allen Chloride [Moles/Vol] 104 mmol/L Normal 98-107 [facility] Comment on above: Performed By: #### C MP, URIC, LIPID #### [facility] [address] [place] [address] Dr. Penny Allen CO2 [Moles/Vol] 30.7 mmol/L Normal 21.0-32.0 [facility] Comment on above: Performed By: #### C MP, URIC, LIPID #### [facility] [address] [place] [address] Dr. Penny Allen Creatinine [Mass/Vol] 1.66 mg/dL Critically high 0.70-1.30 [facility] Comment on above: Performed By: #### C MP, URIC, LIPID #### [facility] [address] [place] [address] Dr. Penny Allen EGFR-AF [place] 49 mL/min/1.73m2 Critically low >=60 [facility] Comment on above: Performed By: #### C MP, URIC, LIPID #### [facility] [address] [place] [address] Dr. Penny Allen EGFR-NON AF [place] 40 mL/min/1.73m2 Critically low >=60 [facility] Comment on above: Performed By: #### C MP, URIC, LIPID #### [facility] [address] [place] [address] Dr. Penny Allen Globulin (S) [Mass/Vol] 3.5 g/dL Normal [facility] Comment on above: Performed By: #### C MP, URIC, LIPID #### [facility] [address] [place] [address] Dr. Penny Allen Glucose [Mass/Vol] 128 mg/dL Normal [facility] Comment on above: Performed By: #### C MP, URIC, LIPID #### [facility] [address] [place] [address] Dr. Penny Allen Performed By: #### A 1C #### [facility] [address] [place] [address] Dr. Penny Allen Potassium [Moles/Vol] 4.7 mmol/L Normal 3.5-5.1 [facility] Comment on above: Performed By: #### C MP, URIC, LIPID #### [facility] [address] [place] [address] Dr. Penny Allen Protein [Mass/Vol] 7.1 g/dL Normal 6.4-8.2 [facility] Comment on above: Performed By: #### C MP, URIC, LIPID #### [facility] [address] [place] [address] Dr. Penny Allen Sodium [Moles/Vol] 140 mmol/L Normal 136-145 [facility] Comment on above: Performed By: #### C MP, URIC, LIPID #### [facility] [address] [place] [address] Dr. Penny Allen Urea nitrogen [Mass/Vol] 22.0 mg/dL Critically high 7.0-18.0 [facility] Comment on above: Performed By: #### C MP, URIC, LIPID #### [facility] [address] [place] [address] Dr. Penny Allen Urea nitrogen/Creatinine [Mass ratio] 13.3 mg/mg Normal [facility] Comment on above: Performed By: #### C MP, URIC, LIPID #### [facility] [address] [place] [address] Dr. Penny Allen URIC ACID SERUMon 12-24-2021 Urate [Mass/Vol] 3.8 mg/dL Normal 3.5-7.2 [facility] Comment on above: Performed By: #### C MP, URIC, LIPID #### [facility] [address] [place] [address] Dr. Penny Allen VITAMIN D 25 OHon 12-24-2021 VIT D 25-OH 46.8 ng/mL Normal [facility] Comment on above: Performed By: #### V ITAD #### [facility] [address] [place] [address] Dr. ePnny Allen VIT D RANGES SEE BELOW Normal [facility] Comment on above: Result Comment: <20 ng/mL Vit D deficient 20 - <30 ng/mL Vit D insufficient 30 - 100 ng/mL Vit D sufficient >100 ng/mL Potential Toxicity Performed By: #### V ITAD #### [facility] [address] [place] [address] Dr. Penny Allen CBC AUTO DIFFon 08-02-2021 BASO # 0.1 103/ul Normal 0.0-0.1 [facility] Comment on above: Performed By: #### C BC #### [facility] [address] [place] [address] Dr. Penny Allen Basophils/100 WBC (Bld) 1.3 % Normal 0.2-2.0 [facility] Comment on above: Performed By: #### C BC #### [facility] [address] [place] [address] Dr. Penny Allen EO # 0.2 103/ul Normal 0.0-0.7 [facility] Comment on above: Performed By: #### C BC #### [facility] [address] [place] [address] Dr. Penny Allen Eosinophils/100 WBC (Bld) 2.4 % Normal 0.9-7.0 [facility] Comment on above: Performed By: #### C BC #### [facility] [address] [place] [address] Dr. Penny Allen Erythrocyte distribution width (RBC) [Ratio] 14.0 % Normal 11.0-15.0 [facility] Comment on above: Performed By: #### C BC #### [facility] [address] [place] [address] Dr. Penny Allen Hematocrit (Bld) [Volume fraction] 45.2 % Normal 42.0-54.0 [facility] Comment on above: Performed By: #### C BC #### [facility] [address] [place] [address] Dr. Penny Allen Hemoglobin (Bld) [Mass/Vol] 14.7 g/dL Normal 14.0-18.0 [facility] Comment on above: Performed By: #### C BC #### [facility] [address] [place] [address] Dr. Penny Allen IG # 0.08 10e3/ul Critically high 0.00-0.03 [facility] Comment on above: Performed By: #### C BC #### [facility] [address] [place] [address] Dr. Penny Allen IG % 1.1 % Critically high 0.0-0.5 [facility] Comment on above: Performed By: #### C BC #### [facility] [address] [place] [address] Dr. Penny Allen LYMPH # 2.0 103/ul Normal 1.2-3.8 [facility] Comment on above: Performed By: #### C BC #### [facility] [address] [place] [address] Dr. Penny Allen Lymphocytes/100 WBC (Bld) 28.7 % Normal 20.5-60.0 [facility] Comment on above: Performed By: #### C BC #### [facility] [address] [place] [address] Dr. Penny Allen MANUAL DIFF REQ NO Normal [facility] Comment on above: Performed By: #### C BC #### [facility] [address] [place] [address] Dr. Penny Allen MCH (RBC) [Entitic mass] 28.9 pg Normal 25.9-34.0 [facility] Comment on above: Performed By: #### C BC #### [facility] [address] [place] [address] Dr. Penny Allen MCHC (RBC) [Mass/Vol] 32.5 g/dL Normal 29.9-35.2 [facility] Comment on above: Performed By: #### C BC #### [facility] [address] [place] [address] Dr. Penny Allen MCV (RBC) [Entitic vol] 88.8 fL Normal 80.0-94.0 [facility] Comment on above: Performed By: #### C BC #### [facility] [address] [place] [address] Dr. Penny Allen MONO # 0.7 103/ul Normal 0.3-0.8 [facility] Comment on above: Performed By: #### C BC #### [facility] [address] [place] [address] Dr. Penny Allen Monocytes/100 WBC (Bld) 10.0 % Normal 1.7-12.0 [facility] Comment on above: Performed By: #### C BC #### [facility] [address] [place] [address] Dr. Penny Allen NEUT # 4.0 103/ul Normal 1.4-6.5 [facility] Comment on above: Performed By: #### C BC #### [facility] [address] [place] [address] Dr. Penny Allen Neutrophils/100 WBC (Bld) 56.5 % Normal 43.0-75.0 [facility] Comment on above: Performed By: #### C BC #### [facility] [address] [place] [address] Dr. Penny Allen Platelet mean volume (Bld) [Entitic vol] 10.9 fL Normal 9.5-13.5 [facility] Comment on above: Performed By: #### C BC #### [facility] [address] [place] [address] Dr. Penny Allen PLT 204 103/ul Normal 150-450 [facility] Comment on above: Performed By: #### C BC #### [facility] [address] [place] [address] Dr. Penny Allen RBC 5.09 106/ul Normal 4.70-6.10 [facility] Comment on above: Performed By: #### C BC #### [facility] [address] [place] [address] Dr. Penny Allen WBC 7.1 103/ul Normal 4.0-11.0 [facility] Comment on above: Performed By: #### C BC #### [facility] [address] [place] [address] Dr. Penny Allen GLYCOHEMOGLOBIN A1Con 2021 ADA RECOMMENDATION SEE BELOW Normal [facility] Comment on above: Result Comment: ADA RECOMMENDED LIMIT 4.0 - 6.0 ADA THERAPEUTIC TARGET < 7.0 ACTION SUGGESTED > 7.0 Performed By: #### A 1C #### [facility] [address] [place] [address] Dr. Penny Allen Glucose [Mass/Vol] 143 mg/dL Normal [facility] Comment on above: Performed By: #### A 1C #### [facility] [address] [address] [address] Penny Allen HbA1c (Bld) [Mass fraction] 6.6 % Critically high 4.5-6.2 [facility] Comment on above: Performed By: #### A 1C #### [facility] [address] [place] [address] Dr. Penny Allen LIPID PROFILEon 08-02-2021 CHOL-HDL RATIO NORM SEE BELOW Normal [facility] Comment on above: Result Comment: 3.3 - 4.4 LOW RISK 4.4 - 7.1 AVERAGE RISK 7.1 - 11.0 MODERATE RISK >11.0 HIGH RISK Performed By: #### C MP, LIPID #### [facility] [address] [place] [address] Dr. Penny Allen Cholesterol [Mass/Vol] 115 mg/dL Normal <=200 [facility] Comment on above: Performed By: #### C MP, LIPID #### [facility] [address] [place] [address] Dr. Penny Allen Cholesterol in HDL [Mass/Vol] 34 mg/dL Critically low 40-60 [facility] Comment on above: Performed By: #### C MP, LIPID #### [facility] [address] [place] [address] Dr. Penny Allen Cholesterol in LDL [Mass/Vol] 36.0 mg/dL Normal [facility] Comment on above: Performed By: #### C MP, LIPID #### [facility] [address] [place] [address] Dr. Penny Allen Cholesterol.total/Cho lesterol in HDL [Mass ratio] 3.4 {ratio} Normal [facility] Comment on above: Performed By: #### C MP, LIPID #### [facility] [address] [address] [address] Penny Allen HDL NORMAL > or = 60 mg/dl - LO W CARDIOVASCULAR RISK <40 mg/dl - HIGH CARDIOVASCULAR RISK Normal [facility] Comment on above: Performed By: #### C MP, LIPID #### [facility] [address] [address] [address] Penny Allen LDL CALC NORMAL SEE BELOW Normal [facility] Comment on above: Result Comment: <100 mg/dl OPTIMAL 100 - 129 mg/dl NEAR OR ABOVE OPTIMAL 130 - 159 mg/dl BORDERLINE HIGH 160 - 189 mg/dl HIGH >190 mg/dl VERY HIGH Performed By: #### C MP, LIPID #### [facility] [address] [place] [address] Dr. Penny Allen Triglyceride [Mass/Vol] 225 mg/dL Critically high <=150 [facility] Comment on above: Performed By: #### C MP, LIPID #### [facility] [address] [place] [address] Dr. Penny Allen VLDL CALC 45.0 mg/dL Normal [facility] Comment on above: Performed By: #### C MP, LIPID #### [facility] [address] [place] [address] Dr. Penny Allen PROF 14(COMP METB)on 022 Albumin [Mass/Vol] 3.4 g/dL Normal 3.4-5.0 [facility] Comment on above: Performed By: #### C MP, LIPID #### [facility] [address] [place] [address] Dr. Penny Allen Albumin/Globulin [Mass ratio] 1.0 {ratio} Normal [facility] Comment on above: Performed By: #### C MP, LIPID #### [facility] [address] [place] [address] Dr. Penny Allen ALP [Catalytic activity/Vol] 45 U/L Critically low 46-116 [facility] Comment on above: Performed By: #### C MP, LIPID #### [facility] [address] [place] [address] Dr. Penny Allen ALT [Catalytic activity/Vol] 27 U/L Normal 16-63 [facility] Comment on above: Performed By: #### C MP, LIPID #### [facility] [address] [place] [address] Dr. Penny Allen Anion gap [Moles/Vol] 10.2 mmol/L Normal [facility] Comment on above: Performed By: #### C MP, LIPID #### [facility] [address] [place] [address] Dr. Penny Allen AST [Catalytic activity/Vol] 17 U/L Normal 15-37 [facility] Comment on above: Performed By: #### C MP, LIPID #### [facility] [address] [place] [address] Dr. Penny Allen Bilirubin [Mass/Vol] 0.3 mg/dL Normal 0.2-1.0 [facility] Comment on above: Performed By: #### C MP, LIPID #### [facility] [address] [place] [address] Dr. Penny Allen Calcium [Mass/Vol] 9.8 mg/dL Normal 8.5-10.1 [facility] Comment on above: Performed By: #### C MP, LIPID #### [facility] [address] [place] [address] Dr. Penny Allen Chloride [Moles/Vol] 104 mmol/L Normal 98-107 [facility] Comment on above: Performed By: #### C MP, LIPID #### [facility] [address] [place] [address] Dr. Penny Allen CO2 [Moles/Vol] 28.2 mmol/L Normal 21.0-32.0 [facility] Comment on above: Performed By: #### C MP, LIPID #### [facility] [address] [place] [address] Dr. Penny Allen Creatinine [Mass/Vol] 1.51 mg/dL Critically high 0.70-1.30 [facility] Comment on above: Performed By: #### C MP, LIPID #### [facility] [address] [place] [address] Dr. Penny Allen EGFR-AF [place] 54 mL/min/1.73m2 Critically low >=60 [facility] Comment on above: Performed By: #### C MP, LIPID #### [facility] [address] [address] [address] Penny Allen EGFR-NON AF [place] 45 mL/min/1.73m2 Critically low >=60 [facility] Comment on above: Performed By: #### C MP, LIPID #### [facility] [address] [address] [address] Penny Allen Globulin (S) [Mass/Vol] 3.5 g/dL Normal [facility] Comment on above: Performed By: #### C MP, LIPID #### [facility] [address] [place] [address] Dr. Penny Allen Glucose [Mass/Vol] 132 mg/dL Critically high 74-106 [facility] Comment on above: Performed By: #### C MP, LIPID #### [facility] [address] [address] [address] Penny Allen Potassium [Moles/Vol] 4.4 mmol/L Normal 3.5-5.1 [facility] Comment on above: Performed By: #### C MP, LIPID #### [facility] [address] [place] [address] Dr. Penny Allen Protein [Mass/Vol] 6.9 g/dL Normal 6.4-8.2 [facility] Comment on above: Performed By: #### C MP, LIPID #### [facility] [address] [address] [address] Penny Allen Sodium [Moles/Vol] 138 mmol/L Normal 136-145 [facility] Comment on above: Performed By: #### C MP, LIPID #### [facility] [address] [address] [address] Penny Allen Urea nitrogen [Mass/Vol] 24.0 mg/dL Critically high 7.0-18.0 [facility] Comment on above: Performed By: #### C MP, LIPID #### [facility] [address] [place] [address] Dr. Penny Allen Urea nitrogen/Creatinine [Mass ratio] 15.9 mg/mg Normal [facility] Comment on above: Performed By: #### C MP, LIPID #### [facility] [address] [address] [address] Penny Allen Cardiovascular Lab Reporton 03-30-2020 Cardiovascular Lab Report [facility] Patient Name: Luis Alfredo Almanza [facility] MR #: [id number] Physician: Trent Bright Department of Larisa Singh Medicine Service Date: 03/30/2020 Division of Birthdate: 1940 Cardiology Room #: [facility] Cardiovascular Services [facility] [address] [address] Cardiovascular Laboratory Report INDICATION: The patient is [...] signed informed consent. He was brought to boat laborer in a fasting state. The right groin area was prepped and draped in usual fashion. Using micropuncture technique and ultrasound guidance, the right common femoral artery was accessed. The inner cannula was advanced. Limited right common femoral angiography was performed followed by upsizing to a 6-Trinidadian x 11 cm sheath. Access was obtained using same technique in the right common femoral vein and a 6-Trinidadian x 11 cm sheath was placed. A 6-Trinidadian Angulo catheter was used for right heart catheterization with measurement of pressures and calculation of cardiac output using the estimated Ronen method. Angulo catheter was removed. Bilateral selective coronary angiography was then performed using 6-Trinidadian JL4 and JR4 diagnostic catheters. The 6-Trinidadian JR4 diagnostic catheter was used to selectively engage the radial graft to the OM. Angiography was performed. Catheters were removed. A 6-Trinidadian CHANDAN catheter was used to selectively engage [...] 40% stenosis in the proximal RCA. 4. Gqdh-lx-kgepdthp elevation of filling pressures. 5. Etym-wx-yqttiffo pulmonary hypertension. 6. Preserved cardiac output and [...] in Cardiology Clinic. Electronically Signed by: Trent Singh M.D. 04/01/2020 09:44 A (more content not included)... Normal [facility] BASIC METABOLIC PANELon 07-3 Anion gap 12 mmol/L Normal 10 - 20 [facility] Comment on above: Performed By: #### A MY ####[facility], [place] [phone] Bicarbonate (HCO3) 27 mmol/L Normal 21 - 32 [facility] Comment on above: Performed By: #### A MY ####[facility], [place] [phone] Calcium 9.9 mg/dL Normal 8.6 - 10.6 [facility] Comment on above: Performed By: #### A MY ####[facility], [place] [phone] Chloride 104 mmol/L Normal 98 - 107 [facility] Comment on above: Performed By: #### A MY ####[facility], [place] [phone] Creatinine 1.21 mg/dL Normal 0.50 - 1.30 [facility] Comment on above: Performed By: #### A MY ####[facility], [place] [phone] eGFR (non-black) 70 mL/min/{1.73_m2} Normal >60 [facility] Comment on above: Result Comment: CALC ULATIONS OF ESTIMATED GFR ARE PERFORMED USING THE MDRD STUDY EQUATION FOR THE IDMS-TRACEABLE CREATININE METHODS. CLIN CHEM 2007;53:766-72 Performed By: #### A MY ####[facility], [place] [phone] eGFR (non-black) 58 mL/min/{1.73_m2} Abnormal >60 [facility] Comment on above: Performed By: #### A MY ####[facility], [place] [phone] Glucose mass conc 133 mg/dL High 74 - 99 [facility] Comment on above: Performed By: #### A MY ####[facility], [place] [phone] Potassium molar conc 3.8 mmol/L Normal 3.5 - 5.3 [facility] Comment on above: Performed By: #### A MY ####[facility], [place] [phone] Sodium 139 mmol/L Normal 136 - 145 [facility] Comment on above: Performed By: #### A MY ####[facility], [place] [phone] Urea nitrogen 18 mg/dL Normal 6 - 23 [facility] Comment on above: Performed By: #### A MY ####[facility], [place] [phone] CBCon 10-20-2016 Erythrocyte distribution width Auto Ratio (RBC) 15.9 % High 11.5 - 14.5 [facility] Comment on above: Performed By: #### A MY ####[facility], [place] [phone] Erythrocytes (RBC) 4.08 x10E12/L Low 4.50 - 5.90 [facility] Comment on above: Performed By: #### A MY ####[facility], [place] [phone] Hematocrit (HCT) 35.4 % Low 41.0 - 52.0 [facility] Comment on above: Performed By: #### A MY ####[facility], [place] [phone] Hemoglobin mass conc (Bld) 11.1 g/dL Low 13.5 - 17.5 [facility] Comment on above: Performed By: #### A MY ####[facility], [place] [phone] MCHC mass conc (RBC) 31.4 g/dL Low 32.0 - 36.0 [facility] Comment on above: Performed By: #### A MY ####[facility], [place] [phone] MCV 87 fL Normal 80 - 100 [facility] Comment on above: Performed By: #### A MY ####[facility], [place] [phone] Nucleated erythrocytes 0.0 /100 WBC Normal 0.0-0.0 [facility] Comment on above: Performed By: #### A MY ####[facility], [place] [phone] Platelets 184 10*3/uL Normal 150 - 450 [facility] Comment on above: Performed By: #### A MY ####[facility], [place] [phone] WBC (Leukocytes) 8.7 10*3/uL Normal 4.4 - 11.3 [facility] Comment on above: Performed By: #### A MY ####[facility], [place] [phone] Discharge Summaryon 10-21-19 Discharge Summary Send Summary:Dischar ge Summary Providers:Provider Role Provider Name? Referring Marilou Bautista? Referring Luci Farrell? Primary Marilou Bautista? Primary Wing Perez Recipients: Marilou Bautista CNP (CERTIFIED) - [phone] [] Wing Perez MD - [id number] []Luci Farrell MD - [id number] [Preferred]Discharge:Summ sriram:Admission Date: .15-Oct-2016 05:50:00Discharge Date: [id number] Physician at Discharge: Luci FarrellAdmission Reason: Ventral hernia repairFinal Discharge Diagnoses: Ventral hernia repairProcedures: Date: 15-Oct-2016 16:19:00Procedure Name: Abdominal wall reconstruction with bilateral rectus sheath andtransversus abdominis release, VHRCondition at Discharge: SatisfactoryDisposition at Discharge: Home Health Care - NewVital Signs: T P R BP BpD3Ayvkm 36.8 78 18 145/80 94%Date/Time 10/20 8:02 [...] than 10 pounds. Weight-bearing Instructions: weight-bearing as tolerated.Nutrition/Diet: regularWound Care: Wound Site: Abdomen Wound Type: [...] / Team Contact Info:Provider/Team Contact Info-Pager Number: Manjit/[phone]/Attest ation:.: .: Electronic Signatures:Tisha Vega (RETAIL ADVERTISING EXECUTIVE (CERTIFIED)) (Signed 20-Oct-2016 11:14) Authored: Send Summary, Summary Content, Ongoing Care, AttestationLast Updated: 20-Oct-2016 11:14 by Tisha Vega (RETAIL ADVERTISING EXECUTIVE (CERTIFIED)) Normal [facility] GLUCOSE-POCTon 10-20-2016 Glucose mass conc 147 mg/dL High 74 - 99 [facility] Comment on above: Performed By: #### L IPAS ####[facility], [place] [phone] MAGNESIUMon 10-20-2016 Magnesium 1.76 mg/dL Normal 1.60 - 2.40 [facility] Comment on above: Performed By: #### A MY ####[facility], [place] [phone] BASIC METABOLIC PANELon 09-22 Anion gap 11 mmol/L Normal 10 - 20 [facility] Comment on above: Performed By: #### A MY ####[facility], [place] [phone] Bicarbonate (HCO3) 29 mmol/L Normal 21 - 32 [facility] Comment on above: Performed By: #### A MY ####[facility], [place] [phone] Calcium 10.4 mg/dL Normal 8.6 - 10.6 [facility] Comment on above: Performed By: #### A MY ####[facility], [place] [phone] Chloride 101 mmol/L Normal 98 - 107 [facility] Comment on above: Performed By: #### A MY ####[facility], [place] [phone] Creatinine 1.25 mg/dL Normal 0.50 - 1.30 [facility] Comment on above: Performed By: #### A MY ####[facility], [place] [phone] eGFR (non-black) 68 mL/min/{1.73_m2} Normal >60 [facility] Comment on above: Result Comment: CALC ULATIONS OF ESTIMATED GFR ARE PERFORMED USING THE MDRD STUDY EQUATION FOR THE IDMS-TRACEABLE CREATININE METHODS. CLIN CHEM 2007;53:766-72 Performed By: #### A MY ####[facility], [place] [phone] eGFR (non-black) 56 mL/min/{1.73_m2} Abnormal >60 [facility] Comment on above: Performed By: #### A MY ####[facility], [place] [phone] Glucose mass conc 142 mg/dL High 74 - 99 [facility] Comment on above: Performed By: #### A MY ####[facility], [place] [phone] Potassium molar conc 4.2 mmol/L Normal 3.5 - 5.3 [facility] Comment on above: Performed By: #### A MY ####[facility], [place] [phone] Sodium 137 mmol/L Normal 136 - 145 [facility] Comment on above: Performed By: #### A MY ####[facility], [place] [phone] Urea nitrogen 21 mg/dL Normal 6 - 23 [facility] Comment on above: Performed By: #### A MY ####[facility], [place] [phone] CBCon 10-19-2016 Erythrocyte distribution width Auto Ratio (RBC) 15.9 % High 11.5 - 14.5 [facility] Comment on above: Performed By: #### A MY ####[facility], [place] [phone] Erythrocytes (RBC) 4.34 x10E12/L Low 4.50 - 5.90 [facility] Comment on above: Performed By: #### A MY ####[facility], [place] [phone] Hematocrit (HCT) 37.8 % Low 41.0 - 52.0 [facility] Comment on above: Performed By: #### A MY ####[facility], [place] [phone] Hemoglobin mass conc (Bld) 12.0 g/dL Low 13.5 - 17.5 [facility] Comment on above: Performed By: #### A MY ####[facility], [place] [phone] MCHC mass conc (RBC) 31.7 g/dL Low 32.0 - 36.0 [facility] Comment on above: Performed By: #### A MY ####[facility], [place] [phone] MCV 87 fL Normal 80 - 100 [facility] Comment on above: Performed By: #### A MY ####[facility], [place] [phone] Nucleated erythrocytes 0.0 /100 WBC Normal 0.0-0.0 [facility] Comment on above: Performed By: #### A MY ####[facility], [place] [phone] Platelets 181 10*3/uL Normal 150 - 450 [facility] Comment on above: Performed By: #### A MY ####[facility], [place] [phone] WBC (Leukocytes) 11.6 10*3/uL High 4.4 - 11.3 [facility] Comment on above: Performed By: #### A MY ####[facility], [place] [phone] GLUCOSE-POCTon 10-19-2016 Glucose mass conc 121 mg/dL High [address] [place] [address] Comment on above: Performed By: #### A MY ####[facility], [place] [phone] Glucose mass conc 151 mg/dL High [address] [place] [address] Comment on above: Performed By: #### A MY ####[facility], [place] [phone] Glucose mass conc 159 mg/dL High [address] [place] [address] Comment on above: Performed By: #### A MY ####[facility], [place] [phone] Glucose mass conc 160 mg/dL High [address] [place] [address] Comment on above: Performed By: #### U AMIC ####[facility], [place] [phone] Glucose mass conc 138 mg/dL High [address] [place] [address] Comment on above: Performed By: #### U AMIC ####[facility], [place] [phone] HEMOGLOBIN A1Con 10-19-2016 Glucose mass conc 148 mg/dL Normal [facility] Comment on above: Performed By: #### A MY ####[facility], [place] [phone] Hemoglobin A1c/Hemoglobin.total mass fraction (Bld) 6.8 % Normal [facility] Comment on above: Result Comment: Diag nosis of Diabetes-Adults Non-Diabetic: < or = 5.6% Increased risk for developing diabetes: 5.7-6.4% Diagnostic of diabetes: > or = 6.5%. Monitoring of Diabetes Age (y) Therapeutic Goal (%) Adults: >18 <7.0 Pediatrics: 13-18 <7.5 7-12 <8.0 0- 6 7.5-8.5 [employer]. Diabetes Care 33(S1), Mar 2009. Performed By: #### A MY ####[facility], [place] [phone] MAGNESIUMon 10-19-2016 Magnesium 1.85 mg/dL Normal 1.60 - 2.40 [facility] Comment on above: Performed By: #### A MY ####[facility], [place] [phone] BASIC METABOLIC PANELon 09-21 Anion gap 13 mmol/L Normal 10 - 20 [facility] Comment on above: Performed By: #### U AMIC ####[facility], [place] [phone] Bicarbonate (HCO3) 30 mmol/L Normal 21 - 32 [facility] Comment on above: Performed By: #### U AMIC ####[facility], [place] [phone] Calcium 10.8 mg/dL High 8.6 - 10.6 [facility] Comment on above: Performed By: #### U AMIC ####[facility], [place] [phone] Chloride 99 mmol/L Normal 98 - 107 [facility] Comment on above: Performed By: #### U AMIC ####[facility], [place] [phone] Creatinine 1.38 mg/dL High 0.50 - 1.30 [facility] Comment on above: Performed By: #### U AMIC ####[facility], [place] [phone] eGFR (non-black) 61 mL/min/{1.73_m2} Normal >60 [facility] Comment on above: Result Comment: CALC ULATIONS OF ESTIMATED GFR ARE PERFORMED USING THE MDRD STUDY EQUATION FOR THE IDMS-TRACEABLE CREATININE METHODS. CLIN CHEM 2007;53:766-72 Performed By: #### U AMIC ####[facility], [place] [phone] eGFR (non-black) 50 mL/min/{1.73_m2} Abnormal >60 [facility] Comment on above: Performed By: #### U AMIC ####[facility], [place] [phone] Glucose mass conc 144 mg/dL High 74 - 99 [facility] Comment on above: Performed By: #### U AMIC ####[facility], [place] [phone] Potassium molar conc 4.8 mmol/L Normal 3.5 - 5.3 [facility] Comment on above: Performed By: #### U AMIC ####[facility], [place] [phone] Sodium 137 mmol/L Normal 136 - 145 [facility] Comment on above: Performed By: #### U AMIC ####[facility], [place] [phone] Urea nitrogen 26 mg/dL High 6 - 23 [facility] Comment on above: Performed By: #### U AMIC ####[facility], [place] [phone] CBC AND DIFFERENTIALon 10-18 % AUTOMATED IMMATURE GRAN 1.1 % High 0.0 - 0.9 [facility] Comment on above: Result Comment: Perc ent differential counts (%) should be interpreted in the context of the absolute cell counts (cells/L). Performed By: #### U AMIC ####[facility], [place] [phone] % NEUTROPHIL 72.2 % Normal 40.0 - 80.0 [facility] Comment on above: Performed By: #### U AMIC ####[facility], [place] [phone] Basophils/100 WBC Auto (Bld) 0.08 x10E9/L Normal 0.00 - 0.10 [facility] Comment on above: Performed By: #### U AMIC ####[facility], [place] [phone] Basophils/100 WBC Auto (Bld) 0.4 % Normal 0.0 - 2.0 [facility] Comment on above: Performed By: #### U AMIC ####[facility], [place] [phone] Eosinophils 0.11 10*3/uL Normal 0.00 - 0.40 [facility] Comment on above: Performed By: #### U AMIC ####[facility], [place] [phone] Eosinophils/100 leukocytes 0.6 % Normal 0.0 - 6.0 [facility] Comment on above: Performed By: #### U AMIC ####[facility], [place] [phone] Erythrocyte distribution width Auto Ratio (RBC) 15.7 % High 11.5 - 14.5 [facility] Comment on above: Performed By: #### U AMIC ####[facility], [place] [phone] Erythrocytes (RBC) 4.83 x10E12/L Normal 4.50 - 5.90 [facility] Comment on above: Performed By: #### U AMIC ####[facility], [place] [phone] Hematocrit (HCT) 43.2 % Normal 41.0 - 52.0 [facility] Comment on above: Performed By: #### U AMIC ####[facility], [place] [phone] Hemoglobin mass conc (Bld) 12.9 g/dL Low 13.5 - 17.5 [facility] Comment on above: Performed By: #### U AMIC ####[facility], [place] [phone] Lymphocytes 2.36 10*3/uL Normal 0.80 - 3.00 [facility] Comment on above: Performed By: #### U AMIC ####[facility], [place] [phone] Lymphocytes/100 leukocytes 13.3 % Normal 13.0 - 44.0 [facility] Comment on above: Performed By: #### U AMIC ####[facility], [place] [phone] MCHC mass conc (RBC) 29.9 g/dL Low 32.0 - 36.0 [facility] Comment on above: Performed By: #### U AMIC ####[facility], [place] [phone] MCV 89 fL Normal 80 - 100 [facility] Comment on above: Performed By: #### U AMIC ####[facility], [place] [phone] Monocytes 2.21 10*3/uL High 0.05 - 0.80 [facility] Comment on above: Performed By: #### U AMIC ####[facility], [place] [phone] Monocytes/100 leukocytes 12.4 % High 2.0 - 10.0 [facility] Comment on above: Performed By: #### U AMIC ####[facility], [place] [phone] Neutrophils 12.85 10*3/uL High 1.60 - 5.50 [facility] Comment on above: Performed By: #### U AMIC ####[facility], [place] [phone] Nucleated erythrocytes 0.0 /100 WBC Normal 0.0-0.0 [facility] Comment on above: Performed By: #### U AMIC ####[facility], [place] [phone] Platelets 192 10*3/uL Normal 150 - 450 [facility] Comment on above: Performed By: #### U AMIC ####[facility], [place] [phone] WBC (Leukocytes) 17.8 10*3/uL High 4.4 - 11.3 [facility] Comment on above: Performed By: #### U AMIC ####[facility], [place] [phone] GLUCOSE-POCTon 10-18-2016 Glucose mass conc 131 mg/dL High 74 - 99 [facility] Comment on above: Performed By: #### U AMIC ####[facility], [place] [phone] Glucose mass conc 184 mg/dL High 74 - 99 [facility] Comment on above: Performed By: #### U AMIC ####[facility], [place] [phone] Glucose mass conc 144 mg/dL High 74 - 99 [facility] Comment on above: Performed By: #### U AMIC ####[facility], [place] [phone] MAGNESIUMon 10-18-2016 Magnesium 2.02 mg/dL Normal 1.60 - 2.40 [facility] Comment on above: Performed By: #### U AMIC ####[facility], [place] [phone] BASIC METABOLIC PANELon 07-2 Anion gap 13 mmol/L Normal 10 - 20 [facility] Comment on above: Performed By: #### U A ####[facility], [place] [phone] Bicarbonate (HCO3) 30 mmol/L Normal 21 - 32 [facility] Comment on above: Performed By: #### U A ####[facility], [place] [phone] Calcium 10.8 mg/dL High 8.6 - 10.6 [facility] Comment on above: Performed By: #### U A ####[facility], [place] [phone] Chloride 99 mmol/L Normal 98 - 107 [facility] Comment on above: Performed By: #### U A ####[facility], [place] [phone] Creatinine 1.54 mg/dL High 0.50 - 1.30 [facility] Comment on above: Performed By: #### U A ####[facility], [place] [phone] eGFR (non-black) 53 mL/min/{1.73_m2} Abnormal >60 [facility] Comment on above: Result Comment: CALC ULATIONS OF ESTIMATED GFR ARE PERFORMED USING THE MDRD STUDY EQUATION FOR THE IDMS-TRACEABLE CREATININE METHODS. CLIN CHEM 2007;53:766-72 Performed By: #### U A ####[facility], [place] [phone] eGFR (non-black) 44 mL/min/{1.73_m2} Abnormal >60 [facility] Comment on above: Performed By: #### U A ####[facility], [place] [phone] Glucose mass conc 154 mg/dL High 74 - 99 [facility] Comment on above: Performed By: #### U A ####[facility], [place] [phone] Potassium molar conc 5.4 mmol/L High 3.5 - 5.3 [facility] Comment on above: Performed By: #### U A ####[facility], [place] [phone] Sodium 137 mmol/L Normal 136 - 145 [facility] Comment on above: Performed By: #### U A ####[facility], [place] [phone] Urea nitrogen 28 mg/dL High 6 - 23 [facility] Comment on above: Performed By: #### U A ####[facility], [place] [phone] CBCon 10-17-2016 Erythrocyte distribution width Auto Ratio (RBC) 15.9 % High 11.5 - 14.5 [facility] Comment on above: Performed By: #### U A ####[facility], [place] [phone] Erythrocytes (RBC) 5.10 x10E12/L Normal 4.50 - 5.90 [facility] Comment on above: Performed By: #### U A ####[facility], [place] [phone] Hematocrit (HCT) 45.0 % Normal 41.0 - 52.0 [facility] Comment on above: Performed By: #### U A ####[facility], [place] [phone] Hemoglobin mass conc (Bld) 14.3 g/dL Normal 13.5 - 17.5 [facility] Comment on above: Performed By: #### U A ####[facility], [place] [phone] MCHC mass conc (RBC) 31.8 g/dL Low 32.0 - 36.0 [facility] Comment on above: Performed By: #### U A ####[facility], [place] [phone] MCV 88 fL Normal 80 - 100 [facility] [place] Comment on above: Performed By: #### U A ####[facility], [place] [phone] Nucleated erythrocytes 0.0 /100 WBC Normal 0.0-0.0 [facility] [place] Comment on above: Performed By: #### U A ####[facility], [place] [phone] Platelets 189 10*3/uL Normal 150 - 450 [facility] [place] Comment on above: Performed By: #### U A ####[facility], [place] [phone] WBC (Leukocytes) 18.4 10*3/uL High 4.4 - 11.3 [facility] Comment on above: Performed By: #### U A ####[facility], [place] [phone] GLUCOSE-POCTon 10-17-2016 Glucose mass conc 137 mg/dL High 74 - [address] [place] [address] Comment on above: Performed By: #### U AMIC ####[facility], [place] [phone] Glucose mass conc 201 mg/dL High 74 - 99 [facility] [place] Comment on above: Performed By: #### U A ####[facility], [place] [phone] Glucose mass conc 142 mg/dL High 74 - 99 [facility] [place] Comment on above: Performed By: #### U A ####[facility], [place] [phone] Glucose mass conc 151 mg/dL High 74 - 99 [facility] [place] Comment on above: Performed By: #### U A ####[facility], [place] [phone] Glucose mass conc 155 mg/dL High 74 - 99 [facility] [place] Comment on above: Performed By: #### U A ####[facility], [place] [phone] MAGNESIUMon 10-17-2016 Magnesium 2.17 mg/dL Normal 1.60 - 2.40 [facility] [place] Comment on above: Performed By: #### U A ####[facility], [place] [phone] POTASSIUMon 10-17-2016 Potassium molar conc 5.3 mmol/L Normal 3.5 - 5.3 [facility] Comment on above: Performed By: #### U AMIC ####[facility], [place] [phone] BASIC METABOLIC PANELon 09-21 Anion gap 15 mmol/L Normal 10 - 20 [facility] [place] Comment on above: Performed By: #### C BC ####[facility], [place] [phone] Bicarbonate (HCO3) 27 mmol/L Normal 21 - 32 [facility] Comment on above: Performed By: #### C BC ####[facility], [place] [phone] Calcium 10.6 mg/dL Normal 8.6 - 10.6 [facility] [place] Comment on above: Performed By: #### C BC ####[facility], [place] [phone] Chloride 102 mmol/L Normal 98 - 107 [facility] [place] Comment on above: Performed By: #### C BC ####[facility], [place] [phone] Creatinine 1.46 mg/dL High 0.50 - 1.30 [facility] [place] Comment on above: Performed By: #### C BC ####[facility], [place] [phone] eGFR (non-black) 57 mL/min/{1.73_m2} Abnormal >60 [facility] [place] Comment on above: Result Comment: CALC ULATIONS OF ESTIMATED GFR ARE PERFORMED USING THE MDRD STUDY EQUATION FOR THE IDMS-TRACEABLE CREATININE METHODS. CLIN CHEM 2007;53:766-72 Performed By: #### C BC ####[facility], [place] [phone] eGFR (non-black) 47 mL/min/{1.73_m2} Abnormal >60 [facility] [place] Comment on above: Performed By: #### C BC ####[facility], [place] [phone] Glucose mass conc 130 mg/dL High 74 - 99 [facility] [place] Comment on above: Performed By: #### C BC ####[facility], [place] [phone] Potassium molar conc 4.8 mmol/L Normal 3.5 - 5.3 [facility] Comment on above: Performed By: #### C BC ####[facility], [place] [phone] Sodium 139 mmol/L Normal 136 - 145 [facility] [place] Comment on above: Performed By: #### C BC ####[facility], [place] [phone] Urea nitrogen 28 mg/dL High 6 - 23 [facility] [place] Comment on above: Performed By: #### C BC ####[facility], [place] [phone] CBCon 07-27-2017 Erythrocyte distribution width Auto Ratio (RBC) 15.9 % High 11.5 - 14.5 [facility] [place] Comment on above: Performed By: #### C BC ####[facility], [place] [phone] Erythrocytes (RBC) 5.21 x10E12/L Normal 4.50 - 5.90 [facility] [place] Comment on above: Performed By: #### C BC ####[facility], [place] [phone] Hematocrit (HCT) 45.3 % Normal 41.0 - 52.0 [facility] [place] Comment on above: Performed By: #### C BC ####[facility], [place] [phone] Hemoglobin mass conc (Bld) 14.6 g/dL Normal 13.5 - 17.5 [facility] [place] Comment on above: Performed By: #### C BC ####[facility], [place] [phone] MCHC mass conc (RBC) 32.2 g/dL Normal 32.0 - 36.0 [facility] [place] Comment on above: Performed By: #### C BC ####[facility], [place] [phone] MCV 87 fL Normal 80 - 100 [facility] [place] Comment on above: Performed By: #### C BC ####[facility], [place] [phone] Nucleated erythrocytes 0.0 /100 WBC Normal 0.0-0.0 [facility] [place] Comment on above: Performed By: #### C BC ####[facility], [place] [phone] Platelets 175 10*3/uL Normal 150 - 450 [facility] [place] Comment on above: Performed By: #### C BC ####[facility], [place] [phone] WBC (Leukocytes) 15.2 10*3/uL High 4.4 - 11.3 [facility] Comment on above: Performed By: #### C BC ####[facility], [place] [phone] GLUCOSE-POCTon 10-16-2016 Glucose mass conc 166 mg/dL High - [address] [place] [address] Comment on above: Performed By: #### U A ####[facility], [place] [phone] Glucose mass conc 135 mg/dL High [address] [place] [address] Comment on above: Performed By: #### U A ####[facility], [place] [phone] Glucose mass conc 131 mg/dL High [address] [place] [address] Comment on above: Performed By: #### C BC ####[facility], [place] [phone] Glucose mass conc 171 mg/dL High [address] [place] [address] Comment on above: Performed By: #### C BC ####[facility], [place] [phone] MAGNESIUMon 10-16-2016 Magnesium 1.92 mg/dL Normal 1.60 - 2.40 [facility] [place] Comment on above: Performed By: #### C BC ####[facility], [place] [phone] ABO/RH GROUP TESTon 10-16-19 17 ABO TYPE O Normal [facility] [place] Comment on above: Performed By: #### C BC ####[facility], [place] [phone] RH TYPE Positive Normal [facility] [place] Comment on above: Performed By: #### C BC ####[facility], [place] [phone] GLUCOSE-POCTon 10-15-2016 Glucose mass conc 170 mg/dL High 74 - 99 [facility] [place] Comment on above: Performed By: #### C BC ####[facility], [place] [phone] [facility] Surgical Pathology Depar tmenton 10-15-2016 [facility] Surgical Pathology Department Name LUIS ALFREDO ALMANZA Pathologist: URIAH WHITE, MDDate of Procedure: [...] x 16 x 4.5 cm. The specimen [id number] grams. Serial cross sections reveal a homogeneous fibrofatty cut surfacewith mesh, suture material, and possible purulent debris. Representativesections are submitted in one cassette.HNG/AKNakn/2016 Normal [facility] [place] Comment on above: Performed By: #### L IPAS ####[facility], [place] [phone] AMYLASEon 10-14-2016 Amylase 26 U/L Low 29 - 103 [facility] [place] Comment on above: Performed By: #### A MY ####[facility], [place] [phone] CBCon 10-14-2016 Erythrocyte distribution width Auto Ratio (RBC) 15.8 % High 11.5 - 14.5 [facility] [place] Comment on above: Performed By: #### C BC ####[facility], [place] [phone] Erythrocytes (RBC) 5.88 x10E12/L Normal 4.50 - 5.90 [facility] [place] Comment on above: Performed By: #### C BC ####[facility], [place] [phone] Hematocrit (HCT) 51.1 % Normal 41.0 - 52.0 [facility] [place] Comment on above: Performed By: #### C BC ####[facility], [place] [phone] Hemoglobin mass conc (Bld) 15.8 g/dL Normal 13.5 - 17.5 [facility] [place] Comment on above: Performed By: #### C BC ####[facility], [place] [phone] MCHC mass conc (RBC) 30.9 g/dL Low 32.0 - 36.0 [facility] [place] Comment on above: Performed By: #### C BC ####[facility], [place] [phone] MCV 87 fL Normal 80 - 100 [facility] [place] Comment on above: Performed By: #### C BC ####[facility], [place] [phone] Nucleated erythrocytes 0.0 /100 WBC Normal 0.0-0.0 [facility] [place] Comment on above: Performed By: #### C BC ####[facility], [place] [phone] Platelets 176 10*3/uL Normal 150 - 450 [facility] [place] Comment on above: Performed By: #### C BC ####[facility], [place] [phone] WBC (Leukocytes) 9.2 10*3/uL Normal 4.4 - 11.3 [facility] [place] Comment on above: Performed By: #### C BC ####[facility], [place] [phone] CHEST; 2 VIEW APon 7 CHEST; 2 VIEW AP Name: LUIS ALFREDO ALMANZA STUDY:CHEST; 2 VIEW AP; 10/14/2016 8:40 am INDICATION:Signs/Symptoms : K43.2. COMPARISON:Outside CT scan abdomen and pelvis from 06/25/2016 ORDERING CLINICIAN:LUCI FARRELL FINDINGS:Median sternotomy wires are noted. The cardiomediastinal silhouette is mildly enlarged. There is minimal left basilar atelectasis. Otherwise, no definitefocal consolidation, pleural effusion or pneumothorax. No acute osseous abnormality. IMPRESSION:1. Mild enlargement of cardiomediastinal silhouette.2. No definite focal consolidation, pleural effusion or pneumothorax. Electronically signed by: LISANDRO ROLON MD Normal [facility] [place] COAGULATION SCREENon 017 aPTT 24 s Low 25 - 36 [facility] [place] Comment on above: Result Comment: NOTE NEW REFERENCE RANGE. THE APTT IS NO LONGER USED FOR MONITORING UNFRACTIONATED HEPARIN THERAPY. FOR MONITORING HEPARIN THERAPY, USE THE HEPARIN ASSAY. Performed By: #### C OAGS ####[facility], [place] [phone] INR Coag RelTime (PPP) 1.1 {INR} Normal 0.9 - 1.1 [facility] [place] Comment on above: Performed By: #### C OAGS ####[facility], [place] [phone] Prothrombin time (PT) Coag time (PPP) 12.1 s Normal 9.8 - 12.7 [facility] [place] Comment on above: Result Comment: NOTE NEW REFERENCE RANGE. Performed By: #### C OAGS ####[facility], [place] [phone] COMPREHENSIVE PANELon 2016 Alanine aminotransferase (ALT) 22 U/L Normal 10 - 52 [facility] [place] Comment on above: Result Comment: Daniela ents treated with Sulfasalazine may generate falsely decreased results for ALT. Performed By: #### C MP ####[facility], [place] [phone] Albumin 4.3 g/dL Normal 3.4 - 5.0 [facility] [place] Comment on above: Performed By: #### C MP ####[facility], [place] [phone] Alkaline phosphatase (ALP) 50 U/L Normal 33 - 136 [facility] [place] Comment on above: Performed By: #### C MP ####[facility], [place] [phone] Anion gap 12 mmol/L Normal 10 - 20 [facility] [place] Comment on above: Performed By: #### C MP ####[facility], [place] [phone] Aspartate aminotransferase (AST) 22 U/L Normal 9 - 39 [facility] [place] Comment on above: Performed By: #### C MP ####[facility], [place] [phone] Bicarbonate (HCO3) 29 mmol/L Normal 21 - 32 [facility] Comment on above: Performed By: #### C MP ####[facility], [place] [phone] Bilirubin (total) 0.6 mg/dL Normal 0.0 - 1.2 [facility] [place] Comment on above: Performed By: #### C MP ####[facility], [place] [phone] Calcium 11.0 mg/dL High 8.6 - 10.6 [facility] [place] Comment on above: Performed By: #### C MP ####[facility], [place] [phone] Chloride 101 mmol/L Normal 98 - 107 [facility] [place] Comment on above: Performed By: #### C MP ####[facility], [place] [phone] Creatinine 1.46 mg/dL High 0.50 - 1.30 [facility] [place] Comment on above: Performed By: #### C MP ####[facility], [place] [phone] eGFR (non-black) 47 mL/min/{1.73_m2} Abnormal >60 [facility] [place] Comment on above: Performed By: #### C MP ####[facility], [place] [phone] eGFR (non-black) 57 mL/min/{1.73_m2} Abnormal >60 [facility] [place] Comment on above: Result Comment: CALC ULATIONS OF ESTIMATED GFR ARE PERFORMED USING THE MDRD STUDY EQUATION FOR THE IDMS-TRACEABLE CREATININE METHODS. CLIN CHEM 2007;53:766-72 Performed By: #### C MP ####[facility], [place] [phone] Glucose mass conc 146 mg/dL High 74 - 99 [facility] [place] Comment on above: Performed By: #### C MP ####[facility], [place] [phone] Potassium molar conc 4.7 mmol/L Normal 3.5 - 5.3 [facility] Comment on above: Performed By: #### C MP ####[facility], [place] [phone] Protein 7.2 g/dL Normal 6.4 - 8.2 [facility] [place] Comment on above: Performed By: #### C MP ####[facility], [place] [phone] Sodium 137 mmol/L Normal 136 - 145 [facility] [place] Comment on above: Performed By: #### C MP ####[facility], [place] [phone] Urea nitrogen 23 mg/dL Normal 6 - 23 [facility] [place] Comment on above: Performed By: #### C MP ####[facility], [place] [phone] HEMOGLOBIN A1Con 10-14-2016 Glucose mass conc 148 mg/dL Normal [facility] [place] Comment on above: Performed By: #### C BC ####[facility], [place] [phone] Hemoglobin A1c/Hemoglobin.total mass fraction (Bld) 6.8 % Normal [facility] [place] Comment on above: Result Comment: Diag nosis of Diabetes-Adults Non-Diabetic: < or = 5.6% Increased risk for developing diabetes: 5.7-6.4% Diagnostic of diabetes: > or = 6.5%. Monitoring of Diabetes Age (y) Therapeutic Goal (%) Adults: >18 <7.0 Pediatrics: 13-18 <7.5 7-12 <8.0 0- 6 7.5-8.5 [employer]. Diabetes Care 33(S1), Mar 2009. Performed By: #### C BC ####[facility], [place] [phone] LIPASEon 10-14-2016 Lipase 36 U/L Normal 9 - 82 [facility] [place] Comment on above: Result Comment: Danuta puncture immediately after or during the administration of Metamizole may lead to falsely low results. Testing should be performed immediately prior to Metamizole dosing. Performed By: #### L IPAS ####[facility], [place] [phone] PREALBUMINon 10-14-2016 Prealbumin 29.2 mg/dL Normal 18.0 - 40.0 [facility] [place] Comment on above: Performed By: #### P REAL ####[facility], [place] [phone] STAPH/MRSA SCREENon 10-15-19 17 STAPH/MRSA SCREEN PATIENT: EULALIA ALMANZA LOCATION: [facility] [place]#: [id number] : 42 AGE: SEX: M ORDERED BY: SHELBY FARRELL: ANTERIOR NARES COLLECTED: 10/14/16 08:08ANTIBIOTICS AT FILIPPO.: RECEIVED : 10/14/16 09:37SITE: Nasal R E S U L T S STAPH/MRSA SCREEN FINAL 10/16/16 08:36 NO Staphylococcus aureus ISOLATED. Normal [facility] [place] TYPE + SCREENon 10-14-2016 ABO TYPE O Normal [facility] [place] Comment on above: Performed By: #### C BC ####[facility], [place] [phone] RH TYPE Positive Normal [facility] [place] Comment on above: Performed By: #### C BC ####[facility], [place] [phone] ANTIBODY SCREEN Negative Normal [facility] [place] Comment on above: Performed By: #### C BC ####[facility], [place] [phone] UA MICROSCOPICon 10-14-2016 Erythrocytes (RBC) 5 /HPF Normal 0-5 [facility] Comment on above: Performed By: #### U AMIC ####[facility], [place] [phone] SQUAMOUS EPITH. CELLS 1 /HPF Normal [facility] [place] Comment on above: Performed By: #### U AMIC ####[facility], [place] [phone] Urine, mucus presence in sediment 1+ /LPF Normal [facility] [place] Comment on above: Performed By: #### U AMIC ####[facility], [place] [phone] WBC (Leukocytes) 2 /HPF Normal 0-5 [facility] [place] Comment on above: Performed By: #### U AMIC ####[facility], [place] [phone] URINALYSISon 10-14-2016 Bilirubin (total) Negative Normal NEGATIVE [facility] [place] Comment on above: Performed By: #### U A ####[facility], [place] [phone] BLOOD Negative Normal NEGATIVE [facility] [place] Comment on above: Performed By: #### U A ####[facility], [place] [phone] Glucose mass conc Negative Normal NEGATIVE [facility] [place] Comment on above: Performed By: #### U A ####[facility], [place] [phone] pH of blood 6.0 [pH] Normal 5.0 - 8.0 [facility] [place] Comment on above: Performed By: #### U A ####[facility], [place] [phone] Protein 30 (1+) Abnormal NEGATIVE [facility] [place] Comment on above: Performed By: #### U A ####[facility], [place] [phone] Urine, appearance CLEAR Normal CLEAR [facility] [place] Comment on above: Performed By: #### U A ####[facility], [place] [phone] Urine, color YELLOW Normal STRAW,YELLO W [facility] [place] Comment on above: Performed By: #### U A ####[facility], [place] [phone] Urine, ketones presence Negative Normal NEGATIVE [facility] [place] Comment on above: Performed By: #### U A ####[facility], [place] [phone] Urine, leukocyte esterase presence Negative Normal NEGATIVE [facility] [place] Comment on above: Performed By: #### U A ####[facility], [place] [phone] Urine, nitrite presence Negative Normal NEGATIVE [facility] [place] Comment on above: Performed By: #### U A ####[facility], [place] [phone] Urine, specific gravity 1.014 Normal 1.005 - 1.035 [facility] [place] Comment on above: Performed By: #### U A ####[facility], [place] [phone] Urine, urobilinogen <2.0 Normal 0.0 - 1.9 [facility] Comment on above: Performed By: #### U A ####[facility], [place] [phone] ASCORBIC ACID Canceled Normal [facility] [place] Comment on above: Order Comment: TEST URINALYSIS WAS CANCELLED, 10/14/2016 09:03 NO SPECIMEN RECEIVED IN LAB. Result Comment: Conc entrations > = 20 mg/dL of ascorbic acid can be expected to cause stronginterference in the reactions testing for glucose, nitrite and blood. It isrecommended to discontinue Vitamin C administration and retest in 10 hours. Performed By: #### U A ####[facility], [place] [phone] Bilirubin (total) Canceled Normal [facility] [place] Comment on above: Order Comment: TEST URINALYSIS WAS CANCELLED, 10/14/2016 09:03 NO SPECIMEN RECEIVED IN LAB. Performed By: #### U A ####[facility], [place] [phone] BLOOD Canceled Normal [facility] [place] Comment on above: Order Comment: TEST URINALYSIS WAS CANCELLED, 10/14/2016 09:03 NO SPECIMEN RECEIVED IN LAB. Performed By: #### U A ####[facility], [place] [phone] Glucose mass conc Canceled Normal [facility] [place] Comment on above: Order Comment: TEST URINALYSIS WAS CANCELLED, 10/14/2016 09:03 NO SPECIMEN RECEIVED IN LAB. Performed By: #### U A ####[facility], [place] [phone] pH of blood Canceled Normal [facility] [place] Comment on above: Order Comment: TEST URINALYSIS WAS CANCELLED, 10/14/2016 09:03 NO SPECIMEN RECEIVED IN LAB. Performed By: #### U A ####[facility], [place] [phone] Protein Canceled Normal [facility] [place] Comment on above: Order Comment: TEST URINALYSIS WAS CANCELLED, 10/14/2016 09:03 NO SPECIMEN RECEIVED IN LAB. Performed By: #### U A ####[facility], [place] [phone] Urine, appearance Canceled Normal [facility] [place] Comment on above: Order Comment: TEST URINALYSIS WAS CANCELLED, 10/14/2016 09:03 NO SPECIMEN RECEIVED IN LAB. Performed By: #### U A ####[facility], [place] [phone] Urine, color Canceled Normal [facility] [place] Comment on above: Order Comment: TEST URINALYSIS WAS CANCELLED, 10/14/2016 09:03 NO SPECIMEN RECEIVED IN LAB. Performed By: #### U A ####[facility], [place] [phone] Urine, ketones presence Canceled Normal [facility] [place] Comment on above: Order Comment: TEST URINALYSIS WAS CANCELLED, 10/14/2016 09:03 NO SPECIMEN RECEIVED IN LAB. Performed By: #### U A ####[facility], [place] [phone] Urine, leukocyte esterase presence Canceled Normal [facility] Comment on above: Order Comment: TEST URINALYSIS WAS CANCELLED, 10/14/2016 09:03 NO SPECIMEN RECEIVED IN LAB. Performed By: #### U A ####[facility], [place] [phone] Urine, nitrite presence Canceled Normal [facility] [place] Comment on above: Order Comment: TEST URINALYSIS WAS CANCELLED, 10/14/2016 09:03 NO SPECIMEN RECEIVED IN LAB. Performed By: #### U A ####[facility], [place] [phone] Urine, specific gravity Canceled Normal [facility] Comment on above: Order Comment: TEST URINALYSIS WAS CANCELLED, 10/14/2016 09:03 NO SPECIMEN RECEIVED IN LAB. Performed By: #### U A ####[facility], [place] [phone] Urine, urobilinogen Canceled Normal [facility] Comment on above: Order Comment: TEST URINALYSIS WAS CANCELLED, 10/14/2016 09:03 NO SPECIMEN RECEIVED IN LAB. Performed By: #### U A ####[facility], [place] [phone] URINE CULTURE,BACTERIALon URINE CULTURE,BACTERIAL PATIENT: LUIS ALFREDO ALMANZA LOCATION: [facility]#: [id number] : 42 AGE: SEX: M ORDERED BY: SHELBY FARRELL: URINE COLLECTED: 10/14/16 08:08ANTIBIOTICS AT FILIPPO.: RECEIVED : 10/14/16 10:23SITE: Clean Catch/Voided R E S U L T S URINE CULTURE,BACTERIAL FINAL 10/15/16 07:30 NO SIGNIFICANT GROWTH. Normal [facility] Vital Signs Date Time Vital Sign Value Performing Clinician Facility 07-14-2024 09:28-0400 Body height 182.9 cm Candice Longoria DPM Work Phone: [facility] 07-14-2024 09:28-0400 Body mass index (BMI) [Ratio] 33.23 kg/m2 Candice Longoria DPM Work Phone: [facility] 07-14-2024 09:28-0400 Body weight 111.13 kg Candice Longoria DPM Work Phone: [facility] 03-11-2024 09:22-0500 Body height 185.4 cm Candice Longoria DPM Work Phone: [facility] 03-11-2024 09:22-0500 Body mass index (BMI) [Ratio] 34.83 kg/m2 Candice Longoria DPM Work Phone: [facility] 03-11-2024 09:22-0500 Body weight 119.75 kg Candice Longoria DPM Work Phone: [facility] 09-14-2023 08:36-0400 Blood Pressure Location Danny LEVY [facility] 09-14-2023 08:36-0400 Body temperature 98.6 [degF] Danny LEVY [facility] 09-14-2023 08:36-0400 Diastolic blood pressure 69 mm[Hg] Danny LEVY [facility] 09-14-2023 08:36-0400 Heart rate 51 /min Danny LEVY [facility] 09-14-2023 08:36-0400 Respiratory rate 16 /min Danny LEVY [facility] 09-14-2023 08:36-0400 Systolic blood pressure 102 mm[Hg] Danny LEVY [facility] 12-16-2022 11:00-0400 Body height 182.88 cm Tita Wali Other [employer] Other 12-16-2022 11:00-0400 Body mass index (BMI) [Ratio] 34.85 kg/m2 Tita Wali Other [employer] Other 12-16-2022 11:00-0400 Body temperature 96.6 [degF] Tita Wali Other [employer] Other 12-16-2022 11:00-0400 Body weight 116.58 kg Tita Wali Other [employer] Other 12-16-2022 11:00-0400 Diastolic blood pressure 64 mm[Hg] Tita Wali Other [employer] Other 12-16-2022 11:00-0400 Respiratory rate 18 /min Tita Wali Other [employer] Other 12-16-2022 11:00-0400 SaO2% (BldA) [Mass fraction] 97 % Tita Wali Other [employer] Other 12-16-2022 11:00-0400 Systolic blood pressure 135 mm[Hg] Tita Wali Other [employer] Other 09-08-2022 08:38-0400 Blood Pressure Location Danny LEVY [facility] 09-08-2022 08:38-0400 Diastolic blood pressure 74 mm[Hg] Danny LEVY [facility] 09-08-2022 08:38-0400 Heart rate 68 /min Danny LEVY [facility] 09-08-2022 08:38-0400 Systolic blood pressure 129 mm[Hg] Danny LEVY [facility] 09-06-2021 09:34-0400 Blood Pressure Location Dannylinda LEVY [facility] 09-06-2021 09:34-0400 Diastolic blood pressure 87 mm[Hg] Danny LEVY [facility] 09-06-2021 09:34-0400 Heart rate 78 /min Danny LEVY [facility] 09-06-2021 09:34-0400 Respiratory rate 16 /min Danny LEVY [facility] 09-06-2021 09:34-0400 Systolic blood pressure 131 mm[Hg] Danny LEVY [facility] Encounters Encounter Date Encounter Type Care Provider Facility Start: 09-15-2025 ambulatory Danny Briceñoi ty:[facility] Start: 01-09-2025 ambulatory Pk Monge Facility :[facility] Start: 11-01-2024 ambulatory SANDY sheaty:[facility] Start: 10-13-2024 ambulatory [facility] Start: 10-13-2024 Encounter for preprocedural cardiovascular examination ROCÍO [facility] Start: 10-05-2024 ambulatory ROCÍO [facility] Start: 09-16-2024 End: 09-16-2024 ambulatory Danny LEVY Facility:[facility] Start: 09-16-2024 End: 09-16-2024 Patient encounter procedure Danny LEVY [facility] Start: 08-24-2024 End: 08-24-2024 ambulatory MD Pk Monge Facility:[facility] Start: 08-18-2024 ambulatory [facility] Start: 08-01-2024 End: 08-01-2024 ambulatory MD Pk Monge Facility:[facility] Start: 07-14-2024 End: 07-14-2024 Bamboo flowsheet Candice Longoria DPM Work Phone: [facility] Start: 07-14-2024 End: 07-14-2024 Bamboo flowsheet Candice Longoria DPM Work Phone: [facility] Start: 07-14-2024 End: 07-14-2024 Patient encounter procedure Candice Longoria DPM Work Phone: [facility] Comment on above: Onychomycosis (Prima ry Dx); Nail dystrophy; Pain in toes of both feet Start: 07-14-2024 End: 07-14-2024 ambulatory CANDICE LONGORIA Not Available Start: 07-12-2024 End: 07-12-2024 ambulatory [facility] Start: 07-08-2024 ambulatory ROCÍO [facility] Start: 06-14-2024 ambulatory [facility] Start: 06-13-2024 ambulatory [facility] Start: 05-30-2024 End: 05-30-2024 ambulatory MD Pk Monge Facility:[facility] Start: 05-12-2024 End: 05-12-2024 ambulatory [facility] Start: 05-09-2024 ambulatory [facility] Start: 04-28-2024 End: 04-28-2024 ambulatory MD Pk Monge Facility:[facility] Start: 03-31-2024 End: 03-31-2024 ambulatory MD Pk Monge Facility:[facility] Start: 03-24-2024 ambulatory [facility] Start: 03-18-2024 ambulatory [facility] Start: 03-11-2024 End: 03-11-2024 Bamboo flowsheet Candice Longoria DPM Work Phone: [facility] Start: 03-11-2024 End: 03-11-2024 Bamboo flowsheet Candice Longoria DPM Work Phone: [facility] Start: 03-11-2024 End: 03-11-2024 Patient encounter procedure Candice Longoria DPM Work Phone: [facility] Comment on above: Onychomycosis (Prima ry Dx); Nail dystrophy; Pain in toes of both feet Start: 03-11-2024 End: 03-11-2024 ambulatory CANDICE LONGORIA Not Available Start: 03-01-2024 End: 03-01-2024 ambulatory [facility] Start: 02-23-2024 End: 02-23-2024 Lab Drop off Pk Monge [facility] Start: 02-23-2024 End: 02-23-2024 ambulatory MD Pk Monge Facility:[facility] Start: 02-15-2024 ambulatory [facility] Start: 02-03-2024 ambulatory [facility] Start: 01-20-2024 ambulatory [facility] Start: 01-07-2024 End: 01-07-2024 ambulatory MD Pk Monge [facility] Start: 12-29-2023 End: 12-29-2023 ambulatory [facility] Start: 12-01-2023 End: 12-01-2023 Bamboo flowsheet Candice Longoria DPM Work Phone: [facility] Start: 12-01-2023 End: 12-01-2023 Bamboo flowsheet Candice Longoria DPM Work Phone: [facility] Start: 12-01-2023 End: 12-01-2023 Patient encounter procedure Candice Longoria DPM Work Phone: [facility] Comment on above: Onychomycosis (Prima ry Dx); Nail dystrophy; Pain in toes of both feet Start: 12-01-2023 End: 12-01-2023 ambulatory CANDICE LONGORIA Not Available Start: 11-30-2023 End: 11-30-2023 ambulatory Christiano Blackman Facility:[facility] Start: 11-30-2023 End: 11-30-2023 Patient encounter procedure Christiano Blackman [facility] Start: 11-18-2023 End: 11-18-2023 [facility] Start: 11-09-2023 ambulatory [facility] Start: 11-09-2023 End: 11-09-2023 ambulatory [facility] Start: 11-03-2023 End: 11-03-2023 ambulatory [facility] Start: 10-28-2023 End: 10-28-2023 ambulatory [facility] Start: 09-17-2023 End: 09-17-2023 Patient encounter procedure Christiano Blackman [facility] Start: 09-14-2023 End: 09-14-2023 ambulatory Danny LEVY Facility:[facility] Start: 09-14-2023 End: 09-14-2023 Patient encounter procedure Danny LEVY [facility] Start: 09-01-2023 End: 09-01-2023 ambulatory MD Pk Monge Facility:[facility] Start: 09-01-2023 End: 09-01-2023 Patient encounter procedure Christiano Porterd [facility] Start: 09-01-2023 End: 09-01-2023 Lab Drop off Pk Monge [facility] Start: 09-01-2023 End: 09-01-2023 ambulatory MD Pk Monge Facility:[facility] Start: 07-21-2023 End: 07-21-2023 ambulatory MD Pk Monge Facility:[facility] Start: 07-21-2023 End: 07-21-2023 ambulatory CANDICE LONGORIA Not Available Start: 12-16-2022 End: 12-16-2022 ambulatory Tita Wail Other [employer] Other Start: 12-16-2022 Office outpatient vi sit 25 minutes Tita Wali [facility] Start: 09-08-2022 End: 09-08-2022 Patient encounter procedure Danny LEVY [facility] Start: 12-24-2021 End: 12-25-[address] WING PEREZ Facility: Start: 09-06-2021 End: 09-06-2021 Patient encounter procedure Danny LEVY [facility] [place] Start: 08-02-2021 End: 08-03-[address] WING PEREZ Facility: Start: 03-30-2020 End: 03-31-2020 ambulatory WING PEREZ Facility:[facility] Start: 10-15-2016 End: 10-20-2016 Evaluation and management of inpatient Luci Farrell Facility:[facility] Start: 10-14-2016 Ambulatory Luci Farrell Facility:[facility] Start: 10-14-2016 Ambulatory Luci Farrell Facility:[facility] Procedures Date Procedure Procedure Detail Performing Clinician Start: 01-17-2020 Transurethral water vapor ablation of prostate Danny LEVY Start: 10-27-2019 Cystoscopy Danny ELLSWORTH Comment on above: cysto, shock lithopa xy of bladder stone Start: 09-06-2019 Cystoscope, device ( physical object) Danny LEVY Start: 10-15-2016 Supplement Abdominal Wall with Synthetic Substitute, Open Approach Luci Farrell Start: 10-15-2016 Transfer Left Abdome n Muscle, Transverse Rectus Abdominis Myocutaneous Flap, Open Approach Luci Farrell Acquired trigger fin ranjith (disorder) Danny LEVY Cardiac catheter (ph ysical object) Danny LEVY Comment on above: stent 11/01/04 Cardiac catheterization Cherryr rowdy LEVY Coronary artery bypa ss grafts x 4 Danny LEVY Comment on above: w/ OWENS History of hernia repair Cherry LEVY Plan of Treatment Date Care Activity Detail Author Start: 08-23-2024 End: 08-23-2024 Patient encounter procedure 08/23/2024 9:30 AM EDT Procedure Visit [facility] [address] [place] [address] Candice Longoria, DPM [address] [place] [address] [facility] Start: 07-14-2024 End: 07-14-2024 Patient encounter procedure [facility] Comment on above: Arrived Start: 03-29-2024 End: 03-29-2024 Patient encounter procedure 03/29/2024 2:15 PM EST Procedure Visit [facility] [address] [place] [address] Candice Longoria, DPM [address] [place] [address] [facility] Start: 03-11-2024 End: 03-11-2024 Patient encounter procedure 03/11/2024 9:30 AM EST Procedure Visit [facility] [address] [place] [id number] Candice Longoria, DPM [address] [place] [address] Arrived [facility] Comment on above: Arrived Start: 12-01-2023 End: 12-01-2023 Patient encounter procedure 12/01/2023 9:30 AM EDT Procedure Visit [facility] [address] [place] [id number] Candice Longoria, DPM [address] [place] [address] Arrived [facility] Comment on above: Arrived Start: 11-22-2023 Influenza vaccination Influenza Vacc ine (#1) [facility] Start: 01-07-2020 Pneumococcal Vaccine : 65+ Years (2 of 2 - PPSV23 or PCV20) Pneumococcal Vaccine: 65+ Years (2 of 2 - PPSV23 or PCV20) [facility] Start: 01-07-2020 Pneumococcal Vaccine : 65+ Years (2 of 2 - PPSV23) Pneumococcal Vaccine: 65+ Years (2 of 2 - PPSV23) [facility] Immunizations Immunization Date Immunization Notes Care Provider Fa cility 01-28-2024 influenza virus vaccine, unspecified formulation Danny LEVY [facility] 01-28-2024 influenza, high dose seasonal, preservative-free Candice Longoria DPM Work Phone: [facility] 01-02-2023 SARS-CoV-2 mRNA (tozinameran 5y-11y) vaccine Basem Blackman [facility] Comment on above: Result Comment: alona baptiste Pfizer 01-02-2023 zoster vaccine recombinant Basem Blackman [facility] 12-31-2022 influenza, high dose seasonal, preservative-free Basem Blackman [facility] 12-31-2022 influenza virus vaccine, unspecified formulation Candice Powelle DPM Work Phone: [facility] 01-04-2022 SARS-CoV-2 (COVID-19 ) [id number] Danny LEVY [facility] 12-23-2021 influenza virus vaccine, unspecified formulation Danny LEVY [facility] 12-23-2021 Influenza, High-dose Seasonal, Quadrivalent, Preservative Free Candice Longoria DPM Work Phone: [facility] 01-05-2021 influenza virus vaccine, unspecified formulation Danny LEVY [facility] 01-05-2021 Influenza, Seasonal, Quadrivalent, Adjuvanted Candice Longoria DPM Work Phone: [facility] 01-05-2021 SARS-CoV-2 (COVID-19 ) mRNA BNT-162b2 vax Danny LEVY [facility] 05-19-2020 influenza virus vaccine, unspecified formulation Danny Geliyoo [facility] 05-19-2020 SARS-CoV-2 (COVID-19 ) mRNA BNT-162b2 vax Danny LEVY [facility] Comment on above: Result Comment: 2022: [id number] 04-28-2020 Pfizer Purple Cap SARS-CoV-2 Vaccination Candice Longoria DPM Work Phone: [facility] 04-28-2020 SARS-CoV-2 (COVID-19 ) mRNA-1273 vaccine Danny LEVY [facility] 12-22-2019 influenza virus vaccine, unspecified formulation Danny Geliyoo [facility] 11-29-2019 influenza virus vaccine, unspecified formulation Danny Geliyoo [facility] 11-29-2019 influenza, injectabl e, quadrivalent, preservative free Candice Longoria DPM Work Phone: [facility] 01-06-2019 influenza virus vaccine, unspecified formulation Danny LEVY [facility] 01-06-2019 pneumococcal conjuga te vaccine, 13 valent Danny LEVY [facility] 01-06-2019 Seasonal trivalent influenza vaccine, adjuvanted, preservative free Candice Longoria DPM Work Phone: [facility] 01-14-2017 influenza virus vaccine, unspecified formulation Danny LEVY [facility] 01-14-2017 influenza, injectabl e, quadrivalent, preservative free Candice Longoria DPM Work Phone: [facility] 01-01-2017 influenza virus vaccine, unspecified formulation Danny LEVY [facility] 01-01-2017 Seasonal trivalent influenza vaccine, adjuvanted, preservative free Candice Longoria DPM Work Phone: [facility] Healthcare Payers Date Payer Category Payer Medicare [id number] 2023 Medicare [id number] 2022 Medicare (Managed Care) [employer] [id number] [address] Unknown [employer] [address] [facility] [employer] [id number] 2022-Present [address] [place] [address] [id number] 2022 Unknown [id number] 1959 Medicare [id number] 1959 Unknown [id number] 1941 Unknown [id number] 2.16.840.1.777388.3.579.2 .647 1941 Unknown [id number] 2.16.840.1.311577.3.579.2 .593 1941 Unknown [id number] 2.16.840.1.848994.3.579.2 .593 1941 Unknown [id number] 2.16.840.1.307940.3.579.2 .727 1941 Unknown [id number] 2.16.840.1.705510.3.579.2 .727 1941 Unknown [id number] 2.16.840.1.832172.3.579.2 .727 1941 Unknown [id number] 2.16.840.1.935749.3.579.2 .727 1941 Unknown [id number] 2.16.840.1.165167.3.579.2 .727 1941 Unknown [id number] 2.16.840.1.553168.3.579.2 .727 1941 Unknown [id number] 2.16.840.1.067231.3.579.2 .72 1941 Unknown [id number] 2.16.840.1.590998.3.579.2 .1259 1941 Unknown [id number] 2.16.840.1.665458.3.579.2 .1259 1941 Unknown [id number] 2.16.840.1.049139.3.579.2 .1259 1941 Unknown [id number] 2.16.840.1.635274.3.579.2 .1259 1941 Unknown [id number] 2.16.840.1.042459.3.579.2 .727 1941 Unknown [id number] 2.16.840.1.579951.3.579.2 .727 1941 Unknown [id number] 2.16.840.1.948343.3.579.2 .727 1941 Unknown [id number] 2.16.840.1.295247.3.579.2 .727 1941 Unknown [id number] 2.16.840.1.074680.3.579.2 .727 1941 Unknown [id number] 2.16.840.1.850633.3.579.2 .727 1941 Unknown [id number] 2.16.840.1.236450.3.579.2 .727 1941 Unknown [id number] 2.16.840.1.626475.3.579.2 .727 1941 Unknown [id number] 2.16.840.1.930974.3.579.2 .727 1941 Unknown [id number] 2.16.840.1.819400.3.579.2 .727 1941 Unknown [id number] 2.16.840.1.665549.3.579.2 .727 1941 Unknown [id number] 2.16.840.1.355473.3.579.2 .727 Medicare [id number] Social History Date Type Detail Facility Start: 03-08-2021 End: 09-16-2024 Tobacco smoking status Never smoked tobacco (finding) [facility] Comment on above: denies denies use. Start: 12-01-2023 End: 03-11-2024 Sex Assigned At Male [facility] Tobacco smoking status Never [facility] Comment on above: denies denies use. Start: 12-02-2022 Tobacco use and exposure Smoke less tobacco non-user [facility] Start: 12-01-2023 End: 07-14-2024 Alcoholic beverage intake Lifetime non-drinker (finding) [facility] Start: 12-01-2023 End: 03-11-2024 History of Social function [facility] Start: 1940 Sex assigned at Not on file [facility] Sexual Orientation [facility] Sex Male (finding) [facility] Medical Equipment Procedure Code Equipment Code Equipment Origin al Text Equipment Identifier Dates TEST BLOOD SUGAR ONCE DAILY Start: 08-06-2022 Functional Status Date Assessment Result Facility 09-14-2023 Functional Status N/A [facility] 09-08-2022 Functional Status N/A [facility] 09-06-2021 Functional Status N/A [facility] Clinical Notes 09-06-2021 to 09-16-2024 Candice Longoria DPM - 07/14/2024 9:30 AM EDTCandice Longoria DPM - 03/11/2024 9:30 AM Mariposa Longoria DPM - 12/01/2023 9:30 AM EDT Note Date & Type Note Facility 09-16-2024 Hospital Discharge instructions Patient Education 09/16/2024 08:53:17 Kidney Stones, Adxg-wz-Lawi Kidney Stones Kidney stones are rock-like masses that form inside of the kidneys. Kidneys are organs that make pee (urine). A kidney stone may move into other parts of the urinary tract, including: The tubes that connect the kidneys to the bladder (ureters). The bladder. The tube that carries urine out of the body (urethra). Kidney stones can cause very bad pain and can block the flow of pee. The stone usually leaves your body through your pee. A doctor may need to take out the stone. What are the causes? Kidney stones may be caused by: Too much calcium in the body. This may be caused by too much parathyroid hormone in the blood. Uric acid crystals in the bladder. The body makes uric acid when you eat certain foods. Narrowing of one or both of the ureters. A kidney blockage that you were born with. Past surgery on the kidney or the ureters. What increases the risk? You are more likely to develop this condition if: You have had a kidney stone in the past. Other people in your family have had kidney stones. You do not drink enough water. You eat a diet that is high in protein, salt (sodium), or sugar. You are very overweight (obese). What are the signs or symptoms? Symptoms of a kidney stone may include: Pain in the side of the belly, right below the ribs. Pain usually spreads to the groin. Needing to pee often or right away. Pain when peeing. Blood in your pee. Feeling like you may vomit (nauseous). Vomiting. Fever and chills. How is this treated? Treatment depends on the size, location, and makeup of the kidney stones. The stones will often pass out of the body when you pee. You may need to: Drink more fluid to help pass the stone. ?In some cases, you may be given fluids through an IV tube at the hospital. Take medicine for pain. Change your diet to help keep kidney stones from coming back. Sometimes, you may need: A procedure to break up kidney stones using a beam of light (laser) or shock waves. Surgery to remove the kidney stones. Follow these instructions at home: Medicines Take iplo-mhb-achbqyb and prescription medicines only as told by your doctor. Ask your doctor if the medicine prescribed to you requires you to avoid driving or using machinery. Eating and drinking Drink enough fluid to keep your pee pale yellow. ?You may be told to drink at least 8 10 glasses of water each day. This will help you pass the stone. If told by your doctor, change your diet. You may be told to: ?Limit how much salt you eat. ?Eat more fruits and vegetables. ?Limit how much meat, poultry, fish, and eggs you eat. Follow instructions from your doctor about what you may eat and drink. General instructions Collect pee samples as told by your doctor. You may need to collect a pee sample: ?24 hours after a stone comes out. ?8 12 weeks after a stone comes out, and every 6 12 months after that. Strain your pee every time you pee. Use the strainer that your doctor recommends. Do not throw out the stone. Keep it so that it can be tested by your doctor. Keep all follow-up visits. You may need X-rays and ultrasounds to make sure the stone has come out. How is this prevented? To prevent another kidney stone: Drink enough fluid to keep your pee pale yellow. This is the best way to prevent kidney stones. Eat healthy foods. Avoid certain foods as told by your doctor. You may be told to eat less protein. Stay at a healthy weight. Where to find more information National Kidney Foundation (NKF): kidney.org Urology Care Foundation (UCF): urologyhealth.org Contact a doctor if: You have pain that gets worse or does not get better with medicine. Get help right away if: You have a fever or chills. You get very bad pain. You get new pain in your belly. You faint. You cannot pee. This information is not intended to replace advice given to you by your health care provider. Make sure you discuss any questions you have with your health care provider. Document Revised: 10/31/2022 Document Reviewed: 10/31/2022 [employer] Patient Education 2023 Kash. Follow Up Care 09/14/2023 09:46:42 With:MILDRED GUEVARA, Danny Keen, URL Address: [facility] [address] , [place] [phone] When:Within 1 Year(s) Comments:1 year with JACKELYN [facility] 09-16-2024 Note Patient Education Urology Kidney Stones Kidney stones are rock-like masses that form inside of the kidneys. Kidneys are organs that make pee (urine). A kidney stone may move into other parts of the urinary tract, including: ??? The tubes that connect the kidneys to the bladder (ureters). ??? The bladder. ??? The tube that carries urine out of the body (urethra). Kidney stones can cause very bad pain and can block the flow of pee. The stone usually leaves your body through your pee. A doctor may need to take out the stone. What are the causes? Kidney stones may be caused by: ??? Too much calcium in the body. This may be caused by too much parathyroid hormone in the blood. ??? Uric acid crystals in the bladder. The body makes uric acid when you eat certain foods. ??? Narrowing of one or both of the ureters. ??? A kidney blockage that you were born with. ??? Past surgery on the kidney or the ureters. What increases the risk? You are more likely to develop this condition if: ??? You have had a kidney stone in the past. ??? Other people in your family have had kidney stones. ??? You do not drink enough water. ??? You eat a diet that is high in protein, salt (sodium), or sugar. ??? You are very overweight (obese). What are the signs or symptoms? Symptoms of a kidney stone may include: ??? Pain in the side of the belly, right below the ribs. Pain usually spreads to the groin. ??? Needing to pee often or right away. ??? Pain when peeing. ??? Blood in your pee. ??? Feeling like you may vomit (nauseous). ??? Vomiting. ??? Fever and chills. How is this treated? Treatment depends on the size, location, and makeup of the kidney stones. The stones will often pass out of the body when you pee. You may need to: ??? Drink more fluid to help pass the stone. ? In some cases, you may be given fluids through an IV tube at the hospital. ??? Take medicine for pain. ??? Change your diet to help keep kidney stones from coming back. Sometimes, you may need: ??? A procedure to break up kidney stones using a beam of light (laser) or shock waves. ??? Surgery to remove the kidney stones. Follow these instructions at home: Medicines ??? Take [id number] and prescription medicines only as told by your doctor. ??? Ask your doctor if the medicine prescribed to you requires you to avoid driving or using machinery. Eating and drinking ??? Drink enough fluid to keep your pee pale yellow. ? You may be told to drink at least 8?10 glasses of water each day. This will help you pass the stone. ??? If told by your doctor, change your diet. You may be told to: ? Limit how much salt you eat. ? Eat more fruits and vegetables. ? Limit how much meat, poultry, fish, and eggs you eat. ??? Follow instructions from your doctor about what you may eat and drink. General instructions ??? Collect pee samples as told by your doctor. You may need to collect a pee sample: ? 24 hours after a stone comes out. ? 8?12 weeks after a stone comes out, and every 6?12 months after that. ??? Strain your pee every time you pee. Use the strainer that your doctor recommends. ??? Do not throw out the stone. Keep it so that it can be tested by your doctor. ??? Keep all follow-up visits. You may need X-rays and ultrasounds to make sure the stone has come out. How is this prevented? To prevent another kidney stone: ??? Drink enough fluid to keep your pee pale yellow. This is the best way to prevent kidney stones. ??? Eat healthy foods. ??? Avoid certain foods as told by your doctor. You may be told to eat less protein. ??? Stay at a healthy weight. Where to find more information ??? National Kidney Foundation (NKF): kidney.org ??? [facility] ([facility]): urologyhealth.org Contact a doctor if: ??? You have pain that gets worse or does not get better with medicine. Get help right away if: ??? You have a fever or chills. ??? You get very bad pain. ??? You get new pain in your belly. ??? You faint. ??? You cannot pee. This information is not intended to replace advice given to you by your health care provider. Make sure you discuss any questions you have with your health care provider. Document Revised: 10/31/2022 Document Reviewed: 10/31/2022 [employer] Patient Education ? 2023 Kash. [facility] 08-24-2024 Note Nurse Consultation N ote Reason for Visit patient came IO for ear wash on RT ear Medications alprazolam 0.5 mg Tab, 0.5 mg= 1 tab(s), Oral, Daily, PRN aspirin, 81 mg, Oral, Daily atorvastatin 20 mg Tab, See Instructions Colace, 100 mg, Oral, BID Entresto 49 mg-51 mg oral tablet, 1 tab(s), Oral, BID Farxiga 10 mg oral tablet, 10 mg= 1 tab(s), Oral, Daily, 4 refills finasteride 5 mg Tab, 5 mg= 1 tab(s), Oral, Daily, 3 refills Fish Oil, Oral, Daily glipiZIDE 5 mg Tab, 5 mg, Oral, Daily, 1 refills Handicap Placard, 5 years., See Instructions ketoconazole Top 2% Crm, 1 marita, Topical, TID metformin 500 mg ER Tab, 500 mg= 1 tab(s), Oral, BID, 3 refills metoprolol 100 mg ER Tab, 100 mg= 1 tab(s), Oral, Daily, 1 refills Osteo Bi-Flex oral tablet, 1 tablet, Daily oxybutynin 10 mg ER Tab, 10 mg= 1 tab(s), Oral, BID, 3 refills Pantoprazole [address] Tab, 40 mg= 1 tab(s), Oral, Daily, 3 refills spironolactone 25 mg Tab, See Instructions traZODONE 50 mg Tab, 50 mg= 1 tab(s), Oral, Once a day (at bedtime), 3 refills Vitamin D, 5000, Oral, Daily Allergies Percocet (Mild) gabapentin (Unknown) Immunizations Vaccine Date Status Comments influenza virus vaccine, inactivated 01/28/2024 Recorded SARS-CoV-2 mRNA (paige 5y-11y) vac 01/02/2023 Recorded comirnaty Pfizer zoster vaccine, inactivated 01/02/2023 Recorded influenza virus vaccine, inactivated 12/31/2022 Given SARS-CoV-2 (COVID-19) [id number] 01/04/2022 Recorded influenza virus vaccine, inactivated 12/23/2021 Recorded influenza virus vaccine, inactivated 01/05/2021 Recorded SARS-CoV-2 (COVID-19) mRNA BNT-162b2 vax 01/05/2021 Recorded influenza virus vaccine, inactivated 05/19/2020 Recorded SARS-CoV-2 (COVID-19) mRNA BNT-162b2 vax 05/19/2020 Recorded 2022-08-06: [id number] SARS-CoV-2 (COVID-19) mRNA-1273 vaccine 04/28/2020 Recorded influenza virus vaccine, inactivated 12/2019 Recorded influenza virus vaccine, inactivated 11/29/2019 Recorded pneumococcal 13-valent vaccine 01/06/2019 Recorded influenza virus vaccine, inactivated 01/06/2019 Recorded influenza virus vaccine, inactivated 01/14/2017 Recorded influenza virus vaccine, inactivated 01/01/2017 Recorded [facility] 07-14-2024 History of Present illness Narrative Images from the original note were not included. Subjective Patient ID: Jonas Almanza is a 83 y.o. male who presents for DM Foot Care (Pt is here today requesitng diabetic foot care, he is due for diabetic foot exam/BS: 135 A1C: 7.8/LV Dr. Monge 03-01-2024/SS: 13). HPI Patient presents requesting nail debridement. He states nails are thick, elongated, fungal. He shares with me today that twelve weeks ago his from a stroke/brain bleed. They had been over 50 years and today is her birthday. He has children in town who are helping. Review of Systems Medications Current Outpatient Medications: allopurinol (Zyloprim) 300 MG tablet, Take by mouth., Disp: , Rfl: ALPRAZolam (Xanax) 0.5 MG tablet, Take 0.5 mg by mouth as needed at bedtime for anxiety., Disp: , Rfl: amitriptyline (Elavil) 10 MG tablet, Take by mouth at bedtime., Disp: , Rfl: Ascorbic Acid (vitamin C) 250 MG tablet, Take 250 mg by mouth in the morning., Disp: , Rfl: aspirin 81 MG EC tablet, Take 81 mg by mouth in the morning., Disp: , Rfl: atorvastatin (Lipitor) 20 MG tablet, Take 20 mg by mouth in the morning., Disp: , Rfl: cholecalciferol (Vitamin D-3) 25 MCG (1000 UT) capsule, Take 1,000 Units by mouth in the morning., Disp: , Rfl: dapagliflozin (Farxiga) 10 MG, Take 10 mg by mouth in the morning., Disp: , Rfl: docusate sodium (Colace) 50 MG capsule, Take 50 mg by mouth in the morning and 50 mg before bedtime., Disp: , Rfl: fenofibrate micronized (Lofibra) 200 MG capsule, Take 200 mg by mouth in the morning. Take with meals., Disp: , Rfl: finasteride (Proscar) 5 MG tablet, Take 5 mg by mouth in the morning. Do not crush, chew, or split. ., Disp: , Rfl: furosemide (Lasix) 20 MG tablet, Take by mouth., Disp: , Rfl: glipiZIDE (Glucotrol) 5 MG tablet, Take 5 mg by mouth in the morning and 5 mg in the evening. Take before meals., Disp: , Rfl: metFORMIN (Glucophage) 500 MG tablet, Take by mouth 2 (two) times a day, Disp: , Rfl: metoprolol succinate XL (Toprol-XL) 100 MG 24 hr tablet, Take by mouth. Do not crush or chew., Disp: , Rfl: oxybutynin XL (Ditropan-XL) 10 MG 24 hr tablet, Take 10 mg by mouth in the morning. Do not crush, chew, or split. ., Disp: , Rfl: pantoprazole (ProtoNix) 40 MG EC tablet, Take 40 mg by mouth in the morning. Take before meals. Do not crush, chew, or split. ., Disp: , Rfl: Sacubitril-Valsartan (ENTRESTO PO), Take by mouth., Disp: , Rfl: spironolactone (Aldactone) 25 MG tablet, Take 12.5 mg by mouth in the morning., Disp: , Rfl: TAMSULOSIN HCL PO, Take by mouth., Disp: , Rfl: traZODone (Desyrel) 50 MG tablet, Take 50 mg by mouth at bedtime, Disp: , Rfl: vitamin E 180 MG (400 UNIT) capsule, Take 180 mg by mouth in the morning., Disp: , Rfl: Allergies Percocet [oxycodone-acetaminophen] Past Surgical History Past Surgical History: Procedure Laterality Date CARDIAC DEFIBRILLATOR PLACEMENT 11/09/2023 COLECTOMY 2007 HEART CATH 2020 HERNIA REPAIR IR STENT PLACEMENT Family History Family History Problem Relation Name Age of Onset Heart disease Father Cancer Sister Objective Physical Exam Constitutional: Appearance: Normal appearance. HENT: Head: Normocephalic and atraumatic. Cardiovascular: Comments: Pedal pulses: DP 2/4 bilateral, PT 2/4 bilateral. Skin temp is warm to warm. Varicosities: mild, present Hair growth: present Musculoskeletal: General: No deformity. Right lower leg: No edema. Left lower leg: No edema. Comments: ROM: ankle joint and subtalar joint ROM are normal and pain free. DEFORMITIES: bilateral Hammer toe 2. PAIN: bilateral hallux nails. MUSCLE STRENGTH 5/5 for dorsiflexion, plantarflexion, inversion, eversion. Skin: General: Skin is warm. Capillary Refill: Capillary refill takes 2 to 3 seconds. Comments: SKIN FINDINGS: web spaces are clean/dry. NAIL PATHOLOGY:Nail 1 L is 5mm thick, yellow, crumbly, incurvated, with subungal debris at nail folds. Nail 2 L is 3mm thick, dystrophic, brittle, yellow and ferguson, fungal. Nail 5 R 3mm thick, discolored, mycotic. Nail 1 R is crumbly, white and yellow, with significant build up at lateral nail fold, mycotic. Nails 2,4,5 L are dystrophic. SKIN PATHOLOGY: texture, turgor, hair growth, within normal limits. Neurological: Mental Status: He is alert and oriented to person, place, and time. Comments: Light touch sensation intact Psychiatric: Mood and Affect: Mood normal. [id number] Assessment/Plan ICD-10-CM 1. Onychomycosis B35.1 2. Nail dystrophy L60.3 3. Pain in toes of both feet M79.674 M79.675 All 10 nails debrided, reduced in thickness and in length. Instrumentation: large and small nipper, curette, and power bur. With this treatment, relief obtained. Feet inspected, hygiene discussed, shoe gear also inspected. This note was created with the assistance of a speech recognition program. While intending to generate a timely document that accurately reflects the content of the visit, no guarantee can be provided that every grammatical or spelling mistake has been or will be identified or corrected. Thank you for your understanding. Candice Longoria DPM documented in this encounter [facility] 05-12-2024 Note [place] [facility] - [facility] Subjective Luis Alfredo Almanza is a 83 y.o. year old male patient being seen for 6 mo follow up chronic systolic heart failure, CAD, aortic valve stenosis, and hyperlipidemia. He lost his last month while they were in [place]. Denies chest pain, SOB, and palpitations. Due for routine device interrogation in June 2024. Patient Active Problem List Diagnosis Abnormal results [...] Nocturia Post-void dribbling Kidney stones Renal cyst Bereavement Impaired ambulation Nonsmoker No family history on file. 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 He underwent CABG [...] daily. I stopped furosemide 20 mg daily. After visit of 10/28/2023 I referred him to Dr. Kevin Galeas for consideration of biventricular ICD placement given that his ejection fraction was less than 35% and he had right bundle branch block with QRS complex more than 150 ms. He was evaluated by Dr. Kevin Galeas and proceeded to undergo placement of the device on 11/09/2023. Dr. Kevin Galeas could not cannulate the coronary sinus and abandoned placement of the LV lead. He placed a dual-chamber ICD. He did well with the procedure. Today he is seen in follow-up. He reports that he has been doing very well. He has mild lower extremity edema. No shortness of breath to his current level of activity. No chest pain. No palpitations. No dizziness or lightheadedness. Review of Systems HENT: Positive for hearing loss. Cardiovascular: Positive for leg swelling. Musculoskeletal: Positive for arthritis, back pain and joint pain. All other systems reviewed and are negative. Objective Visit Vitals BP 108/64 (BP Location: Right arm, Patient Position: Sitting) Pulse 90 Ht 1.829 m (6') Wt 110 kg (243 lb) SpO2 95% BMI 32.96 kg/m??? Smoking Status Never BSA 2.36 m??? Physical Exam Constitutional: Appearance: He is [...] No focal deficit present. Mental Status: He i (more content not included)... [facility] 03-11-2024 History of Present illness Narrative Images from the original note were not included. Subjective Patient ID: Jonas Almanza is a 83 y.o. male who presents for DM Foot Care (PCP: Dr. Saleem MAYES 02/29/24, A1C: 6.4 (02/29/24), BS: 127, SS: 13). HPI Patient presents requesting nail debridement. He states nails are thick, elongated, fungal. He has been in [place] but returned for the holidays. He and his plan to return to [place] mid March until June. He states this will likely be the [place]. He is concerned his has the beginning signs of dementia. Review of Systems Medications Current Outpatient Medications: allopurinol (Zyloprim) 300 MG tablet, Take by mouth., Disp: , Rfl: ALPRAZolam (Xanax) 0.5 MG tablet, Take 0.5 mg by mouth as needed at bedtime for anxiety., Disp: , Rfl: amitriptyline (Elavil) 10 MG tablet, Take by mouth at bedtime., Disp: , Rfl: Ascorbic Acid (vitamin C) 250 MG tablet, Take 250 mg by mouth in the morning., Disp: , Rfl: aspirin 81 MG EC tablet, Take 81 mg by mouth in the morning., Disp: , Rfl: atorvastatin (Lipitor) 20 MG tablet, Take 20 mg by mouth in the morning., Disp: , Rfl: cholecalciferol (Vitamin D-3) 25 MCG (1000 UT) capsule, Take 1,000 Units by mouth in the morning., Disp: , Rfl: dapagliflozin (Farxiga) 10 MG, Take 10 mg by mouth in the morning., Disp: , Rfl: docusate sodium (Colace) 50 MG capsule, Take 50 mg by mouth in the morning and 50 mg before bedtime., Disp: , Rfl: fenofibrate micronized (Lofibra) 200 MG capsule, Take 200 mg by mouth in the morning. Take with meals., Disp: , Rfl: finasteride (Proscar) 5 MG tablet, Take 5 mg by mouth in the morning. Do not crush, chew, or split. ., Disp: , Rfl: furosemide (Lasix) 20 MG tablet, Take by mouth., Disp: , Rfl: glipiZIDE (Glucotrol) 5 MG tablet, Take 5 mg by mouth in the morning and 5 mg in the evening. Take before meals., Disp: , Rfl: metFORMIN (Glucophage) 500 MG tablet, Take by mouth 2 (two) times a day, Disp: , Rfl: metoprolol succinate XL (Toprol-XL) 100 MG 24 hr tablet, Take by mouth. Do not crush or chew., Disp: , Rfl: oxybutynin XL (Ditropan-XL) 10 MG 24 hr tablet, Take 10 mg by mouth in the morning. Do not crush, chew, or split. ., Disp: , Rfl: pantoprazole (ProtoNix) 40 MG EC tablet, Take 40 mg by mouth in the morning. Take before meals. Do not crush, chew, or split. ., Disp: , Rfl: Sacubitril-Valsartan (ENTRESTO PO), Take by mouth., Disp: , Rfl: spironolactone (Aldactone) 25 MG tablet, Take 12.5 mg by mouth in the morning., Disp: , Rfl: TAMSULOSIN HCL PO, Take by mouth., Disp: , Rfl: traZODone (Desyrel) 50 MG tablet, Take 50 mg by mouth at bedtime, Disp: , Rfl: vitamin E 180 MG (400 UNIT) capsule, Take 180 mg by mouth in the morning., Disp: , Rfl: Allergies Percocet [oxycodone-acetaminophen] Past Surgical History Past Surgical History: Procedure Laterality Date CARDIAC DEFIBRILLATOR PLACEMENT 11/09/2023 COLECTOMY 2007 HEART CATH 2020 HERNIA REPAIR IR STENT PLACEMENT Family History Family History Problem Relation Name Age of Onset Heart disease Father Cancer Sister Objective Physical Exam Constitutional: Appearance: Normal appearance. HENT: Head: Normocephalic and atraumatic. Cardiovascular: Comments: Pedal pulses: DP 2/4 bilateral, PT 2/4 bilateral. Skin temp is warm to warm. Varicosities: mild, present Hair growth: present Musculoskeletal: General: No deformity. Right lower leg: No edema. Left lower leg: No edema. Comments: ROM: ankle joint and subtalar joint ROM are normal and pain free. DEFORMITIES: bilateral Hammer toe 2. PAIN: bilateral hallux nails. MUSCLE STRENGTH 5/5 for dorsiflexion, plantarflexion, inversion, eversion. Skin: General: Skin is warm. Capillary Refill: Capillary refill takes 2 to 3 seconds. Comments: SKIN FINDINGS: web spaces are clean/dry. NAIL PATHOLOGY:Nail 1 L is 5mm thick, yellow, crumbly, incurvated, with subungal debris at nail folds. Nail 2 L is 3mm thick, dystrophic, brittle, yellow and ferguson, fungal. Nail 5 R 3mm thick, discolored, mycotic. Nail 1 R is crumbly, white and yellow, with significant build up at lateral nail fold, mycotic. Nails 2,4,5 L are dystrophic. SKIN PATHOLOGY: texture, turgor, hair growth, within normal limits. Neurological: Mental Status: He is alert and oriented to person, place, and time. Comments: Light touch sensation intact Psychiatric: Mood and Affect: Mood normal. [id number] Assessment/Plan ICD-10-CM 1. Onychomycosis B35.1 2. Nail dystrophy L60.3 3. Pain in toes of both feet M79.674 M79.675 All nails debrided, the mycotic toenails and dystrophic toenails reduced. The nails are debrided in thickness and length. Any redundant tissue in the margins were curetted in an effort to reduce pain and pressure. All nails were debrided with large and small nail nippers, and power burring implemented to remove residual rough edges. With this treatment the patient relates relief of symptomatology. Shoes inspected and good foot hygiene discussed. Patient advised to call if condition exacerbates or issues arise This note was created with the assistance of a speech recognition program. While intending to generate a timely document that accurately reflects the content of the visit, no guarantee can be provided that every grammatical or spelling mistake has been or will be identified or corrected. Thank you for your understanding. Candice Longoria DPM documented in this encounter [facility] 02-23-2024 Note Nurse Consultation N [place]te Reason for Visit Patient came into office today for a lab draw Assessment/Plan 1. Chronic kidney disease (CKD), stage III (moderate) (N18.30: Chronic kidney disease, stage 3 unspecified) Medications alprazolam 0.5 mg Tab, 0.5 mg= 1 tab(s), Oral, PRN aspirin, 81 mg, Oral, Daily atorvastatin 20 mg Tab, See Instructions Colace, 100 mg, Oral, BID Entresto 49 mg-51 mg oral tablet, 1 tab(s), Oral, BID Farxiga 10 mg oral tablet, 10 mg= 1 tab(s), Oral, Daily, 4 refills finasteride 5 mg Tab, 5 mg= 1 tab(s), Oral, Daily, 1 refills Fish Oil, Oral, Daily glipiZIDE 5 mg Tab, 5 mg, Oral, [...] Oral, Daily Allergies Percocet (Mild) gabapentin (Unknown) Immunizations Vaccine Date Status Comments SARS-CoV-2 mRNA (paige 5y-11y) vac 01/02/2023 Recorded comirnaty Pfizer zoster vaccine, inactivated 01/02/2023 Recorded influenza virus vaccine, inactivated 12/31/2022 Given SARS-CoV-2 (COVID-19) [id number] 01/04/2022 Recorded influenza virus vaccine, inactivated 12/23/2021 Recorded influenza virus vaccine, inactivated 01/05/2021 Recorded SARS-CoV-2 (COVID-19) mRNA BNT-162b2 vax 01/05/2021 Recorded influenza virus vaccine, inactivated 05/19/2020 Recorded SARS-CoV-2 (COVID-19) mRNA BNT-162b2 vax 05/19/2020 Recorded 2022-08-06: [id number] SARS-CoV-2 (COVID-19) mRNA-1273 vaccine 04/28/2020 Recorded influenza virus vaccine, inactivated 12/2019 Recorded influenza virus vaccine, inactivated 11/29/2019 Recorded pneumococcal 13-valent vaccine 01/06/2019 Recorded influenza virus vaccine, inactivated 01/06/2019 Recorded influenza virus vaccine, inactivated 01/14/2017 Recorded influenza virus vaccine, inactivated 01/01/2017 Recorded [facility] 01-07-2024 Note Patient Education Cardiovascular Hypertension, Adult High blood pressure (hypertension) is when the force of blood pumping through the arteries is too strong. The arteries are the blood vessels that carry blood from the heart throughout the body. Hypertension forces the heart to work harder to pump blood and may cause arteries to become narrow or stiff. Untreated or uncontrolled hypertension can lead to a heart attack, heart failure, a stroke, kidney disease, and other problems. A blood pressure reading consists of a higher number over a lower number. Ideally, your blood pressure should be below 120/80. The first ( top ) number is called the systolic pressure. It is a measure of the pressure in your arteries as your heart beats. The second ( bottom ) number is called the diastolic pressure. It is a measure of the pressure in your arteries as the heart relaxes. What are the causes? The exact cause of this condition is not known. There are some conditions that result in high blood pressure. What increases the risk? Certain factors may make you more likely to develop high blood pressure. Some of these risk factors are under your control, including: ? Smoking. ? Not getting enough exercise or physical activity. ? Being overweight. ? Having too much fat, sugar, calories, or salt (sodium) in your diet. ? Drinking too much alcohol. Other risk factors include: ? Having a personal history of heart disease, diabetes, high cholesterol, or kidney disease. ? Stress. ? Having a family history of high blood pressure and high cholesterol. ? Having obstructive sleep apnea. ? Age. The risk increases with age. What are the signs or symptoms? High blood pressure may not cause symptoms. Very high blood pressure (hypertensive crisis) may cause: ? Headache. ? Fast or irregular heartbeats (palpitations). ? Shortness of breath. ? Nosebleed. ? Nausea and vomiting. ? Vision changes. ? Severe chest pain, dizziness, and seizures. How is this diagnosed? This condition is diagnosed by measuring your blood pressure while you are seated, with your arm resting on a flat surface, your legs uncrossed, and your feet flat on the floor. The cuff of the blood pressure monitor will be placed directly against the skin of your upper arm at the level of your heart. Blood pressure should be measured at least twice using the same arm. Certain conditions can cause a difference in blood pressure between your right and left arms. If you have a high blood pressure reading during one visit or you have normal blood pressure with other risk factors, you may be asked to: ? Return on a different day to have your blood pressure checked again. ? Monitor your blood pressure at home for 1 week or longer. If you are diagnosed with hypertension, you may have other blood or imaging tests to help your health care provider understand your overall risk for other conditions. How is this treated? This condition is treated by making healthy lifestyle changes, such as eating healthy foods, exercising more, and reducing your alcohol intake. You may be referred for counseling on a healthy diet and physical activity. Your health care provider may prescribe medicine if lifestyle changes are not enough to get your blood pressure under control and if: ? Your systolic blood pressure is above 130. ? Your diastolic blood pressure is above 80. Your personal target blood pressure may vary depending on your medical conditions, your age, and other factors. Follow these instructions at home: Eating and drinking ? Eat a diet that is high in fiber and potassium, and low in sodium, added sugar, and fat. An example of this eating plan is called the DASH diet. DASH stands for Dietary Approaches to Stop Hypertension. To eat this way: ? Eat plenty of fresh fruits and vegetables. Try to fill one half of your plate at each meal with fruits and vegetables. ? Eat whole grains, such as whole-wheat pasta, brown rice, or whole-grain bread. Fill about one fourth of your plate with whole grains. ? Eat or drink low-fat dairy products, such as skim milk or low-fat yogurt. ? Avoid fatty cuts of meat, processed or cured meats, and poultry with skin. Fill about one fourth of your plate with lean proteins, such as fish, chicken without skin, beans, eggs, or tofu. ? Avoid pre-made and processed foods. These tend to be higher in sodium, added sugar, and fat. ? Reduce your daily sodium intake. Many people with hypertension should eat less than 1,500 mg of sodium a day. ? Do not drink alcohol if: ? Your health care provider tells you not to drink. ? You are , may be , or are planning to become . ? If you drink alcohol: ? Limit how much you have to: ? 0?1 drink a day for women. ? 0?2 drinks a day for men. ? Know how much alcohol is in your drink. In the [place] one drink equals one 12 oz bottle of beer (355 mL), one 5 oz glass of wine (148 mL), (more content not included)... [facility] 12-01-2023 History of Present illness Narrative Images from the original note were not included. Subjective Patient ID: Jonas Almanza is a 82 y.o. male who presents for DM Foot Care (PCP: Dr. Saleem MAYES 09/01/23, A1C: 6.4, LV BS: 123, SS: 13). HPI Established patient requesting nail debridement returns to clinic today. He states the nails are thick, elongated, incurvated, fungal. The hallux nails are painful for him. He does plan to return to [place] for a few weeks this winter. Review of Systems Medications Current Outpatient Medications: ALPRAZolam (Xanax) 0.5 MG tablet, Take 0.5 mg by mouth as needed at bedtime for anxiety., Disp: , Rfl: aspirin 81 MG EC tablet, Take 81 mg by mouth in the morning., Disp: , Rfl: atorvastatin (Lipitor) 20 MG tablet, Take 20 mg by mouth in the morning., Disp: , Rfl: cholecalciferol (Vitamin D-3) 25 MCG (1000 UT) capsule, Take 1,000 Units by mouth in the morning., Disp: , Rfl: dapagliflozin (Farxiga) 10 MG, Take 10 mg by mouth in the morning., Disp: , Rfl: finasteride (Proscar) 5 MG tablet, Take 5 mg by mouth in the morning. Do not crush, chew, or split. ., Disp: , Rfl: glipiZIDE (Glucotrol) 5 MG tablet, Take 5 mg by mouth in the morning and 5 mg in the evening. Take before meals., Disp: , Rfl: metFORMIN (Glucophage) 500 MG tablet, Take by mouth 2 (two) times a day, Disp: , Rfl: metoprolol succinate XL (Toprol-XL) 100 MG 24 hr tablet, Take by mouth. Do not crush or chew., Disp: , Rfl: oxybutynin XL (Ditropan-XL) 10 MG 24 hr tablet, Take 10 mg by mouth in the morning. Do not crush, chew, or split. ., Disp: , Rfl: pantoprazole (ProtoNix) 40 MG EC tablet, Take 40 mg by mouth in the morning. Take before meals. Do not crush, chew, or split. ., Disp: , Rfl: Sacubitril-Valsartan (ENTRESTO PO), Take by mouth., Disp: , Rfl: spironolactone (Aldactone) 25 MG tablet, Take 12.5 mg by mouth in the morning., Disp: , Rfl: TAMSULOSIN HCL PO, Take by mouth., Disp: , Rfl: traZODone (Desyrel) 50 MG tablet, Take 50 mg by mouth at bedtime, Disp: , Rfl: allopurinol (Zyloprim) 300 MG tablet, Take by mouth., Disp: , Rfl: amitriptyline (Elavil) 10 MG tablet, Take by mouth at bedtime., Disp: , Rfl: Ascorbic Acid (vitamin C) 250 MG tablet, Take 250 mg by mouth in the morning., Disp: , Rfl: docusate sodium (Colace) 50 MG capsule, Take 50 mg by mouth in the morning and 50 mg before bedtime., Disp: , Rfl: fenofibrate micronized (Lofibra) 200 MG capsule, Take 200 mg by mouth in the morning. Take with meals., Disp: , Rfl: furosemide (Lasix) 20 MG tablet, Take by mouth., Disp: , Rfl: vitamin E 180 MG (400 UNIT) capsule, Take 180 mg by mouth in the morning., Disp: , Rfl: Allergies Acetaminophen and Oxycodone Past Surgical History Past Surgical History: Procedure Laterality Date CARDIAC DEFIBRILLATOR PLACEMENT 11/09/2023 COLECTOMY 2007 HEART CATH 2020 HERNIA REPAIR IR STENT PLACEMENT Family History Family History Problem Relation Name Age of Onset Heart disease Father Cancer Sister Objective Physical Exam Constitutional: Appearance: Normal appearance. HENT: Head: Normocephalic and atraumatic. Cardiovascular: Comments: Pedal pulses: DP 2/4 bilateral, PT 2/4 bilateral. Skin temp is warm to warm. Varicosities: mild, present Hair growth: present Musculoskeletal: General: No deformity. Right lower leg: No edema. Left lower leg: No edema. Comments: ROM: ankle joint and subtalar joint ROM are normal and pain free. DEFORMITIES: bilateral Hammer toe 2. PAIN: bilateral hallux nails. MUSCLE STRENGTH 5/5 for dorsiflexion, plantarflexion, inversion, eversion. Skin: General: Skin is warm. Capillary Refill: Capillary refill takes 2 to 3 seconds. Comments: SKIN FINDINGS: web spaces are clean/dry. NAIL PATHOLOGY:Nail 1 L is 5mm thick, yellow, crumbly, incurvated, with subungal debris at nail folds. Nail 2 L is 3mm thick, dystrophic, brittle, yellow and ferguson, fungal. Nail 5 R 3mm thick, discolored, mycotic. Nail 1 R is crumbly, white and yellow, with significant build up at lateral nail fold, mycotic. Nails 2,4,5 L are dystrophic. SKIN PATHOLOGY: texture, turgor, hair growth, within normal limits. Neurological: Mental Status: He is alert and oriented to person, place, and time. Comments: Light touch sensation intact Psychiatric: Mood and Affect: Mood normal. [id number] Assessment/Plan ICD-10-CM 1. Onychomycosis B35.1 2. Nail dystrophy L60.3 3. Pain in toes of both feet M79.674 M79.675 All mycotic nails were debrided in length and thickness by manual and mechanical means. Small and large nail nipper used along with electronic bobby. Advised patient of proper foot care to prevent any future complications. Return as needed if problems arise This note was created with the assistance of a speech recognition program. While intending to generate a timely document that accurately reflects the content of the visit, no guarantee can be provided that every grammatical or spelling mistake has been or will be identified or corrected. Thank you for your understanding. Candice Longoria DPM documented in this encounter [facility] 11-30-2023 Note Pulmonology Office/David crook Note History of Present Illness Here for evaluation for obstructive sleep apnea. The patient reports that he was diagnosed with obstructive sleep apnea many years ago and has been using CPAP via a fullface mask since then. Recently had some cardiac issues and he was advised reevaluation. Of note that the patient reports that his machine is now giving him problems and has an end-of-life message as well. He feels that his sleep quality is good when he is on the machine and his reports no snoring while he is on CPAP. He reports his weight has been relatively stable for the past few years. Review of Systems Constitutional: no fever, no chills, no sweats, no weakness Skin: no Jaundice, no rash, no lesions, no petechiae ENT: no ear pain, no sore throat, no congestion, no hoarseness Respiratory: Denies shortness of breath, cough or wheezing Cardiovascular: no chest pain, no palpitations, no edema Gastrointestinal: no nausea, no vomiting, no diarrhea, no GI bleeding Genitourinary: no dysuria, no hematuria, no discharge, no pain Musculoskeletal: no back pain, no trauma Neurologic: no headache, no dizziness, no numbness, no weakness Psychiatric: no irritability, no mood swings/depression. Heme/Lymph: no bleeding tendency, no bruising tendency, no petechiae, no swollen nodes Allergy/Immunologic: no seasonal allergies, no food allergies, no recurrent infections, no impaired immunity Additional ROS info: Except as noted in the above Review of Systems and in the History of Present Illness all other systems have been reviewed and are negative or noncontributory. Physical Exam General: Awake, alert, in no acute distress Skin: warm, dry Head: no trauma, normocephalic. Prolonged soft palate Neck: Trachea midline, no adenopathy, no tenderness Eye: normal conjunctiva, sclera clear ENMT: TM's clear, oral mucosa moist, no pharyngeal erythema or exudate Cardiovascular: regular rate and rhythm, normal peripheral perfusion Respiratory: Good breath sounds to both lung hicks without wheezing or crackles. Gastrointestinal: soft, non distended, no tenderness, no guarding. Back: No tenderness, Normal ROM, Normal alignment. Extremities: no deformity, no trauma Neurological: oriented x 4, LOC appropriate for age, CN II-XII intact, motor strength equal & normal bilaterally, sensation equal & normal bilaterally, speech normal Psychiatric: cooperative, affect appropriate for age, normal judgement, normal psychiatric thoughts. Assessment/Plan 1. CAROLYN (obstructive sleep apnea) (G47.33: Obstructive sleep apnea (adult) (pediatric)) The patient's sleep study was reviewed and results were discussed with the patient in details. Evidence of severe underlying obstructive sleep apnea with an apnea hypotony index of 30.4/hour with minimal oxygen desaturation noted. The etiology of obstructive sleep apnea and methods of treatment were discussed with the patient in details. I will arrange for a new CPAP machine with a pressure of 14 cm via a mask of his choice with heated humidity and see him back after 6 to 8 weeks with a download from his machine and reevaluate accordingly. He will call us back in the meantime if any issues. Follow-up With When Contact Information Hiral GUEVARA, Christiano Bobo, [facility] RODARTE Within 1 year [address] [facility] [place] [address]- Additional Instructions: Problem List/Past Medical History Ongoing Anxiety Benign hypertension with chronic kidney disease Bladder calculi BMI 34.0-34.9,adult BPH with urinary obstruction Chronic kidney disease (CKD), stage III (moderate) Chronic prostatitis Coronary artery stenosis Feeling of incomplete bladder emptying Herpes zoster Hypercholesterolemia Hypertension Insomnia Kidney stones Microhematuria Nocturia Obstructive sleep apnea CAROLYN (obstructive sleep apnea) Post-void dribbling Renal cyst Type 2 diabetes [...] Osteo Bi-Flex oral tablet, 1 tablet, Daily oxybut (more content not included)... [facility] 11-18-2023 Note Cardiovascular Medic [facility] SUBJECTIVE Chief Complaint Patient presents with Wound Check Luis Alfredo Almanza is a 82 y.o. male here for follow-up after his recent ICD implant. HPI He has been feeling well overall. He c/o dry mouth since starting new medications. Denies c/o CP, dyspnea, orthopnea, PND, LE edema, dizziness/LH, palpitations, syncope, fever/chills. Patient Active Problem List Diagnosis Abnormal results [...] Nocturia Post-void dribbling Kidney stones Renal cyst Past Medical History: Diagnosis Date CHF (congestive heart failure) (CMS/HCC) Coronary artery disease Diabetes mellitus (CMS/HCC) Hyperlipidemia Hypertension PVC (premature ventricular contraction) Sleep apnea No family history on file. Social History Tobacco Use Smoking status: Never Smokeless tobacco: Never Substance Use Topics Alcohol use: Yes Comment: occasional Allergies Allergen Reactions Oxycodone-Acetaminophen Other Hallucinations Review of Systems Constitutional: Negative for chills, decreased appetite, fever, malaise/fatigue and weight gain. Cardiovascular: Negative for chest pain, dyspnea on exertion, irregular heartbeat, leg swelling, near-syncope, orthopnea, palpitations, paroxysmal nocturnal dyspnea and syncope. Hematologic/Lymphatic: Negative for bleeding problem. Does not bruise/bleed easily. OBJECTIVE Visit Vitals Smoking Status Never Medications: Current Outpatient Medications: ALPRAZolam (Xanax) 0.5 mg [...] mouth in the morning., Disp: , Rfl: dapagliflozin propanediol (Farxiga) 10 mg, Take 1 tablet (10 mg) by mouth in the morning., Disp: 90 tablet, Rfl: 3 fenofibrate micronized (Lofibra) 200 mg capsule, Take [...] by mouth before breakfast., Disp: , Rfl: sacubitril-valsartan (Entresto) 49-51 mg tablet, Take 1 tablet by mouth in the morning and at bedtime., Disp: 180 tablet, Rfl: 3 spironolactone (Aldactone) 25 mg tablet, Take 0.5 tablets (12.5 mg) by mouth in the morning., Disp: 45 tablet, Rfl: 3 tamsulosin (Flomax) 0.4 mg 24 hr capsule, Take 0.4 mg by mouth in the morning and at bedtime., Disp: , Rfl: traZODone (Desyrel) 50 mg tablet, Take 50 mg by mouth at bedtime., Disp: , Rfl: Physical Exam Constitutional: Appearance: Normal appearance. He is normal weight. HENT: Head: Normocephalic and atraumatic. Right Ear: External ear normal. Left Ear: External ear normal. Eyes: Extraocular Movements: Extraocular movements intact. Pupils: Pupils are equal, round, and reactive to light. Neck: Vascular: No carotid bruit. Cardiovascular: Comments: Left upper chest pacemaker incision healing well. Resolving ecchymosis noted to lateral chest well. No erythema/calor, no hematoma. Pulmonary: Effort: Pulmonary effort is normal. Musculoskeletal: General: Normal range of motion. Cervical back: Neck supple. Right lower leg: No edema. Left lower leg: No edema. Skin: General: Skin is warm and dry. Neurological: General: No focal deficit present. Mental Status: He is alert and oriented to person, place, and time. Psychiatric: Mood and Affect: Mood normal. Behavior: Behavior normal. Thought Content: Thought content normal. Judgment: Judgment normal. Labs: Admission on 11/09/2023, Discharged on 11/09/2023 Component Date Value Ref Range Status Ventricular Rate 11/09/2023 56 BPM Final Atrial Rate 11/09/2023 56 BPM Final NE Interval 11/09/2023 214 ms Final Q (more content not included)... [facility] 11-16-2023 Hospital Discharge instructions Follow Up Care 11/16/2023 17:13:14 With:Hiral GUEVARA, Christiano Bobo, PUL, [place] Address: [address] [place] [address] Sleep Lab [place] [id number]- When:1 year [facility] 11-09-2023 Note DUAL CHAMBER ICD IMP LANT PROCEDURE NOTE DATE OF PROCEDURE: 11/09/2023 PERFORMING PHYSICIAN: Dr. Kevin Galeas CONSENT: Patient LOCATION: EP Lab PROCEDURE PERFORMED: 1. Implantation of Dual chamber ICD ([employer]) 2. Coronary sinus venogram 3. Ultrasound guided venous access INDICATIONS: 1. Ischemic cardiomyopathy 2. Non-LBBB 3. Chronic SHF NYHA Class III PROCEDURAL SEDATION: Versed and Fentanyl. Moderate sedation was administered by the sedation nurse under my supervision and noted in the CVL log. Intraprocedural face to face sedation time: 139min. Monitoring: Cardiac telemetry, Blood pressure, continuous pulse oxymetry. FLUOROSCOPY: 33.8min/ 623mGray EBL: 20cc SPECIMEN REMOVED: None PREPARATION: Patient was brought to the EP lab in the post absorptive state. A procedural pause was performed identifying the patient, the procedure to be performed and the site of implant. The left chest was prepped and draped in the usual sterile fashion. Preoperative antibiotics IV Ancef was administered. PROCEDURAL DETAILS: Patient was placed in supine position and ultrasound was used to assess the patency of left axillary vein. Once it was determined that the vein was patient, I decided to proceed with opening of the pocket. Local infiltration of 1% Lidocaine was performed and an incision was created in the left upper chest. Dissection was then performed using cautery down to the fascia over the muscle. Left axillary venous access was obtained under ultrasound guidance on three occasions using seldinger technique using a 5 Trinidadian micropunture needle and wires for 6/ 9 Trinidadian Safe sheath as well as a Verdon sheath for CS access were placed as noted below for lead placement. I created a small pocket which was large enough for the device to sit. 9F Safe sheath was advanced for RV ICD lead placement.. An active fixation [employer] ICD lead was then delivered through the 9Fsheath to the right ventricle. After confirmation of lead position on orthogonal views (JEONG and DANISH) to confirm septal position, the screw was activated and the lead was placed in the right ventricular mid cavity towards the septum.This was difficult to get a good septal location but succeeded eventually After confirmation of good sensing parameters, injury pattern and pacing thresholds, 10V pacing was done and no diaphragmatic stimulation was noted. It was then secured in the pocket using three 1-0 Silk sutures. Subsequently, I proceeded to perform the LV lead placement. Over the 0.035 wire, Bibi sheath was advanced into the RV. The dilator was removed and inner cannula was advanced over the wire. The RA was dilated and despite multiple attempts to cannulate the CS os, it was difficult to engage the CS body suggesting that there was a stenosis with os level. At this point in time, I removed the outer cannula and then decided to proceed with EZ steer. During this time, due to wire manipulation, the RV lead got displaced. I then went and repositioned that. I decided to abandon LV lead placement. An active fixation RA pacing lead was then delivered through the 6Fsheath to the right atrium. After confirmation of lead position on orthogonal views (JOENG and DANISH) to confirm appendage position, the screw was activated. After confirmation of good sensing parameters, injury pattern and pacing thresholds, 10V pacing was done and no diaphragmatic stimulation was noted. It was then secured in the pocket using three 1-0 Silk sutures. LV port was capped and the RA and RV ICD lead was attached to the RV and RA port respectively and the leads tug tested. Pocket hemostasis was secured and it was then copiously and vigorously irrigated with antibiotic solution. The leads were wrapped under the device and the device was placed in the pocket and the device tacked to the underlying muscle. The pocket was closed in layers: muscle, subcutaneous and skin layer using 2-0 Vicryl and glue applied. Dressing was placed on top. Lead parameters were then rechecked through the device as noted below. The patient was returned to the room for post procedural observation. No immediate procedural complications were noted. POST PROCEDURE EXAM: Patient was hemodynamically stable. COMPLICATIONS: None. IMPRESSION: 1. Dual Chamber ICD implantation with excellent pacing and sensing parameters. 2. Unsuccessful CS cannulation. RECOMMENDATIONS: 1. Dressing to be removed after 3 weeks. 2. Do not wet the incision for 7 days 3. No lifting heavy weights using arm on the same side. 4. Do not lift elbow above the shoulder on the same side for 4-6 weeks 5. No driving for 4 wks. 6. F/u in device clinic 2 week from discharge or sooner for any concerns Kevin Galeas MD Cardiac Electrophysiology [facility] 11-03-2023 Note [place] Elect[facility] Consult Note [place] [facility] Reason for visit: CMP HPI: Luis Alfredo Almanza is a 82 y.o. year old with past medical history of heart failure, CAD s/p bypass surgery 2013, aortic valve stenosis, hyperlipidemia who has been previously seen by Dr. JUAREZ. He has a prior histry as documented below 1. 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 He underwent CABG 11/10/2013, with OWENS to LAD and left radial artery to the OM. 2. Ischemic cardiomyopathy with mildly to moderately reduced left ventricular systolic (EF 41%) by echo 02/2014. 3. Mild mitral and moderate tricuspid regurgitation by echo 02/2014. 4. Hypertension. 5. Dyslipidemia. 6. CKD cr ~ 1.4 for several years Previous cath has revealed mild to moderate elevation of filling pressures, patent bypasses to the LAD and OM and moderate stenosis in the RCA. Due to frequent PVCs during the cardiac catheterization procedure, Dr JUAREZ I checked a Holter monitor and this [...] pain. No palpitations. No dizziness or lightheadedness. PMH: Past Medical History: Diagnosis Date CHF (congestive heart failure) ([facility]) Coronary artery disease Diabetes mellitus (CMS/HCC) Hyperlipidemia Hypertension PVC (premature ventricular contraction) Sleep apnea PSH: Past Surgical History: Procedure Laterality Date ABDOMINAL SURGERY CARDIAC CATHETERIZATION CORONARY ARTERY BYPASS GRAFT SH: Social Determinants of Health Tobacco Use: Low Risk (11/03/2023) Patient History Smoking Tobacco Use: Never Smokeless Tobacco Use: Never Passive Exposure: Not on file Alcohol Use: Not on file Financial Resource Strain: Not on file Food Insecurity: Not on file Transportation Needs: Not on file Physical Activity: Not on file Stress: Not on file Social Connections: Not on file Intimate Partner Violence: Unknown (05/14/2023) [place] Safety & Environment Fear of Current or Ex-Partner: Not on file Emotionally Abused: Not on file Physically Abused: Not on file Sexually Abused: Not on file Physically or Sexually Abused: Not on file Depression: Not on file Housing Stability: Not on file Utilities: Not on file Allergies: Allergies Allergen Reactions Oxycodone-Acetaminophen Other Hallucinations Weight: 116kg Visit Vitals BP 123/73 (BP Location: Right arm, Patient Position: Sitting) Pulse 53 Ht 1.829 m (6') Wt 116 kg (255 lb) SpO2 95% BMI 34.58 kg/m??? Smoking Status Never BSA 2.43 m??? Meds: Current Outpatient Medications on File Prior to Visit Medication Sig Dispense Refill allopurinol (Zyloprim) 300 mg tablet Take 300 mg by mouth in the morning. ALPRAZolam (Xanax) 0.5 mg tablet take 1 tablet by mouth once daily if needed amitriptyline (Elavil) 10 mg tablet aspirin 81 mg chewable tablet in the morning. atorvastatin (Lipitor) 20 mg tablet Take 20 mg by mouth at bedtime. cholecalciferol (Vitamin D-3) 25 MCG (1000 UT) capsule Take 1,000 Units by mouth in the morning. dapagliflozin propanediol (Farxiga) 10 mg Take 1 tablet (10 mg) by mouth in the morning. 90 tablet 3 dapagliflozin propanediol (Farxiga) 10 mg Take 1 tablet (10 mg) by mouth once daily as directed. 30 tablet 1 fenofibrate micronized (Lofibra) 200 mg capsule Take 200 mg by mouth with breakfast. finasteride (Proscar) 5 mg tablet Take 5 mg by mouth in the morning. glipiZIDE (Glucotrol) 5 mg tablet Take 5 mg by mouth in the morning. metFORMIN XR (Glucophage-XR) 500 mg 24 hr tablet Take 500 mg by mouth in the morning and at bedtime. metoprolol succinate XL (Toprol-XL) 100 mg 24 hr tablet Take 100 mg by mouth in the morning. oxybutynin XL (Ditropan-XL) 10 mg 24 hr tablet Take 10 mg by mouth in the morning. pantoprazole (ProtoNix) 40 mg EC tablet Take 40 mg by mouth before breakfast. sacubitril-valsartan (Entresto) 49-51 mg tablet Take 1 tablet by mouth in the morning and at bedtime. 180 tablet 3 spironolactone (Aldactone) 25 mg tablet Take 0.5 tablets (12.5 mg) by mouth in the morning. 45 tablet 3 tamsulosin (Flomax) 0.4 mg 24 hr capsule Take 0.4 mg by mouth in the morning and at bedtime. traZODone (Desyrel) 50 mg tablet Take 50 mg by mouth at bedtime. No current facility-administered medications on file prior to visit. ROS: Review of Systems HENT: Positive for hearing loss. Musculoskeletal: Positive for arthritis, back pain and joint pain. All other systems reviewed and are negative. Physical Exam: Constitutional General Appearance: well-nourished, well-developed, (more content not included)... 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 He underwent CABG [...] at bedtime., Disp: (more content not included)... [facility] 09-14-2023 Hospital Discharge instructions Patient Education 09/14/2023 [...] urethra. Follow these instructions at home: Take [id number] and prescription medicines only as told by [...] provider. Document Revised: 09/25/2021 Document Reviewed: 09/25/2021 [employer] Patient Education 2022 Kash. Follow Up Care 09/08/2022 09:30:53 With:MILDRED GUEVARA, Danny Keen, URL Address: [facility] [address] [place] [address]- [phone] When: Unknown [facility] 12-16-2022 Evaluation note Encounter Date Diagnosis [...] down the progression of CKD. Nov, Anurag ladd kid w cr kid I-IV (ICD-10 - [...] kidney stones. Continue follow-up with the urology. [employer] Other 06-19-2023 Hospital Discharge instructions Patient Education [...] urethra. Follow these instructions at home: Take [id number] and prescription medicines only as told by [...] Document Reviewed: 09/25/2021 Else[employer] Patient Education 2022 Kash. Follow Up Care 09/06/2021 10:14:50 With:MILDRED GUEVARA, Danny Keen URL Address: [facility] [address] [place] [address]- When: Unknown [facility] 06-17-2022 Hospital Discharge instructions Patient Education 09/06/2021 [...] prostate. Follow these instructions at home: Take [id number] and prescription medicines only as told by [...] 03/06/2001 Document Revised: 05/22/2018 Document Reviewed: 11/27/2016 [employer] Patient Education Nayate[employer]. Follow Up Care 03/08/2021 09:46:57 With:Danny LEVY MD, URL Address: [facility] [address], [place] [id number]- [id number] When:09/06/2022 [facility] evaluation + Plan note Future Appointments Appointment Date:09/08/2022 08:45:00 AM Scheduled Provider:Danny LEVY MD Location:[facility] Appointment Type:URO Office Visit [facility] evaluation + Plan note Future Appointments Appointment Date:2022 09:30:00 AM Scheduled Provider: Location:[facility] Appointment Type: Medicare Wellness Subsequent Appointment Date:09/14/2023 08:45:00 AM Scheduled Provider:Danny LEVY MD Location:[facility] Appointment Type:URO Office Visit [facility] evaluation + Plan note Future Appointments Appointment Date:09/14/2023 08:45:00 AM Scheduled Provider:Danny LEVY MD Location:[facility] Appointment Type:URO Office Visit Appointment Date:01/07/2024 11:00:00 AM Scheduled Provider: [facility] Type: Medicare Wellness Subsequent Appointment Date:03/01/2024 10:15:00 AM Scheduled Provider:Pk Monge MD Location:[facility] App[facility]ments Appointment Date:09/17/2023 08:15:00 PM Scheduled Provider: [facility] App[facility] Type:[facility] Sleep Study w/C-PAP () Appointment Date:01/07/2024 11:00:00 AM Scheduled Provider: Location:[facility] Appointment Type: Medicare Wellness Subsequent Appointment Date:03/01/2024 10:15:00 AM Scheduled Provider:Pk Monge MD [facility] App[facility] Type: Open Appointment Date:09/16/2024 08:15:00 AM Scheduled Provider:Danny LEVY MD Location:[facility] Appointment Type:URO Office Visit [facility] evaluation + Plan note Future Appointments Appointment Date:01/07/2024 11:00:00 AM Scheduled Provider: Location:[facility] Appointment Type: Medicare Wellness Subsequent Appointment Date:03/01/2024 10:15:00 AM Scheduled Provider:Pk Monge MD [facility] App[facility] Type: Open Appointment Date:09/16/2024 08:15:00 AM Scheduled Provider:Danny LEVY MD Location:[facility] Appointment Type:[facility]O [facility] App[facility]ments Appointment Date:03/01/2024 10:15:00 AM Scheduled Provider:Pk Monge MD [facility] App[facility] Type: Open Appointment Date:09/16/2024 08:15:00 AM Scheduled Provider:Danny LEVY MD Location:[facility] Appointment Type:URO Office Visit Appointment Date:01/09/2025 01:00:00 PM Scheduled Provider: [facility] App[facility] Type: Medicare Wellness Subsequent Diagnostic Tests Pending * HgbA1c 02/23/24 [facility] Evaluation + Plan note Future Appointments Appointment Date:11/01/2024 03:20:00 PM Scheduled Provider:Pk Monge MD Location:[facility] Appointment Type:FM Open Appointment Date:01/09/2025 01:00:00 PM Scheduled Provider: Location:[facility] Appointment Type:FM Medicare Wellness Subsequent Appointment Date:09/15/2025 08:00:00 AM Scheduled Provider:Danny LEVY MD Location:[facility] Appointment Type:URO Office Visit [facility] evaluation note* Diagnosis Onychomycosis- Primary Dermatophytosis of nail Nail dystrophy Other specified disease of nail Pain in toes of both feet documented in this encounter [facility] N[facility]ative - Reported* Type Description Date [...] RIGHT LEG FRACTURE Hospitalization History SEE ABOVE [employer] Other Hospital course Narrative No data available for this section [facility] [employer] Hospital Discharge instructions No data available for this section [facility] No data available for this section [facility] [employer] Summary Purpose Family History No Family History [...] section and content) DATE CREATED AUTHOR 09/16/2017 [facility] DATE CREATED AUTHOR AUTHOR'S ORGANIZ ATION 08/30/2020 [facility] DATE CREATED AUTHOR AUTHOR'S ORGANIZ ATION 12/27/2021 [facility] DATE CREATED AUTHOR AUTHOR'S ORGANIZ ATION 09/02/2023 [facility] DATE CREATED AUTHOR AUTHOR'S ORGANIZ ATION 02/25/2024 [facility] DATE CREATED AUTHOR AUTHOR'S ORGANIZ ATION 03/03/2024 [facility] DATE CREATED AUTHOR AUTHOR'S ORGANIZ ATION 07/15/2024 [facility] DATE CREATED AUTHOR AUTHOR'S ORGANIZ ATION 10/15/2024 [facility] DATE CREATED AUTHOR AUTHOR'S ORGANIZ ATION 10/17/2024 [facility] DATE CREATED AUTHOR AUTHOR'S ORGANIZ ATION 10/21/2024 [facility] Care Team (unrecognized sect ion and content) Local Area Network Administrator Relationship Specialty Start Date End Date Pk Monge MD [address] [place] [address] PCP - General Family Medicine 12/02/22 [employer] Area [employer] Administrator Relationship Specialty Start Date End Date Pk Monge MD [address] [place] [id number] PCP - General Family Medicine 12/02/22 Local Area Network Administrator Relationship Specialty Start Date End Date Pk Monge MD [address] [place] [address] PCP - General Family Medicine 12/02/22 Local Area Network Administrator Relationship Specialty Start Date End Date Pk Monge MD [address] [place] [address] PCP - General Family Medicine 12/02/22 REASON FOR VISIT (unrecogniz ed section and content) Reason Comments DM Foot Care PCP: Dr. Monge 08/21 04/15, A1C: 6.4, BS: 123, SS: 13 Reason Comments DM Foot Care PCP: Dr. Monge 12/14, A1C: 6.4 (02/29/24), BS: 127, SS: 13 Reason Comments DM Foot Care Pt is here today req uesitng diabetic foot care, he is due for diabetic foot examBS: 135 A1C: 7.8LV Dr. Monge [id number]: 13 FOR RECORDS PERTAINING TO PATIENTS WHO ARE [...] BE BASED ON THE PRIMARY CLINICAL RECORDS. [facility]. provides no warranty or guarantee of the accuracy or completeness of information in this document.
--- NOTE | 2024-10-31 07:58 | CA_ITS ---
Patient Name: JEFERSON BANGURA MR#: [id number] : 1940 Exam Date: 10/31/2024 Ordering Doctor: DR TRENT SINGH M.D. ECHOCARDIOGRAM REPORT PROCEDURE: CA ECHO DOPPLER COMPLETE INDICATIONS: Heart failure with reduced ejection fraction COMPARISON: None. DESCRIPTION: COMPLETE ECHOCARDIOGRAM Real-time transthoracic echocardiography with 2D, M-mode, spectral and color flow Doppler performed. QUALITY: Technical quality was good. LEFT VENTRICLE: Mild dilatation. Thickened septal wall. Global left ventricular systolic function is mildly to moderately decreased. LV EF: Estimated left ventricular ejection fraction is 40-45%. DIASTOLIC: ATRIAL SEPTUM: LEFT ATRIUM: Moderate dilatation. RIGHT ATRIUM: Mild dilatation. RIGHT VENTRICLE: Mild dilatation. Normal right ventricular systolic function. Pacer wire present. TRICUSPID VALVE: Normal mobility and thickness. No stenosis with mild regurgitation. No evidence of pulmonary hypertension. RVSP 23 mmHg. MITRAL VALVE: Normal mobility and thickness. No evidence of mitral valve stenosis. There is no mitral annular calcification. Mild mitral regurgitation. AORTIC VALVE: Normal trileaflet appearance. Moderately calcified aortic valve. Moderately diminished mobility. DVI 0.33, KENJI 1.3 cm2, Vmax 3.15 m/s, peak/mean gradient 40/24 mmHg. Mild aortic regurgitation. AORTIC ROOT: Normal diameter and appearance. PULMONIC VALVE: Normal thickness and mobility. No stenosis. Mild regurgitation. PERICARDIUM: No evidence of pericardial effusion. IVC: Collapses with inspiration. Normal size. PLEURA: CONCLUSION: 1. Mildly dilated left ventricle with mildly to moderately reduced systolic function. Estimated LVEF is 40 to 45%. 2. Mild right ventricular dilatation with normal systolic function. 3. Moderate aortic valve stenosis with mild regurgitation. 4. Mild mitral and tricuspid regurgitation. 5. Normal right-sided pressures. Adult Echocardiography Procedure Report Left Ventricle LVEDD (3.7 - 5.6 cm): 5.73 cm LVESD (2.2 - 4.0 cm): 4.90 cm LVIVS thickness (0.6 - 1.2 cm): 1.35 cm LVPW thickness (0.5 - 1.0 cm): 0.71 cm e': 0.05 m/s E - e': 15.17 LVOT Max Gradient: 4.30 mm[Hg] LVOT Area (cm2): 1.04 m/s Peak Velocity (LVOT): 1.04 m/s Mean Velocity (LVOT): 0.72 m/s LVOT Diameter 2.23 cm Left Ventricular Ejection Fraction: 40-45 % Left Atrium LA Volume Index (2D A2C): 43.18 ml/m2 Left Atrium Systolic Dimension: 6.06 cm Mitral Valve MV E to A Ratio: 0.84 Mitral Valve A-Wave Peak Velocity: 0.89 m/s Mitral Valve E-Wave Peak Velocity: 0.75 m/s Right Ventricle RV Internal Diastolic Dimension: 4.06 cm Aorta AO Root Diam: 3.40 cm Ascending Ao Diam: 3.35 cm Aortic Valve AoV Area (Peak Ray): 1.32 cm2, 1.36 cm2 AoV Area (VTI): 1.28 cm2, 1.39 cm2 Peak Velocity(Antegrade Flow): 2.96 m/s, 3.07 m/s, 3.15 m/s Peak Gradient(Antegrade Flow): 34.97 mm[Hg], 37.78 mm[Hg], 39.69 mm[Hg] Mean Velocity(Antegrade Flow): 2.13 m/s, 1.86 m/s, 2.35 m/s Mean Gradient(Antegrade Flow): 20.51 mm[Hg], 16.65 mm[Hg], 24.30 mm[Hg] Velocity Time Integral: 63.27 cm, 65.33 cm, 76.58 cm Tricuspid Valve Peak Velocity (Regurgitant Flow): 2.17 m/s, 2.24 m/s, 2.25 m/s Pulmonic Valve Mean Gradient: 3.39 mm[Hg] Mean Velocity: 0.87 m/s Peak Velocity: 1.30 m/s, 1.05 m/s Peak Gradient: 6.71 mm[Hg], 4.43 mm[Hg] Right Atrium Right Atrium Systolic Pressure: 71.55 ml, 71.55 ml Dictated by: Trent Singh M.D. on 10/31/2024 at 18:19 Approved by: Trent Singh M.D. on 10/31/2024 at 18:23
== END 2024-10-31 07:32 | disposition home or self-care (01) ==
LOC: CARD 07:34
PROVIDERS: Visit Provider Internal Medicine Interventional Cardiology
DX: I50.22 Chronic systolic (congestive) heart failure (principal); I35.0 Nonrheumatic aortic (valve) stenosis
CPT/HCPCS: 93306